=== PATIENT | male | born 1930 | race Caucasian/White ===

== ENCOUNTER 2017-05-25 07:40 | Inpatient (IN) ==
[~2017-05-25 07:40] MED LIST: ACETAMINOPHEN 500 MG TABLET PO ONE; CEFAZOLIN 1 G INJECTION IVP ONE; EPINEPHrine PF 0.25 MG, BUPIVACAINE 0.25% PF 30 ML, MORPHINE SULFATE 15 MG, KETOROLAC I... OPSITE ONE; FAMOTIDINE PB 20 MG/50 ML BAG IV ONE; LIDOCAINE 1% (10mg/ml) 10mL MDV SQ ONE; MELOXICAM 15 MG TABLET PO ONE; METOCLOPRAMIDE 10mg/2ml INJECTION IVP ONE; NOZIN NASAL SWAB NAS ONE; ONDANSETRON 4 MG/2 ML INJECTION IVP ONE; SALINE FLUSH 10ml SYRINGE IVF PRN; TRANEXAMIC ACID 1,000 MG in NS 100 ML IV ONE
[2017-05-25 08:10] VITALS: BMI 25.1
[2017-05-25] MEDS: LR 1,000 ML IV SCH ×2 (08:45→11:32)
--- NOTE | 2017-05-25 09:23 | Anesthesia Preoperative Report ---
Anesthesia Preoperative Record - Date and Time Date: 05/25/17 Preoperative Diagnosis: arthritis left knee Proposed Procedure: left total knee arthroplasty NPO Since Date: 05/25/17 NPO Since Time: 23:00 Allergies/Adverse Reactions: Allergies Allergy/AdvReac Type Severity Reaction Status Date / Time No Known Allergies Allergy Unknown Verified 05/25/17 08:24 - Vital Signs Vital Signs: Temperature 97.9 F 05/25/17 08:09 Pulse Rate 72 05/25/17 08:29 Respiratory Rate 14 05/25/17 08:09 Blood Pressure 141/81 H 05/25/17 08:09 Pulse Oximetry 95 05/25/17 08:09 Oxygen Delivery Method Room Air Height and Weight: Height 1.68 m Weight 70.6 kg Body Mass Index 25.1 - Medications Inpatient Medications: Current Medications Lactated Ringer's (Lactated Ringers) 1,000 mls @ 50 mls/hr IV .Q20H JOAQUINA Last Admin: 05/25/17 08:45 Dose: 50 mls/hr Sodium Chloride (Iv Flush) 10 - 80 ml IVF PRN PRN PRN Reason: [place] Home Medications: Home Medications Medication Instructions Recorded Confirmed Type Glucosa Tabares 2Kcl/Chondroitin Tabares 1 cap PO BID #0 10/06/11 05/24/17 History [Glucosamine & Chondroitin Cap] Omeprazole Magnesium [Prilosec Otc] 20 mg PO DAILY #0 10/07/11 05/25/17 History Fish Oil/Dha/Epa [Fish Oil 1,200 1 each PO AM AND NOON #0 08/19/13 05/24/17 History mg Fish Oil] Calcium 600 + D [Caltrate + D] 1 tab PO BID 05/01/17 05/24/17 History Glimepiride [Amaryl] 1 mg PO BID 05/01/17 05/25/17 History Melatonin/Pyridoxine [Melatonin 3 1 each PO HS 05/01/17 05/24/17 History mg Tablet] aspirin 81 mg tablet,delayed 81 mg PO DAILY tab 05/10/17 05/24/17 History release Citalopram [Celexa] 1 tab PO DAILY 05/18/17 05/25/17 History Cyanocobalamin (Vitamin B-12) 500 mcg SL DAILY 05/25/17 05/25/17 History [B-12] Multivitamin [One Daily 1 each PO DAILY 05/25/17 05/25/17 History Multivitamin] - Medical History Respiratory: Reports: Sleep Apnea (uses cpap ) Cardiovascular: Reports: Other (sees cardilogist once a year ) Renal/Endocrine: Reports: Diabetes Mellitus Type 2 (avg bs at home 130 ) - Surgical History Neurological Surgeries: Reports: Other (Lumbar fusion w/ metal stabilization) HEENT Surgeries: Reports: Eye Surgery (CATARACT X2) Respiratory Surgery/Treatments: Reports: CPAP Use GI Surgery/Treatments: Reports: Hernia Repair (LT ING), Colonoscopy, EGD ( gastric polyps) Surgery/Treatment: REPORT: Prostatectomy (ROBOT ASSISTED) Musculoskeletal Surgery/Tx: Reports: Total Knee Replacement (RIGHT 2013) Anesthesia Reactions: None Hx Family Anesthesia Reaction: No - Social History Smoking Status: Never smoker - Pertinent Findings Laboratory: CBC and BMP 05/25/17 08:18 BMP 05/25/17 08:18 Sodium 140 Potassium 4.3 Chloride 102 Carbon Dioxide 29 BUN 24.0 H Creatinine 1.0 Glucose 74 L Calcium 9.7 EKG Rhythm: Normal Sinus Rhythm, Bundle Branch Block - Physical Exam Respiratory Exam: Present: lungs clear, bilateral breath sounds equal Cardiovascular Exam: Present: regular rate and rhythm, no murmur - Airway Assessment Mallampati Score: III TMD: 3 Fingerbreadths Neck Extension: fair Teeth: patial upper dentures Overall Assessment: may be difficult intubation - ASA ASA Score: 2 - Plan Anesthesia: General Inhalation Gases Regional/Trunk Block: Spinal Peripheral Nerve Block: Saphenous-Left - Discussion Discussion: Discussed risks/options/alternatives of anesthesia and questions answered. Patient consents. Nursing pain assessment noted. Attestation Statement: Prior to the delivery of any anesthetic medication, I examined the patient, developed the plan, obtained the patient's consent and discussed the risk and benefits of the procedure with the patient/guardian.
[2017-05-25] MEDS ORDERED: D5-1/2NS 1,000 ML IV SCH (09:38)
[2017-05-25] MEDS ORDERED: MIDAZOLAM 2mg/2ml INJECTION IM PRN (09:44)
[2017-05-25] MEDS ORDERED: ROPIVACAINE 0.5% (5mg/ml) 30ml INJ ONE (09:45)
[2017-05-25] MEDS ORDERED: VANCOMYCIN 1,000 MG INJECTION ONE ×2 (09:51→10:01)
--- NOTE | 2017-05-25 10:16 | Anesthesia Procedure Note ---
Peripheral Nerve Blockade - Procedure Physician: Ankush Gomes MD Date: 05/25/17 Surgical Procedure: left knee arthroplasty Discussion: Discussed risks/options/alternatives of anesthesia and questions answered. Patient consents. Nursing pain assessment noted. Block Start: 09:45 Block Stop: 09:52 Blocked Employed: Adductor Canal Indication: Post-Operative Pain Approach: Left Side Confirmed Position: Supine Patient: Consent, Risks/Benefits Discussed, Informed, Post Block Act. Discussed IV Sedation: Yes Midazolam (mg): 2 Initial Vital Signs: Temperature 97.9 F 05/25/17 08:09 Temperature Source Oral 05/25/17 08:09 Pulse Rate 77 05/25/17 08:09 Respiratory Rate 14 05/25/17 08:09 Blood Pressure 141/81 H 05/25/17 08:09 Blood Pressure Mean 101 05/25/17 08:09 Blood Pressure Position Sitting 05/25/17 08:09 Pulse Oximetry 95 05/25/17 08:09 Oxygen Delivery Method 05/25/17 08:09 Post Vital Signs: Temperature 97.9 F 05/25/17 08:09 Pulse Rate 75 05/25/17 10:10 Respiratory Rate 15 05/25/17 10:10 Blood Pressure 115/68 05/25/17 10:10 Pulse Oximetry 93 05/25/17 10:10 Oxygen Delivery Method Room Air Post Block Pain Score: 0 Prep: Chlorhexadine/ETOH - Injectate Injection: Injection made incrementally with constant monitoring and aspiration every ml
[2017-05-25] MEDS ORDERED: MIDAZOLAM 2mg/2ml INJECTION ONE (10:21)
[2017-05-25] MEDS ORDERED: FentaNYL 100 MCG/2 ML INJECTION ONE (10:21)
[2017-05-25] MEDS ORDERED: KETAMINE 500 MG/10 ML INJECTION ONE (10:21)
[2017-05-25] MEDS: CEFAZOLIN 1 G INJECTION IVP ONE ×2 (10:40→15:40)
[2017-05-25] MEDS: TRANEXAMIC ACID 1,000 MG in NS 100 ML IV ONE ×3 (10:58→15:40)
--- NOTE | 2017-05-25 11:38 | History & Physical Update ---
- History and Physical Update Date: 05/25/17 Update: I evaluated this patient and found no changes in the history and clinical exam findings. The treatment plan and recommendations are also unchanged from the previous documentation.
[2017-05-25] MEDS: EPINEPHrine PF 0.25 MG, BUPIVACAINE 0.25% PF 30 ML, MORPHINE SULFATE 15 MG, KETOROLAC I... OPSITE ONE ×2 (12:15→15:40)
[2017-05-25] MEDS ORDERED: VANCOMYCIN 1,000 MG INJECTION IAR ONE (12:25)
--- NOTE | 2017-05-25 12:32 | Operative Note ---
- Procedure Date of Admission: 05/25/17 Side: left Preoperative Diagnosis: knee primary DJD Postoperative Diagnosis: Same as preoperative diagnosis. Operation: Procedures Total knee replacement (12/11/12) Operation: total knee arthroplasty Surgeon: Jannette Gomes MD Licensed Veterinary Technician: NAVEEN Baum Complications: None. Regional/Trunk Block: Spinal Estimated Blood Loss: See Anesthesia Record. Fluids: Please see Anesthesia Record. Description of Procedure: Mr. Iglesias and the left knee were identified and marked in the preoperative holding area. He was brought back to the operating suite and placed supine on the operating table. Spinal anesthetic was administered. The operative lower extremity was prepped and draped in a sterile fashion. Timeout was performed. He had a fixed varus deformity with a 5 degree flexion contracture. An anterior midline incision followed by medial parapatellar arthrotomy was performed. The tourniquet was not used until cementing. Hemostasis was obtained with electrocautery. The patella was resurfaced to a size 32. A distal femoral osteotomy was then performed in 5 of valgus using intramedullary guide. The femur was sized at a 4 and rotation set using the epicondylar axis. Distal femoral cuts were performed with a 4-in-1 cutting block. A proximal tibial cut was then made perpendicular to its long axis using an extramedullary guide. A large medial release was performed. At this point remaining meniscus and osteophytes were removed and joint cocktail was injected throughout soft tissue. Trial components were placed with a 9 mm spacer. This allowed for full extension and flexion and the patella tracked well. The leg was then exsanguinated and the tourniquet inflated to 250 mmHg. The tibia was then stamped at a size 4 at the proper rotation. The bone was then prepared for cementing and [employer] Tri[employer] components were cemented into place and allowed to cure in extension. The tourniquet was then let down and hemostasis obtained with electrocautery. Betadine solution was used during the curing period for 3 minutes. 1 g of vancomycin powder was placed into the joint before the capsulotomy was repaired with #1 Vicryl. I then left my printing assistant close the subcutaneous tissue and skin with 2-0 Vicryl and Monocryl. Dermabond was used on the skin. The drapes were then removed and he was taken to recovery room under the care of anesthesia.
--- NOTE | 2017-05-25 12:47 | Anesthesia Postoperative Note ---
- Date and Time Date: 05/25/17 Time: 13:00 - Status Patient Participated in Evaluation: Patient Participated in Person Vital Signs: Temperature 97.9 F 05/25/17 08:09 Pulse Rate 74 05/25/17 10:15 Respiratory Rate 14 05/25/17 10:15 Blood Pressure 114/67 05/25/17 10:15 Pulse Oximetry 92 05/25/17 10:15 Oxygen Delivery Method Room Air Respiratory Function: Airway Patent Cardiovascular Function: Regular Pulse EKG Rhythm: Normal Sinus Rhythm Mental Status: Alert and Oriented Pain Intensity: 0 Hydration: IV Infusing Complications During Recover: None Apparent - Follow-Up Instructions Instructions: Per Surgeon
[2017-05-25] MEDS ORDERED: ENOXAPARIN 40 MG/0.4 ML INJECTION SQ SCH (14:07)
[2017-05-25] MEDS ORDERED: DiphenhydrAMINE 50 MG/ML INJECTION IVP PRN (14:07)
[2017-05-25] MEDS ORDERED: ONDANSETRON 4 MG/2 ML INJECTION IVP PRN (14:07)
[2017-05-25] MEDS ORDERED: NOZIN NASAL SWAB NAS ONE (14:07)
[2017-05-25] MEDS ORDERED: DiphenhydrAMINE 25 MG CAPSULE PO PRN (14:07)
[2017-05-25] MEDS ORDERED: INSULIN ASPART 100unit/ml INJECTION SQ PRN (14:07)
[2017-05-25] MEDS ORDERED: LORazepam 1 MG TABLET PO PRN (14:07)
[2017-05-25] MEDS: ACETAMINOPHEN 325 MG TABLET PO SCH ×3 (14:45→21:08)
[2017-05-25] MEDS: NOZIN NASAL SWAB NAS SCH ×2 (15:09→21:09)
[2017-05-25] MEDS: NS 1,000 ML IV SCH (15:10)
--- NOTE | 2017-05-25 15:11 | XRay Report ---
Indication: postoperative image left knee replacement PROCEDURE: XR knee LT 2V: Encounter: Initial Comparison: May 01, 2017 Findings: Postoperative changes of left total knee replacement are seen. There is expected postoperative subcutaneous gas. No evidence of hardware failure or acute fracture. No retained radiopaque surgical instruments or sponges. Overlying material causing artifact. Impression: New left total knee prosthesis without evidence of immediate complication. .
[2017-05-25] MEDS ORDERED: WARFARIN 4 MG TABLET PO ONE ×2 (15:21→15:30)
--- NOTE | 2017-05-25 15:26 | Pharmacy Consult ---
Pharmacy Consult-Warfarin - Consult Information COUMADIN CONSULT (Initial): Dx: Post Joint. Baseline INR = Ordered for 05/26/17 Will give Warfarin 4mg today. Will continue to monitor and make adjustments accordingly. Thank you.
[2017-05-25] MEDS: CEFAZOLIN 2 G in NS 100 ML IV SCH (18:17)
[2017-05-25] MEDS: GlipiZIDE 5 MG TABLET PO SCH ×2 (18:47→18:49)
[2017-05-25] MEDS: GLIMEPIRIDE 1 MG TABLET PO SCH (18:56)
[2017-05-25] MEDS: ENOXAPARIN 40 MG/0.4 ML INJECTION SQ SCH (21:08)
[2017-05-25] MEDS: CALCIUM 600 + VIT D 400 TABLET PO SCH (21:09)
[2017-05-25] MEDS: DOCUSATE SODIUM 100 MG CAPSULE PO SCH (21:09)
[2017-05-25] MEDS: TRAMADOL 50 MG TABLET PO PRN (21:09)
[2017-05-25] MEDS ORDERED: SENNOSIDES 8.6 MG TABLET PO SCH (22:00)
[2017-05-26] MEDS: CEFAZOLIN 2 G in NS 100 ML IV SCH (02:11)
[2017-05-26] MEDS: NS 1,000 ML IV SCH (04:09)
[2017-05-26] MEDS ORDERED: OMEPRAZOLE 20 MG CAPSULE PO SCH (06:30)
--- NOTE | 2017-05-26 07:28 | Pharmacy Consult ---
Pharmacy Consult-Warfarin - Laboratory Information 05/26/17 04:27 INR 1.44 H - Consult Information Will give warfarin 4mg po today. Goal INR is 1.5-2.5. Once in range will stop the enoxaparin. Thank you.
--- NOTE | 2017-05-26 07:30 | Orthopedic Progress Note ---
Date: Subjective/Severity of Illness: Dennys is doing great. Pain is minimal. No CP, cough or SOA. He uses a CPAP at night. He was up with good tolerance. No concerns at this time. Orthopedic Objective PO Vital signs: Temperature 96.8 F 05/26/17 04:00 Pulse Rate 68 05/26/17 04:00 Respiratory Rate 8 L 05/26/17 04:00 Blood Pressure 120/68 05/26/17 04:00 Pulse Oximetry 98 05/26/17 04:00 Oxygen Delivery Method CPAP Oxygen Flow Rate 2 Height and Weight: Height 5 ft 6 in Weight 155 lb 10.342 oz Body Mass Index 25.1 - Constitutional General Appearance: Present: alert, no acute distress - Respiratory Exam Present: non-labored - Extremities Exam Extremities: Present: pulses intact. Absent: calf tenderness - Surgical Site Incision: Mepilex dressing intact, no drainage - Neurological Exam Present: no deficits - Psychiatric Exam Present: alert, normal affect - Labs Result Diagrams: 05/26/17 04:27 05/26/17 04:27 Abnormal lab results 05/25/17 05/26/17 05/26/17 Range/Units 08:18 04:27 04:27 RBC 3.86 L (4.50-5.90) M/MM3 Hgb 12.3 L (13.5-17.5) GM/DL Hct 38.8 L (41-53) % MCV 100.5 H (80-100) UM3 RDW Std Deviation 52.5 H (36.9-50.2) FL Plt Count 126 L (130-400) T/MM3 INR 1.44 H (0.99-1.21) BUN 24.0 H (9-20) MG/DL Glucose 74 L (75-110) MG/DL 05/26/17 Range/Units 04:27 RBC (4.50-5.90) M/MM3 Hgb (13.5-17.5) GM/DL Hct (41-53) % MCV (80-100) UM3 RDW Std Deviation (36.9-50.2) FL Plt Count (130-400) T/MM3 INR (0.99-1.21) BUN 28.0 H (9-20) MG/DL Glucose 71 L (75-110) MG/DL H & H 05/26/17 Range/Units 04:27 Hgb 12.3 L (13.5-17.5) GM/DL Hct 38.8 L (41-53) % Coagulation 05/26/17 Range/Units 04:27 INR 1.44 H (0.99-1.21) Orthopedic Assessment and Plan (1) Arthritis of left knee Status: Acute Assessment and Plan: L TKA 05/24/17 Mobilize with PT / OT. Lovenox / Coumadin protocol for DVT coverage. SCDs in use. CM for discharge planning. (2) Diabetes Status: Chronic Assessment and Plan: Resumed oral diabetic agent. Monitor BGMs 1800 devang diet. (3) Prostate CA Status: Chronic Assessment and Plan: Due to this hx we will place him on Lovenox / Coumadin protocol for 30 days after surgery. Hospital Course Summary Disclaimer: The visit summary below is not to be considered part of the above Progress Note.
[2017-05-26] MEDS: NOZIN NASAL SWAB NAS SCH ×2 (07:50→14:06)
[2017-05-26] MEDS: GLIMEPIRIDE 1 MG TABLET PO SCH (07:50)
[2017-05-26] MEDS: CALCIUM 600 + VIT D 400 TABLET PO SCH (08:40)
[2017-05-26] MEDS: ACETAMINOPHEN 325 MG TABLET PO SCH ×2 (08:40→14:04)
[2017-05-26] MEDS: DOCUSATE SODIUM 100 MG CAPSULE PO SCH (08:40)
[2017-05-26] MEDS ORDERED: CITALOPRAM 20 MG TABLET PO SCH (09:00)
[2017-05-26] MEDS ORDERED: POLYETHYL GLYCOL 3350 17gm PACKET PO SCH (09:00)
[2017-05-26] MEDS: TRAMADOL 50 MG TABLET PO PRN (10:25)
[2017-05-26 11:45] VITALS: BP 116/67; PULSE 66; RESP 16; TEMP 96.6; O2SAT 95
[2017-05-26] MEDS ORDERED: WARFARIN 4 MG TABLET PO SCH (12:00)
[2017-05-26] MEDS ORDERED: SENNOSIDES 8.6 MG TABLET PO PRN (12:34)
--- NOTE | 2017-05-26 14:15 | Discharge Summary ---
Orthopedic Discharge Info Date of admission: 05/25/17 07:49 Anticipated date of discharge: 05/26/17 Primary care physician: Yeison Ash MD Attending Physician: Ankush Gomes MD Consults: 05/25/17 07:54 Consult to Anesthesiology [CONS] Routine Consulting Provider: NAVEEN Pastor Reason For Exam: Preoperative Assessment 05/25/17 14:07 Case Management Consult [CONS] Routine Reason For Exam: Discharge Planning DME-Walker [CONS] Routine Height: 5 ft 6 in Weight: 155 lb 10.342 oz Comment: change dressing in 2 weeks Pharmacy Consult [CONS] Routine Pharmacy Consult: Coumadin/Warfarin Total Joint Outpatient Therapy [CONS] Routine Comment: change dressing in 2 weeks 05/26/17 IRU Screening [Inpatient Rehab Screening] [CONS] Routine - Discharge Diagnosis (1) Arthritis of left knee Status: Acute (2) Diabetes Status: Chronic (3) Prostate CA Status: Chronic - Procedures Procedures: Procedures Total knee replacement (12/11/12) Lt TKA 05/25/17. - Laboratory Result Diagrams: 05/26/17 04:27 05/26/17 04:27 Laboratory: Abnormal lab results 05/26/17 05/26/17 05/26/17 Range/Units 04:27 04:27 04:27 RBC 3.86 L (4.50-5.90) M/MM3 Hgb 12.3 L (13.5-17.5) GM/DL Hct 38.8 L (41-53) % MCV 100.5 H (80-100) UM3 RDW Std Deviation 52.5 H (36.9-50.2) FL Plt Count 126 L (130-400) T/MM3 INR 1.44 H (0.99-1.21) BUN 28.0 H (9-20) MG/DL Glucose 71 L (75-110) MG/DL H & H 05/26/17 Range/Units 04:27 Hgb 12.3 L (13.5-17.5) GM/DL Hct 38.8 L (41-53) % Coagulation 05/26/17 Range/Units 04:27 INR 1.44 H (0.99-1.21) Orthopedic Discharge HPI - HPI Comments This patient was admitted for elective surgical tx of end stage degenerative joint disease that failed to respond to conservative treatment. Further details of this is found in the admission H&P. Orthopedic Hospital Course Hospital course: 05/26/17 14:08 After appropriate preoperative clearance and signing of operative consent, the patient was given IV antibiotics, according to orthopedic protocol. The patient was taken to the operating room and underwent elective total knee arthroplasty. Following surgery, antibiotics were discontinued less than 24 hours according to joint protocol. Lovenox and Coumadin were initiated and SCDs added for DVT prevention. The dressing was clean, dry, and intact. Pain control was obtained via multimodal approach. Bowel motivation addressed with scheduled and PRN medications. Early mobilization was initiated through PT services. Discharge arrangements made by a collaborative effort between the patient and Case Management. Follow-up is scheduled in 2-3 weeks. Discharge instructions given by orthopedic providers and nursing staff at discharge. Discharge condition was good. Ongoing care required?: No Discharge Plan - Med Rec/Dispo Referrals/Follow Up: Ankush Gomes MD [Physician] - 06/19/17 1:00 pm [facility] Instructions: [facility] General Instructions, [facility] Postop Instructions Additional Instructions: [facility] ON 05/29/2017 AT 11:30AM FOR PHYSICAL THERAPY EVAL WITH L[facility]. PHONE [phone] [facility] TWICE A WEEK (MONDAYS AND THURSDAYS) FOR INR LAB DRAW FOR FOUR WEEKS. PHONE [phone] Prescriptions: New Acetaminophen [Tylenol] 650 mg PO QID tablet Enoxaparin Sodium [Lovenox] 40 mg SQ 2100 #5 syringe PEG 3350 17gm PACKET [Miralax] 17 gm PO DAILY packet Warfarin [Coumadin] 2 tab PO 1700 #60 tab Docusate Sodium [Colace] 100 mg PO BID capsule Tramadol [Ultram] 50 - 100 mg PO Q6H PRN #60 tablet PRN Reason: Pain Continue Glucosa Tabares 2Kcl/Chondroitin Tabares [Glucosamine & Chondroitin Cap] 1 cap PO BID # 0 Omeprazole Magnesium [Prilosec Otc] 20 mg PO DAILY #0 Fish Oil/Dha/Epa [Fish Oil 1,200 mg Fish Oil] 1 each PO AM AND NOON #0 Glimepiride [Amaryl] 1 mg PO BID Calcium 600 + D [Caltrate + D] 1 tab PO BID Cyanocobalamin (Vitamin B-12) [B-12] 500 mcg SL DAILY Melatonin/Pyridoxine [Melatonin 3 mg Tablet] 1 each PO HS Citalopram [Celexa] 1 tab PO DAILY Multivitamin [One Daily Multivitamin] 1 each PO DAILY Discontinued aspirin 81 mg tablet,delayed release 81 mg PO DAILY tab - Disposition 01 Discharged Home, Self-Care
[2017-05-26] MEDS: ENOXAPARIN 40 MG/0.4 ML INJECTION SQ SCH (15:07)
[2017-05-27] MEDS ORDERED: BISACODYL 10 MG SUPPOSITORY RECTALLY SCH (20:00)
== END 2017-05-26 15:40 | disposition home or self-care (01) | DRG 470 ==
LOC: SRG 07:49
PROVIDERS: ADMIT Orthopaedic Surgery; ATTEND Orthopaedic Surgery

== ENCOUNTER 2017-05-29 15:13 | Inpatient (IN) ==
[2017-05-29 16:58] VITALS: BMI 27.3
--- NOTE | 2017-05-29 18:13 | Pharmacy Consult ---
Pharmacy Consult-Warfarin - Laboratory Information 05/29/17 17:37 INR 4.89 H* - Consult Information Consult noted for a warfarin protocol on Mr Orourke. His INR came back at 4.89. We will give no warfarin today and we discontinued the enoxaparin. Thank you.
[2017-05-29] MEDS: ACETAMINOPHEN 325 MG TABLET PO SCH ×2 (18:14→20:58)
[2017-05-29] MEDS: GLIMEPIRIDE 1 MG TABLET PO SCH (18:14)
[2017-05-29] MEDS ORDERED: ENOXAPARIN 40 MG/0.4 ML INJECTION SQ SCH (21:00)
[2017-05-29] MEDS: CALCIUM 600 + VIT D 400 TABLET PO SCH (21:00)
[2017-05-29] MEDS: DOCUSATE SODIUM 100 MG CAPSULE PO SCH (21:00)
[2017-05-29] MEDS: GLUCOSAMINE/CHONDROITIN 500 MG/400 MG CAPSULE PO SCH (21:02)
[2017-05-29] MEDS: TRAMADOL 50 MG TABLET PO PRN (21:03)
[2017-05-29] MEDS: MELATONIN 1 MG TABLET PO SCH (21:03)
[2017-05-30] MEDS: TRAMADOL 50 MG TABLET PO PRN ×3 (06:12→21:53)
[2017-05-30] MEDS: OMEPRAZOLE 20 MG CAPSULE PO SCH (06:13)
--- NOTE | 2017-05-30 08:24 | Pharmacy Consult ---
Pharmacy Consult-Warfarin - Laboratory Information 05/29/17 05/30/17 17:37 04:42 INR 4.89 H* 4.20 H - Consult Information 87 y.o. Male post-op total knee replacement day 5. Patient started on Warfarin post-op for DVT prophylaxis. goal INR range= 1.5-2.0. Patient post-op dose= Warfarin 4 mg po daily today's INR= 4.2 and is supra-therapeutic. Potential drug-drug interactions exist between Warfarin and Citalopram and Warfarin and Cephalexin both medications may increase INR and risk of bleeding. No Warfarin dose ordered today. Pharmacy will continue to monitor and dose Warfarin. Thank you for the protocol, Lyn Leon RPh
--- NOTE | 2017-05-30 09:09 | Consult Note ---
<Orquidea Arellano V - Last Filed: 05/30/17 09:15> Consult Information - Data of Consult Patient: new to practice Consult date: 05/30/17 Requesting Physician: Jameel Stanton MD Primary Care Provider: Yeison Ash MD Family Provider: Yeison Ash MD - Consult Narrative Reason for consult: S/P left knee History of present illness: Mr Orourke is a pleasant 87-year-old gentleman who underwent a scheduled left knee replacement on 05/25/17 under the care of Dr. Gomes. He tolerated this procedure well and was discharged home on 05/26/17. Unfortunately, in the several days following this he developed weakness to the bilateral lower extremities, accompanied with increased swelling and pain of the left lower extremity. He was unable to care for himself at home. He followed up in the clinic yesterday for postop follow-up. Given this decline and continuing debility. He was screened and able to be accepted to the inpatient rehabilitation unit for ongoing postoperative strengthening and improve function. He is seen this morning for initial medical consultation. He is alert, oriented and pleasant. He does note having continued swelling and erythema to the left lower extremity with erythema around the incision. He reports that he is concerned that he is unable to ambulate with a walker due to his general weakness and debility. He is thankful for the opportunity to rehabilitation at [facility]. Morning laboratory studies are reviewed. WBC count was found to be 11.4, hemoglobin 11.1, hematocrit 34.2, platelet count slightly low at 107. Sodium is slightly low 132, potassium 4.6, BUN 25, creatinine 1.0, calculated osmolality 258. Fasting glucose this morning was 86. He was found to be hyper-anticoagulated with an initial INR last evening of 4.89, followed by recheck INR this morning of 4.20. 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 Sleep Apnea Yes: USES C-PAP Diabetes Mellitus Type 2 Yes Gastroesophageal Reflux Yes Disease Hx Incontinence Yes Osteoarthritis Yes Clinic Medical History (Last Reviewed 05/29/17 @ 10:36 by MIKE Arnett ) Arthritis (Chronic Medical) GERD (gastroesophageal reflux disease) (Chronic Medical) Cataract (Chronic Medical) Diabetes (Chronic Medical) Prostate CA (Chronic Medical) Balance disorder (Chronic Medical) Obstructive sleep apnea (Chronic Medical) Anxiety Surgical History: Rt TKA-2013; Radical Robotic Prostatectomy; Fx L4 - stabilization L3-5 Family History: Family History Father No problems noted. 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 Dr. Yeison Ash Embroidery Finisher Dr. Orellana Paving Machine Operator Dr. Vega Spine surgeon, Dr. Murrell Review of Systems All systems: reviewed and no additional remarkable complaints except as stated - Constitutional Constitutional: Present: fatigue, weakness (generalized) - Musculoskeletal Musculoskeletal: Present: as per HPI, joint swelling (left knee) - Integumentary/Breasts Integumentary: Present: as per HPI Integumentary Comments: Erythema around his left knee incision Medications Home Medications Medication Instructions Recorded Confirmed Type Glucosa Tabares 2Kcl/Chondroitin Tabares 1,500 mg PO BID #0 10/06/11 05/29/17 History [Glucosamine & Chondroitin Cap] Omeprazole Magnesium [Prilosec Otc] 20 mg PO DAILY #0 10/07/11 05/29/17 History Fish Oil/Dha/Epa [Fish Oil 1,200 1 each PO AM AND NOON #0 08/19/13 05/29/17 History mg Fish Oil] Calcium 600 + D [Caltrate + D] 1 tab PO BID 05/01/17 05/29/17 History Glimepiride [Amaryl] 1 mg PO BID 05/01/17 05/29/17 History Melatonin/Pyridoxine [Melatonin 3 1 each PO HS 05/01/17 05/29/17 History mg Tablet] Citalopram [Celexa] 1 tab PO DAILY 05/18/17 05/29/17 History Cyanocobalamin (Vitamin B-12) 500 mcg SL DAILY 05/25/17 05/29/17 History [B-12] Multivitamin [One Daily 1 each PO DAILY 05/25/17 05/29/17 History Multivitamin] Aspirin Chewable [ASA] 1 tab PO DAILY 05/29/17 05/29/17 History cephALEXin [Keflex] 500 mg PO QID 05/29/17 05/29/17 History Allergies Allergy/AdvReac Type Severity Reaction Status Date / Time No Known Allergies Allergy Unknown Verified 05/29/17 18:16 Exam Vital Signs: Temperature 98.0 F 05/30/17 07:56 Pulse Rate 96 05/30/17 07:56 Respiratory Rate 16 05/30/17 07:56 Blood Pressure 127/72 05/30/17 07:56 Pulse Oximetry 96 05/29/17 21:29 Oxygen Delivery Method Room Air Height: 1.68 m Weight: 76.7 kg Body Mass Index: 27.3 - Constitutional Present: no acute distress - Routine HEENT Exam Head: Present: normocephalic, atraumatic Eye: Present: EOMI, PERRL ENT: Present: mucous membranes moist - Routine Neck Exam Present: supple, full ROM - Routine Respiratory Exam Present: CTA bilaterally - Routine Cardiovascular Exam Present: RRR, S1, S2, no murmur - Routine Abdominal Exam Present: soft, normoactive bowel sounds, non distended, non tender - Routine Extremities Exam Present: edema (LLE), tenderness (Left knee) - Routine Back/Spine/Pelvis Exam Back/Spine: Present: full ROM - Routine Skin Exam Present: intact, dry, warm - Routine Neurological Exam Present: alert, oriented X3, CN II-XII intact Results - Labs CBC & Chem 7: 05/30/17 04:42 05/30/17 04:42 Assessment and Plan (1) Hyponatremia Current visit: Yes Status: Acute (2) S/P knee replacement Current visit: Yes Status: Acute (3) Elevated INR Current visit: Yes Status: Acute (4) Debility Current visit: Yes Status: Acute (5) Arthritis Current visit: No Status: Chronic (6) GERD (gastroesophageal reflux disease) Current visit: No Status: Chronic (7) Cataract Current visit: No Status: Chronic (8) Diabetes Current visit: No Status: Chronic (9) Prostate CA Current visit: No Status: Chronic (10) Leukocytosis Current visit: Yes Status: Acute DVT Prophylaxis: Coumadin Resuscitation Status: Full Code Assessment and Plan: Agree with admission to the inpatient rehabilitation unit under the care of Dr. Stanton for further postoperative strengthening and improve function. In light of left lower extremity swelling. Will obtain a venous Doppler to rule out DVT. Fortunately, patient is already anticoagulated on Coumadin therapy and is therapeutic, INR today is 4.2. Agree with continuing Keflex for antimicrobial coverage. Will ask nursing staff to place CHRISTINA hose to lower extremity to help mobilize edema. Monitor Accu-Cheks and continue current regimen of Amaryl twice a day He may utilize tramadol as needed for pain control Recommend continuing with scheduled Colace and MiraLAX for ongoing postoperative bowel motivation. Need to monitor laboratory studies as he has mild leukocytosis and hyponatremia Appreciate medical consultation. The hospitalist services will continue to follow patient and medical [place] his existing comorbidities. At time of discharge his medical care will return to his primary care provider. Dr. Ash Hospital Course Summary Disclaimer: The visit summary below is not to be considered part of the above Progress Note. 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 Brother Diabetes Exam Vital Signs: Temperature 98.0 F 05/30/17 07:56 Pulse Rate 96 05/30/17 07:56 Respiratory Rate 16 05/30/17 07:56 Blood Pressure 127/72 05/30/17 07:56 Pulse Oximetry 96 05/29/17 21:29 Oxygen Delivery Method Room Air Height: 1.68 m Weight: 76.7 kg Results - Labs CBC & Chem 7: 05/30/17 04:42 05/30/17 04:42 Assessment and Plan (1) Prostate CA Current visit: No Status: Chronic (2) Diabetes Current visit: No Status: Chronic (3) Cataract Current visit: No Status: Chronic (4) GERD (gastroesophageal reflux disease) Current visit: No Status: Chronic (5) Arthritis Current visit: No Status: Chronic (6) S/P knee replacement Current visit: Yes Status: Acute (7) Elevated INR Current visit: Yes Status: Acute (8) Debility Current visit: Yes Status: Acute (9) Hyponatremia Current visit: Yes Status: Acute (10) Leukocytosis Current visit: Yes Status: Acute Assessment and Plan: Have independently interviewed and examined pt. Chart reviewed. Case discussed with my SENIOR COMPLIANCE OFFICER. Above care plan developed with my supervision; agree with above. Rough recover from knee Sx. Did well in the 2 days he was hospitalized, but had significant weakness to his legs making ambulation extremely difficult. Despite outpatient efforts for therapy and care on the Mon and Monday post sx ( discharged on Monday) he could not get around. Noted f/c. Breathing stable-not with increased cough/congestion. Stools slow post op. Also, notes problems with right hearing aide-dose worry there is wax accumulation in ear. Lungs: clear CV: regular AB: soft nt/nd +BS MSE: awake alert appropriate HEENT: cerumen present in right ear-some able to be removed with direct visualization but not all. Plan: Agree with admission to IRU to maximize functional status. Hold Coumadin as INR elevated-monitor INR. Sono neg for DVT. Work on bowel motivation. Continue pain control. Remove ear wax. Medically stable for IRU floor activity. Hospital Course Summary Disclaimer: The visit summary below is not to be considered part of the above Progress Note.
[2017-05-30] MEDS: ASPIRIN 81 MG CHEWABLE TABLET PO SCH (09:19)
[2017-05-30] MEDS: ACETAMINOPHEN 325 MG TABLET PO SCH ×4 (09:19→22:01)
[2017-05-30] MEDS: GLUCOSAMINE/CHONDROITIN 500 MG/400 MG CAPSULE PO SCH ×2 (09:19→21:57)
[2017-05-30] MEDS: GLIMEPIRIDE 1 MG TABLET PO SCH ×2 (09:20→18:12)
[2017-05-30] MEDS: CALCIUM 600 + VIT D 400 TABLET PO SCH ×2 (09:20→21:54)
[2017-05-30] MEDS: CITALOPRAM 20 MG TABLET PO SCH (09:20)
[2017-05-30] MEDS: MULTI-VITAMIN PLAIN TABLET PO SCH (09:20)
[2017-05-30] MEDS: DOCUSATE SODIUM 100 MG CAPSULE PO SCH ×2 (09:20→21:58)
[2017-05-30] MEDS: CYANOCOBALAMIN (B-12) 500mcg TABLET PO SCH (09:20)
[2017-05-30] MEDS: OMEGA-3 ACID ESTERS 1 GM CAPSULE PO SCH ×2 (09:20→14:08)
[2017-05-30] MEDS: POLYETHYL GLYCOL 3350 17gm PACKET PO SCH (09:21)
--- NOTE | 2017-05-30 12:07 | Ultrasound Report ---
Indication: LLE swelling and erythema, recent knee replacement PROCEDURE: US venous doppler LE LT: Encounter: Initial Comparison: None Technique: Color Doppler duplex and grayscale sonographic imaging of the left lower extremity was performed. Findings: There is no evidence for acute deep venous thrombosis in the left thigh. Specifically, serial graded compression was performed from the inguinal ligament to the popliteal bifurcation, on the left thigh, demonstrating appropriate compressibility of the deep venous system. In addition, color and pulsed Doppler demonstrate appropriate spontaneous flow, variation with respiration, and augmentation with calf compression. At the ankle, normal flow is identified in the posterior tibial veins; these vessels are also normal in caliber. Impression: No evidence of acute DVT in the left lower limb. .
[2017-05-30] MEDS ORDERED: WARFARIN 2 MG TABLET PO SCH (17:00)
[2017-05-30] MEDS: MELATONIN 1 MG TABLET PO SCH (21:59)
[2017-05-30] MEDS: CARBAMIDE PEROXIDE 6.5% EAR DROPS 15ml RIGHT EAR SCH (22:04)
[2017-05-31] MEDS: OMEPRAZOLE 20 MG CAPSULE PO SCH (05:45)
--- NOTE | 2017-05-31 07:08 | IRU History & Physical Report ---
HPI IRU Date: Chief complaint: Left lower leg pain/ weakness. HPI: 87 yo gentleman s/p Left TKA. Pt was d/c shortly after procedure and went home , where he lives by himself. He was inpain and became increasingly weak, unable to manage ADL's. Left leg became increasingly swollen. IRU was contacted by Orthopedic Surgeon after pt went in for post op clinic yesterday. He would like to become strong enough to return home and is willing to work 3+ hours daily with PT and OT. 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 Sleep Apnea Yes: USES C-PAP Diabetes Mellitus Type 2 Yes Gastroesophageal Reflux Yes Disease Hx Incontinence Yes Osteoarthritis Yes Clinic Medical History (Last Updated 05/30/17 @ 09:15 by Orquidea Arellano APRN) Arthritis (Chronic Medical) GERD (gastroesophageal reflux disease) (Chronic Medical) Cataract (Chronic Medical) Diabetes (Chronic Medical) Prostate CA (Chronic Medical) Balance disorder (Chronic Medical) Obstructive sleep apnea (Chronic Medical) Surgical History: Rt TKA-2012; Radical Robotic Prostatectomy; Fx L4 - stabilization L3-5 Family History: Family History (Last Reviewed 05/29/17 @ 10:36 by MIKE Arnett) Father No problems noted. Brother Diabetes - Social History Smoking status: Never smoker Substance use type: does not use Alcohol intake frequency: does not drink Current residence: Independent Living Medications Home Medications Medication Instructions Recorded Confirmed Type Glucosa Tabares 2Kcl/Chondroitin Tabares 1,500 mg PO BID #0 10/06/11 05/29/17 History [Glucosamine & Chondroitin Cap] Omeprazole Magnesium [Prilosec Otc] 20 mg PO DAILY #0 10/07/11 05/29/17 History Fish Oil/Dha/Epa [Fish Oil 1,200 1 each PO AM AND NOON #0 08/19/13 05/29/17 History mg Fish Oil] Calcium 600 + D [Caltrate + D] 1 tab PO BID 06/12/17 07/10/17 History Glimepiride [Amaryl] 1 mg PO BID 05/01/17 05/29/17 History Melatonin/Pyridoxine [Melatonin 3 1 each PO HS 05/01/17 05/29/17 History mg Tablet] Citalopram [Celexa] 1 tab PO DAILY 05/18/17 05/29/17 History Cyanocobalamin (Vitamin B-12) 500 mcg SL DAILY 05/25/17 05/29/17 History [B-12] Multivitamin [One Daily 1 each PO DAILY 05/25/17 05/29/17 History Multivitamin] Aspirin Chewable [ASA] 1 tab PO DAILY 05/29/17 05/29/17 History cephALEXin [Keflex] 500 mg PO QID 05/29/17 05/29/17 History Allergies Allergy/AdvReac Type Severity Reaction Status Date / Time No Known Allergies Allergy Unknown Verified 05/29/17 18:16 Exam Vital Signs: Temperature 98.7 F 05/31/17 00:00 Pulse Rate 99 05/31/17 00:00 Respiratory Rate 15 05/31/17 00:00 Blood Pressure 122/66 05/31/17 00:00 Pulse Oximetry 97 05/31/17 00:00 Oxygen Delivery Method Room Air Telemetry Rhythm: Sinus Rhythm Height: 1.68 m Weight: 76.7 kg Body Mass Index: 27.3 - Constitutional Present: mild distress, cooperative - Routine HEENT Exam Head: Present: normocephalic - Routine Neck Exam Present: supple - Routine Respiratory Exam Present: CTA bilaterally. Absent: wheezes - Routine Cardiovascular Exam Present: RRR, no murmur - Routine Extremities Exam Present: edema. Absent: clubbing Sepsis Assessment - Evaluation Sepsis screening result: No Definite Risk IRU A/P (1) S/P knee replacement Current visit: Yes Status: Acute PT and OT will work with pt to increase strength and mobility post op. (2) Debility Current visit: Yes Status: Acute Pt will require PT and OT and case management to facilitate recovery and appropriate placement back at home. PT and OT developing plan of care. (3) Hyponatremia Current visit: Yes Status: Acute medical to follow. DVT Prophylaxis: Coumadin Resuscitation Status: Full Code - Course Hospital Course: Jameel E Romy, MD: - Interventions to Obtain Goals PT Treatment Plan: Balance/Proprioception, Functional Activities, Gait Training , Patient/Family Education, Therapeutic Exercise OT Treatment Plan: ADL (Basic Care), Balance Training, IADL, Pt./Family Education, Ther. Exercise for ADL
--- NOTE | 2017-05-31 07:15 | IRU 24Hr Post Admit Eval ---
24 Hr Post Admission Physical - Relevant Changes Relevant Changes: No Reviewed: I have reviewed the patient's information and concur with the finding and results of the pre-admission screen. Certification: I certify the patient for rehabilitation. - Patient Condition (1) S/P knee replacement Status: Acute Code(s): Z96.659 - Presence of unspecified artificial knee joint (2) Debility Status: Acute Code(s): R53.81 - Other malaise (3) Hyponatremia Status: Acute Code(s): E87.1 - Hypo-osmolality and hyponatremia - Prior Functional Status Lives With: Alone Residence Type: Apartment/Private Home Assitive Devices: None Prior Functional Status: Indep. at home or school - Current Functional Status Failed Alternative Therapy: Yes Patient Requirements: The patient requires oversight by rehabilitation physician to manage their rehabilitation treatment plan and multidisciplinary approach to care that can only be provided in an IRF and requires a multidisciplinary approach to care, provided by professional PTs, OTs, STs, dieticians, RTs, rehabilitation nurses and is not available in lesser levels of care. Limitiations Req: Mobility Impairment, ADL Impairment Physical Therapy Minutes: 90 Occupational Therapy Minutes: 90 Therapy: The patient is to receive therapy at least 5 days a week. - Complications/Comorbidities Impact on Functional Outcomes: With PT and OT, pt should be able to return to preop level of activity and independence. Barriers to Discharge: Weakness, Balance, Endurance, Pain Control - Plan to Avoid Complications Plan to Avoid Complications: The patient cannot receive this care in a lesser intensive setting such as [facility] or Outpatient Therapy due to the patient requiring intensive PT and OT to rebuild strength and increase balance and control to the point that he can return to independent living. .
--- NOTE | 2017-05-31 07:40 | Pharmacy Consult ---
Pharmacy Consult-Warfarin - Laboratory Information 05/29/17 05/30/17 05/31/17 17:37 04:42 04:38 INR 4.89 H* 4.20 H 2.75 H - Consult Information Goal INR is 1.5-2.5, will not give any warfarin today. Thank you.
[2017-05-31] MEDS: OMEGA-3 ACID ESTERS 1 GM CAPSULE PO SCH ×2 (08:51→13:04)
[2017-05-31] MEDS: CITALOPRAM 20 MG TABLET PO SCH (08:52)
[2017-05-31] MEDS: ASPIRIN 81 MG CHEWABLE TABLET PO SCH (08:52)
[2017-05-31] MEDS: CALCIUM 600 + VIT D 400 TABLET PO SCH ×2 (08:52→20:31)
[2017-05-31] MEDS: GLIMEPIRIDE 1 MG TABLET PO SCH ×2 (08:52→18:00)
[2017-05-31] MEDS: ACETAMINOPHEN 325 MG TABLET PO SCH ×4 (08:53→20:31)
[2017-05-31] MEDS: CYANOCOBALAMIN (B-12) 500mcg TABLET PO SCH (08:53)
[2017-05-31] MEDS: MULTI-VITAMIN PLAIN TABLET PO SCH (08:53)
[2017-05-31] MEDS: DOCUSATE SODIUM 100 MG CAPSULE PO SCH ×2 (08:54→20:30)
[2017-05-31] MEDS: POLYETHYL GLYCOL 3350 17gm PACKET PO SCH (09:05)
[2017-05-31] MEDS: GLUCOSAMINE/CHONDROITIN 500 MG/400 MG CAPSULE PO SCH ×2 (09:08→20:32)
[2017-05-31] MEDS: CARBAMIDE PEROXIDE 6.5% EAR DROPS 15ml RIGHT EAR SCH ×2 (09:27→20:32)
[2017-05-31] MEDS ORDERED: PNEUMOCOCCAL 13 VACCINE 0.5ml INJECTION IM ONE (14:07)
[2017-05-31] MEDS: MELATONIN 1 MG TABLET PO SCH (20:30)
[2017-05-31] MEDS: TRAMADOL 50 MG TABLET PO PRN (20:35)
[2017-06-01] MEDS: MELATONIN 1 MG TABLET PO SCH ×2 (01:01→21:08)
[2017-06-01] MEDS: TRAMADOL 50 MG TABLET PO PRN ×3 (02:07→23:29)
[2017-06-01] MEDS: OMEPRAZOLE 20 MG CAPSULE PO SCH ×2 (05:24→15:12)
--- NOTE | 2017-06-01 07:50 | Pharmacy Consult ---
Pharmacy Consult-Warfarin - Laboratory Information 05/29/17 05/30/17 05/31/17 17:37 04:42 04:38 INR 4.89 H* 4.20 H 2.75 H 06/01/17 05:10 INR 2.13 H - Consult Information INR RANGE IS 1.5-2.5. Will give warfarin 2mg po today. Thank you.
[2017-06-01] MEDS: POLYETHYL GLYCOL 3350 17gm PACKET PO SCH (08:26)
[2017-06-01] MEDS: CALCIUM 600 + VIT D 400 TABLET PO SCH ×2 (08:27→21:09)
[2017-06-01] MEDS: DOCUSATE SODIUM 100 MG CAPSULE PO SCH ×2 (08:27→21:10)
[2017-06-01] MEDS: CITALOPRAM 20 MG TABLET PO SCH (08:28)
[2017-06-01] MEDS: GLIMEPIRIDE 1 MG TABLET PO SCH ×2 (08:28→17:51)
[2017-06-01] MEDS: OMEGA-3 ACID ESTERS 1 GM CAPSULE PO SCH ×2 (08:28→12:29)
[2017-06-01] MEDS: ACETAMINOPHEN 325 MG TABLET PO SCH ×4 (08:28→21:10)
[2017-06-01] MEDS: CYANOCOBALAMIN (B-12) 500mcg TABLET PO SCH (08:28)
[2017-06-01] MEDS: MULTI-VITAMIN PLAIN TABLET PO SCH (08:28)
[2017-06-01] MEDS: ASPIRIN 81 MG CHEWABLE TABLET PO SCH (08:28)
[2017-06-01] MEDS: GLUCOSAMINE/CHONDROITIN 500 MG/400 MG CAPSULE PO SCH ×2 (08:31→21:09)
--- NOTE | 2017-06-01 11:49 | Progress Note ---
<Erin Fowler - Last Filed: 06/01/17 11:43> Subjective: Dennys was resting in bed, CPM on left knee. He has noticed improvement, but yesterday/last night. His pain was out of control. He noticed that his blood pressure shot up at that time, but states that usually his blood pressure is under very good control and he does not take any antihypertensives. Today, his pain is better, currently rates it as 6/10. He notes ongoing purple discoloration of the left lower extremity and mild tenderness. Ultrasound was negative for DVT. We reviewed his labs, including therapeutic INR, normal renal function, and slightly low hemoglobin. 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 He did ask to have INR drawn by fingersticks, rather than venous draws because of his tendency to bruise easily. He states that he did have some problems with constipation, but this has resolved. He is worried about paying trend.ly home. He is not there, and I called the housing case manager to visit with him about these concerns. Objective Vital signs: Temperature 98.7 F 06/01/17 00:00 Pulse Rate 91 06/01/17 00:00 Respiratory Rate 18 06/01/17 00:00 Blood Pressure 150/81 H 06/01/17 00:00 Pulse Oximetry 98 06/01/17 00:00 Oxygen Delivery Method Room Air Body Mass Index: 27.3 - Constitutional Present: no acute distress, well nourished, well developed - Routine HEENT Exam ENT: Present: mucous membranes moist, oropharynx clear - Routine Respiratory Exam Present: CTA bilaterally - Routine Cardiovascular Exam Present: RRR, S1, S2, murmur (2/6 systolic) - Routine Abdominal Exam Present: soft, normoactive bowel sounds, non distended, non tender - Routine Extremities Exam Present: calf tenderness (left) - Routine Musculoskeletal Exam Musculoskeletal: Present: limited range of motion. Absent: no joint swelling ( knee left) - Routine Skin Exam Present: intact, dry, warm, ecchymosis (left leg) - Routine Neurological Exam Present: alert, oriented X3 - Routine Psychiatric Exam Present: normal affect, normal thought process Results - Labs CBC & Chem 7: 05/31/17 04:38 05/31/17 04:38 Assessment and Plan (1) Thrombocytopenia Current visit: Yes Status: Acute (2) Hyponatremia Current visit: Yes Status: Acute (3) S/P knee replacement Current visit: Yes Status: Acute (4) Debility Current visit: Yes Status: Acute (5) Normocytic anemia Current visit: Yes Status: Acute Resuscitation Status: Full Code Assessment and Plan: Continue therapy and pain control per attending. INR therapeutic and venous Doppler was negative for DVT. Continue Coumadin per pharmacy protocol. May start obtaining INR via fingerstick. 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 Discussed with housing case manager, she will come and visit with Dennys about his concerns. Constipation has improved. Mild hyponatremia, thrombocytopenia, and mild normocytic anemia: Repeat labs ( CBC, BMP) on June 05. Sepsis Assessment - Evaluation Sepsis screening result: No Definite Risk Hospital Course Summary Disclaimer: The visit summary below is not to be considered part of the above Progress Note. Hospital Course: 06/01/17 12:13 Continue therapy and pain control per attending. INR therapeutic and venous Doppler was negative for DVT. Continue Coumadin per pharmacy protocol. May start obtaining INR via fingerstick. 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 Discussed with housing case manager, she will come and visit with Dennys about his concerns. Constipation has improved. Mild hyponatremia, thrombocytopenia, and mild normocytic anemia: Repeat labs ( CBC, BMP) on June 05. <Tom Ray D - Last Filed: 06/01/17 15:25> Objective Vital signs: Temperature 98.7 F 06/01/17 00:00 Pulse Rate 91 06/01/17 00:00 Respiratory Rate 18 06/01/17 00:00 Blood Pressure 150/81 H 06/01/17 00:00 Pulse Oximetry 98 06/01/17 00:00 Oxygen Delivery Method Room Air Results - Labs CBC & Chem 7: 05/31/17 04:38 05/31/17 04:38 Assessment and Plan (1) S/P knee replacement Current visit: Yes Status: Acute (2) Debility Current visit: Yes Status: Acute (3) Hyponatremia Current visit: Yes Status: Acute (4) Thrombocytopenia Current visit: Yes Status: Acute (5) Normocytic anemia Current visit: Yes Status: Acute Assessment and Plan: Have independently interviewed and examined pt. Chart reviewed. Case discussed with my MOLD INSERT CHANGER. Above care plan developed with my supervision; agree with above. Doing better today. Tolerating therapy-hard work. Pain responding well to medications. Bowels moving. Appetite with slight decrease, but no nausea. Breathing well. Lungs: clear CV: regular AB: soft nt/nd +BS MSE: awake alert appropriate Plan: Continue with PT/OT to maximize functional status. Continue with current medication. Monitor bowel function secondary to narcotic medications. Doing well medically and progressing with therapy. Medically stable for IRU floor activities. Hospital Course Summary Disclaimer: The visit summary below is not to be considered part of the above Progress Note.
[2017-06-01] MEDS ORDERED: WARFARIN 2 MG TABLET PO SCH (12:00)
[2017-06-01] MEDS: CARBAMIDE PEROXIDE 6.5% EAR DROPS 15ml RIGHT EAR SCH ×2 (13:27→21:08)
--- NOTE | 2017-06-01 15:20 | IRU Plan of Care ---
IRU Overall Plan of Care - Date Date: 06/01/17 - Patient Impairments (1) Thrombocytopenia Code(s): D69.6 - Thrombocytopenia, unspecified Status: Acute Classification: Present on IRF Admission, Diagnosis Requiring Medical Follow Up (2) Hyponatremia Code(s): E87.1 - Hypo-osmolality and hyponatremia Status: Acute Classification: Present on IRF Admission, Diagnosis Requiring Medical Follow Up (3) Normocytic anemia Code(s): D64.9 - Anemia, unspecified Status: Acute Classification: Present on IRF Admission, Diagnosis Requiring Medical Follow Up (4) S/P knee replacement Code(s): Z96.659 - Presence of unspecified artificial knee joint Status: Acute Classification: Present on IRF Admission, IRF Tx That Should Address Diagnosis (5) Debility Code(s): R53.81 - Other malaise Status: Acute Classification: Present on IRF Admission, IRF Tx That Should Address Diagnosis - Relevant Changes Relevant Changes: No Reviewed: I have reviewed the patient's information and concur with the finding and results of the pre-admission screen. Certification: I certify the patient for rehabilitation. - Medical Prognosis Medical Prognosis: Fair Vital Signs: Last Vital Signs Temp 98.7 F 06/01/17 00:00 Pulse 91 06/01/17 00:00 Resp 18 06/01/17 00:00 BP 150/81 H 06/01/17 00:00 Pulse Ox 98 06/01/17 00:00 - Anticipated Interventions Anticipated Interventions: The patient requires inpatient IRF care for PT, OT, and/or ST for residuals remaining from [] resulting in muscular weakness and strength deficits. ROM Deficit: Left Lower Extremity Strength Deficits: Left Lower Extremity - FIM Ambulation Distance: 72 Wheelchair Propulsion Distance: 83 Toileting Adaptive Equipment: Grab Bars Number of Continent Voids: 1 Number of Incontinent Voids: 1 - Current Functional Status Failed Alternative Therapy: Yes Patient Requires: The patient requires oversight by rehabilitation physician to manage their rehabilitation treatment plan and multidisciplinary approach to care that can only be provided in an IRF and requires a multidisciplinary approach to care, provided by professional PTs, OTs, STs, dieticians, RTs, rehabilitation nurses and is not available in lesser levels of care. Physical Therapy Minutes: 90 Occupational Therapy Minutes: 90 Therapy: The patient is to receive therapy at least 5 days a week. - Anticipated LOS/Outcomes Anticipated Functional Outcome: Expect improvement to presurgical status with PT and OT support. Anticipated DC Destination: Home Health Service Home Safety Plan: The patient will be provided with the development of a Home Safety Plan for return to a home or home-like environment and and to ensure safety post discharge. - Plan to Avoid Complications Barriers to Attaining Goals: Weakness, Balance, Endurance, Pain Control Plan to Avoid Complications: The patient cannot receive this care in a lesser intensive setting such as Senior Living or Outpatient Therapy due to the patient requiring medical supervision due to cellulitis.
[2017-06-01] MEDS ORDERED: PNEUMOCOCCAL VAC ADMIN CHARGE INJ ONE (21:30)
[2017-06-02] MEDS: OMEPRAZOLE 20 MG CAPSULE PO SCH (06:30)
--- NOTE | 2017-06-02 08:05 | Pharmacy Consult ---
Pharmacy Consult-Warfarin - Laboratory Information 05/29/17 05/30/17 05/31/17 17:37 04:42 04:38 INR 4.89 H* 4.20 H 2.75 H 06/01/17 06/02/17 05:10 06:29 INR 2.13 H 1.70 H COUMADIN CONSULT (Recurring): Today's INR = 1.70. Patient's INR is subtherapeutic today, so I will order Warfarin 3 mg today. The Pharmacy will continue to monitor & make adjustments accordingly. Thank you for the Warfarin Dosing Protocol, Geovanni Osborne, Pharmacist.
[2017-06-02] MEDS: CARBAMIDE PEROXIDE 6.5% EAR DROPS 15ml RIGHT EAR SCH ×2 (08:38→21:06)
[2017-06-02] MEDS: CYANOCOBALAMIN (B-12) 500mcg TABLET PO SCH (08:39)
[2017-06-02] MEDS: ASPIRIN 81 MG CHEWABLE TABLET PO SCH (08:39)
[2017-06-02] MEDS: ACETAMINOPHEN 325 MG TABLET PO SCH ×4 (08:39→21:06)
[2017-06-02] MEDS: CITALOPRAM 20 MG TABLET PO SCH (08:40)
[2017-06-02] MEDS: CALCIUM 600 + VIT D 400 TABLET PO SCH ×2 (08:40→21:06)
[2017-06-02] MEDS: GLIMEPIRIDE 1 MG TABLET PO SCH ×2 (08:40→17:36)
[2017-06-02] MEDS: MULTI-VITAMIN PLAIN TABLET PO SCH (08:40)
[2017-06-02] MEDS: DOCUSATE SODIUM 100 MG CAPSULE PO SCH ×2 (08:40→21:06)
[2017-06-02] MEDS: OMEGA-3 ACID ESTERS 1 GM CAPSULE PO SCH ×2 (08:40→12:26)
[2017-06-02] MEDS: POLYETHYL GLYCOL 3350 17gm PACKET PO SCH (08:41)
[2017-06-02] MEDS: GLUCOSAMINE/CHONDROITIN 500 MG/400 MG CAPSULE PO SCH ×2 (08:42→21:06)
[2017-06-02] MEDS: TRAMADOL 50 MG TABLET PO PRN ×4 (08:53→21:05)
[2017-06-02] MEDS ORDERED: WARFARIN 3 MG TABLET PO SCH (12:00)
--- NOTE | 2017-06-02 14:32 | IRU Progress Note ---
- Subjective/Serverity of Illness Continued pain and left knee. Patient is working with physical therapy and extending walks, showing improvement stamina. Exam Vital Signs: Oxygen Delivery Method Room Air Telemetry Rhythm: Sinus Rhythm Height: 1.68 m Weight: 74.8 kg Body Mass Index: 27.3 - Constitutional Present: no acute distress - Routine Respiratory Exam Present: CTA bilaterally. Absent: wheezes, crackles - Routine Cardiovascular Exam Present: RRR, no murmur - Routine Abdominal Exam Present: soft, normoactive bowel sounds, non distended. Absent: tenderness - Detailed Lower Extremity Exam Knee: Left swelling, Left tenderness, Left wound, Left decreased ROM Lower leg: Left swelling (1+ edema) Sepsis Assessment - Evaluation Sepsis screening result: No Definite Risk IRU A/P (1) Thrombocytopenia Current visit: Yes Status: Acute Managed by Medical (2) Hyponatremia Current visit: Yes Status: Acute Managed by Medical (3) Normocytic anemia Current visit: Yes Status: Acute (4) S/P knee replacement Current visit: Yes Status: Acute Stable and doing well. Cooperative with PT and OT program. Pain still a moderate issue. Consider changing meds, bu he would like to try one or two more days first. (5) Debility Current visit: Yes Status: Acute See FIM scores. He is improving dramatically. DVT Prophylaxis: Coumadin Resuscitation Status: Full Code - Course Hospital Course: Jameel Stanton MD: - Interventions to Obtain Goals PT Treatment Plan: Balance/Proprioception, Functional Activities, Gait Training , Patient/Family Education, Therapeutic Exercise OT Treatment Plan: ADL (Basic Care), Balance Training, IADL, Pt./Family Education, Ther. Exercise for ADL
[2017-06-02] MEDS: MELATONIN 1 MG TABLET PO SCH (21:04)
[2017-06-03] MEDS: TRAMADOL 50 MG TABLET PO PRN ×5 (04:57→21:45)
[2017-06-03] MEDS: OMEPRAZOLE 20 MG CAPSULE PO SCH (06:43)
--- NOTE | 2017-06-03 08:06 | Pharmacy Consult ---
Pharmacy Consult-Warfarin - Laboratory Information 05/29/17 05/30/17 05/31/17 17:37 04:42 04:38 INR 4.89 H* 4.20 H 2.75 H 06/01/17 06/02/17 06/03/17 05:10 06:29 06:31 INR 2.13 H 1.70 H 1.80 H - Consult Information 87 y.o. Male post-op day 9 total knee replacement. Warfarin per pharmacy protocol ordered for DVT prophylaxis. Goal INR range= 1.5 to 2.0. Today's INR is therapeutic at 1.8. Will give Warfarin 2 mg po today. Pharmacy will monitor and adjust as needed. Thank you, Lyn Leon [facility]
[2017-06-03] MEDS: CALCIUM 600 + VIT D 400 TABLET PO SCH (08:35)
[2017-06-03] MEDS: CYANOCOBALAMIN (B-12) 500mcg TABLET PO SCH (08:35)
[2017-06-03] MEDS: DOCUSATE SODIUM 100 MG CAPSULE PO SCH ×2 (08:36→21:46)
[2017-06-03] MEDS: GLIMEPIRIDE 1 MG TABLET PO SCH ×2 (08:36→17:49)
[2017-06-03] MEDS: OMEGA-3 ACID ESTERS 1 GM CAPSULE PO SCH (08:36)
[2017-06-03] MEDS: CITALOPRAM 20 MG TABLET PO SCH (08:36)
[2017-06-03] MEDS: MULTI-VITAMIN PLAIN TABLET PO SCH (08:37)
[2017-06-03] MEDS: POLYETHYL GLYCOL 3350 17gm PACKET PO SCH (08:37)
[2017-06-03] MEDS: ACETAMINOPHEN 325 MG TABLET PO SCH ×4 (08:38→23:15)
[2017-06-03] MEDS: ASPIRIN 81 MG CHEWABLE TABLET PO SCH (08:38)
[2017-06-03] MEDS: GLUCOSAMINE/CHONDROITIN 500 MG/400 MG CAPSULE PO SCH (08:39)
--- NOTE | 2017-06-03 11:45 | Progress Note ---
Subjective: Dennys is seen today in follow up for his recent knee replacement. He is seen immediately upon his return from breakfast and is noted to be ambulating well with assistance. He denies any complaints or concerns including no chest pain, shortness of breath, abdominal pain, nausea, vomiting or dysuria. He does admit to some knee pain that is worse with movement and therapy but is relieved with his pain medication. He comments on wishing that he could start his day with his pain medication prior to his therapy so he is not playing catch up with the pain. Vital signs are stable. Bowels are moving and appetite is good. Exam reveals 2-3+ pitting edema to left lower leg and knee with erythema noted to lateral and posterior aspects of his knee. Bandage in place, clean, dry and intact with no discharge. Cardiac exam reveals regular rate and rhythm and lungs sounds are clear and diminished bilaterally. Objective Vital signs: Temperature 98.6 F 06/02/17 20:03 Pulse Rate 91 06/02/17 20:03 Respiratory Rate 16 06/02/17 20:03 Blood Pressure 116/69 06/02/17 20:03 Pulse Oximetry 96 06/02/17 20:03 Oxygen Delivery Method Room Air Body Mass Index: 27.3 - Constitutional Present: no acute distress, well nourished, well developed, cooperative - Routine HEENT Exam Head: Present: normocephalic, atraumatic Eye: Present: EOMI. Absent: conjunctival icterus, scleral injection ENT: Present: mucous membranes moist, oropharynx clear - Routine Respiratory Exam Present: decreased breath sounds, CTA bilaterally. Absent: rhonchi, stridor, wheezes - Routine Cardiovascular Exam Present: RRR, S1, S2 - Routine Abdominal Exam Present: soft, normoactive bowel sounds, non distended, non tender - Routine Extremities Exam Present: edema (left > right; limited ROM of left knee secondary to pain), pulses intact, tenderness (left knee), joint swelling (left knee) - Routine Back/Spine/Pelvis Exam Back/Spine: Absent: vertebral tenderness, erythema, warmth - Routine Musculoskeletal Exam Musculoskeletal: Present: moving extremities well, joint erythera, joint swelling, limited range of motion (left knee) - Routine Skin Exam Present: intact, erythema (left knee), dry. Absent: jaundice - Routine Neurological Exam Present: alert, oriented X3, moving all extremities, normal speech. Absent: motor deficit, facial asymmetry - Routine Psychiatric Exam Present: normal affect, cooperative Results - Labs CBC & Chem 7: 05/31/17 04:38 05/31/17 04:38 Assessment and Plan (1) S/P knee replacement Current visit: Yes Status: Acute (2) Debility Current visit: Yes Status: Acute (3) Hyponatremia Current visit: Yes Status: Acute (4) Thrombocytopenia Current visit: Yes Status: Acute (5) Normocytic anemia Current visit: Yes Status: Acute Assessment and Plan: Overall, Dennys is doing well. Continue to encourage therapy and pain control per Dr. Marcum. INR 1.80 today with pharmacy to manage. Continue Coumadin per pharmacy protocol. May start obtaining INR via fingerstick as patient. Constipation has improved. Continue with bowel motivation. Blood sugars well controlled. Labs results pending. Patient requests holding his over the counter medications (fish oil, calcium and glucosamine) for the remainder of his admission as he feels like they are contributing to his having episodes of nausea. - Time spent with patient 25 - 35 minutes Sepsis Assessment - Evaluation Sepsis screening result: No Definite Risk Hospital Course Summary Disclaimer: The visit summary below is not to be considered part of the above Progress Note. Hospital Course: 06/01/17 12:13 Continue therapy and pain control per attending. INR therapeutic and venous Doppler was negative for DVT. Continue Coumadin per pharmacy protocol. May start obtaining INR via fingerstick. 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 Discussed with case therapist, she will come and visit with Dennys about his concerns. Constipation has improved. Mild hyponatremia, thrombocytopenia, and mild normocytic anemia: Repeat labs ( CBC, BMP) on June 05. 06/03/17 11:55 Overall, Dennys is doing well. Continue to encourage therapy and pain control per Dr. Marcum. INR 1.80 today with pharmacy to manage. Continue Coumadin per pharmacy protocol. May start obtaining INR via fingerstick as patient. Constipation has improved. Continue with bowel motivation. Blood sugars well controlled. Labs results pending. Patient requests holding his over the counter medications (fish oil, calcium and glucosamine) for the remainder of his admission as he feels like they are contributing to his having episodes of nausea.
[2017-06-03] MEDS ORDERED: WARFARIN 2 MG TABLET PO SCH (12:00)
[2017-06-03] MEDS: CARBAMIDE PEROXIDE 6.5% EAR DROPS 15ml RIGHT EAR SCH ×2 (15:05→21:45)
[2017-06-03] MEDS: MELATONIN 1 MG TABLET PO SCH (21:46)
[2017-06-04] MEDS: OMEPRAZOLE 20 MG CAPSULE PO SCH (06:29)
[2017-06-04] MEDS: TRAMADOL 50 MG TABLET PO PRN ×3 (09:16→20:46)
[2017-06-04] MEDS: CITALOPRAM 20 MG TABLET PO SCH (09:17)
[2017-06-04] MEDS: GLIMEPIRIDE 1 MG TABLET PO SCH ×2 (09:17→17:35)
[2017-06-04] MEDS: POLYETHYL GLYCOL 3350 17gm PACKET PO SCH (09:17)
[2017-06-04] MEDS: MULTI-VITAMIN PLAIN TABLET PO SCH (09:17)
[2017-06-04] MEDS: ACETAMINOPHEN 325 MG TABLET PO SCH ×4 (09:17→20:46)
[2017-06-04] MEDS: CYANOCOBALAMIN (B-12) 500mcg TABLET PO SCH (09:17)
[2017-06-04] MEDS: ASPIRIN 81 MG CHEWABLE TABLET PO SCH (09:17)
[2017-06-04] MEDS: DOCUSATE SODIUM 100 MG CAPSULE PO SCH ×2 (09:17→20:45)
[2017-06-04] MEDS: CARBAMIDE PEROXIDE 6.5% EAR DROPS 15ml RIGHT EAR SCH ×2 (10:27→20:45)
[2017-06-04] MEDS ORDERED: WARFARIN 2.5 MG TABLET PO SCH (12:00)
--- NOTE | 2017-06-04 13:29 | Progress Note ---
Subjective: Mr Orourke is seen today while resting in bed. He reports that earlier today he felt weak and briefly lightheaded. During this episode nursing staff reported his heart rate was 90-103 . A EKG was obtained showing NSR. He went back to his room and has been resting. He states all symptoms have resolved. Denies chest pain, shortness of breath, dizziness or GI complaints. Noted blood pressure was slightly lower than it has been at 106/67. Objective Vital signs: Temperature 98.0 F 06/04/17 08:00 Pulse Rate 103 H 06/04/17 08:00 Respiratory Rate 16 06/03/17 22:18 Blood Pressure 106/67 06/04/17 08:00 Pulse Oximetry 96 06/04/17 08:00 Oxygen Delivery Method Room Air Rhythm: Normal Sinus Rhythm Body Mass Index: 27.3 - Constitutional Present: no acute distress, well nourished, well developed - Routine HEENT Exam Head: Present: normocephalic, atraumatic Eye: Present: EOMI, PERRL ENT: Present: mucous membranes moist, dentition normal - Routine Respiratory Exam Present: CTA bilaterally. Absent: wheezes - Routine Cardiovascular Exam Present: RRR, S1, S2. Absent: murmur - Routine Abdominal Exam Present: soft, normoactive bowel sounds, non distended. Absent: tenderness - Routine Extremities Exam Present: edema (trace-1+ bilaterally), normal capillary refill - Routine Back/Spine/Pelvis Exam Back/Spine: Present: full ROM - Routine Skin Exam Present: intact, dry, warm - Routine Neurological Exam Present: alert, oriented X3, CN II-XII intact - Routine Lymphatic Exam Lymphatic: Absent: adenopathy - Routine Psychiatric Exam Present: normal affect Results - Labs CBC & Chem 7: 06/03/17 11:23 06/03/17 11:23 Assessment and Plan (1) S/P knee replacement Current visit: Yes Status: Acute (2) Debility Current visit: Yes Status: Acute (3) Hyponatremia Current visit: Yes Status: Acute (4) Thrombocytopenia Current visit: Yes Status: Acute (5) Normocytic anemia Current visit: Yes Status: Acute Assessment and Plan: 06/04 Brief episode this morning in which he felt weak with mild lightheadedness that only lasted several minutes and then resolved. Possible hypotensive. Will have staff obtain Orthostatic vital signs. Monitor fluid status. Twelve-lead EKG revealed sinus rhythm without any significant ST changes. INR 1.70 today with pharmacy to manage. Continue Coumadin per pharmacy protocol. Constipation has improved. Continue with bowel motivation. Blood sugars well controlled. Reviewed morning labs, hemoglobin is stable at 11.2. Sepsis Assessment - Evaluation Sepsis screening result: No Definite Risk Hospital Course Summary Disclaimer: The visit summary below is not to be considered part of the above Progress Note. Hospital Course: 06/01/17 12:13 Continue therapy and pain control per attending. INR therapeutic and venous Doppler was negative for DVT. Continue Coumadin per pharmacy protocol. May start obtaining INR via fingerstick. 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 Discussed with counter caser, she will come and visit with Dennys about his concerns. Constipation has improved. Mild hyponatremia, thrombocytopenia, and mild normocytic anemia: Repeat labs ( CBC, BMP) on June 05. 06/03/17 11:55 Overall, Dennys is doing well. Continue to encourage therapy and pain control per Dr. Marcum. INR 1.80 today with pharmacy to manage. Continue Coumadin per pharmacy protocol. May start obtaining INR via fingerstick as patient. Constipation has improved. Continue with bowel motivation. Blood sugars well controlled. Labs results pending. Patient requests holding his over the counter medications (fish oil, calcium and glucosamine) for the remainder of his admission as he feels like they are contributing to his having episodes of nausea.
[2017-06-04] MEDS: MELATONIN 1 MG TABLET PO SCH ×2 (20:45→23:07)
[2017-06-05] MEDS: OMEPRAZOLE 20 MG CAPSULE PO SCH (06:11)
--- NOTE | 2017-06-05 07:47 | Pharmacy Consult ---
Pharmacy Consult-Warfarin - Laboratory Information 05/29/17 05/30/17 05/31/17 17:37 04:42 04:38 INR 4.89 H* 4.20 H 2.75 H 06/01/17 06/02/17 06/03/17 05:10 06:29 06:31 INR 2.13 H 1.70 H 1.80 H 06/04/17 06/05/17 06:57 06:33 INR 1.70 H 2.10 H COUMADIN CONSULT (Recurring): Today's INR = 2.10. The patient's INR was a bit high for the orthopaedic post surgery level, so I will drop the dose to 2 mg today and the pharmacy will check tomorrow the INR and order a dose. Thanks for the Warfarin dosing protocol, Geovanni Osborne, Pharmacist.
[2017-06-05] MEDS: POLYETHYL GLYCOL 3350 17gm PACKET PO SCH (08:44)
--- NOTE | 2017-06-05 08:44 | IRU Progress Note ---
- Subjective/Serverity of Illness Working well with staff. Completing PT and OT. Feels heis improving. Exam Vital Signs: Oxygen Delivery Method Room Air Telemetry Rhythm: Sinus Rhythm Height: 1.68 m Weight: 74.8 kg Body Mass Index: 27.3 - Constitutional Present: no acute distress - Routine Chest/Breast/Axilla Exam Chest wall: Absent: tenderness - Routine Respiratory Exam Present: CTA bilaterally - Routine Cardiovascular Exam Present: RRR, no murmur - Detailed Lower Extremity Exam Knee: Left swelling, Left tenderness, Left full ROM Ankle: Left swelling (1+ edema) Sepsis Assessment - Evaluation Sepsis screening result: No Definite Risk IRU A/P (1) Thrombocytopenia Current visit: Yes Status: Acute Managed by Medical (2) Hyponatremia Current visit: Yes Status: Acute Managed by Medical (3) Normocytic anemia Current visit: Yes Status: Acute (4) S/P knee replacement Current visit: Yes Status: Acute Stable, Ortho to follow as needed. (5) Debility Current visit: Yes Status: Acute Pain is limiting factor. He is doing well with pain meds and has decreased overall postop dose slightly DVT Prophylaxis: Coumadin Resuscitation Status: Full Code - Course Hospital Course: Jameel Stanton MD: - Interventions to Obtain Goals PT Treatment Plan: Balance/Proprioception, Functional Activities, Gait Training , Patient/Family Education, Therapeutic Exercise OT Treatment Plan: ADL (Basic Care), Balance Training, IADL, Pt./Family Education, Ther. Exercise for ADL
[2017-06-05] MEDS: TRAMADOL 50 MG TABLET PO PRN ×2 (08:47→19:37)
[2017-06-05] MEDS: GLIMEPIRIDE 1 MG TABLET PO SCH ×2 (08:47→17:48)
[2017-06-05] MEDS: DOCUSATE SODIUM 100 MG CAPSULE PO SCH ×2 (08:48→21:23)
[2017-06-05] MEDS: CYANOCOBALAMIN (B-12) 500mcg TABLET PO SCH (08:48)
[2017-06-05] MEDS: ASPIRIN 81 MG CHEWABLE TABLET PO SCH (08:48)
[2017-06-05] MEDS: ACETAMINOPHEN 325 MG TABLET PO SCH ×4 (08:48→21:28)
[2017-06-05] MEDS: MULTI-VITAMIN PLAIN TABLET PO SCH (08:48)
[2017-06-05] MEDS: CITALOPRAM 20 MG TABLET PO SCH (08:48)
--- NOTE | 2017-06-05 08:52 | IRU Progress Note ---
- Subjective/Serverity of Illness Tolerating antibiotics. Up and Abulating with assist. Working with PT and OT. Exam Vital Signs: Oxygen Delivery Method Room Air Telemetry Rhythm: Sinus Rhythm Height: 1.68 m Weight: 74.8 kg Body Mass Index: 27.3 - Constitutional Present: mild distress - Routine Respiratory Exam Present: CTA bilaterally - Routine Cardiovascular Exam Present: RRR, murmur - Routine Abdominal Exam Present: normoactive bowel sounds, non distended. Absent: tenderness - Detailed Lower Extremity Exam Knee: Left swelling (with receding redness around wound.) Sepsis Assessment - Evaluation Sepsis screening result: No Definite Risk IRU A/P (1) Thrombocytopenia Current visit: Yes Status: Acute Managed by Medical (2) Hyponatremia Current visit: Yes Status: Acute Managed by Medical (3) Normocytic anemia Current visit: Yes Status: Acute (4) S/P knee replacement Current visit: Yes Status: Acute Ortho to visit for quick post op check. (5) Debility Current visit: Yes Status: Acute Will require inttensive PT and OT to improve strength,but he is willing and committed. Follow PT adn OT plan of care. DVT Prophylaxis: Coumadin Resuscitation Status: Full Code - Course Hospital Course: Jameel Stanton MD: - Interventions to Obtain Goals PT Treatment Plan: Balance/Proprioception, Functional Activities, Gait Training , Patient/Family Education, Therapeutic Exercise OT Treatment Plan: ADL (Basic Care), Balance Training, IADL, Pt./Family Education, Ther. Exercise for ADL
[2017-06-05] MEDS: CARBAMIDE PEROXIDE 6.5% EAR DROPS 15ml RIGHT EAR SCH ×2 (11:35→21:33)
[2017-06-05] MEDS: MAGIC MOUTHWASH 5ml PO PRN ×2 (11:37→18:16)
--- NOTE | 2017-06-05 11:37 | IRU Progress Note ---
- Subjective/Serverity of Illness Mr. Orourke reports that he had quite a bit of pain in the left knee over the weekend. He is status post left total knee replacement. Last night was bad in terms of having pain even while in bed. There is some redness noted on the medial aspect of the left knee. He states this has been there since the surgery. I am not certain if it is worse or better. He does complain of debility. Also complains of constipation and some loss of appetite. Discussed the redness with hospitalist team ([facility]) and she recommended consulting Dr. Gomes which will be accomplished. Had an episode of lightheadedness and weakness. Electrocardiogram was done demonstrating normal sinus rhythm. He does have history of atrial fibrillation and is on Coumadin. Exam Vital Signs: Temperature 98.1 F 06/05/17 00:00 Pulse Rate 86 06/05/17 00:00 Respiratory Rate 16 06/05/17 00:00 Blood Pressure 137/72 06/05/17 00:00 Pulse Oximetry 98 06/05/17 00:00 Oxygen Delivery Method Room Air Height: 1.68 m Weight: 74.8 kg Body Mass Index: 27.3 - Constitutional Present: moderate distress Comments: Due to pain in the left knee. The knee is a bit red and warm on the medial aspect. Will consult Dr. Gomes per rec of [facility]. - Routine HEENT Exam Head: Present: normocephalic Eye: Present: EOMI ENT: Present: mucous membranes moist - Routine Neck Exam Present: full ROM - Routine Respiratory Exam Present: CTA bilaterally - Routine Cardiovascular Exam Present: RRR, no murmur - Routine Abdominal Exam Present: soft, normoactive bowel sounds, non tender - Routine Extremities Exam Present: no edema - Detailed Lower Extremity Exam Comments: As above, redness and warmth noted over medial aspect of left knee. - Routine Neurological Exam Present: alert, oriented X3 - Routine Psychiatric Exam Present: normal affect, normal thought process Sepsis Assessment - Evaluation Sepsis screening result: No Definite Risk IRU A/P (1) Debility Current visit: Yes Status: Acute Patient is cooperative and improving with therapy. However pain is a barrier to his progress. (2) Hyponatremia Current visit: Yes Status: Acute Per medical team. (3) Redness of joint Current visit: Yes Status: Acute There is redness and warmth noted of the left medial knee. Patient states he has had this since the surgery. I do not have a way to stewarding supervisor whether it is better or worse. I discussed with the hospitalist team and we will ask Dr. Gomes to re-evaluate. DVT Prophylaxis: Coumadin Resuscitation Status: Full Code - Course Hospital Course: Jameel Stanton MD: 06/05/17 11:40 -improving with therapy - significant pain in the left knee noted, even at night - some redness and warmth in the medial left knee noted, will consult Dr. Gomes -weakness episode: resolved, normal ECG - Interventions to Obtain Goals PT Treatment Plan: Balance/Proprioception, Functional Activities, Gait Training , Patient/Family Education, Therapeutic Exercise OT Treatment Plan: ADL (Basic Care), Balance Training, IADL, Pt./Family Education, Ther. Exercise for ADL
[2017-06-05] MEDS ORDERED: WARFARIN 2 MG TABLET PO SCH (12:00)
[2017-06-05] MEDS ORDERED: WARFARIN 2.5 MG TABLET PO SCH (12:00)
--- NOTE | 2017-06-05 12:30 | IRU Team Meeting ---
IRU Team Meeting - Nursing Vital Signs: Vital Signs - 24 hr 06/04/17 16:00 06/05/17 00:00 Temperature 97.8 F 98.1 F Pulse Rate 89 86 Respiratory Rate 18 16 Blood Pressure 118/71 137/72 Pulse Oximetry 94 98 Current Medications: Acetaminophen (Tylenol) 650 mg PO QID [facility] Last Admin: 06/05/17 11:59 Dose: 650 mg Aspirin (Asa) 81 mg PO DAILY [facility] Last Admin: 06/05/17 08:48 Dose: 81 mg Carbamide Peroxide (Debrox) 5 drops RIGHT EAR BID [facility] Last Admin: 06/05/17 11:35 Dose: 5 drops Cephalexin HCl (Keflex) 500 mg PO QID [facility] Last Admin: 06/05/17 11:59 Dose: 500 mg Citalopram Hydrobromide (Celexa) 20 mg PO DAILY [facility] Last Admin: 06/05/17 08:48 Dose: 20 mg Cyanocobalamin (Vit. B-12) 500 mcg PO DAILY [facility] Last Admin: 06/05/17 08:48 Dose: 500 mcg Docusate Sodium (Colace) 100 mg PO BID [facility] Last Admin: 06/05/17 08:48 Dose: 100 mg Glimepiride (Amaryl) 1 mg PO BIDBS [facility] Last Admin: 06/05/17 08:47 Dose: 1 mg Lidocaine HCl (Magic Mouthwash (Lido/Maalox/Carafate)) 5 ml PO Q4H PRN Last Admin: 06/05/17 11:37 Dose: 5 ml Melatonin (Melatonin) 3 mg PO HS [facility] Last Admin: 06/04/17 23:07 Dose: Not Given Multivitamins (Theragran) 1 tab PO DAILY [facility] Last Admin: 06/05/17 08:48 Dose: 1 tab Omeprazole (Prilosec) 20 mg PO ACB [facility] Last Admin: 06/05/17 06:11 Dose: 20 mg Polyethylene Glycol (Miralax) 17 gm PO DAILY [facility] Last Admin: 06/05/17 08:44 Dose: 17 gm Tramadol HCl (Ultram) 50 - 100 mg PO Q6H PRN PRN Reason: Pain Last Admin: 06/05/17 08:47 Dose: 100 mg Warfarin Sodium (Coumadin Protocol) 0 [facility] NOTE JOAQUINA Warfarin Sodium (Coumadin) 2 mg PO NOON [facility] Stop: 06/05/17 12:30 Last Admin: 06/05/17 11:58 Dose: 2 mg Comments: He has developed a cold sore. He is on Tramadol, tylenol. Pain is 7-9 most of the time. He does have incont at night, but OK during the daytime. INR monitored and on warfarin per pharmacy protocol. Consulting Dr. Gomes for some redness in the left knee. - Physical Therapy Supine to Sit Bed Mobility Ability: Contact Guard Assistance Sit to Supine Bed Mobility Ability: Contact Guard Assistance Comments: Ambulating 91 feet. He had refused stairs but has none at home. Mod assist for car transfer. Will need a front wheeled walker for the weekend. He is cooperative and improving. - Occupational Therapy Bathing Type: Tub Bathing Ability: Stand By Assist/Supervision Upper Body Dressing Comment: He is improving. - Care Plan Anticipated Length of Stay: 7 Anticipated DC Destination: Home Health Service Interventions/Goals: Anticipate another week and re-eval.
--- NOTE | 2017-06-05 13:45 | Progress Note ---
<Orquidea Arellano V - Last Filed: 06/05/17 13:39> Subjective: Mr Sauceda is seen this morning while working with therapy. He noted that the medial aspect of his left knee(post-op knee) which appears to be more red today. Swelling to LLE continued to be unchanged 2+. Denies increased pain to knee. Denies shortness of breath, chest pain or GI complaints. Blood sugars have been well controlled. Vitals normal and he is afebrile. Objective Vital signs: Temperature 98.1 F 06/05/17 00:00 Pulse Rate 86 06/05/17 00:00 Respiratory Rate 16 06/05/17 00:00 Blood Pressure 137/72 06/05/17 00:00 Pulse Oximetry 98 06/05/17 00:00 Oxygen Delivery Method Room Air Body Mass Index: 27.3 - Constitutional Present: no acute distress, well nourished, well developed - Routine HEENT Exam Head: Present: normocephalic, atraumatic Eye: Present: EOMI, PERRL ENT: Present: mucous membranes moist, dentition normal - Routine Respiratory Exam Present: CTA bilaterally. Absent: wheezes - Routine Cardiovascular Exam Present: RRR, S1, S2. Absent: murmur - Routine Abdominal Exam Present: soft, normoactive bowel sounds, non distended. Absent: tenderness - Routine Extremities Exam Present: edema (2+), normal capillary refill, tenderness (Left knee), joint swelling (Left knee) Comments: Erythema to medial left knee - Routine Skin Exam Present: dry, warm - Routine Neurological Exam Present: alert, oriented X3, CN II-XII intact - Routine Lymphatic Exam Lymphatic: Absent: adenopathy - Routine Psychiatric Exam Present: normal affect Results - Labs CBC & Chem 7: 06/03/17 11:23 06/03/17 11:23 Assessment and Plan (1) S/P knee replacement Current visit: Yes Status: Acute (2) Debility Current visit: Yes Status: Acute (3) Hyponatremia Current visit: Yes Status: Acute (4) Thrombocytopenia Current visit: Yes Status: Acute (5) Normocytic anemia Current visit: Yes Status: Acute DVT Prophylaxis: CHRISTINA Hose, Coumadin Assessment and Plan: 06/05 Increased erythema to left medial knee. Case discussed with Dr Marcum. Agree with consultation to Dr Gomes for orthopedic evaluation. He has been on Keflex since 05/29/17. This could possibly be discontinued ?? Blood sugars have been well controlled. INR 2.10 - Continue Coumadin per pharmacy protocol. Given increased and erythema. Will obtain laboratory studies now CBC, BMP. Continue to encourage work with PT/OT for ongoing strengthening Sepsis Assessment - Evaluation Sepsis screening result: No Definite Risk Hospital Course Summary Disclaimer: The visit summary below is not to be considered part of the above Progress Note. Hospital Course: 06/01/17 Continue therapy and pain control per attending. INR therapeutic and venous Doppler was negative for DVT. Continue Coumadin per pharmacy protocol. May start obtaining INR via fingerstick. 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 Discussed with caser, she will come and visit with Dennys about his concerns. Constipation has improved. Mild hyponatremia, thrombocytopenia, and mild normocytic anemia: Repeat labs ( CBC, BMP) on June 05. 06/03/17 Overall, Dennys is doing well. Continue to encourage therapy and pain control per Dr. Marcum. INR 1.80 today with pharmacy to manage. Continue Coumadin per pharmacy protocol. May start obtaining INR via fingerstick as patient. Constipation has improved. Continue with bowel motivation. Blood sugars well controlled. Labs results pending. Patient requests holding his over the counter medications (fish oil, calcium and glucosamine) for the remainder of his admission as he feels like they are contributing to his having episodes of nausea. 06/05 Increased erythema to left medial knee. Case discussed with Dr Marcum. Agree with consultation to Dr Gomes for orthopedic evaluation. He has been on Keflex since 05/29/17. This could possibly be discontinued ?? Blood sugars have been well controlled. INR 2.10 - Continue Coumadin per pharmacy protocol. Given increased and erythema. Will obtain laboratory studies now CBC, BMP. Continue to encourage work with PT/OT for ongoing strengthening <Kathia Cope - Last Filed: 06/05/17 17:25> Objective Vital signs: Temperature 96.3 F L 06/05/17 16:00 Pulse Rate 95 06/05/17 16:00 Respiratory Rate 16 06/05/17 16:00 Blood Pressure 117/67 06/05/17 16:00 Pulse Oximetry 91 06/05/17 16:00 Oxygen Delivery Method Room Air Results - Labs CBC & Chem 7: 06/05/17 13:57 06/05/17 13:57 Assessment and Plan (1) S/P knee replacement Current visit: Yes Status: Acute (2) Debility Current visit: Yes Status: Acute (3) Hyponatremia Current visit: Yes Status: Acute (4) Thrombocytopenia Current visit: Yes Status: Acute (5) Normocytic anemia Current visit: Yes Status: Acute Assessment and Plan: 06/05/2017-I reviewed this chart, the patient history, and the FRAME RUNNER's/PA's documented findings as above. We discussed and formulated the assessment and plan as above with the additions below. I've seen and examined the patient myself. Patient states that he had a bad night last night because of pain that was uncontrolled with tramadol. He is on the maximum dose of tramadol. He states his pain is better today. He was able to work well with therapy today. He denies any chest pain or shortness of breath. He states he's eating and drinking well. He states his bowels are moving well with MiraLAX, Colace and prune juice. On exam he is alert and oriented and in no acute distress. Chest is clear to auscultation. Cardiovascular reveals a regular rate and rhythm. Abdomen is soft and nontender. Extremities are free of edema. Lab shows mildly elevated potassium of 5.2 with BUN 32 and creatinine 1.1. He is not on any medications which would make the potassium elevated. I did encourage increased fluid intake and have him stop prune juice for now and see if potassium normalizes. Recheck potassium tomorrow. I did order [place] as needed for breakthrough pain is uncontrolled with tramadol. Blood sugars are currently well controlled and will continue with current management. Continue pharmacy consult for Coumadin management. INR is therapeutic. Appreciate ortho consult. Hospital Course Summary Disclaimer: The visit summary below is not to be considered part of the above Progress Note.
--- NOTE | 2017-06-05 15:50 | Orthopedic Consult Note ---
Orthopedic Consultation HPI - Consultation Info Consult Date: 06/05/17 Attending Physician: Katherine Gomes MD Consult Reason: other (s/p left TKA ) - History of Present Illness This is an 87 year old male who underwent left TKA by Dr. Gomes on 05/25/17. He was discharged to home post op day one. There he developed increasing pain and redness around his incision. He was seen on 05/29/[address] Gomes. He was started on Keflex 500mg PO QID on 05/29/17. Dennys is unsure who started this medication. He noted he had a fever of up to 100 F at home in addition to redness around the incision which did improve once Kelfex was started. Due to his general debility, Dr. Gomes was able to get him admitted to IRU for further rehabilitation. In general, he has been feeling better. He has ambulated with help of PT and has not had leukocytosis or fever documented since IRU admission. He is anti coagulated with Coumadin secondary to history of DVT and previous prostate cancer. Review of Systems - Constitutional Constitutional: Present: fatigue. Absent: anorexia, chills - EENT Ears, nose, mouth, throat: Absent: headaches, lightheadedness - Cardiovascular Cardiovascular: Absent: chest pain Vascular: Present: unilateral swelling (typical post op) - Respiratory Respiratory: Absent: cough, chest congestion - Gastrointestinal Gastrointestinal: Absent: abdominal pain - Genitourinary Genitourinary General: Present: fever(s) (by history only of 100 at home). 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 Sleep Apnea Yes: USES C-PAP Diabetes Mellitus Type 2 Yes Gastroesophageal Reflux Yes Disease Hx Incontinence Yes Osteoarthritis Yes Clinic Medical History (Last Updated 06/05/17 @ 11:41 by Marlo Marcum MD) Arthritis (Chronic Medical) Balance disorder (Chronic Medical) Cataract (Chronic Medical) Diabetes (Chronic Medical) GERD (gastroesophageal reflux disease) (Chronic Medical) Obstructive sleep apnea (Chronic Medical) Prostate CA (Chronic Medical) Surgical History: Rt TKA-2013; Radical Robotic Prostatectomy; Fx L4 - stabilization L3-5 Family History: Family History (Last Reviewed 05/29/17 @ 10:36 by MIKE Arnett) Father No problems noted. Brother Diabetes - Social History Smoking status: Never smoker Current residence: [facility] Medications Home Medications Medication Instructions Recorded Confirmed Type Glucosa Tabares 2Kcl/Chondroitin Tabares 1,500 mg PO BID #0 10/06/11 05/29/17 History [Glucosamine & Chondroitin Cap] Omeprazole Magnesium [Prilosec Otc] 20 mg PO DAILY #0 10/07/11 05/29/17 History Fish Oil/Dha/Epa [Fish Oil 1,200 1 each PO AM AND NOON #0 08/19/13 05/29/17 History mg Fish Oil] Calcium 600 + D [Caltrate + D] 1 tab PO BID 05/01/17 05/29/17 History Glimepiride [Amaryl] 1 mg PO BID 05/01/17 05/29/17 History Melatonin/Pyridoxine [Melatonin 3 1 each PO HS 05/01/17 05/29/17 History mg Tablet] Citalopram [Celexa] 1 tab PO DAILY 05/18/17 05/29/17 History Cyanocobalamin (Vitamin B-12) 500 mcg SL DAILY 05/25/17 05/29/17 History [B-12] Multivitamin [One Daily 1 each PO DAILY 05/25/17 05/29/17 History Multivitamin] Aspirin Chewable [ASA] 1 tab PO DAILY 05/29/17 05/29/17 History cephALEXin [Keflex] 500 mg PO QID 05/29/17 05/29/17 History Allergies Allergy/AdvReac Type Severity Reaction Status Date / Time No Known Allergies Allergy Unknown Verified 05/29/17 18:16 Orthopedic Exam Vital signs: Temperature 98.1 F 06/05/17 00:00 Pulse Rate 86 06/05/17 00:00 Respiratory Rate 16 06/05/17 00:00 Blood Pressure 137/72 06/05/17 00:00 Pulse Oximetry 98 06/05/17 00:00 Oxygen Delivery Method Room Air - Constitutional General Appearance: Present: alert, orientated x3, no acute distress - Respiratory Exam Present: non-labored - Cardiovascular Exam Present: pedal pulses intact Capillary Refill: < 2-3 Seconds - Abdominal Exam Present: soft - Extremities Exam Present: edema (2+), normal capillary refill, tenderness (Left knee), joint swelling (Left knee typical post op) - Detailed Lower Extremity Exam Knee: Left swelling (with receding redness around wound. Appears typical post op ), Left full ROM (nonpainful active and passive) - Integumentary Exam Present: bruising, erythema (typical medially post op) - Lymphatic Lymphatic: Absent: adenopathy - Neurological Exam Present: intact to light touch, no deficits - Labs Result Diagrams: 06/05/17 13:57 06/05/17 13:57 Abnormal lab results 06/05/17 06/05/17 06/05/17 Range/Units 06:33 13:57 13:57 RBC 3.71 L (4.50-5.90) M/MM3 Hgb 12.0 L (13.5-17.5) GM/DL Hct 36.5 L (41-53) % RDW Std Deviation 51.3 H (36.9-50.2) FL Reactive Lymphs % 2.0 H (0-0) % Monocytes % (Manual) 10.0 H (0-9.0) % Metamyelocytes % 4.0 H (0-0) % Myelocytes % 5.0 H (0-0) % Abs React Lymphs (Man) 0.2 H (0-0) T/MM3 Monocytes # (Manual) 1.0 H (0-0.8) T/MM3 INR 2.10 H (0.90-1.23) Potassium 5.2 H (3.6-5) MEQ/L Chloride 96 L (98-107) MEQ/L BUN 32.0 H (9-20) MG/DL BUN/Creatinine Ratio 29 H (6-26) RATIO H & H 05/30/17 05/31/17 06/03/17 Range/Units 04:42 04:38 11:23 Hgb 11.1 L 9.9 L 11.2 L (13.5-17.5) GM/DL Hct 34.2 L 31.0 L 34.6 L (41-53) % 06/05/17 Range/Units 13:57 Hgb 12.0 L (13.5-17.5) GM/DL Hct 36.5 L (41-53) % Coagulation 05/29/17 05/30/17 05/31/17 Range/Units 17:37 04:42 04:38 INR 4.89 H* 4.20 H 2.75 H (0.99-1.21) 06/01/17 06/02/17 06/03/17 Range/Units 05:10 06:29 06:31 INR 2.13 H 1.70 H 1.80 H (0.99-1.21) 06/04/17 06/05/17 Range/Units 06:57 06:33 INR 1.70 H 2.10 H (0.99-1.21) Impression and Recommendation (1) Debility Current visit: Yes Status: Acute (2) Redness of joint Current visit: Yes Status: Acute (3) S/P knee replacement Current visit: Yes Status: Acute Appears typical post op erthyema and swelling. I did remove his dressing and replaced it using sterile technique. His wound was pristine. Recommendation is to continue Keflex and monitor him. If symptoms change we will re evaluate. Hospital Course Summary Disclaimer: The visit summary below is not to be considered part of the above Progress Note. Hospital Course: 06/01/17 Continue therapy and pain control per attending. INR therapeutic and venous Doppler was negative for DVT. Continue Coumadin per pharmacy protocol. May start obtaining INR via fingerstick. 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 Discussed with caseworker protective services, she will come and visit with Dennys about his concerns. Constipation has improved. Mild hyponatremia, thrombocytopenia, and mild normocytic anemia: Repeat labs ( CBC, BMP) on Monday, June 05. 06/03/17 Overall, Dennys is doing well. Continue to encourage therapy and pain control per Dr. Marcum. INR 1.80 today with pharmacy to manage. Continue Coumadin per pharmacy protocol. May start obtaining INR via fingerstick as patient. Constipation has improved. Continue with bowel motivation. Blood sugars well controlled. Labs results pending. Patient requests holding his over the counter medications (fish oil, calcium and glucosamine) for the remainder of his admission as he feels like they are contributing to his having episodes of nausea. 06/05 Increased erythema to left medial knee. Case discussed with Dr Marcum. Agree with consultation to Dr Gomes for orthopedic evaluation. He has been on Keflex since 05/29/17. This could possibly be discontinued ?? Blood sugars have been well controlled. INR 2.10 - Continue Coumadin per pharmacy protocol. Given increased and erythema. Will obtain laboratory studies now CBC, BMP. Continue to encourage work with PT/OT for ongoing strengthening
[2017-06-05] MEDS: MELATONIN 1 MG TABLET PO SCH (21:27)
[2017-06-06] MEDS: OMEPRAZOLE 20 MG CAPSULE PO SCH (06:02)
[2017-06-06] MEDS: TRAMADOL 50 MG TABLET PO PRN ×3 (06:02→21:26)
[2017-06-06] MEDS: MAGIC MOUTHWASH 5ml PO PRN (06:03)
--- NOTE | 2017-06-06 07:49 | Orthopedic Progress Note ---
Date: Subjective/Severity of Illness: Dennys is feeling good today. No complaints. Antibiotics discussed with Dr. Gomes and will be discontinued. He has completed a 7 day course. Orthopedic Objective PO Vital signs: Temperature 98.4 F 06/05/17 20:15 Pulse Rate 97 06/06/17 04:42 Respiratory Rate 18 06/05/17 20:15 Blood Pressure 136/72 06/06/17 04:42 Pulse Oximetry 97 06/05/17 20:15 Oxygen Delivery Method Room Air Height and Weight: Height 5 ft 6 in Weight 164 lb 14.492 oz Body Mass Index 27.3 - Constitutional General Appearance: Present: alert, orientated x3, no acute distress - Respiratory Exam Present: non-labored - Cardiovascular Exam Present: pedal pulses intact - Abdominal Exam Present: soft - Knee Exam Knee Exam: Absent: effusion, painful ROM - Integumentary Exam Present: bruising. Absent: erythema (typical medially post op) - Lymphatic Lymphatic: Absent: adenopathy - Neurological Exam Present: intact to light touch, no deficits - Labs Result Diagrams: 06/05/17 13:57 06/06/17 04:12 Abnormal lab results 06/05/17 06/05/17 06/06/17 Range/Units 13:57 13:57 04:12 RBC 3.71 L (4.50-5.90) M/MM3 Hgb 12.0 L (13.5-17.5) GM/DL Hct 36.5 L (41-53) % RDW Std Deviation 51.3 H (36.9-50.2) FL Reactive Lymphs % 2.0 H (0-0) % Monocytes % (Manual) 10.0 H (0-9.0) % Metamyelocytes % 4.0 H (0-0) % Myelocytes % 5.0 H (0-0) % Abs React Lymphs (Man) 0.2 H (0-0) T/MM3 Monocytes # (Manual) 1.0 H (0-0.8) T/MM3 INR 2.50 H (0.99-1.21) Sodium (134-144) MEQ/L Potassium 5.2 H (3.6-5) MEQ/L Chloride 96 L (98-107) MEQ/L BUN 32.0 H (9-20) MG/DL BUN/Creatinine Ratio 29 H (6-26) RATIO Calculated Osmolality (261-280) MOSM/KG 06/06/17 Range/Units 04:12 RBC (4.50-5.90) M/MM3 Hgb (13.5-17.5) GM/DL Hct (41-53) % RDW Std Deviation (36.9-50.2) FL Reactive Lymphs % (0-0) % Monocytes % (Manual) (0-9.0) % Metamyelocytes % (0-0) % Myelocytes % (0-0) % Abs React Lymphs (Man) (0-0) T/MM3 Monocytes # (Manual) (0-0.8) T/MM3 INR (0.99-1.21) Sodium 132 L (134-144) MEQ/L Potassium (3.6-5) MEQ/L Chloride (98-107) MEQ/L BUN 29.0 H (9-20) MG/DL BUN/Creatinine Ratio 32 H (6-26) RATIO Calculated Osmolality 260 L (261-280) MOSM/KG H & H 05/30/17 05/31/17 06/03/17 Range/Units 04:42 04:38 11:23 Hgb 11.1 L 9.9 L 11.2 L (13.5-17.5) GM/DL Hct 34.2 L 31.0 L 34.6 L (41-53) % 06/05/17 Range/Units 13:57 Hgb 12.0 L (13.5-17.5) GM/DL Hct 36.5 L (41-53) % Coagulation 05/29/17 05/30/17 05/31/17 Range/Units 17:37 04:42 04:38 INR 4.89 H* 4.20 H 2.75 H (0.99-1.21) 06/01/17 06/02/17 06/03/17 Range/Units 05:10 06:29 06:31 INR 2.13 H 1.70 H 1.80 H (0.99-1.21) 06/04/17 06/05/17 06/06/17 Range/Units 06:57 06:33 04:12 INR 1.70 H 2.10 H 2.50 H (0.99-1.21) Orthopedic Assessment and Plan (1) Debility Status: Acute (2) Redness of joint Status: Acute (3) S/P knee replacement Status: Acute Assessment and Plan: Kelfex to be discontinued. Continue rehab and monitor knee. Hospital Course Summary Disclaimer: The visit summary below is not to be considered part of the above Progress Note. Hospital Course: 06/01/17 Continue therapy and pain control per attending. INR therapeutic and venous Doppler was negative for DVT. Continue Coumadin per pharmacy protocol. May start obtaining INR via fingerstick. 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 Discussed with case management manager, she will come and visit with Dennys about his concerns. Constipation has improved. Mild hyponatremia, thrombocytopenia, and mild normocytic anemia: Repeat labs ( CBC, BMP) on Monday, June 05. 06/03/17 Overall, Dennys is doing well. Continue to encourage therapy and pain control per Dr. Marcum. INR 1.80 today with pharmacy to manage. Continue Coumadin per pharmacy protocol. May start obtaining INR via fingerstick as patient. Constipation has improved. Continue with bowel motivation. Blood sugars well controlled. Labs results pending. Patient requests holding his over the counter medications (fish oil, calcium and glucosamine) for the remainder of his admission as he feels like they are contributing to his having episodes of nausea. 06/05 Increased erythema to left medial knee. Case discussed with Dr Marcum. Agree with consultation to Dr Gomes for orthopedic evaluation. He has been on Keflex since 05/29/17. This could possibly be discontinued ?? Blood sugars have been well controlled. INR 2.10 - Continue Coumadin per pharmacy protocol. Given increased and erythema. Will obtain laboratory studies now CBC, BMP. Continue to encourage work with PT/OT for ongoing strengthening
--- NOTE | 2017-06-06 07:50 | Pharmacy Consult ---
Pharmacy Consult-Warfarin - Laboratory Information 05/29/17 05/30/17 05/31/17 17:37 04:42 04:38 INR 4.89 H* 4.20 H 2.75 H 06/01/17 06/02/17 06/03/17 05:10 06:29 06:31 INR 2.13 H 1.70 H 1.80 H 06/04/17 06/05/17 06/06/17 06:57 06:33 04:12 INR 1.70 H 2.10 H 2.50 H COUMADIN CONSULT (Recurring): Today's INR = 2.50. 87 y.o. Male post-op total knee replacement with INR range of 1.5-2.0. I ordered Warfarin 1.5 mg today. The Pharmacy will continue to monitor the INR and make adjustments accordingly. Thank you for the Orthopaedic Warfarin Dosing Protocol, Geovanni Osborne RPh.
[2017-06-06] MEDS: GLIMEPIRIDE 1 MG TABLET PO SCH ×2 (08:31→17:17)
[2017-06-06] MEDS: CYANOCOBALAMIN (B-12) 500mcg TABLET PO SCH (08:31)
[2017-06-06] MEDS: HYDROCODONE/APAP 5mg/325mg TABLET PO PRN ×2 (08:31→15:03)
[2017-06-06] MEDS: CITALOPRAM 20 MG TABLET PO SCH (08:31)
[2017-06-06] MEDS: ASPIRIN 81 MG CHEWABLE TABLET PO SCH (08:32)
[2017-06-06] MEDS: MULTI-VITAMIN PLAIN TABLET PO SCH (08:32)
[2017-06-06] MEDS: POLYETHYL GLYCOL 3350 17gm PACKET PO SCH (08:32)
[2017-06-06] MEDS: DOCUSATE SODIUM 100 MG CAPSULE PO SCH ×2 (08:32→21:23)
[2017-06-06] MEDS: ACETAMINOPHEN 325 MG TABLET PO SCH ×4 (08:33→21:27)
[2017-06-06] MEDS: CARBAMIDE PEROXIDE 6.5% EAR DROPS 15ml RIGHT EAR SCH ×2 (11:13→21:28)
--- NOTE | 2017-06-06 11:16 | Progress Note ---
<Colette Mckee - Last Filed: 06/06/17 11:10> Subjective: Dennys is seen today in follow up for his left knee replacement. He is seen in his room, working with therapy and reports that he is doing well. His only complaint is occasional popping sensation in his left ear which he believes is due to wax build up. He denies any pain or change in hearing, though he is noted to have hearing aids. He also denies any fevers, chills, cough, congestion, chest pain, shortness of breath, abdominal pain, nausea, vomiting or dysuria. His appetite has been good and his bowels are moving. He reports that his left knee appears less red today but he continues to have pain, especially with movement. Review of nursing notes reveals orthostatic hypotension with blood pressure at 136/72 lying, 120/65 sitting and 113/67 standing. He currently denies any dizziness, lightheadness or syncope. BMP today reveals hyponatremia with sodium at 132 and otherwise unremarkable. INR is therapeutic at 2.50 with pharmacy managing. He has been seen and evaluated by ortho without additional recommendations. On exam, he is seen in his room, working with therapy. He is alert and orientated x 3 and in good spirits. Cardiac exam reveals regular rate and rhythm and lungs are clear on auscultation. Abdomen is soft, nontender with active bowel sounds. Lower extremities reveal edema, left > right, which has been consistent. Improving erythema noted to left medial knee without warmth. Objective Vital signs: Temperature 98.6 F 06/06/17 08:00 Pulse Rate 116 H 06/06/17 08:00 Respiratory Rate 18 06/06/17 08:00 Blood Pressure 115/69 06/06/17 08:00 Pulse Oximetry 96 06/06/17 08:00 Oxygen Delivery Method Room Air Body Mass Index: 27.3 - Constitutional Present: no acute distress, well nourished, well developed, cooperative - Routine HEENT Exam Head: Present: normocephalic, atraumatic Eye: Present: PERRL. Absent: scleral injection ENT: Present: mucous membranes moist Comments: small amount of wax noted to left ear without impaction. No erythema, bulging or signs of infection. - Routine Respiratory Exam Present: CTA bilaterally. Absent: rhonchi, stridor, wheezes - Routine Cardiovascular Exam Present: RRR, S1, S2 - Routine Abdominal Exam Present: soft, normoactive bowel sounds, non distended, non tender - Routine Extremities Exam Present: edema (L>R), pulses intact Comments: bandage clean, dry and intact to anterior knee. - Routine Back/Spine/Pelvis Exam Back/Spine: Present: full ROM. Absent: vertebral tenderness - Routine Musculoskeletal Exam Musculoskeletal: Present: moving extremities well, joint swelling (left knee) - Routine Skin Exam Present: intact, dry, warm - Routine Neurological Exam Present: alert, oriented X3, moving all extremities, normal speech - Routine Psychiatric Exam Present: normal affect, cooperative Results - Labs CBC & Chem 7: 06/05/17 13:57 06/06/17 04:12 Assessment and Plan (1) S/P knee replacement Current visit: Yes Status: Acute (2) Debility Current visit: Yes Status: Acute (3) Hyponatremia Current visit: Yes Status: Acute (4) Thrombocytopenia Current visit: Yes Status: Acute (5) Normocytic anemia Current visit: Yes Status: Acute Assessment and Plan: Overall, Dennys appears to be doing well. He continues to have pain control issues but states it is improved today. He complains of popping sensation to his left ear which revealed wax. Will initiate debrox to left ear as he currently uses it for his right ear. No infection noted. Denies any other complaints and is eating and drinking well. Bowel moving well. He states his bowels are moving well with MiraLAX and Colace. On exam he is alert and oriented and in no acute distress. Chest is clear to auscultation. Cardiovascular reveals a regular rate and rhythm. Abdomen is soft and nontender. Labs on 06/06 showed mildly elevated potassium at 5.2 with BUN 32 and creatinine 1.1. Labs improved today with potassium at 4.7 after increased fluid intake and discontinuation of prune juice for his constipation. Will continue to monitor electrolytes. Hyponatremia noted on labs with sodium at 132. In light of hyponatremia and orthostatic hypotension, will give NS 250cc/hr x 1 L. Continue [place] as needed for breakthrough pain as pain has been uncontrolled with tramadol. Blood sugars are currently well controlled and will continue with current management. Continue pharmacy consult for Coumadin management. INR is therapeutic at 2.50. Appreciate ortho consult. Keflex discontinued. Continue to monitor closely for signs of infection. - Time spent with patient 25 - 35 minutes Coordination of Care: >50% of visit spent providing counseling/coordination of care Sepsis Assessment - Evaluation Sepsis screening result: No Definite Risk Hospital Course Summary Disclaimer: The visit summary below is not to be considered part of the above Progress Note. Hospital Course: 06/01/17 Continue therapy and pain control per attending. INR therapeutic and venous Doppler was negative for DVT. Continue Coumadin per pharmacy protocol. May start obtaining INR via fingerstick. 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 Discussed with caser, she will come and visit with Dennys about his concerns. Constipation has improved. Mild hyponatremia, thrombocytopenia, and mild normocytic anemia: Repeat labs ( CBC, BMP) on June 05. 06/03/17 Overall, Dennys is doing well. Continue to encourage therapy and pain control per Dr. Marcum. INR 1.80 today with pharmacy to manage. Continue Coumadin per pharmacy protocol. May start obtaining INR via fingerstick as patient. Constipation has improved. Continue with bowel motivation. Blood sugars well controlled. Labs results pending. Patient requests holding his over the counter medications (fish oil, calcium and glucosamine) for the remainder of his admission as he feels like they are contributing to his having episodes of nausea. 06/05 Increased erythema to left medial knee. Case discussed with Dr Marcum. Agree with consultation to Dr Gomes for orthopedic evaluation. He has been on Keflex since 05/29/17. This could possibly be discontinued ?? Blood sugars have been well controlled. INR 2.10 - Continue Coumadin per pharmacy protocol. Given increased and erythema. Will obtain laboratory studies now CBC, BMP. Continue to encourage work with PT/OT for ongoing strengthening 06/06/17 11:26 Overall, Dennys appears to be doing well. He continues to have pain control issues but states it is improved today. He complains of popping sensation to his left ear which revealed small amount of wax without impaction. Will initiate debrox to left ear as he currently uses it for his right ear. No erythema, bulging or signs of infection noted. Denies any other complaints and is eating and drinking well. Bowel moving well. He states his bowels are moving well with MiraLAX and Colace. On exam he is alert and oriented and in no acute distress. Chest is clear to auscultation. Cardiovascular reveals a regular rate and rhythm. Abdomen is soft and nontender. Labs on 06/06 showed mildly elevated potassium at 5.2 with BUN 32 and creatinine 1.1. Labs improved today with potassium at 4.7 after increased fluid intake and discontinuation of prune juice for his constipation. Will continue to monitor electrolytes. Hyponatremia noted on labs with sodium at 132. In light of hyponatremia and orthostatic hypotension, will give NS 250cc/hr x 1 L. Continue [place] as needed for breakthrough pain as pain has been uncontrolled with tramadol. Blood sugars are currently well controlled and will continue with current management. Continue pharmacy consult for Coumadin management. INR is therapeutic at 2.50. Appreciate ortho consult. Keflex discontinued. Continue to monitor closely for signs of infection. 06/06/17 11:34 <Kathia Cope - Last Filed: 06/06/17 19:59> Objective Vital signs: Temperature 97.6 F 06/06/17 16:53 Pulse Rate 86 06/06/17 16:53 Respiratory Rate 18 06/06/17 16:53 Blood Pressure 132/71 06/06/17 16:53 Pulse Oximetry 99 06/06/17 16:53 Oxygen Delivery Method Room Air Results - Labs CBC & Chem 7: 06/05/17 13:57 06/06/17 04:12 Assessment and Plan (1) S/P knee replacement Current visit: Yes Status: Acute (2) Debility Current visit: Yes Status: Acute (3) Hyponatremia Current visit: Yes Status: Acute (4) Thrombocytopenia Current visit: Yes Status: Acute (5) Normocytic anemia Current visit: Yes Status: Acute Hospital Course Summary Disclaimer: The visit summary below is not to be considered part of the above Progress Note.
[2017-06-06] MEDS ORDERED: CARBAMIDE PEROXIDE 6.5% EAR DROPS 15ml EACH EAR SCH (11:32)
--- NOTE | 2017-06-06 11:47 | IRU Progress Note ---
- Subjective/Serverity of Illness Mr. Orourke was evaluated when he was in his room. is in the room as well. He reports he continues to have quite a bit of discomfort in the left knee. His redness around the knee has substantially improved. I appreciate the assistance of orthopedics in this regard. As noted by the hospitalist, he does comment of some popping in the left ear. I did inspect the left ear and there is minimal wax present. He denies any chest pain or shortness of breath. His main issue is that of pain in the left knee. In addition, we do note some orthostatic hypotension as well as hyponatremia. Exam Vital Signs: Temperature 98.6 F 06/06/17 08:00 Pulse Rate 105 H 06/06/17 11:27 Respiratory Rate 18 06/06/17 08:00 Blood Pressure 115/69 06/06/17 08:00 Pulse Oximetry 96 06/06/17 08:00 Oxygen Delivery Method Room Air Height: 1.68 m Weight: 74.8 kg Body Mass Index: 27.3 - Constitutional Present: no acute distress - Routine HEENT Exam Head: Present: normocephalic Eye: Present: EOMI ENT: Present: mucous membranes moist Comments: Inspected left ear. Hearing aid was removed. Minimal amount of wax around the outside. - Routine Neck Exam Present: supple - Routine Respiratory Exam Present: CTA bilaterally - Routine Cardiovascular Exam Present: RRR, S1, S2, no murmur - Routine Abdominal Exam Present: soft, normoactive bowel sounds, non distended, non tender - Routine Extremities Exam Comments: Dressing not removed. However the area of redness on the medial aspect of the left knee is now resolved. - Routine Skin Exam Absent: erythema - Routine Neurological Exam Present: alert, oriented X3 - Routine Psychiatric Exam Present: normal affect Sepsis Assessment - Evaluation Sepsis screening result: No Definite Risk IRU A/P (1) Debility Current visit: Yes Status: Acute Patient continues to have significant debility from his recent knee surgery. He is improving and cooperating with therapies. (2) Hyponatremia Current visit: Yes Status: Acute Hyponatremia noted. Followed by hospitalists. Asymptomatic. Does not appear to be excessive water drinker. (3) Redness of joint Current visit: Yes Status: Resolved Redness of the medial aspect the left knee appears to have resolved. No evidence of active infection. Appreciate orthopedics input. Wound was inspected yesterday by orthopedics and felt to be unremarkable. Dressing was changed under sterile technique at that time. DVT Prophylaxis: CHRISTINA Sanderson, Coumadin Resuscitation Status: Full Code - Course Hospital Course: Jameel Stanton MD: 06/05/17 11:40 -improving with therapy - significant pain in the left knee noted, even at night - some redness and warmth in the medial left knee noted, will consult Dr. Gomes -weakness episode: resolved, normal ECG - Interventions to Obtain Goals PT Treatment Plan: Balance/Proprioception, Functional Activities, Gait Training , Patient/Family Education, Therapeutic Exercise OT Treatment Plan: ADL (Basic Care), Balance Training, IADL, Pt./Family Education, Ther. Exercise for ADL
[2017-06-06] MEDS ORDERED: WARFARIN 3 MG TABLET PO SCH (12:00)
[2017-06-06] MEDS: SALINE FLUSH 10ml SYRINGE IVF PRN ×2 (12:00→15:01)
[2017-06-06] MEDS ORDERED: NS 1,000 ML IV SCH (12:15)
[2017-06-06] MEDS: MELATONIN 1 MG TABLET PO SCH (21:23)
[2017-06-07] MEDS: OMEPRAZOLE 20 MG CAPSULE PO SCH (06:28)
[2017-06-07] MEDS: HYDROCODONE/APAP 5mg/325mg TABLET PO PRN ×2 (06:28→12:27)
--- NOTE | 2017-06-07 08:14 | Pharmacy Consult ---
Pharmacy Consult-Warfarin - Laboratory Information 05/29/17 05/30/17 05/31/17 17:37 04:42 04:38 INR 4.89 H* 4.20 H 2.75 H 06/01/17 06/02/17 06/03/17 05:10 06:29 06:31 INR 2.13 H 1.70 H 1.80 H 06/04/17 06/05/17 06/06/17 06:57 06:33 04:12 INR 1.70 H 2.10 H 2.50 H 06/07/17 06:35 INR 2.10 H - Consult Information Will give warfarin 2mg po today. Will continue to monitor. Thank you.
[2017-06-07] MEDS: CYANOCOBALAMIN (B-12) 500mcg TABLET PO SCH (09:04)
[2017-06-07] MEDS: ASPIRIN 81 MG CHEWABLE TABLET PO SCH (09:04)
[2017-06-07] MEDS: ACETAMINOPHEN 325 MG TABLET PO SCH ×4 (09:04→21:42)
[2017-06-07] MEDS: GLIMEPIRIDE 1 MG TABLET PO SCH ×2 (09:04→17:51)
[2017-06-07] MEDS: CITALOPRAM 20 MG TABLET PO SCH (09:04)
[2017-06-07] MEDS: MULTI-VITAMIN PLAIN TABLET PO SCH (09:04)
[2017-06-07] MEDS: POLYETHYL GLYCOL 3350 17gm PACKET PO SCH (09:05)
[2017-06-07] MEDS: DOCUSATE SODIUM 100 MG CAPSULE PO SCH ×2 (09:05→21:35)
[2017-06-07] MEDS: TRAMADOL 50 MG TABLET PO PRN ×2 (09:07→21:34)
--- NOTE | 2017-06-07 09:19 | IRU Progress Note ---
- Subjective/Serverity of Illness Mr. Sauceda was evaluated in his room. He is able to bend his left knee 90 and perhaps just a bit more. The redness continues to be substantially improved in the medial aspect of the left knee. Previously orthopedics did evaluate the wound and it looked good. He states that he slept much better last night with improved pain control using the [place]. Denies any bowel problems at present. He is on Coumadin. Pharmacy is adjusting dose. INR is therapeutic. Exam Vital Signs: Temperature 97.9 F 06/06/17 21:58 Pulse Rate 107 H 06/07/17 02:45 Respiratory Rate 18 06/06/17 21:58 Blood Pressure 145/80 H 06/07/17 02:45 Pulse Oximetry 97 06/06/17 21:58 Oxygen Delivery Method Room Air Height: 1.68 m Weight: 74.8 kg Body Mass Index: 27.3 - Constitutional Present: no acute distress - Routine HEENT Exam ENT: Present: mucous membranes moist - Routine Neck Exam Present: supple - Routine Respiratory Exam Present: CTA bilaterally - Routine Cardiovascular Exam Present: RRR, no murmur Comments: Uncertain if he is actually in atrial fibrillation at present. However he sounds regular at the present time. - Routine Extremities Exam Present: no edema Comments: Left knee remains puffy as anticipated after surgery. There is minimal warmth medially. Range of motion is looking good. No edema downstream. - Routine Neurological Exam Present: alert, oriented X3 Results IRU - Labs Labs: INR reviewed and is therapeutic. Hyponatremia 132 again identified. Sepsis Assessment - Evaluation Sepsis screening result: No Definite Risk IRU A/P (1) Debility Current visit: Yes Status: Acute He is improving with therapy. He still requires assistance with transfers from sitting to standing. He is walking with a walker with contact-guard assist or standby assist of one. Seems to be improving significantly with therapies. He is cooperative. (2) Hyponatremia Current visit: Yes Status: Acute Sodium be monitored. It does not appear to be excessive water drinker. (3) Redness of joint Current visit: Yes Status: Resolved DVT Prophylaxis: CHRISTINA Sanderson, Coumadin Resuscitation Status: Full Code - Course Hospital Course: Jameel Stanton MD: 06/05/17 11:40 -improving with therapy - significant pain in the left knee noted, even at night - some redness and warmth in the medial left knee noted, will consult Dr. Gomes -weakness episode: resolved, normal ECG 06/07/17 09:19 -requires assistance for sit to stand -improving with walking with walker -redness remains minimal to non-existent -INR monitored and is therapeutic -sodium remains a bit down at 132 - Interventions to Obtain Goals PT Treatment Plan: Balance/Proprioception, Functional Activities, Gait Training , Patient/Family Education, Therapeutic Exercise OT Treatment Plan: ADL (Basic Care), Balance Training, IADL, Pt./Family Education, Ther. Exercise for ADL
[2017-06-07] MEDS ORDERED: WARFARIN 2 MG TABLET PO SCH (12:00)
--- NOTE | 2017-06-07 12:46 | IRU Progress Note ---
- Subjective/Serverity of Illness Please see progress note from earlier today. In reviewing the patient's chart further, it is noted that he was on cephalexin 500 mg 4 times daily from May 29 through June 05. Apparently this was started by his orthopedist For some redness in the medial left knee. The wound itself is looking fine and did look fine apparently. Redness has resolved. The orthopedic PA did discontinue the cephalexin on June 06 (last dose June 05). The patient did have evidence of cellulitis in the medial left knee which has resolved. Exam Vital Signs: Temperature 97.9 F 06/06/17 21:58 Pulse Rate 107 H 06/07/17 02:45 Respiratory Rate 18 06/06/17 21:58 Blood Pressure 145/80 H 06/07/17 02:45 Pulse Oximetry 97 06/06/17 21:58 Oxygen Delivery Method Room Air Height: 1.68 m Weight: 74.8 kg Body Mass Index: 27.3 Sepsis Assessment - Evaluation Sepsis screening result: No Definite Risk IRU A/P (1) Debility Current visit: Yes Status: Acute (2) Hyponatremia Current visit: Yes Status: Acute (3) Redness of joint Current visit: Yes Status: Resolved (4) Cellulitis of left lower leg Current visit: Yes Status: Resolved Patient received cephalexin from May 29 through June 05. His leg was monitored carefully. There was some redness noted medially but that has resolved. The wound itself was not involved. DVT Prophylaxis: CHRISTINA Sanderson, Coumadin Resuscitation Status: Full Code - Course Hospital Course: Jameel Stanton MD: 06/05/17 11:40 -improving with therapy - significant pain in the left knee noted, even at night - some redness and warmth in the medial left knee noted, will consult Dr. Gomes -weakness episode: resolved, normal ECG 06/07/17 09:19 -requires assistance for sit to stand -improving with walking with walker -redness remains minimal to non-existent -INR monitored and is therapeutic -sodium remains a bit down at 132 - Interventions to Obtain Goals PT Treatment Plan: Balance/Proprioception, Functional Activities, Gait Training , Patient/Family Education, Therapeutic Exercise OT Treatment Plan: ADL (Basic Care), Balance Training, IADL, Pt./Family Education, Ther. Exercise for ADL
--- NOTE | 2017-06-07 13:44 | IRU Team Meeting ---
IRU Team Meeting - Nursing Vital Signs: Vital Signs - 24 hr 06/06/17 16:53 06/06/17 21:58 06/07/17 02:45 Temperature 97.6 F 97.9 F Pulse Rate 86 89 Pulse Rate [Orthostatic Lying] 107 H Pulse Rate [Orthostatic Sitting] 91 Pulse Rate [Orthostatic Standing] 96 Respiratory Rate 18 18 Blood Pressure 132/71 143/80 H Blood Pressure [Orthostatic Lying] 145/80 H Blood Pressure [Orthostatic Sitting] 139/70 Blood Pressure [Orthostatic Standing] 137/74 Pulse Oximetry 99 97 Current Medications: Acetaminophen (Tylenol) 650 mg PO QID [facility] Last Admin: 06/07/17 09:04 Dose: 650 mg Acetaminophen/Hydrocodone Bitart ([place] 5/325) 1 tab PO Q6H PRN PRN Reason: Pain Last Admin: 06/07/17 12:27 Dose: 1 tab Aspirin (Asa) 81 mg PO DAILY [facility] Last Admin: 06/07/17 09:04 Dose: 81 mg Carbamide Peroxide (Debrox) 5 drops RIGHT EAR BID [facility] Last Admin: 06/06/17 21:28 Dose: 5 drops Citalopram Hydrobromide (Celexa) 20 mg PO DAILY [facility] Last Admin: 06/07/17 09:04 Dose: 20 mg Cyanocobalamin (Vit. B-12) 500 mcg PO DAILY [facility] Last Admin: 06/07/17 09:04 Dose: 500 mcg Docusate Sodium (Colace) 100 mg PO BID [facility] Last Admin: 06/07/17 09:05 Dose: 100 mg Glimepiride (Amaryl) 1 mg PO BIDBS [facility] Last Admin: 06/07/17 09:04 Dose: 1 mg Lidocaine HCl (Magic Mouthwash (Lido/Maalox/Carafate)) 5 ml PO Q4H PRN Last Admin: 06/06/17 06:03 Dose: 5 ml Melatonin (Melatonin) 3 mg PO HS [facility] Last Admin: 06/06/17 21:23 Dose: 3 mg Multivitamins (Theragran) 1 tab PO DAILY [facility] Last Admin: 06/07/17 09:04 Dose: 1 tab Omeprazole (Prilosec) 20 mg PO ACB [facility] Last Admin: 06/07/17 06:28 Dose: 20 mg Polyethylene Glycol (Miralax) 17 gm PO DAILY [facility] Last Admin: 06/07/17 09:05 Dose: 17 gm Sodium Chloride (Iv Flush) 10 - 80 ml IVF PRN PRN PRN Reason: Flushing Last Admin: 06/06/17 15:01 Dose: 10 ml Tramadol HCl (Ultram) 50 - 100 mg PO Q6H PRN PRN Reason: Pain Last Admin: 06/07/17 09:07 Dose: 100 mg Warfarin Sodium (Coumadin Protocol) 0 [facility] NOTE JOAQUINA Comments: Pain control much better with [place] last night. He is alternating ultram and [place]. His redness/cellulitis is resolved and he is now off cephalexin. Using CPM. - Physical Therapy Supine to Sit Bed Mobility Ability: Contact Guard Assistance Sit to Supine Bed Mobility Ability: Stand By Assist/Supervision Sit to Stand Chair Transfer Ability: Stand By Assist/Supervision Stand to Sit Chair Transfer Ability: Stand By Assist/Supervision - Occupational Therapy Bathing Ability: Minimal Assistance Lower Body Dressing Ability: Modified Independent Lower Body Dressing Comment: He does have a fear of falling. He is making good progress. - Care Plan Anticipated Length of Stay: 5 Anticipated DC Destination: Home, Self Care (Possibly with outpt PT)
[2017-06-07] MEDS: CARBAMIDE PEROXIDE 6.5% EAR DROPS 15ml RIGHT EAR SCH ×2 (14:26→21:37)
[2017-06-07] MEDS: MELATONIN 1 MG TABLET PO SCH (21:34)
[2017-06-07] MEDS: MAGIC MOUTHWASH 5ml PO PRN (21:45)
[2017-06-08] MEDS: HYDROCODONE/APAP 5mg/325mg TABLET PO PRN ×2 (04:45→10:54)
[2017-06-08] MEDS: OMEPRAZOLE 20 MG CAPSULE PO SCH ×2 (05:00→10:51)
--- NOTE | 2017-06-08 07:21 | Pharmacy Consult ---
Pharmacy Consult-Warfarin - Laboratory Information 05/29/17 05/30/17 05/31/17 17:37 04:42 04:38 INR 4.89 H* 4.20 H 2.75 H 06/01/17 06/02/17 06/03/17 05:10 06:29 06:31 INR 2.13 H 1.70 H 1.80 H 06/04/17 06/05/17 06/06/17 06:57 06:33 04:12 INR 1.70 H 2.10 H 2.50 H 06/07/17 06/08/17 06:35 04:53 INR 2.10 H 2.61 H - Consult Information COUMADIN CONSULT (Recurring): Today's INR = 2.61 Will give Warfarin 1mg today. Will continue to monitor & make adjustments accordingly. Thank you.
[2017-06-08] MEDS: ACETAMINOPHEN 325 MG TABLET PO SCH ×4 (08:13→21:52)
[2017-06-08] MEDS: POLYETHYL GLYCOL 3350 17gm PACKET PO SCH (08:13)
[2017-06-08] MEDS: MULTI-VITAMIN PLAIN TABLET PO SCH (08:13)
[2017-06-08] MEDS: CITALOPRAM 20 MG TABLET PO SCH (08:13)
[2017-06-08] MEDS: GLIMEPIRIDE 1 MG TABLET PO SCH ×2 (08:13→17:36)
[2017-06-08] MEDS: CYANOCOBALAMIN (B-12) 500mcg TABLET PO SCH (08:13)
[2017-06-08] MEDS: DOCUSATE SODIUM 100 MG CAPSULE PO SCH ×2 (08:13→21:54)
[2017-06-08] MEDS: ASPIRIN 81 MG CHEWABLE TABLET PO SCH (08:14)
[2017-06-08] MEDS: TRAMADOL 50 MG TABLET PO PRN ×4 (08:19→22:02)
[2017-06-08] MEDS: CARBAMIDE PEROXIDE 6.5% EAR DROPS 15ml RIGHT EAR SCH ×2 (10:50→21:51)
--- NOTE | 2017-06-08 11:06 | IRU Progress Note ---
- Subjective/Serverity of Illness Mr. Orourke complains of pain in his left knee. He is able to bend at at least 90 of not more however. No evidence of active infection. Today he reports difficulty swallowing. He feels as though the inside of his right cheek has been inflamed with some sores. In addition there is what appears to be a fever blister on the right lower lip. He reports that the right cheek feels puffy and swollen. Has difficulty swallowing particularly pills. States that he tends to choke on pills. He reports onset of this gradually over the past 45 days. Exam of the inside of the mouth is benign. However does have what appears to be a fever blister right lower lip. Careful neurologic exam fails to reveal any evidence of neurologic problems. Has good sensation on both cheeks externally. No facial droop. No swelling identified. Strength is good and cranial nerves II through XII appear to be intact bilaterally. Exam Vital Signs: Temperature 98.2 F 06/08/17 08:00 Pulse Rate 88 06/08/17 10:48 Respiratory Rate 18 06/08/17 08:00 Blood Pressure 124/69 06/08/17 08:00 Pulse Oximetry 97 06/08/17 10:48 Oxygen Delivery Method Room Air Height: 1.68 m Weight: 74.8 kg Body Mass Index: 27.3 - Constitutional Present: mild distress - Routine HEENT Exam Head: Present: normocephalic Eye: Present: EOMI. Absent: periorbital swelling, periorbital tenderness ENT: Present: mucous membranes moist - Routine Neck Exam Present: supple, full ROM - Routine Respiratory Exam Present: CTA bilaterally - Routine Cardiovascular Exam Present: S1, S2, irregular rhythm - Routine Abdominal Exam Present: soft, normoactive bowel sounds, non distended, non tender - Routine Extremities Exam Present: no edema - Routine Back/Spine/Pelvis Exam Comments: Exam of left knee shows good range of motion. There is no evidence of redness nor warmth nor any significant worsening. It is puffy as would be anticipated after surgery. - Routine Skin Exam Present: intact, dry. Absent: erythema Comments: Right lower lip shows what appears to be a fever blister. - Routine Neurological Exam Present: alert, oriented X3, CN II-XII intact. Absent: sensory deficit, motor deficit No facial droop is noted. I do not sense any degree of swelling. Cranial nerves 2 through 12 appear to be intact bilaterally. Sensation is normal bilaterally on the face. - Routine Psychiatric Exam Present: normal affect, normal thought process Results IRU - Labs Labs: INR 2.61 reviewed. Sepsis Assessment - Evaluation Sepsis screening result: No Definite Risk IRU A/P (1) Debility Current visit: Yes Status: Acute Left knee is improving. No redness no warmth. Working on range of motion. (2) Hyponatremia Current visit: Yes Status: Acute (3) Redness of joint Current visit: Yes Status: Resolved (4) Cellulitis of left lower leg Current visit: Yes Status: Resolved Cellulitis has resolved and has not recurred. (5) HSV (herpes simplex virus) infection Current visit: Yes Status: Acute Patient reports new onset of lesion in right lower lip along with sensation of burning on the inside of the right cheek. Intraoral exam fails to reveal any evidence of lesions. 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 We will start acyclovir. (6) Dysphagia, oropharyngeal phase Current visit: Yes Status: Acute Patient reports difficulty swallowing. In particular has difficulty swallowing pills. This is a fairly new onset over the last several days. I will ask speech therapy to evaluate. I do not see any other evidence of neurologic change clinically. DVT Prophylaxis: CHRISTINA Sanderson, Coumadin Resuscitation Status: Full Code - Course Hospital Course: Jameel Stanton MD: 06/05/17 11:40 -improving with therapy - significant pain in the left knee noted, even at night - some redness and warmth in the medial left knee noted, will consult Dr. Gomes -weakness episode: resolved, normal ECG 06/07/17 09:19 -requires assistance for sit to stand -improving with walking with walker -redness remains minimal to non-existent -INR monitored and is therapeutic -sodium remains a bit down at 132 - Interventions to Obtain Goals PT Treatment Plan: Balance/Proprioception, Functional Activities, Gait Training , Patient/Family Education, Therapeutic Exercise OT Treatment Plan: ADL (Basic Care), Balance Training, IADL, Pt./Family Education, Ther. Exercise for ADL
[2017-06-08] MEDS ORDERED: WARFARIN 1 MG TABLET PO SCH (12:00)
[2017-06-08] MEDS: ACYCLOVIR 200 MG CAPSULE PO SCH ×2 (14:50→21:52)
[2017-06-08] MEDS: MELATONIN 1 MG TABLET PO SCH (21:52)
[2017-06-09] MEDS: HYDROCODONE/APAP 5mg/325mg TABLET PO PRN ×2 (01:09→12:29)
[2017-06-09] MEDS: OMEPRAZOLE 20 MG CAPSULE PO SCH (06:23)
--- NOTE | 2017-06-09 08:49 | Pharmacy Consult ---
Pharmacy Consult-Warfarin - Laboratory Information 05/29/17 05/30/17 05/31/17 17:37 04:42 04:38 INR 4.89 H* 4.20 H 2.75 H 06/01/17 06/02/17 06/03/17 05:10 06:29 06:31 INR 2.13 H 1.70 H 1.80 H 06/04/17 06/05/17 06/06/17 06:57 06:33 04:12 INR 1.70 H 2.10 H 2.50 H 06/07/17 06/08/17 06/09/17 06:35 04:53 05:16 INR 2.10 H 2.61 H 2.46 H - Consult Information COUMADIN CONSULT (Recurring): Today's INR = 2.46. Will give Warfarin 1mg today. Will continue to monitor & make adjustments accordingly. Thank you.
[2017-06-09] MEDS: CYANOCOBALAMIN (B-12) 500mcg TABLET PO SCH (09:01)
[2017-06-09] MEDS: GLIMEPIRIDE 1 MG TABLET PO SCH ×2 (09:01→17:26)
[2017-06-09] MEDS: ACETAMINOPHEN 325 MG TABLET PO SCH ×4 (09:01→21:29)
[2017-06-09] MEDS: ACYCLOVIR 200 MG CAPSULE PO SCH ×3 (09:01→21:29)
[2017-06-09] MEDS: CITALOPRAM 20 MG TABLET PO SCH (09:01)
[2017-06-09] MEDS: MULTI-VITAMIN PLAIN TABLET PO SCH (09:01)
[2017-06-09] MEDS: ASPIRIN 81 MG CHEWABLE TABLET PO SCH (09:01)
[2017-06-09] MEDS: DOCUSATE SODIUM 100 MG CAPSULE PO SCH ×2 (09:02→21:30)
[2017-06-09] MEDS: TRAMADOL 50 MG TABLET PO PRN ×3 (09:02→21:30)
[2017-06-09] MEDS: POLYETHYL GLYCOL 3350 17gm PACKET PO SCH (09:02)
--- NOTE | 2017-06-09 11:21 | IRU Progress Note ---
- Subjective/Serverity of Illness Dennys continues to report difficulty swallowing pills at night. He feels though the right cheek is swollen compared to the left side. We continue to check him for neurologic changes and find none. Does not have any facial droop. No speech difficulty. No sensation difference on either side. Was evaluated by speech therapy yesterday. He was felt to be safe and it was recommended that he swallow pills when he is fully upright and using water. Declines taking them with putting etc. Still has a sore on the right lower lip which I think is likely a fever blister/ HSV-1 infection. We did start acyclovir yesterday. Continues to have discomfort in the left knee but is improving. Does not have stairs at home. Exam Vital Signs: Temperature 96.7 F L 06/09/17 08:00 Pulse Rate 112 H 06/09/17 08:00 Respiratory Rate 18 06/09/17 08:00 Blood Pressure 121/69 06/09/17 08:00 Pulse Oximetry 100 06/09/17 08:00 Oxygen Delivery Method Room Air Height: 1.68 m Weight: 74.8 kg Body Mass Index: 27.3 - Constitutional Present: moderate distress (Knee pain with movement) - Routine HEENT Exam Head: Present: normocephalic Eye: Present: EOMI ENT: Present: mucous membranes moist (small sore right lower lip consistent with fever blister. No swelling of mucous membranes that I can see.), oropharynx clear - Routine Neck Exam Present: supple, full ROM - Routine Respiratory Exam Present: CTA bilaterally - Routine Cardiovascular Exam Present: irregularly irregular - Routine Abdominal Exam Present: normoactive bowel sounds, non distended, non tender - Routine Extremities Exam Present: no edema (left knee continues did not demonstrate any evidence of redness or warmth.) Sepsis Assessment - Evaluation Sepsis screening result: No Definite Risk IRU A/P (1) Debility Current visit: Yes Status: Acute Patient is improving regarding his debilitation. Continues to improve on therapies. (2) Hyponatremia Current visit: Yes Status: Acute (3) Redness of joint Current visit: Yes Status: Resolved (4) Cellulitis of left lower leg Current visit: Yes Status: Resolved (5) HSV (herpes simplex virus) infection Current visit: Yes Status: Acute Remains on treatment for acute HSV-1 infection by clinical diagnosis. (6) Dysphagia, oropharyngeal phase Current visit: Yes Status: Acute Speech therapy evaluated. Did not find a skilled need. They did make recommendations. Etiology of his dysphagia remains obscure. DVT Prophylaxis: CHRISTINA Sanderson, Coumadin Resuscitation Status: Full Code - Course Hospital Course: Jameel Stanton MD: 06/05/17 11:40 -improving with therapy - significant pain in the left knee noted, even at night - some redness and warmth in the medial left knee noted, will consult Dr. Gomes -weakness episode: resolved, normal ECG 06/07/17 09:19 -requires assistance for sit to stand -improving with walking with walker -redness remains minimal to non-existent -INR monitored and is therapeutic -sodium remains a bit down at 132 - Interventions to Obtain Goals PT Treatment Plan: Balance/Proprioception, Functional Activities, Gait Training , Patient/Family Education, Therapeutic Exercise OT Treatment Plan: ADL (Basic Care), Balance Training, IADL, Pt./Family Education, Ther. Exercise for ADL
[2017-06-09] MEDS ORDERED: WARFARIN 1 MG TABLET PO SCH (12:00)
[2017-06-09] MEDS: CARBAMIDE PEROXIDE 6.5% EAR DROPS 15ml RIGHT EAR SCH (13:18)
--- NOTE | 2017-06-09 16:27 | Progress Note ---
Subjective: Mr Orourke was seen this morning during breakfast. He states that overall he feels that he is doing well other than the anticipated post operative pain is currently a 5 out of 10, however his pain medication is due. Otherwise, he feels like he is making good gains and getting stronger. Denies shortness of breath, chest pain or other concerns. Appetite is good, bowels are moving regularly Objective Vital signs: Temperature 96.7 F L 06/09/17 08:00 Pulse Rate 112 H 06/09/17 08:00 Respiratory Rate 18 06/09/17 08:00 Blood Pressure 121/69 06/09/17 08:00 Pulse Oximetry 100 06/09/17 08:00 Oxygen Delivery Method Room Air Body Mass Index: 27.3 - Constitutional Present: well nourished, well developed - Routine HEENT Exam Eye: Present: EOMI ENT: Present: mucous membranes moist, dentition normal - Routine Respiratory Exam Present: CTA bilaterally. Absent: wheezes - Routine Cardiovascular Exam Present: RRR. Absent: murmur - Routine Abdominal Exam Present: soft, normoactive bowel sounds, non distended. Absent: tenderness - Routine Extremities Exam Present: normal capillary refill - Routine Skin Exam Present: dry, warm - Routine Neurological Exam Present: alert, oriented X3, CN II-XII intact - Routine Lymphatic Exam Lymphatic: Absent: adenopathy - Routine Psychiatric Exam Present: normal affect Results - Labs CBC & Chem 7: 06/05/17 13:57 06/08/17 04:53 Assessment and Plan (1) S/P knee replacement Current visit: Yes Status: Acute (2) Debility Current visit: Yes Status: Acute (3) Hyponatremia Current visit: Yes Status: Acute (4) Thrombocytopenia Current visit: Yes Status: Acute (5) Normocytic anemia Current visit: Yes Status: Acute Assessment and Plan: 06/09/17 Overall Mr Orourke is making good gains. He does continue to use [place] and acetaminophen for pain control. Blood sugars have been well controlled. Fasting sugar this morning was 74, No episodes of hypoglycemia. Continue on Amaryl Continue pharmacy consult for Coumadin management. INR is therapeutic at 2.50. Colace and MiraLAX daily for ongoing postoperative bowel motivation Laboratory studies reviewed Continue to work with PT and OT for ongoing strengthening. We have dilatation orders as per Dr. Marcum Sepsis Assessment - Evaluation Sepsis screening result: No Definite Risk Hospital Course Summary Disclaimer: The visit summary below is not to be considered part of the above Progress Note. Hospital Course: 06/01/17 Continue therapy and pain control per attending. INR therapeutic and venous Doppler was negative for DVT. Continue Coumadin per pharmacy protocol. May start obtaining INR via fingerstick. 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 Discussed with watch caser, she will come and visit with Dennys about his concerns. Constipation has improved. Mild hyponatremia, thrombocytopenia, and mild normocytic anemia: Repeat labs ( CBC, BMP) on June 05. 06/03/17 Overall, Dennys is doing well. Continue to encourage therapy and pain control per Dr. Marcum. INR 1.80 today with pharmacy to manage. Continue Coumadin per pharmacy protocol. May start obtaining INR via fingerstick as patient. Constipation has improved. Continue with bowel motivation. Blood sugars well controlled. Labs results pending. Patient requests holding his over the counter medications (fish oil, calcium and glucosamine) for the remainder of his admission as he feels like they are contributing to his having episodes of nausea. 06/05 Increased erythema to left medial knee. Case discussed with Dr Marcum. Agree with consultation to Dr Gomes for orthopedic evaluation. He has been on Keflex since 05/29/17. This could possibly be discontinued ?? Blood sugars have been well controlled. INR 2.10 - Continue Coumadin per pharmacy protocol. Given increased and erythema. Will obtain laboratory studies now CBC, BMP. Continue to encourage work with PT/OT for ongoing strengthening 06/06/17 11:26 Overall, Dennys appears to be doing well. He continues to have pain control issues but states it is improved today. He complains of popping sensation to his left ear which revealed small amount of wax without impaction. Will initiate debrox to left ear as he currently uses it for his right ear. No erythema, bulging or signs of infection noted. Denies any other complaints and is eating and drinking well. Bowel moving well. He states his bowels are moving well with MiraLAX and Colace. On exam he is alert and oriented and in no acute distress. Chest is clear to auscultation. Cardiovascular reveals a regular rate and rhythm. Abdomen is soft and nontender. Labs on 06/06 showed mildly elevated potassium at 5.2 with BUN 32 and creatinine 1.1. Labs improved today with potassium at 4.7 after increased fluid intake and discontinuation of prune juice for his constipation. Will continue to monitor electrolytes. Hyponatremia noted on labs with sodium at 132. In light of hyponatremia and orthostatic hypotension, will give NS 250cc/hr x 1 L. Continue [place] as needed for breakthrough pain as pain has been uncontrolled with tramadol. Blood sugars are currently well controlled and will continue with current management. Continue pharmacy consult for Coumadin management. INR is therapeutic at 2.50. Appreciate ortho consult. Keflex discontinued. Continue to monitor closely for signs of infection. 06/06/17 11:34
[2017-06-09] MEDS: MAGIC MOUTHWASH 5ml PO PRN (21:29)
[2017-06-09] MEDS: MELATONIN 1 MG TABLET PO SCH (21:29)
[2017-06-10] MEDS: HYDROCODONE/APAP 5mg/325mg TABLET PO PRN (02:54)
[2017-06-10] MEDS: OMEPRAZOLE 20 MG CAPSULE PO SCH ×2 (05:13→08:30)
[2017-06-10] MEDS: ACETAMINOPHEN 325 MG TABLET PO SCH ×4 (08:30→23:16)
[2017-06-10] MEDS: TRAMADOL 50 MG TABLET PO PRN ×3 (08:30→21:17)
--- NOTE | 2017-06-10 08:30 | Pharmacy Consult ---
Pharmacy Consult-Warfarin - Laboratory Information 05/29/17 05/30/17 05/31/17 17:37 04:42 04:38 INR 4.89 H* 4.20 H 2.75 H 06/01/17 06/02/17 06/03/17 05:10 06:29 06:31 INR 2.13 H 1.70 H 1.80 H 06/04/17 06/05/17 06/06/17 06:57 06:33 04:12 INR 1.70 H 2.10 H 2.50 H 06/07/17 06/08/17 06/09/17 06:35 04:53 05:16 INR 2.10 H 2.61 H 2.46 H 06/10/17 04:50 INR 2.20 H - Consult Information Will give warfarin 1.5mg po today. Thank you.
[2017-06-10] MEDS: CITALOPRAM 20 MG TABLET PO SCH (08:31)
[2017-06-10] MEDS: CYANOCOBALAMIN (B-12) 500mcg TABLET PO SCH (08:31)
[2017-06-10] MEDS: ACYCLOVIR 200 MG CAPSULE PO SCH ×3 (08:31→21:17)
[2017-06-10] MEDS: MULTI-VITAMIN PLAIN TABLET PO SCH (08:31)
[2017-06-10] MEDS: GLIMEPIRIDE 1 MG TABLET PO SCH ×2 (08:31→18:54)
[2017-06-10] MEDS: DOCUSATE SODIUM 100 MG CAPSULE PO SCH ×2 (08:32→21:17)
[2017-06-10] MEDS: POLYETHYL GLYCOL 3350 17gm PACKET PO SCH (08:32)
[2017-06-10] MEDS: ASPIRIN 81 MG CHEWABLE TABLET PO SCH (08:32)
[2017-06-10] MEDS ORDERED: WARFARIN 1 MG TABLET PO SCH (12:00)
[2017-06-10] MEDS: MELATONIN 1 MG TABLET PO SCH (21:17)
[2017-06-10] MEDS: MAGIC MOUTHWASH 5ml PO PRN (21:20)
[2017-06-11] MEDS: HYDROCODONE/APAP 5mg/325mg TABLET PO PRN (03:03)
[2017-06-11] MEDS: OMEPRAZOLE 20 MG CAPSULE PO SCH (05:54)
[2017-06-11 08:27] VITALS: RESP 16
--- NOTE | 2017-06-11 08:41 | Pharmacy Consult ---
Pharmacy Consult-Warfarin - Laboratory Information 05/29/17 05/30/17 05/31/17 17:37 04:42 04:38 INR 4.89 H* 4.20 H 2.75 H 06/01/17 06/02/17 06/03/17 05:10 06:29 06:31 INR 2.13 H 1.70 H 1.80 H 06/04/17 06/05/17 06/06/17 06:57 06:33 04:12 INR 1.70 H 2.10 H 2.50 H 06/07/17 06/08/17 06/09/17 06:35 04:53 05:16 INR 2.10 H 2.61 H 2.46 H 06/10/17 06/11/17 04:50 06:43 INR 2.20 H 1.60 H - Consult Information Will give warfarin 2mg po today. Goal INR is 1.5-2.5. Thank you.
[2017-06-11] MEDS: TRAMADOL 50 MG TABLET PO PRN ×2 (09:08→21:09)
[2017-06-11] MEDS: ACETAMINOPHEN 325 MG TABLET PO SCH ×4 (09:08→21:08)
[2017-06-11] MEDS: CITALOPRAM 20 MG TABLET PO SCH (09:09)
[2017-06-11] MEDS: GLIMEPIRIDE 1 MG TABLET PO SCH ×2 (09:09→17:25)
[2017-06-11] MEDS: CYANOCOBALAMIN (B-12) 500mcg TABLET PO SCH (09:09)
[2017-06-11] MEDS: ASPIRIN 81 MG CHEWABLE TABLET PO SCH (09:09)
[2017-06-11] MEDS: ACYCLOVIR 200 MG CAPSULE PO SCH ×3 (09:09→21:08)
[2017-06-11] MEDS: MULTI-VITAMIN PLAIN TABLET PO SCH (09:09)
[2017-06-11] MEDS: DOCUSATE SODIUM 100 MG CAPSULE PO SCH ×2 (09:09→21:10)
[2017-06-11] MEDS: POLYETHYL GLYCOL 3350 17gm PACKET PO SCH (09:10)
[2017-06-11] MEDS ORDERED: WARFARIN 2 MG TABLET PO SCH (12:00)
--- NOTE | 2017-06-11 16:40 | Progress Note ---
<Iqra Morales - Last Filed: 06/11/17 16:36> Subjective: Dennys is seen today in follow up. He reports doing fairly well. States that he is unable to sit up in the chair over 30 minutes due to past hx of lumbar spinal surgery. He reports that he is frustrated that he is encouraged to sit up for an hour at a time. He is otherwise motivated to work hard with therapy; reports that ROM is improving with CPM machine. Chart is reviewed. He was recently started on Acyclovir due to oral herpes virus. He does not report any acute oral sx today. Objective Vital signs: Temperature 96.6 F L 06/11/17 08:00 Pulse Rate 95 06/11/17 08:00 Respiratory Rate 16 06/11/17 08:00 Blood Pressure 143/82 H 06/11/17 08:00 Pulse Oximetry 92 06/11/17 08:00 Oxygen Delivery Method Room Air Body Mass Index: 27.3 - Constitutional Present: no acute distress, average body habitus, cooperative - Routine HEENT Exam Head: Present: normocephalic, atraumatic Eye: Present: EOMI, PERRL ENT: Present: mucous membranes moist - Routine Respiratory Exam Present: CTA bilaterally. Absent: rhonchi, stridor, wheezes, crackles - Routine Cardiovascular Exam Present: RRR, S1, S2, no murmur - Routine Abdominal Exam Present: soft, normoactive bowel sounds, non distended, non tender - Routine Extremities Exam Present: no edema - Routine Musculoskeletal Exam Musculoskeletal: Present: joint erythera, joint swelling (Mild joint redness, edema at left knee. Not overtly warm. Dressing is in place. ), limited range of motion - Routine Skin Exam Present: intact, dry, warm - Routine Neurological Exam Present: alert, oriented X3, moving all extremities - Routine Psychiatric Exam Present: normal affect, normal thought process, cooperative, good insight, good judgment Results - Labs CBC & Chem 7: 06/05/17 13:57 06/08/17 04:53 Assessment and Plan (1) S/P knee replacement Current visit: Yes Status: Acute (2) Debility Current visit: Yes Status: Acute (3) Hyponatremia Current visit: Yes Status: Resolved (4) Thrombocytopenia Current visit: Yes Status: Resolved (5) Normocytic anemia Current visit: Yes Status: Acute (6) Diabetes Current visit: No Status: Chronic (7) GERD (gastroesophageal reflux disease) Current visit: No Status: Chronic (8) HSV (herpes simplex virus) infection Current visit: Yes Status: Acute DVT Prophylaxis: Coumadin GI Prophylaxis: other (PPI) Resuscitation Status: Full Code Assessment and Plan: 06/11/17- Patient continues to improve. He is does reports left sciatic pain with prolonged sitting. Is otherwise motivated to improve. Will recheck labs tomorrow AM for stability. Recently started on Acyclovir for cold sores with dysphagia. No further reports of pain. BP remains elevated- will start low dose metoprolol. BG is fairly stable. Continue Amaryl. Chart is reviewed for collateral information. Sepsis Assessment - Evaluation Sepsis screening result: No Definite Risk Hospital Course Summary Disclaimer: The visit summary below is not to be considered part of the above Progress Note. Hospital Course: 06/01/17 Continue therapy and pain control per attending. INR therapeutic and venous Doppler was negative for DVT. Continue Coumadin per pharmacy protocol. May start obtaining INR via fingerstick. 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 Discussed with housing case manager, she will come and visit with Dennys about his concerns. Constipation has improved. Mild hyponatremia, thrombocytopenia, and mild normocytic anemia: Repeat labs ( CBC, BMP) on June 05. 06/03/17 Overall, Dennys is doing well. Continue to encourage therapy and pain control per Dr. Marcum. INR 1.80 today with pharmacy to manage. Continue Coumadin per pharmacy protocol. May start obtaining INR via fingerstick as patient. Constipation has improved. Continue with bowel motivation. Blood sugars well controlled. Labs results pending. Patient requests holding his over the counter medications (fish oil, calcium and glucosamine) for the remainder of his admission as he feels like they are contributing to his having episodes of nausea. 06/05 Increased erythema to left medial knee. Case discussed with Dr Marcum. Agree with consultation to Dr Gomes for orthopedic evaluation. He has been on Keflex since 05/29/17. This could possibly be discontinued ?? Blood sugars have been well controlled. INR 2.10 - Continue Coumadin per pharmacy protocol. Given increased and erythema. Will obtain laboratory studies now CBC, BMP. Continue to encourage work with PT/OT for ongoing strengthening 06/06/17 11:26 Overall, Dennys appears to be doing well. He continues to have pain control issues but states it is improved today. He complains of popping sensation to his left ear which revealed small amount of wax without impaction. Will initiate debrox to left ear as he currently uses it for his right ear. No erythema, bulging or signs of infection noted. Denies any other complaints and is eating and drinking well. Bowel moving well. He states his bowels are moving well with MiraLAX and Colace. On exam he is alert and oriented and in no acute distress. Chest is clear to auscultation. Cardiovascular reveals a regular rate and rhythm. Abdomen is soft and nontender. Labs on 06/06 showed mildly elevated potassium at 5.2 with BUN 32 and creatinine 1.1. Labs improved today with potassium at 4.7 after increased fluid intake and discontinuation of prune juice for his constipation. Will continue to monitor electrolytes. Hyponatremia noted on labs with sodium at 132. In light of hyponatremia and orthostatic hypotension, will give NS 250cc/hr x 1 L. Continue [place] as needed for breakthrough pain as pain has been uncontrolled with tramadol. Blood sugars are currently well controlled and will continue with current management. Continue pharmacy consult for Coumadin management. INR is therapeutic at 2.50. Appreciate ortho consult. Keflex discontinued. Continue to monitor closely for signs of infection. 06/06/17 11:34 06/11/17 16:45 Patient continues to improve. He is does reports left sciatic pain with prolonged sitting. Is otherwise motivated to improve. Will recheck labs tomorrow AM for stability. Recently started on Acyclovir for cold sores with dysphagia. No further reports of pain. BP remains elevated- will start low dose metoprolol. BG is fairly stable. Continue Amaryl. Chart is reviewed for collateral information. <Tom Ray - Last Filed: 06/11/17 19:00> Objective Vital signs: Temperature 96.6 F L 06/11/17 08:00 Pulse Rate 91 06/11/17 16:00 Respiratory Rate 16 06/11/17 16:00 Blood Pressure 128/80 06/11/17 16:00 Pulse Oximetry 100 06/11/17 16:00 Oxygen Delivery Method Room Air Results - Labs CBC & Chem 7: 06/05/17 13:57 06/08/17 04:53 Assessment and Plan (1) Diabetes Current visit: No Status: Chronic (2) GERD (gastroesophageal reflux disease) Current visit: No Status: Chronic (3) S/P knee replacement Current visit: Yes Status: Acute (4) Debility Current visit: Yes Status: Acute (5) Hyponatremia Current visit: Yes Status: Resolved (6) Thrombocytopenia Current visit: Yes Status: Resolved (7) Normocytic anemia Current visit: Yes Status: Acute (8) HSV (herpes simplex virus) infection Current visit: Yes Status: Acute Assessment and Plan: Have independently interviewed and examined pt. Chart reviewed. Case discussed with my TUBE HANDLER. Above care plan developed with my supervision; agree with above. Left leg hurts from nerve irritation due to sitting up in the chair too long. Has had significant problems with this leg in the past. Otherwise, feels he is doing well. Breathing well. No chest pain. Eating well. Ears feeling better post debrox. Lungs: clear CV: regular AB: soft nt/nd +BS MSE: awake alert appropriate Plan: Discussed with nursing about trying to find a more comfortable chair- apparently this the 3rd one they are on today. Encourage pt to 'figit' more to keep pressure off his nerve. Try to limit sitting for about 30 minutes - needs to stand for a bit to help relief pressure. Medically doing well. Will continue current medications. Encourage therapy and activities. Medically stable for IRU floor activities. Hospital Course Summary Disclaimer: The visit summary below is not to be considered part of the above Progress Note.
[2017-06-11 19:44] VITALS: TEMP 98.2
[2017-06-11] MEDS: MELATONIN 1 MG TABLET PO SCH (21:09)
[2017-06-12] MEDS: OMEPRAZOLE 20 MG CAPSULE PO SCH ×2 (05:03→06:57)
[2017-06-12] MEDS: HYDROCODONE/APAP 5mg/325mg TABLET PO PRN ×2 (05:03→12:25)
[2017-06-12 08:41] VITALS: BP 115/73; PULSE 100; O2SAT 94
[2017-06-12] MEDS: DOCUSATE SODIUM 100 MG CAPSULE PO SCH (08:58)
[2017-06-12] MEDS: GLIMEPIRIDE 1 MG TABLET PO SCH (08:58)
[2017-06-12] MEDS: TRAMADOL 50 MG TABLET PO PRN ×2 (08:58→15:37)
[2017-06-12] MEDS: CITALOPRAM 20 MG TABLET PO SCH (08:58)
[2017-06-12] MEDS: ACETAMINOPHEN 325 MG TABLET PO SCH ×2 (08:58→12:21)
[2017-06-12] MEDS: CYANOCOBALAMIN (B-12) 500mcg TABLET PO SCH (08:58)
[2017-06-12] MEDS: ACYCLOVIR 200 MG CAPSULE PO SCH ×2 (08:58→15:38)
[2017-06-12] MEDS: ASPIRIN 81 MG CHEWABLE TABLET PO SCH (08:59)
[2017-06-12] MEDS: POLYETHYL GLYCOL 3350 17gm PACKET PO SCH (08:59)
[2017-06-12] MEDS: MULTI-VITAMIN PLAIN TABLET PO SCH (08:59)
--- NOTE | 2017-06-12 11:23 | IRU Progress Note ---
- Subjective/Serverity of Illness Mr. Orourke is anxious to go home and states that he feels confident. He does live on one level and there are no steps. Pain is fairly well-controlled. He feels steady on his feet. Have reviewed therapy notes and he appears to be stable for dismissal. Medically he is stable as well. Diabetes is controlled. INR is therapeutic. Exam Vital Signs: Temperature 98.2 F 06/12/17 08:00 Pulse Rate 100 06/12/17 08:00 Respiratory Rate 16 06/12/17 08:00 Blood Pressure 115/73 06/12/17 08:00 Pulse Oximetry 94 06/12/17 08:00 Oxygen Delivery Method Room Air Height: 1.68 m Weight: 74.8 kg Body Mass Index: 27.3 - Constitutional Present: no acute distress - Routine HEENT Exam Head: Present: normocephalic Eye: Present: EOMI ENT: Present: mucous membranes moist, oropharynx clear (previous a noted fever blister right lower lip appears to be resolving nicely.) - Routine Neck Exam Present: supple, full ROM - Routine Respiratory Exam Present: CTA bilaterally - Routine Cardiovascular Exam Present: RRR (he sounds as though he is in a regular rhythm at present.), S1, S2 - Routine Abdominal Exam Present: soft, normoactive bowel sounds, non distended, non tender - Routine Extremities Exam Present: no edema - Routine Skin Exam Present: intact. Absent: erythema - Routine Neurological Exam Present: alert, oriented X3 - Routine Psychiatric Exam Present: normal affect, normal thought process, good insight, good judgment ( had multiple questions regarding his labs I reviewed these all with him.) Results IRU - Labs Labs: Reviewed all labs personally and with the patient. Sepsis Assessment - Evaluation Sepsis screening result: No Definite Risk IRU A/P (1) Debility Current visit: Yes Status: Acute His debilitation has significantly improved. He is strong and stable for dismissal. (2) Hyponatremia Current visit: Yes Status: Resolved (3) Redness of joint Current visit: Yes Status: Resolved (4) Cellulitis of left lower leg Current visit: Yes Status: Resolved No further evidence of redness. (5) HSV (herpes simplex virus) infection Current visit: Yes Status: Acute HSV infection right lower lip resolving nicely. (6) Dysphagia, oropharyngeal phase Current visit: Yes Status: Acute (7) Diabetes Qualifiers: Diabetes mellitus type: type 2 Diabetes mellitus complication status: without complication Diabetes mellitus supervisor intermediates insulin use: without jail use Qualified Code(s): E11.9 - Type 2 diabetes mellitus without complications Current visit: No Status: Chronic He is on oral agents only as well as dietary management. His sugars have been stable. DVT Prophylaxis: Coumadin Resuscitation Status: Full Code - Course Hospital Course: Jameel Stanton MD: 06/05/17 11:40 -improving with therapy - significant pain in the left knee noted, even at night - some redness and warmth in the medial left knee noted, will consult Dr. Gomes -weakness episode: resolved, normal ECG 06/07/17 09:19 -requires assistance for sit to stand -improving with walking with walker -redness remains minimal to non-existent -INR monitored and is therapeutic -sodium remains a bit down at 132 06/12/17 11:23 Patient is stable for dismissal Redness is resolved Right lower lip HSV lesion resolving nicely - Interventions to Obtain Goals PT Treatment Plan: Balance/Proprioception, Functional Activities, Gait Training , Patient/Family Education, Therapeutic Exercise OT Treatment Plan: ADL (Basic Care), Balance Training, IADL, Pt./Family Education, Ther. Exercise for ADL
--- NOTE | 2017-06-12 11:28 | Discharge Instructions ---
Discharge Plan - Med Rec/Dispo Referrals/Follow Up: Ankush Gomes MD [Physician] - (Dr. Luis Gomes on 06/19/17 at 1:00 pm for Post-Op follow-up. [phone]. [address] [place] [address]) Yeison Ash MD [Family Provider] - (Dr. Clarissa Ash on 06/26/17 at 4:30 pm for Hosp. follow-up. [address] [place] [address] ) Prescriptions: No Action Glucosa Tabares 2Kcl/Chondroitin Tabares [Glucosamine & Chondroitin Cap] 1,500 mg PO BID #0 Omeprazole Magnesium [Prilosec Otc] 20 mg PO DAILY #0 Fish Oil/Dha/Epa [Fish Oil 1,200 mg Fish Oil] 1 each PO AM AND NOON #0 Glimepiride [Amaryl] 1 mg PO BID Calcium 600 + D [Caltrate + D] 1 tab PO BID Cyanocobalamin (Vitamin B-12) [B-12] 500 mcg SL DAILY Acetaminophen [Tylenol] 650 mg PO QID tablet Enoxaparin Sodium [Lovenox] 40 mg SQ 2100 #5 syringe PEG 3350 17gm PACKET [Miralax] 17 gm PO DAILY packet Warfarin [Coumadin] 2 tab PO 1700 #60 tab cephALEXin [Keflex] 500 mg PO QID Melatonin/Pyridoxine [Melatonin 3 mg Tablet] 1 each PO HS Citalopram [Celexa] 1 tab PO DAILY Multivitamin [One Daily Multivitamin] 1 each PO DAILY Docusate Sodium [Colace] 100 mg PO BID capsule Tramadol [Ultram] 50 - 100 mg PO Q6H PRN #60 tablet PRN Reason: Pain Aspirin Chewable [ASA] 1 tab PO DAILY Discharge Instructions/Outpatient Orders: Final Provider Discharge Instructions Location: Determined By Patient - Disposition 01 Discharged Home, Self-Care
--- NOTE | 2017-06-12 11:32 | Discharge Summary ---
Discharge Information Date of admission: 05/29/17 15:13 Anticipated date of discharge: 06/12/17 Attending Physician: Jameel Stanton MD Primary care physician: Yeison Ash MD Consults: 05/29/17 Pharmacy Consult [CONS] Routine Pharmacy Consult: Coumadin/Warfarin 05/29/17 17:03 Physician Consult [CONS] Routine Consulting Provider: Tom Ray Reason For Exam: medical management Ordering Provider has Notified Sleep Lab Technologist: Yes 06/05/17 11:07 Physician Consult [CONS] Routine Consulting Provider: Ankush Gomes Reason For Exam: Continued redness left knee Ordering Provider has Notified Sleep Lab Technologist: No - Discharge Diagnosis (1) Debility Status: Acute (2) Hyponatremia Status: Resolved (3) Redness of joint Status: Resolved (4) Cellulitis of left lower leg Status: Resolved (5) HSV (herpes simplex virus) infection Status: Acute (6) Dysphagia, oropharyngeal phase Status: Acute (7) Diabetes Qualifiers: Diabetes mellitus type: type 2 Diabetes mellitus complication status: without complication Diabetes mellitus plate straightener insulin use: without plate straightener use Qualified Code(s): E11.9 - Type 2 diabetes mellitus without complications Status: Chronic - Laboratory Labs: 06/12/17 04:39 06/12/17 04:39 History of Present Illness HPI: 06/12/17 11:28 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 He was admitted to the IRU. Patient has history of multiple medical problems including prostate cancer, chronic anticoagulant use, and diabetes mellitus type 2. He was felt to be a good candidate for a multidisciplinary approach. In addition the patient had been seen prior to admission to IRU and was noted to have some redness of the left medial knee. He had been placed on cephalexin in this regard. Hospital Course This is a general summary of the patient's hospital course. For more details refer to the complete medical record. Patient was admitted to the IRU after having undergone left total knee replacement. Had been seen previously by his orthopedist and noted to have some redness in the left medial knee. He was placed on cephalexin orally beginning May 29. This was continued through June 05 oversight was discontinued with resolution of the redness/cellulitis. He had some degree of pain issues during hospitalization. He was also noted to have hyponatremia and for this reason received intravenous normal saline. His INR was managed by pharmacy. At the time of dismissal his INR is 2.06. 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 He was treated with oral acyclovir and this did improve. He was treated with an individualized intensive program of physical therapy, occupational therapy, nursing management and medical supervision of his medical problems. He did have diabetes mellitus which was monitored. He improved on this regimen. His previously noted cellulitis resolved during this hospitalization and the cephalexin was discontinued. As attending dismissal he is felt to be safe to return to his home. He has no stairs at home. He states that he feels confident and does not suffer from any imbalance. He will continue outpatient physical therapy however. Hospital course: 06/01/17 Continue therapy and pain control per attending. INR therapeutic and venous Doppler was negative for DVT. Continue Coumadin per pharmacy protocol. May start obtaining INR via fingerstick. 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 Discussed with correctional casework specialist, she will come and visit with Dennys about his concerns. Constipation has improved. Mild hyponatremia, thrombocytopenia, and mild normocytic anemia: Repeat labs ( CBC, BMP) on June 05. 06/03/17 Overall, Dennys is doing well. Continue to encourage therapy and pain control per Dr. Marcum. INR 1.80 today with pharmacy to manage. Continue Coumadin per pharmacy protocol. May start obtaining INR via fingerstick as patient. Constipation has improved. Continue with bowel motivation. Blood sugars well controlled. Labs results pending. Patient requests holding his over the counter medications (fish oil, calcium and glucosamine) for the remainder of his admission as he feels like they are contributing to his having episodes of nausea. 06/05 Increased erythema to left medial knee. Case discussed with Dr Marcum. Agree with consultation to Dr Gomes for orthopedic evaluation. He has been on Keflex since 05/29/17. This could possibly be discontinued ?? Blood sugars have been well controlled. INR 2.10 - Continue Coumadin per pharmacy protocol. Given increased and erythema. Will obtain laboratory studies now CBC, BMP. Continue to encourage work with PT/OT for ongoing strengthening 06/06/17 11:26 Overall, Dennys appears to be doing well. He continues to have pain control issues but states it is improved today. He complains of popping sensation to his left ear which revealed small amount of wax without impaction. Will initiate debrox to left ear as he currently uses it for his right ear. No erythema, bulging or signs of infection noted. Denies any other complaints and is eating and drinking well. Bowel moving well. He states his bowels are moving well with MiraLAX and Colace. On exam he is alert and oriented and in no acute distress. Chest is clear to auscultation. Cardiovascular reveals a regular rate and rhythm. Abdomen is soft and nontender. Labs on 06/06 showed mildly elevated potassium at 5.2 with BUN 32 and creatinine 1.1. Labs improved today with potassium at 4.7 after increased fluid intake and discontinuation of prune juice for his constipation. Will continue to monitor electrolytes. Hyponatremia noted on labs with sodium at 132. In light of hyponatremia and orthostatic hypotension, will give NS 250cc/hr x [address] [place] as needed for breakthrough pain as pain has been uncontrolled with tramadol. Blood sugars are currently well controlled and will continue with current management. Continue pharmacy consult for Coumadin management. INR is therapeutic at 2.50. Appreciate ortho consult. Keflex discontinued. Continue to monitor closely for signs of infection. 06/06/17 11:34 06/11/17 16:45 Patient continues to improve. He is does reports left sciatic pain with prolonged sitting. Is otherwise motivated to improve. Will recheck labs tomorrow AM for stability. Recently started on Acyclovir for cold sores with dysphagia. No further reports of pain. BP remains elevated- will start low dose metoprolol. BG is fairly stable. Continue Amaryl. Chart is reviewed for collateral information. Time spent with patient: 25 - 35 minutes (Discussed labs with patient and questions were addressed) Discharge Plan - Med Rec/Dispo Referrals/Follow Up: Ankush Gomes MD [Physician] - (Dr. Luis Gomes on 06/19/17 at 1:00 pm for Post-Op follow-up. [phone]. [address] [place] [address]) Yeison Ash MD [Family Provider] - (Dr. Clarissa Ash on 06/26/17 at 4:30 pm for Hosp. follow-up. [address] [place] [address] ) Prescriptions: No Action Glucosa Tabares 2Kcl/Chondroitin Tabares [Glucosamine & Chondroitin Cap] 1,500 mg PO BID #0 Omeprazole Magnesium [Prilosec Otc] 20 mg PO DAILY #0 Fish Oil/Dha/Epa [Fish Oil 1,200 mg Fish Oil] 1 each PO AM AND NOON #0 Glimepiride [Amaryl] 1 mg PO BID Calcium 600 + D [Caltrate + D] 1 tab PO BID Cyanocobalamin (Vitamin B-12) [B-12] 500 mcg SL DAILY Acetaminophen [Tylenol] 650 mg PO QID tablet Enoxaparin Sodium [Lovenox] 40 mg SQ 2100 #5 syringe PEG 3350 17gm PACKET [Miralax] 17 gm PO DAILY packet Warfarin [Coumadin] 2 tab PO 1700 #60 tab cephALEXin [Keflex] 500 mg PO QID Melatonin/Pyridoxine [Melatonin 3 mg Tablet] 1 each PO HS Citalopram [Celexa] 1 tab PO DAILY Multivitamin [One Daily Multivitamin] 1 each PO DAILY Docusate Sodium [Colace] 100 mg PO BID capsule Tramadol [Ultram] 50 - 100 mg PO Q6H PRN #60 tablet PRN Reason: Pain Aspirin Chewable [ASA] 1 tab PO DAILY Discharge Instructions/Outpatient Orders: Final Provider Discharge Instructions Location: Determined By Patient - Disposition 01 Discharged Home, Self-Care
[2017-06-12] MEDS ORDERED: WARFARIN 3 MG TABLET PO SCH (12:00)
--- NOTE | 2017-06-12 12:24 | Discharge Instructions ---
Discharge Plan - Med Rec/Dispo Referrals/Follow Up: Ankush Gomes MD [Physician] - (Dr. Luis Gomes on 06/19/17 at 1:00 pm for Post-Op follow-up. [phone]. [address] [place] [address]) Yeison Ash MD [Family Provider] - (Dr. Clarissa Ash on 06/26/17 at 4:30 pm for Hosp. follow-up. [address] [place] [address] ) Prescriptions: No Action Glucosa Tabares 2Kcl/Chondroitin Tabares [Glucosamine & Chondroitin Cap] 1,500 mg PO BID #0 Omeprazole Magnesium [Prilosec Otc] 20 mg PO DAILY #0 Fish Oil/Dha/Epa [Fish Oil 1,200 mg Fish Oil] 1 each PO AM AND NOON #0 Glimepiride [Amaryl] 1 mg PO BID Calcium 600 + D [Caltrate + D] 1 tab PO BID Cyanocobalamin (Vitamin B-12) [B-12] 500 mcg SL DAILY Acetaminophen [Tylenol] 650 mg PO QID tablet Enoxaparin Sodium [Lovenox] 40 mg SQ 2100 #5 syringe PEG 3350 17gm PACKET [Miralax] 17 gm PO DAILY packet Warfarin [Coumadin] 2 tab PO 1700 #60 tab cephALEXin [Keflex] 500 mg PO QID Melatonin/Pyridoxine [Melatonin 3 mg Tablet] 1 each PO HS Citalopram [Celexa] 1 tab PO DAILY Multivitamin [One Daily Multivitamin] 1 each PO DAILY Docusate Sodium [Colace] 100 mg PO BID capsule Tramadol [Ultram] 50 - 100 mg PO Q6H PRN #60 tablet PRN Reason: Pain Aspirin Chewable [ASA] 1 tab PO DAILY Discharge Instructions/Outpatient Orders: Final Provider Discharge Instructions Location: Determined By Patient - Disposition 01 Discharged Home, Self-Care
--- NOTE | 2017-06-12 13:42 | Discharge Instructions ---
Discharge Plan - Med Rec/Dispo Referrals/Follow Up: Ankush Gomes MD [Physician] - (Dr. Luis Gomes on 06/19/17 at 1:00 pm for Post-Op follow-up. [phone]. [address] [place] [address]) Yeison Ash MD [Family Provider] - (Dr. Clarissa Ash on 06/26/17 at 4:30 pm for Hosp. follow-up. [address] [place] [address] ) Prescriptions: New Hydrocodone/APAP 5/325 [[place] 5/325] 1 tab PO Q6H PRN #20 tablet PRN Reason: Pain Warfarin [Coumadin] 1.5 mg PO NOON #50 tablet Tramadol [Ultram] 50 mg PO Q6H PRN #45 tablet PRN Reason: Pain Continue Glucosa Tabares 2Kcl/Chondroitin Tabares [Glucosamine & Chondroitin Cap] 1,500 mg PO BID #0 Omeprazole Magnesium [Prilosec Otc] 20 mg PO DAILY #0 Fish Oil/Dha/Epa [Fish Oil 1,200 mg Fish Oil] 1 each PO AM AND NOON #0 Glimepiride [Amaryl] 1 mg PO BID Calcium 600 + D [Caltrate + D] 1 tab PO BID Cyanocobalamin (Vitamin B-12) [B-12] 500 mcg SL DAILY Acetaminophen [Tylenol] 650 mg PO QID tablet PEG 3350 17gm PACKET [Miralax] 17 gm PO DAILY packet Warfarin [Coumadin] 2 tab PO 1700 #60 tab Docusate Sodium [Colace] 100 mg PO DAILY #0 capsule Melatonin/Pyridoxine [Melatonin 3 mg Tablet] 1 each PO HS Citalopram [Celexa] 1 tab PO DAILY Multivitamin [One Daily Multivitamin] 1 each PO DAILY Discontinued Enoxaparin Sodium [Lovenox] 40 mg SQ 2100 #5 syringe cephALEXin [Keflex] 500 mg PO QID Tramadol [Ultram] 50 - 100 mg PO Q6H PRN #60 tablet PRN Reason: Pain Aspirin Chewable [ASA] 1 tab PO DAILY Discharge Instructions/Outpatient Orders: Final Provider Discharge Instructions Location: Determined By Patient - Disposition 01 Discharged Home, Self-Care
--- NOTE | 2017-06-12 13:51 | Pharmacy Consult ---
Pharmacy Consult-Warfarin - Laboratory Information 05/29/17 05/30/17 05/31/17 17:37 04:42 04:38 INR 4.89 H* 4.20 H 2.75 H 06/01/17 06/02/17 06/03/17 05:10 06:29 06:31 INR 2.13 H 1.70 H 1.80 H 06/04/17 06/05/17 06/06/17 06:57 06:33 04:12 INR 1.70 H 2.10 H 2.50 H 06/07/17 06/08/17 06/09/17 06:35 04:53 05:16 INR 2.10 H 2.61 H 2.46 H 06/10/17 06/11/17 06/12/17 04:50 06:43 04:39 INR 2.20 H 1.60 H 2.05 H - Consult Information 87 y.o. Male anti-coagulated with Warfarin post op orthopedic procedure for DVT prophylaxsis. goal INR= 1.5 to 2.5 Ordered Warfarin 1.5 mg po daily with INR on Monday and . Pharmacy will monitor and adjust. Thank you for the protocol, Lyn Leon RPh
--- NOTE | 2017-06-12 14:08 | IRU Plan of Care ---
IRU Overall Plan of Care - Patient Impairments (1) Debility Code(s): R53.81 - Other malaise Status: Acute Classification: Present on IRF Admission, IRF Tx That Should Address Diagnosis (2) Hyponatremia Code(s): E87.1 - Hypo-osmolality and hyponatremia Status: Resolved Classification: Present on IRF Admission, Diagnosis Requiring Medical Follow Up (3) Redness of joint Code(s): M25.9 - Joint disorder, unspecified Status: Resolved (4) Cellulitis of left lower leg Code(s): L03.116 - Cellulitis of left lower limb Status: Resolved (5) HSV (herpes simplex virus) infection Code(s): B00.9 - Herpesviral infection, unspecified Status: Acute (6) Dysphagia, oropharyngeal phase Code(s): R13.12 - Dysphagia, oropharyngeal phase Status: Acute (7) Diabetes Qualifiers: Diabetes mellitus type: type 2 Diabetes mellitus complication status: without complication Diabetes mellitus intermediate insulin use: without intermediate use Qualified Code(s): E11.9 - Type 2 diabetes mellitus without complications Code(s): E11.9 - Type 2 diabetes mellitus without complications Status: Chronic - Relevant Changes Reviewed: I have reviewed the patient's information and concur with the finding and results of the pre-admission screen. Certification: I certify the patient for rehabilitation. - Medical Prognosis Vital Signs: Last Vital Signs Temp 98.2 F 06/12/17 08:00 Pulse 100 06/12/17 08:00 Resp 16 06/12/17 08:00 BP 115/73 06/12/17 08:00 Pulse Ox 94 06/12/17 08:00 - Anticipated Interventions Anticipated Interventions: The patient requires inpatient IRF care for PT, OT, and/or ST for residuals remaining from [] resulting in muscular weakness and strength deficits. - FIM Ambulation Distance: 233 Wheelchair Propulsion Distance: 83 Toileting Adaptive Equipment: Grab Bars Number of Continent Voids: 1 Number of Incontinent Voids: 1 - Current Functional Status Patient Requires: The patient requires oversight by rehabilitation physician to manage their rehabilitation treatment plan and multidisciplinary approach to care that can only be provided in an IRF and requires a multidisciplinary approach to care, provided by professional PTs, OTs, STs, dieticians, RTs, rehabilitation nurses and is not available in lesser levels of care. Physical Therapy Minutes: 90 Occupational Therapy Minutes: 90 Therapy: The patient is to receive therapy at least 5 days a week. - Anticipated LOS/Outcomes Anticipated Length of Stay: 5 Anticipated DC Destination: Home, Self Care (Possibly with outpt PT) Home Safety Plan: The patient will be provided with the development of a Home Safety Plan for return to a home or home-like environment and and to ensure safety post discharge. - Plan to Avoid Complications Plan to Avoid Complications: The patient cannot receive this care in a lesser intensive setting such as Snf or Outpatient Therapy due to the patient requiring the following .
== END 2017-06-12 15:52 | disposition home or self-care (01) | DRG 945 ==
PROVIDERS: ADMIT Family Medicine; ATTEND Family Medicine

== ENCOUNTER 2018-01-16 07:30 | Inpatient (IN) ==
[2018-02-20] MEDS ORDERED: ONDANSETRON 4 MG/2 ML INJECTION IVP ONE (06:00)
[2018-02-20] MEDS ORDERED: MELOXICAM 15 MG TABLET PO ONE (06:00)
[2018-02-20] MEDS ORDERED: LIDOCAINE 1% (10mg/ml) 2mL INJ PF SDV ID ONE (06:00)
[2018-02-20] MEDS ORDERED: METOCLOPRAMIDE 10mg/2ml INJECTION IVP ONE (06:00)
[2018-02-20] MEDS ORDERED: FAMOTIDINE PB 20 MG/50 ML BAG IV ONE (06:00)
[2018-02-20] MEDS ORDERED: ACETAMINOPHEN 500 MG TABLET PO ONE (06:00)
[2018-02-20] MEDS ORDERED: EPINEPHrine PF 0.25 MG, BUPIVACAINE 0.25% PF 30 ML, KETOROLAC INJ 60 MG in NS 30 ML OPSITE ONE (08:00)
--- OUTSIDE RECORDS SUMMARY | 2018-02-20 09:25 | External Medical Summary | Continuity of Care Document ---
:1930 Author Organization [facility] Allergies Active Description Code Type Severity Reaction Onset Reported/ Identified Relationship Clinical to Patient Status Yes NKDA N/A N/A Yes No Known NKMA N/A N/A 09/23/2014 Allergies Yes No Known No Aller Unknown N/A 01/22/2018 Allergies Known gy Aller gies Medications Medication Packaging Start Date Stop Date Route Dosage Sig 10/07/2011 PO 20 mg Prilosec Otc DAILY 08/31/2012 MAGNESIUM Take one tablet by mouth daily Fish 08/19/2013 PO 1 each Oil 1,200 mg Fish AM AND NOON Oil ORAL 11/18/2013 ORAL 30 GLIMEPIRIDE 6 AM, 1MG PM 2 tabs 09/23/2014 Oral 1,500 mg glucosamine(glucos 2 tabs, amine 750 mg oral Oral, BID, tablet) 180 tabs 1 tabs 09/23/2014 Oral 20 mg citalopram(CeleXA 1 tabs, 20 mg oral tablet) Oral, Daily, 30 tabs 09/23/2014 Oral 20 mg omeprazole(PriLOSE 20 mg, Oral, C) Daily 1 tabs 09/23/2014 Oral 2 mg glimepiride(glimep 2 mg=1 tabs, iride 2 mg oral Oral, Daily, tablet) Pt is taking 1 in the morning and 1 in the evening., 30 tabs, 0 Refill(s) 1 tabs 06/17/2015 Oral 250 mg ciprofloxacin(cipr 5 250 mg=1 ofloxacin 250 mg tabs, Oral, oral tablet) q12hr, for 7 days, 0 Refill(s) N/A 12/07/2015 N/A 100 LANCETS 6 three times each day Oral 12/07/2015 Oral 180 GLIMEPIRIDE twice each day COLACE ORAL 12/07/2015 ORAL every other day N/A 12/08/2015 N/A 100 LANCETS three times each day 02/02/2016 Oral docusate(Colace) Oral, BID, 0 Refill(s) 05/01/2017 PO 1 tab Caltrate + D BID Amaryl 05/01/2017 PO 1 mg BID Celexa 05/18/2017 PO 20 mg DAILY B-12 05/25/2017 SL 500 mcg DAILY One 05/25/2017 PO 1 each Daily Multivitamin DAILY 05/26/2017 PO 325 mg Tylenol QID Ultram 06/12/2017 PO 50 mg Q6H Margie 06/12/2017 PO 1 tab 5/325 Q6H 06/19/2017 PO 1 each Glucosamine & BID Chondroitin Cap Low 07/11/2017 PO 81 mg Dose Aspirin EC DAILY 01/01/2018 PO 1 each Glucosamine BID Chondroitin Caplet 01/01/2018 PO 50,000 unit Vitamin D2 DAILY 01/01/2018 .ROUTE 1 each Lancets Thin .MEDSUPPLY 01/01/2018 PO 200 mg Ibuprofen BID Margie 01/21/2018 PO 1 tab 5/325 Q6HPRN 01/21/2018 PO 81 mg Aspirin EC DAILY 01/21/2018 .ROUTE 1 each Lancets Thin .MEDSUPPLY 01/21/2018 PO 10 mg Prednisone DAILY 01/22/2018 PO 50,000 unit Vitamin D2 DAILY Amaryl 01/23/2018 PO 1 mg BID Problems Date Dx Attending Type Code Diagnosis Diagnosed By Coded 03/23/2013 Nyasia ROMANO, F 285.1 AC POSTHEMORRHAG Marlon W ANEMIA 03/23/2013 Nyasia ROMANO, F 311 DEPRESSIVE DISORDER Marlon W NEC 03/23/2013 Nyasia ROMANO, F 327.23 OBSTRUCTIVE SLEEP Marlon W APNEA (ADULT) (PEDIATRIC) 03/23/2013 Nyasia ROMANO, F 401.9 HYPERTENSION NOS Marlon W 03/23/2013 Nyasia ROMANO, F 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 03/23/2013 Nyasia ROMANO, F 530.81 ESOPHAGEAL REFLUX Marlon W 03/23/2013 Nyasia ROMANO, F 584.9 ACUTE RENAL FAILURE, Marlon W UNSPECIFIED 03/23/2013 Nyasia ROMANO, F 724.02 SPINAL STENOSIS, Marlon W LUMBAR REG, W/OUT NEUROGENIC MAHESH 03/23/2013 Nyasia ROMANO, A 729.5 PAIN IN LIMB Marlon W 03/23/2013 Nyasia ROMANO, F 788.20 RETENTION OF URINE Marlon W NOS 03/23/2013 Nyasia ROMANO, F 790.29 OTHER ABNORMAL Marlon San GLUCOSE 03/23/2013 Nyasia ROMANO, F 805.4 FX LUMBAR Marlon San VERTEBRA-CLOSE 03/23/2013 Nyasia ROMANO, F E881.0 FALL FROM LADDER Marlon W 03/23/2013 Nyasia ROMANO, F V10.46 HX-PROSTATIC Marlon W MALIGNANCY 03/23/2013 Nyasia ROMANO, F 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 03/23/2013 Nyasia ROMANO, F V58.61 ANTICOAGULANTS,LT,CUR Marlon San RENT USE 05/03/2016 Final G47.33 Obstructive sleep apnea (adult) (pediatric) 06/27/2016 Lorri, Final Z85.46 Personal history of [place] Elle malignant neoplasm of prostate 01/13/2017 W E11.9 Type 2 diabetes mellitus without complications 01/13/2017 W H52.4 Presbyopia 01/17/2017 W E11.9 Type 2 diabetes mellitus without complications 01/17/2017 W H52.4 Presbyopia 05/05/2017 Gurinder Ruiz, Final G47.33 Obstructive sleep Che[place] A apnea (adult) (pediatric) 05/05/2017 Gurinder Ruiz, Final 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 05/05/2017 Gurinder Ruiz, Final Z78.9 Other specified Chepe A health status 05/25/2017 KAYLEE ROMANO, WANG Castaneda E11.9 Type 2 diabetes KAYLEE ROMANO, WANG mellitus without S complications 05/25/2017 KAYLEE ROMANO, WANG Castaneda F41.9 Anxiety disorder, KAYLEE ROMANO, WANG unspecified S 05/25/2017 KAYLEE ROMANO, WANG Castaneda G47.30 Sleep apnea, KAYLEE ROMANO, WANG unspecified S 05/25/2017 KAYLEE ROMANO, WANG Castaneda K21.9 Gastro-esophageal WANG PAGE MD reflux disease S without esophagitis 05/25/2017 KAYLEE ROMANO, WANG Castaneda M17.12 Unilateral primary WANG PAGE MD osteoarthritis, left S knee 05/25/2017 KAYLEE ROMANO, WANG Castaneda M21.162 Varus deformity, not KAYLEE ROMANOWANG elsewhere classified, S left knee 05/25/2017 WANG PAGE MD Z85.46 Personal history of WANG PAGE MD malignant neoplasm of S prostate 05/25/2017 WANG PAGE MD Z90.79 Acquired absence of WANG PAGE MD other genital S organ(s) 05/25/2017 WANG PAGE MD 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 05/25/2017 WANG PAGE MD Z99.89 Dependence on other WANG PAGE MD enabling machines and S devices 07/07/2017 Jason Fabian Final G47.33 Obstructive sleep apnea (adult) (pediatric) 07/11/2017 MARGE ROMANO, JOSE 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, 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 07/11/2017 MARGE ROMANO, JSOE E11.9 Type 2 diabetes MARGE ROMANO, JOSE [place] mellitus without M complications 07/25/2017 ROXANNE ROMANO, N30.00 Acute cystitis ROXANNE ROMANO, VASHTI Blackmon without hematuria VASHTI A 09/19/2017 Final G47.33 Obstructive sleep apnea (adult) (pediatric) 01/21/2018 CHEN ROSS MD S39.012A Strain of muscle, E fascia and tendon of lower back, initial encounter 01/21/2018 CHEN ROSS MD X58.XXXA Exposure to other E specified factors, initial encounter 01/21/2018 CHEN ROSS MD Y92.[address] or E not applicable 01/21/2018 CHEN ROSS MD Y93.9 Activity, unspecified E 01/21/2018 CHEN ROSS MD Y99.8 Other external cause E status 01/22/2018 ALAN JOHNSTON M54.9 Dorsalgia, ALAN JOHNSTON L unspecified L Procedures Code Description Performed By Performed On 03.53 VERTEBRAL FX 03/23/2013 REPAIR 77.79 EXCISE BONE 03/23/2013 FOR GFT NEC 81.08 LUMBAR Marlon Murrell MD 03/23/2013 LUMBOSACRAL FUSION OF W ANTERIOR COL/TECHNI 81.62 FUSION/REFUS 03/23/2013 OF 2-3 VERTEBRAE 15002 Office or 05/03/2016 other outpatient visit for the evaluation and management of an established patient, which requires at least 2 of these 3 boyd components: An expanded problem focused history; An expanded prob 92283 Office or 06/27/2016 other outpatient visit for the evaluation and management of an established patient, which requires at least 2 of these 3 boyd components: An expanded problem focused history; An expanded prob 43532 EYE EXAM T 01/13/2017 TREATMENT 85865 REFRACTION 01/13/2017 V2020 Vision svcs 01/13/2017 frames purchases V2303 Lens sphcy 01/13/2017 trifocal 4.0/.12- V2715 Prism 01/13/2017 lens/es V2750 01/13/2017 Anti-reflective coating V2755 UV lens/es 01/13/2017 V2784 Lens 01/13/2017 polycarb or equal 93879 Office or 05/03/2017 other outpatient visit for the evaluation and management of an established patient, which requires at least 2 of these 3 boyd components: A detailed history; A detailed examination; Medical d 82688 Office or 07/07/2017 other outpatient visit for the evaluation and management of an established patient, which requires at least 2 of these 3 boyd components: An expanded problem focused history; An expanded prob 31334 Office or 09/19/2017 other outpatient visit for the evaluation and management of an established patient, which requires at least 2 of these 3 boyd components: An expanded problem focused history; An expanded prob <section xmlns="urn:hl7-org:v3" xmlns:xsi="http://www.w3.org/ 2001/XMLSchema-instance"> <templateId root=" [id number]" /> <templateId root=" [id number]" /> <code codeSystemName=" LOINC" codeSystem="[id number]" code="72444-9&quot ; displayName="Results" /> <title>Results</title> &lt ;text> <table> <thead> <tr> <th& gt;Test</th> <th>Result</th> <th>Range </th> </tr> </thead> <tbody> &lt ;tr> <th colspan="10">CBC - 05 05:48</th&gt ; </tr> <tr> <td>MEAN CELL HGB</td> <td>28.1 pg</td> <td>27.0-33.0</td> </tr> <tr> <td>MEAN CELL HGB CONCENTRATION</td> <td>31.5 g/dL</td> <td >32.0-37.0</td> </tr> <tr> <td&gt ;MEAN CELL VOLUME</td> <td>89.1 fl</td> < td>80.0-100.0</td> </tr> <tr> <td >RED BLOOD CELL</td> <td>4.49 m/cumm</td> <td>4.00-6.00</td> </tr> <tr> & lt;td>RED CELL DISTRIBUTION WIDTH</td> <td>14.7 &#37 ;</td> <td>11.0-15.6</td></tr> <tr&gt ; <td>WHITE BLOOD CELL</td> <td>7.2 k/cumm& lt;/td> <td>5.0-10.0</td> </tr> < tr> <td>HEMOGLOBIN</td> <td>12.6 gm/dL</td> <td>14.0-18.0</td> </tr> <tr> <td>HEMATOCRIT</td> <td>40.0 %</td > <td>40.0-54.0</td> </tr><tr> <td>PLATELET COUNT</td> <td>157 k/cumm</td&gt ; <td>150-400</td> </tr> <tr> <th colspan="10">PROTHROMBIN TIME WITH INR - 03/24/13 05:48&lt ;/th> </tr> <tr> <td>INTERNATIONAL NORMAL RATIO</td> <td>3.2 </td> <td>0.9-1.1&lt ;/td> </tr> <tr> <td>PROTHROMBIN TIME</td> <td>33.8 sec</td> <td>9.3- 12.2</td> </tr> <tr> <th colspan=& quot;10">METABOLIC PANEL, [facility] - 03/24/13 05:48</th> & lt;/tr> <tr> <td>POTASSIUM</td> < td>4.9 mmol/L</td> <td>3.5-5.3</td> </tr > <tr> <td>EST GFR (MDRD)</td> <td& gt;> 60 mL/min</td> <td>> 59</td> </tr> <tr> <td>ANION GAP</td> <td>8 mmol/L</td> <td>5-15</td> </tr& gt; <tr> <td>EST CrCl (CG)</td> < td>42mL/min</td> <td>> 59</td> </ tr> <tr> <td>GLUCOSE</td> <td> 109 mg/dL</td> <td>70-99</td> </tr> <tr> <td>CALCIUM</td> <td>8.9 mg/ dL</td> <td>8.5-10.1</td> </tr> & lt;tr> <td>BLOOD UREA NITROGEN</td> <td>19 mg/dL</td> <td>7-20</td> </tr> & lt;tr> <td>CREATININE</td> <td>1.1 mg/dL< /td> <td>0.8-1.3</td> </tr> <tr> <td>SODIUM</td> <td>141 mmol/L</td> <td>135-148</td> </tr> <tr> <td>CHLORIDE</td> <td>104 mmol/L</td> <td>98-110</td> </tr> <tr> <td&gt ;AST/SGOT</td> <td>46 Units/L</td> <td>10-37 </td> </tr> <tr> <td>ALT/SGPT< /td> <td>52 Units/L</td> <td>< 66& lt;/td> </tr> <tr> <td>CARBON DIOXIDE</td> <td>29 mmol/L</td> <td>21 -32</td> </tr> <tr> <td>TOTAL PROTEIN</td> <td>6.3 gm/dL</td> <td> 6.4-8.2</td> </tr> <tr> <td> ALBUMIN</td> <td>3.1 gm/dL</td> <td> 3.4-5.0</td> </tr> <tr> <td>BILI TOTAL</td> <td>0.4 mg/dL</td> <td>0.0- 1.0</td> </tr> <tr> <td>ALKALINE PHOSPHATASE TOTAL</td> <td>86 Units/L</td> & lt;td>50-136</td> </tr> <tr> <th colspan="10">MAGNESIUM - 03/24/13 05:48</th> </tr> <tr> <td>MAGNESIUM</td> <td>2.2 mg /dL</td> <td>1.8-2.4</td> </tr> & lt;tr> <thcolspan="10">CBC - 05/04/01 05:48</th& gt; </tr> <tr> <td>MEAN CELL HGB</td> <td>28.1 pg</td> <td>27.0-33.0</td> </tr> <tr> <td>MEAN CELL HGB CONCENTRATION</td> <td>31.5 g/dL</td> <td >32.0-37.0</td> </tr> <tr> <td&gt ;MEAN CELL VOLUME</td> <td>89.1 fl</td> < td>80.0-100.0</td> </tr> <tr> <td >RED BLOOD CELL</td> <td>4.49 m/cumm</td> <td>4.00-6.00</td> </tr> <tr> & lt;td>RED CELL DISTRIBUTION WIDTH</td> <td>14.7 &#37 ;</td> <td>11.0-15.6</td> </tr> & lt;tr> <td>WHITE BLOOD CELL</td> <td>7.2 k/cumm</td> <td>5.0-10.0</td> </tr> <tr> <td>HEMOGLOBIN</td> <td>12.6 gm/dL</td> <td>14.0-18.0</td> </tr> <tr> <td>HEMATOCRIT</td> <td>40.0 %</td> <td>40.0-54.0</td> </tr> <tr> <td>PLATELET COUNT</td> <td& gt;157 k/cumm</td> <td>150-400</td> </tr> <tr> <th colspan="10">PROTHROMBIN TIME WITH INR - 03/24/13 05:48</th> </tr> <tr> < td>INTERNATIONAL NORMAL RATIO</td> <td>3.2 </td> <td>0.9-1.1</td> </tr> <tr> <td>PROTHROMBIN TIME</td> <td>33.8 sec</td&gt ; <td>9.3-12.2</td> </tr> <tr> <th colspan="10">METABOLIC PANEL, COMPREHN - 03/24/13 05 :48</th> </tr> <tr> <td>POTASSIUM </td> <td>4.9 mmol/L</td> <td>3.5-5.3</ td> </tr><tr> <td>EST GFR (MDRD)</td&gt ; <td>> 60 mL/min</td> <td>> 59</td> </tr> <tr> <td>ANION GAP& lt;/td> <td>8 mmol/L</td> <td>5-15</td > </tr> <tr> <td>EST CrCl (CG)</td> <td>42 mL/min</td> <td>> 59</td& gt; </tr> <tr> <td>GLUCOSE</td> <td>109 mg/dL</td> <td>70-99</td> </ tr> <tr> <td>CALCIUM</td> <td& gt;8.9 mg/dL</td> <td>8.5-10.1</td> </tr&gt ; <tr> <td>BLOOD UREA NITROGEN</td> <td& gt;19 mg/dL</td> <td>7-20</td> </tr> <tr> <td>CREATININE</td> <td>1.1 mg/dL& lt;/td> <td>0.8-1.3</td> </tr> < tr> <td>SODIUM</td> <td>141 mmol/L</td > <td>135-148</td> </tr> <tr> <td>CHLORIDE</td> <td>104 mmol/L</td> <td>98-110</td> </tr> <tr> &lt ;td>AST/SGOT</td> <td>46 Units/L</td> <td>10 -37</td> </tr> <tr> <td>ALT/SGPT& lt;/td> <td>52 Units/L</td> <td>< 66</td> </tr> <tr> <td>CARBON DIOXIDE</td> <td>29 mmol/L</td> <td>21 -32</td> </tr> <tr> <td>TOTAL PROTEIN</td> <td>6.3 gm/dL</td> <td> 6.4-8.2</td> </tr> <tr> <td>ALBUMIN </td> <td>3.1 gm/dL</td> <td>3.4-5.0& lt;/td> </tr> <tr> <td>BILI TOTAL&lt ;/td> <td>0.4 mg/dL</td> <td>0.0-1.0</ td> </tr> <tr> <td>ALKALINE PHOSPHATASE TOTAL</td> <td>86 Units/L</td> < td>50-136</td> </tr> <tr> <th colspan=& quot;10">MAGNESIUM - 03/24/13 05:48</th> </tr> <tr> <td>MAGNESIUM</td> <td>2.2 mg/ dL</td> <td>1.8-2.4</td> </tr> & lt;tr> <th colspan="10">MRSA SURVEILLANCE SCREEN - 03/24/13 22:30</th> </tr> <tr> <td> Uncategorized</td> <td> </td> <td /> </tr> <tr> <th colspan="10"> MRSA SURVEILLANCE SCREEN - 03/24/13 22:30</th> </tr> & lt;tr> <td>Uncategorized</td> <td> </ td> <td /> </tr> <tr> < th colspan="10">PROTHROMBIN TIME WITH INR - 03/25/13 10:05</th& gt; </tr> <tr> <td>INTERNATIONAL NORMAL RATIO</td> <td>2.4 </td> <td>0.9- 1.1</td> </tr> <tr> <td> PROTHROMBIN TIME</td> <td>25.6 sec</td> <td>9.3 -12.2</td> </tr> <tr> <th colspan=& quot;10">PROTHROMBIN TIME WITH INR - 03/25/13 10:05</th> & lt;/tr> <tr> <td>INTERNATIONAL NORMAL RATIO</td& gt; <td>2.4 </td> <td>0.9-1.1</td> </tr> <tr> <td>PROTHROMBIN TIME</td&gt ; <td>25.6 sec</td> <td>9.3-12.2</td> </tr> <tr> <th colspan="10"> PROTHROMBIN TIME WITH INR - 03/26/13 09:53</th> </tr> <tr> <td>INTERNATIONAL NORMAL RATIO</td> &lt ;td>1.5 </td> <td>0.9-1.1</td> </tr> <tr> <td>PROTHROMBIN TIME</td> < td>16.1 sec</td> <td>9.3-12.2</td> </tr& gt; <tr> <th colspan="10">PROTHROMBIN TIME WITH INR - 03/26/13 09:53</th> </tr> <tr> <td>INTERNATIONAL NORMAL RATIO</td> <td>1.5 </ td> <td>0.9-1.1</td> </tr> <tr&gt ; <td>PROTHROMBIN TIME</td> <td>16.1 sec< /td> <td>9.3-12.2</td> </tr> <tr& gt; <th colspan="10">PROTHROMBIN TIME WITH INR - 04:53</th> </tr> <tr> <td> INTERNATIONAL NORMAL RATIO</td> <td>1.3 </td> <td>0.9-1.1</td> </tr> <tr> &lt ;td>PROTHROMBIN TIME</td> <td>14.8 sec</td> <td>9.3-12.2</td> </tr> <tr> < th colspan="10">PROTHROMBIN TIME WITH INR - 03/27/13 04:53</th& gt; </tr> <tr> <td>INTERNATIONAL NORMAL RATIO</td> <td>1.3 </td> <td> 0.9-1.1</td> </tr> <tr> <td>PROTHROMBIN TIME</td> <td>14.8 sec</td> <td>9.3- 12.2</td> </tr> <tr> <th colspan=& quot;10">URINALYSIS, ROUTINE - 03/27/13 13:35</th> </tr& gt; <tr> <td>UA LEUKOCYTE ESTERASE DIPSTICK</td& gt; <td>NEGATIVE </td> <td>NEGATIVE</td& gt; </tr> <tr> <td>UA NITRITE DIPSTICK& lt;/td> <td>NEGATIVE </td> <td>NEGATIVE& lt;/td> </tr> <tr> <td>UA PROTEIN DIPSTICK</td> <td>NEGATIVE </td> <td> NEGATIVE</td> </tr> <tr> <td>UA GLUCOSE DIPSTICK</td> <td>NEGATIVE </td> &lt ;td>NEGATIVE</td> </tr> <tr> <td& gt;UA KETONE DIPSTICK</td> <td>TRACE </td> < td>NEGATIVE</td> </tr> <tr> <td& gt;UA UROBILINOGEN DIPSTICK</td> <td>NORMAL </td> <td>NORMAL</td> </tr> <tr> <td>UA BILIRUBIN DIPSTICK</td> <td>NEGATIVE </td > <td>NEGATIVE</td> </tr> <tr&gt ; <td>UA BLOOD DIPSTICK</td> <td>NEGATIVE & lt;/td> <td>NEGATIVE</td> </tr> < tr> <td>UA EPITHELIAL CELLS</td> <td>1+ epi/hpf</td> <td>0 - 1+</td> </tr> <tr > <td>UA RBC</td> <td>0-3 rbc/hpf</td& gt; <td>0 - 3</td> </tr> <tr> <td>UA VOLUME FOR EXAM</td> <td>12.0 mL</td& gt; <td>(12mL STD)</td> </tr> <tr&gt ; <td>UA WBC</td> <td>0-1 wbc/hpf</td&gt ; <td>0 - 5</td> </tr> <tr> &lt ;td>UA SPECIFIC GRAVITY</td> <td>1.009 </td> <td>1.015-1.025</td> </tr> <tr> & lt;td>UR PH</td> <td>7.0 </td> <td> 5.0-7.0</td> </tr> <tr> <th colspan= "10">URINE CULTURE - 03/27/13 13:35</th> </tr> <tr> <td>Uncategorized</td> <td&gt ; </td> <td /> </tr> <tr> < th colspan="10">URINALYSIS, ROUTINE - 03/27/13 13:35</th> </tr> <tr> <td>UA LEUKOCYTE ESTERASE DIPSTICK</td> <td>NEGATIVE </td> <td> NEGATIVE</td> </tr> <tr> <td>UA NITRITE DIPSTICK</td> <td>NEGATIVE </td> <td> NEGATIVE</td> </tr> <tr> <td>UA PROTEIN DIPSTICK</td> <td>NEGATIVE </td> &lt ;td>NEGATIVE</td> </tr> <tr> <td& gt;UA GLUCOSE DIPSTICK</td> <td>NEGATIVE</td> <td>NEGATIVE</td> </tr> <tr> & lt;td>UA KETONE DIPSTICK</td> <td>TRACE </td> <td>NEGATIVE</td> </tr> <tr> <td>UA UROBILINOGEN DIPSTICK</td> <td>NORMAL </ td> <td>NORMAL</td> </tr> <tr> <td>UA BILIRUBIN DIPSTICK</td> <td>NEGATIVE < /td> <td>NEGATIVE</td> </tr> <tr& gt; <td>UA BLOOD DIPSTICK</td> <td>NEGATIVE </td> <td>NEGATIVE</td> </tr> &lt ;tr> <td>UA EPITHELIAL CELLS</td><td>1+ epi/hpf&lt ;/td> <td>0 - 1+</td> </tr> <tr& gt; <td>UA RBC</td> <td>0-3 rbc/hpf</td& gt; <td>0 - 3</td> </tr> <tr> <td>UA VOLUME FOR EXAM</td> <td>12.0 mL</td > <td>(12mL STD)</td> </tr> <tr& gt; <td>UA WBC</td> <td>0-1 wbc/hpf</td& gt; <td>0 - 5</td> </tr> <tr> <td>UA SPECIFICGRAVITY</td> <td>1.009 </td> <td>1.015-1.025</td> </tr> <tr> <td>UR PH</td> <td>7.0 </td> &lt ;td>5.0-7.0</td> </tr> <tr> <th colspan="10">URINE CULTURE - 03/27/13 13:35</th> </ tr> <tr> <td>Uncategorized</td> < td> </td> <td /> </tr> <tr> <th colspan="10">CBC - 03/28/13 11:16</th> </ tr> <tr> <td>MEAN CELL HGB</td> & lt;td>28.7 pg</td> <td>27.0-33.0</td> </ tr> <tr> <td>MEAN CELL HGB CONCENTRATION</td&gt ; <td>32.6 g/dL</td> <td>32.0-37.0</td> </tr> <tr> <td>MEAN CELL VOLUME</td&gt ; <td>88.1 fl</td> <td>80.0-100.0</td&gt ; </tr> <tr> <td>RED BLOOD CELL</td> <td>3.94 m/cumm</td> <td>4.00-6.00</td& gt; </tr> <tr> <td>RED CELL DISTRIBUTION WIDTH</td> <td>14.4 %</td> <td> 11.0-15.6</td> </tr> <tr> <td> WHITE BLOOD CELL</td> <td>13.2 k/cumm</td> & lt;td>5.0-10.0</td> </tr> <tr> < td>HEMOGLOBIN</td> <td>11.3 gm/dL</td> & lt;td>14.0-18.0</td> </tr> <tr> <td> HEMATOCRIT</td> <td>34.7 %</td> < td>40.0-54.0</td> </tr> <tr> <td& gt;PLATELET COUNT</td> <td>186 k/cumm</td> & lt;td>150-400</td> </tr> <tr> <th colspan="10">METABOLIC PANEL, BASIC - 03/28/13 11:16</th> </tr> <tr> <td>POTASSIUM</td> <td>4.4 mmol/L</td> <td>3.5-5.3</td> </tr> <tr> <td>EST GFR (MDRD)</td> <td>51 mL/min</td> <td>> 59</td> </tr> <tr> <td>ANION GAP</td> <td>9 mmol/L</td> <td>5-15</td> & lt;/tr><tr> <td>EST CrCl (CG)</td> <td >33 mL/min</td> <td>> 59</td> </tr> <tr> <td>GLUCOSE</td> <td>216 mg/dL</td> <td>70-99</td> </tr> & lt;tr> <td>CALCIUM</td> <td>8.4 mg/dL< /td> <td>8.5-10.1</td> </tr> <tr&gt ; <td>BLOOD UREA NITROGEN</td> <td>22 mg/dL& lt;/td> <td>7-20</td> </tr> <tr> <td>CREATININE</td> <td>1.4 mg/dL</td&gt ; <td>0.8-1.3</td> </tr> <tr> <td>SODIUM</td> <td>136 mmol/L</td> <td>135-148</td> </tr> <tr> <td>CHLORIDE</td> <td>102 mmol/L</td> <td>98-110</td> </tr> <tr> <td> CARBON DIOXIDE</td> <td>25 mmol/L</td> < td>21-32</td> </tr> <tr> <th colspan="10">CBC - 03/28/13 11:16</th> </tr> <tr> <td>MEAN CELL HGB</td> <td> 28.7 pg</td> <td>27.0-33.0</td> </tr> <tr> <td>MEAN CELL HGB CONCENTRATION</td> <td>32.6 g/dL</td> <td>32.0-37.0</td> </tr> <tr> <td>MEAN CELL VOLUME</td> <td>88.1 fl</td> <td>80.0-100.0</td> </tr> <tr> <td>RED BLOOD CELL</td> <td>3.94 m/cumm</td> <td>4.00-6.00</td> </tr> <tr> <td>RED CELL DISTRIBUTION WIDTH</ td> <td>14.4 %</td> <td>11.0-15.6 </td> </tr> <tr><td>WHITE BLOOD CELL</ td> <td>13.2 k/cumm</td> <td>5.0-10.0< /td> </tr> <tr> <td>HEMOGLOBIN</ td> <td>11.3 gm/dL</td> <td>14.0-18.0</td&gt ; </tr> <tr> <td>HEMATOCRIT</td> <td>34.7 %</td> <td>40.0-54.0</td> </tr> <tr> <td>PLATELET COUNT</td> <td>186 k/cumm</td> <td>150-400</td> </tr> <tr> <th colspan="10"> METABOLIC PANEL, BASIC - 03/28/13 11:16</th> </tr> &lt ;tr> <td>POTASSIUM</td> <td>4.4 mmol/L&lt ;/td> <td>3.5-5.3</td> </tr> <tr&gt ; <td>EST GFR (MDRD)</td> <td>51 mL/min</ td> <td>> 59</td> </tr> <tr > <td>ANION GAP</td> <td>9 mmol/L</td& gt; <td>5-15</td> </tr> <tr> <td>EST CrCl (CG)</td> <td>33 mL/min</td&gt ; <td>> 59</td> </tr> <tr&gt ; <td>GLUCOSE</td> <td>216 mg/dL</td> <td>70-99</td> </tr> <tr> <td>CALCIUM</td> <td>8.4 mg/dL</td> <td>8.5-10.1</td> </tr> <tr><td> BLOOD UREA NITROGEN</td> <td>22 mg/dL</td> & lt;td>7-20</td> </tr> <tr> <td&gt ;CREATININE</td><td>1.4 mg/dL</td> <td>0.8-1.3& lt;/td> </tr> <tr> <td>SODIUM</td > <td>136 mmol/L</td> <td>135-148</td& gt; </tr> <tr> <td>CHLORIDE</td> <td>102 mmol/L</td> <td>98-110</td> </tr> <tr> <td>CARBON DIOXIDE</td> <td>25 mmol/L</td> <td>21-32</td> </tr& gt; <tr> <th colspan="10">GLUCOSE (POC) - 03/28/13 15:27</th> </tr> <tr> <td& gt;GLUCOSE (POC)</td> <td>271 mg/dL</td> &lt ;td>70-99</td> </tr> <tr> <th colspan="10">GLUCOSE (POC) - 03/28/13 15:27</th> </ tr> <tr> <td>GLUCOSE (POC)</td> & lt;td>271 mg/dL</td> <td>70-99</td> </tr > <tr> <th colspan="10">GLUCOSE (POC) - 20:04</th> </tr> <tr> <td> GLUCOSE (POC)</td> <td>241 mg/dL</td> <td >70-99</td> </tr> <tr><th colspan="10 ">GLUCOSE (POC) - 03/28/13 20:04</th> </tr><tr&gt ; <td>GLUCOSE (POC)</td> <td>241 mg/dL</ td> <td>70-99</td> </tr> <tr> <th colspan="10">GLUCOSE (POC) - 03/29/13 01:57</th> </tr> <tr> <td>GLUCOSE (POC)</td> <td>146 mg/dL</td> <td>70-99</td> </tr> <tr> <th colspan="10"> GLUCOSE (POC) - 03/29/13 01:57</th> </tr> <tr> <td>GLUCOSE (POC)</td> <td>146 mg/dL</td& gt; <td>70-99</td> </tr> <tr> <th colspan="10">METABOLIC PANEL, BASIC - 03/29/13 05:26&lt ;/th> </tr> <tr> <td>POTASSIUM</ td> <td>4.3 mmol/L</td> <td>3.5-5.3</ td> </tr> <tr> <td>EST GFR (MDRD)< /td> <td>> 60 mL/min</td> <td>> 59& lt;/td> </tr> <tr> <td>ANION GAP< /td> <td>9 mmol/L</td> <td>5-15</td&gt ; </tr> <tr> <td>EST CrCl (CG)</td& gt; <td>46 mL/min</td> <td>> 59</ td> </tr> <tr> <td>GLUCOSE</td&gt ; <td>113 mg/dL</td> <td>70-99</td> & lt;/tr> <tr> <td>CALCIUM</td> < td>8.3 mg/dL</td> <td>8.5-10.1</td> </tr > <tr> <td>BLOOD UREA NITROGEN</td> <td>19 mg/dL</td> <td>7-20</td> </ tr> <tr> <td>CREATININE</td> < td>1.0 mg/dL</td> <td>0.8-1.3</td> </tr& gt; <tr> <td>SODIUM</td> <td>136 mmol/L</td> <td>135-148</td> </tr> <tr> <td>CHLORIDE</td> <td>103 mmol /L</td> <td>98-110</td> </tr> &lt ;tr> <td>CARBON DIOXIDE</td> <td>24 mmol/ L</td> <td>21-32</td> </tr> < tr> <th colspan="10">METABOLIC PANEL, BASIC - 05:26</th> </tr> <tr> <td> POTASSIUM</td> <td>4.3 mmol/L</td> <td&gt ;3.5-5.3</td> </tr> <tr> <td>EST GFR (MDRD)</td> <td>> 60 mL/min</td> <td>> 59</td> </tr> <tr> <td& gt;ANION GAP</td> <td>9 mmol/L</td><td>5-15< /td> </tr> <tr> <td>EST CrCl (CG)&lt ;/td> <td>46 mL/min</td> <td>> 59& lt;/td> </tr> <tr> <td>GLUCOSE</ td> <td>113 mg/dL</td> <td>70-99</td& gt; </tr> <tr> <td>CALCIUM</td> <td>8.3 mg/dL</td> <td>8.5-10.1</td> </tr> <tr> <td>BLOOD UREA NITROGEN</ td> <td>19 mg/dL</td> <td>7-20</td&gt ; </tr> <tr> <td>CREATININE</td> <td>1.0 mg/dL</td> <td>0.8-1.3</td> </tr> <tr> <td>SODIUM</td> <td>136 mmol/L</td> <td>135-148</td> </tr> <tr><td>CHLORIDE</td> <td> 103 mmol/L</td> <td>98-110</td> </tr> <tr> <td>CARBON DIOXIDE</td> <td&gt ;24 mmol/L</td> <td>21-32</td> </tr> <tr> <th colspan="10">GLUCOSE (POC) - 06:47</th> </tr> <tr> <td> GLUCOSE (POC)</td> <td>121 mg/dL</td> <td >70-99</td> </tr> <tr> <th colspan="10">GLUCOSE (POC) - 03/29/13 06:47</th> </ tr> <tr> <td>GLUCOSE (POC)</td> <td& gt;121 mg/dL</td> <td>70-99</td> </tr> <tr> <th colspan="10">GLUCOSE(POC) - 03/30 05:26</th> </tr> <tr> <td> GLUCOSE (POC)</td> <td>127 mg/dL</td> <td >70-99</td> </tr> <tr> <th colspan="10">GLUCOSE (POC) - 03/30/13 05:26</th> </ tr> <tr> <td>GLUCOSE (POC)</td> & lt;td>127 mg/dL</td> <td>70-99</td> </tr > <tr> <th colspan="10">GLUCOSE (POC) - 03/30/13 10:18</th> </tr> <tr> <td >GLUCOSE (POC)</td> <td>198 mg/dL</td> & lt;td>70-99</td> </tr> <tr> <th colspan="10">GLUCOSE (POC) - 03/30/13 10:18</th> </ tr> <tr> <td>GLUCOSE (POC)</td> <td& gt;198 mg/dL</td> <td>70-99</td> </tr> <tr> <th colspan="10">GLUCOSE (POC) - 10/02 13:57</th> </tr> <tr> <td> GLUCOSE (POC)</td> <td>222 mg/dL</td> <td >70-99</td> </tr> <tr> <th colspan="10">GLUCOSE (POC) - 03/30/13 13:57</th> </ tr> <tr> <td>GLUCOSE (POC)</td> & lt;td>222 mg/dL</td> <td>70-99</td> </tr > <tr> <th colspan="10">GLUCOSE (POC) - 03/30/13 15:45</th> </tr> <tr> <td >GLUCOSE (POC)</td> <td>184 mg/dL</td> & lt;td>70-99</td> </tr> <tr> <th colspan="10">GLUCOSE (POC) - 03/30/13 15:45</th> </ tr> <tr> <td>GLUCOSE (POC)</td> <td >184 mg/dL</td> <td>70-99</td> </tr> <tr> <th colspan="10">GLUCOSE (POC) - 10/02 22:49</th> </tr> <tr> <td> GLUCOSE (POC)</td> <td>173 mg/dL</td> <td >70-99</td> </tr> <tr> <th colspan="10">GLUCOSE (POC) - 03/30/13 22:49</th> </ tr> <tr> <td>GLUCOSE (POC)</td><td> 173 mg/dL</td> <td>70-99</td> </tr> <tr> <th colspan="10">GLUCOSE (POC) - 06:13</th> </tr> <tr> <td> GLUCOSE (POC)</td> <td>95 mg/dL</td> <td& gt;70-99</td> </tr> <tr> <th colspan ="10">GLUCOSE (POC) - 03/31/13 06:13</th> </tr> <tr> <td>GLUCOSE (POC)</td> <td> 95 mg/dL</td> <td>70-99</td> </tr> <tr> <th colspan="10">GLUCOSE (POC) - 10:27</th> </tr> <tr> <td> GLUCOSE (POC)</td> <td>252 mg/dL</td> <td >70-99</td> </tr> <tr> <th colspan="10">GLUCOSE (POC) - 03/31/13 10:27</th> </ tr> <tr> <td>GLUCOSE (POC)</td> & lt;td>252 mg/dL</td> <td>70-99</td> </tr > <tr> <th colspan="10">GLUCOSE (POC) - 03/31/13 14:44</th> </tr> <tr> <td >GLUCOSE (POC)</td> <td>204 mg/dL</td> & lt;td>70-99</td> </tr> <tr> <th colspan="10">GLUCOSE (POC) - 03/31/13 14:44</th> </ tr> <tr> <td>GLUCOSE (POC)</td> <td >204 mg/dL</td> <td>70-99</td> </tr> <tr> <th colspan="10">HEMOGLOBIN A1C - 16:02</th> </tr> <tr> <td> HEMOGLOBIN A1C</td> <td>6.3 %</td> & lt;td>< 5.7</td> </tr> <tr> & lt;th colspan="10">HEMOGLOBIN A1C - 03/31/13 16:02</th> </tr> <tr> <td>HEMOGLOBIN A1C</td> <td>6.3 %</td> <td>< 5.7</ td> </tr> <tr> <th colspan="10& quot;>GLUCOSE (POC) - 03/31/13 21:40</th> </tr> &lt ;tr> <td>GLUCOSE (POC)</td> <td>185 mg/dL</td& gt; <td>70-99</td> </tr> <tr> <th colspan="10">GLUCOSE (POC) - 03/31/13 21:40</th&gt ; </tr> <tr> <td>GLUCOSE (POC)</td& gt; <td>185 mg/dL</td> <td>70-99</td> </tr> <tr> <th colspan="10"> URINALYSIS, ROUTINE - 04/01/13 02:00</th> </tr> <tr > <td>UA LEUKOCYTE ESTERASE DIPSTICK</td> < td>NEGATIVE </td> <td>NEGATIVE</td> </tr > <tr> <td>UA NITRITE DIPSTICK</td> <td>NEGATIVE </td> <td>NEGATIVE</td> </tr> <tr> <td>UA PROTEIN DIPSTICK</td> <td>TRACE </td> <td>NEGATIVE</td> &lt ;/tr> <tr> <td>UA GLUCOSE DIPSTICK</td> <td>NEGATIVE </td> <td>NEGATIVE</td> & lt;/tr> <tr> <td>UA KETONE DIPSTICK</td> <td>NEGATIVE </td> <td>NEGATIVE</td> </tr> <tr> <td>UA UROBILINOGEN DIPSTICK</ td> <td>NORMAL </td> <td>NORMAL</td&gt ; </tr> <tr> <td>UA BILIRUBIN DIPSTICK&lt ;/td> <td>NEGATIVE </td> <td>NEGATIVE< /td> </tr> <tr> <td>UA BLOOD DIPSTICK</td> <td>NEGATIVE </td> <td> NEGATIVE</td> </tr> <tr> <td>UA BACTERIA</td> <td>1+ </td> <td> NEGATIVE</td> </tr> <tr> <td> UAEPITHELIAL CELLS</td> <td>1+ epi/hpf</td> <td>0 - 1+</td> </tr> <tr> <td >UA RBC</td> <td>0 rbc/hpf</td> <td&gt ;0 - 3</td> </tr> <tr> <td>UA VOLUME FOR EXAM</td> <td>12.0 mL</td> <td >(12mL STD)</td> </tr> <tr> <td& gt;UA WBC</td> <td>0-1 wbc/hpf</td> <td& gt;0 - 5</td> </tr> <tr> <td>UA SPECIFIC GRAVITY</td> <td>1.014 </td> <td >1.015-1.025</td> </tr> <tr> <td& gt;UR PH</td> <td>7.0 </td> <td>5.0- 7.0</td> </tr> <tr> <th colspan="10& quot;>URINALYSIS, ROUTINE - 04/01/13 02:00</th> </tr> <tr> <td>UA LEUKOCYTE ESTERASE DIPSTICK</td> <td>NEGATIVE </td> <td>NEGATIVE</td> </tr> <tr> <td>UA NITRITE DIPSTICK</td> <td>NEGATIVE </td> <td>NEGATIVE</td> </tr> <tr> <td>UAPROTEIN DIPSTICK</td& gt; <td>TRACE </td> <td>NEGATIVE</td> </tr> <tr> <td>UA GLUCOSE DIPSTICK< /td> <td>NEGATIVE </td> <td>NEGATIVE</ td> </tr> <tr> <td>UA KETONE DIPSTICK</td> <td>NEGATIVE </td> <td>NEGATIVE& lt;/td> </tr> <tr> <td>UA UROBILINOGEN DIPSTICK</td> <td>NORMAL </td> <td>NORMAL</td> </tr> <tr> <td> UA BILIRUBIN DIPSTICK</td> <td>NEGATIVE </td> <td>NEGATIVE</td> </tr> <tr> &lt ;td>UA BLOOD DIPSTICK</td> <td>NEGATIVE </td> <td>NEGATIVE</td> </tr> <tr> <td>UA BACTERIA</td> <td>1+ </td> & lt;td>NEGATIVE</td> </tr> <tr> <td> UA EPITHELIAL CELLS</td> <td>1+ epi/hpf</td> <td>0 - 1+</td> </tr> <tr> < td>UA RBC</td> <td>0 rbc/hpf</td> <td& gt;0 - 3</td> </tr> <tr> <td>UA VOLUME FOR EXAM</td> <td>12.0 mL</td> <td >(12mL STD)</td> </tr> <tr> <td& gt;UA WBC</td> <td>0-1 wbc/hpf</td> <td& gt;0 - 5</td> </tr> <tr> <td>UA SPECIFIC GRAVITY</td> <td>1.014 </td> <td >1.015-1.025</td> </tr> <tr> <td& gt;UR PH</td> <td>7.0 </td> <td>5.0- 7.0</td> </tr> <tr> <th colspan=& quot;10">CBC - 04/01/13 05:23</th> </tr> < tr> <td>MEAN CELL HGB</td> <td>28.4 pg< /td> <td>27.0-33.0</td> </tr> <tr> <td>MEAN CELL HGB CONCENTRATION</td> <td> 32.2 g/dL</td> <td>32.0-37.0</td> </tr> <tr> <td>MEAN CELL VOLUME</td> < td>88.1 fl</td> <td>80.0-100.0</td> </tr > <tr> <td>RED BLOOD CELL</td> <td> 3.77 m/cumm</td> <td>4.00-6.00</td> </tr&gt ;<tr> <td>RED CELL DISTRIBUTION WIDTH</td> & lt;td>14.5 %</td> <td>11.0-15.6</td> </tr> <tr> <td>WHITE BLOOD CELL</td> <td>10.7 k/cumm</td> <td>5.0-10.0</td&gt ; </tr> <tr> <td>HEMOGLOBIN</td> <td>10.7 gm/dL</td> <td>14.0-18.0</td> </tr> <tr> <td>HEMATOCRIT</td> <td>33.2 %</td> <td>40.0-54.0</td> </tr> <tr> <td>PLATELET COUNT</td> <td>241 k/cumm</td> <td>150-400</td> </ tr> <tr> <th colspan="10">METABOLIC PANEL, BASIC - 04/01/13 05:23</th> </tr> <tr> <td>POTASSIUM</td> <td>5.0 mmol/L</td> <td>3.5-5.3</td> </tr> <tr> & lt;td>EST GFR (MDRD)</td> <td>> 60 mL/min</td& gt; <td>> 59</td> </tr> <tr& gt; <td>ANION GAP</td> <td>7 mmol/L</td& gt; <td>5-15</td> </tr> <tr> <td>EST CrCl (CG)</td> <td>46mL/min</td> <td>> 59</td> </tr> <tr> <td>GLUCOSE</td> <td>118 mg/dL</td> <td>70-99</td> </tr> <tr> <td& gt;CALCIUM</td> <td>8.9 mg/dL</td> <td&gt ;8.5-10.1</td> </tr> <tr> <td>BLOOD UREA NITROGEN</td> <td>16 mg/dL</td> <td& gt;7-20</td> </tr> <tr> <td> CREATININE</td> <td>1.0 mg/dL</td> <td> 0.8-1.3</td> </tr> <tr> <td>SODIUM</ td> <td>136 mmol/L</td> <td>135-148</ td> </tr> <tr> <td>CHLORIDE</td& gt; <td>100 mmol/L</td> <td>98-110</td&gt ; </tr> <tr> <td>CARBON DIOXIDE</td&gt ; <td>29 mmol/L</td> <td>21-32</td> </tr> <tr> <th colspan="10"> CBC - 04/01/13 05:23</th> </tr> <tr> & lt;td>MEAN CELL HGB</td> <td>28.4 pg</td> <td>27.0-33.0</td> </tr> <tr> & lt;td>MEAN CELL HGB CONCENTRATION</td> <td>32.2 g/dL</td& gt; <td>32.0-37.0</td> </tr> <tr> <td>MEAN CELL VOLUME</td> <td>88.1 fl</td&gt ; <td>80.0-100.0</td> </tr> <tr> <td>RED BLOOD CELL</td> <td>3.77 m/cumm</td& gt; <td>4.00-6.00</td> </tr> <tr> <td>RED CELL DISTRIBUTION WIDTH</td> <td>14.5 &amp ;#37;</td> <td>11.0-15.6</td> </tr> & lt;tr> <td>WHITE BLOOD CELL</td> <td> 10.7 k/cumm</td> <td>5.0-10.0</td> </tr&gt ; <tr> <td>HEMOGLOBIN</td> <td> 10.7 gm/dL</td> <td>14.0-18.0</td> </tr> <tr> <td>HEMATOCRIT</td> <td> 33.2%</td> <td>40.0-54.0</td> </tr& gt; <tr> <td>PLATELET COUNT</td> <td& gt;241 k/cumm</td> <td>150-400</td> </tr&gt ; <tr> <th colspan="10">METABOLIC PANEL, BASIC - 04/01/13 05:23</th> </tr> <tr> <td>POTASSIUM</td> <td>5.0 mmol/L</td> <td>3.5-5.3</td> </tr> <tr> &lt ;td>EST GFR (MDRD)</td> <td>> 60 mL/min</td&gt ; <td>> 59</td> </tr><tr> <td>ANION GAP</td> <td>7 mmol/L</td> <td>5-15</td> </tr> <tr> < td>EST CrCl (CG)</td> <td>46 mL/min</td> <td>> 59</td> </tr> <tr> & lt;td>GLUCOSE</td> <td>118 mg/dL</td> < td>70-99</td> </tr> <tr> <td> CALCIUM</td> <td>8.9 mg/dL</td> <td> 8.5-10.1</td> </tr> <tr> <td> BLOOD UREA NITROGEN</td> <td>16 mg/dL</td> & lt;td>7-20</td> </tr> <tr> <td&gt ;CREATININE</td> <td>1.0 mg/dL</td> <td& gt;0.8-1.3</td> </tr> <tr> <td> SODIUM</td> <td>136 mmol/L</td> <td> 135-148</td> </tr> <tr> <td> CHLORIDE</td> <td>100 mmol/L</td> <td> 98-110</td> </tr> <tr> <td> CARBON DIOXIDE</td> <td>29 mmol/L</td> < td>21-32</td> </tr> <tr> <th colspan ="10">GLUCOSE (POC) - 04/01/13 05:41</th> </tr> <tr> <td>GLUCOSE (POC)</td> <td&gt ;111 mg/dL</td> <td>70-99</td> </tr> <tr> <th colspan="10">GLUCOSE (POC) - 05:41</th> </tr> <tr> <td>GLUCOSE (POC )</td> <td>111 mg/dL</td> <td>70-99&lt ;/td> </tr> <tr> <th colspan="10& quot;>GLUCOSE (POC) - 04/01/13 10:14</th> </tr> &lt ;tr> <td>GLUCOSE (POC)</td> <td>202 mg/dL </td> <td>70-99</td> </tr> <tr > <th colspan="10">GLUCOSE (POC) - 04/01/13 10:14&lt ;/th> </tr> <tr> <td>GLUCOSE (POC)& lt;/td> <td>202 mg/dL</td> <td>70-99</ td> </tr> <tr> <th colspan="10" >GLUCOSE (POC) - 04/01/13 15:13</th> </tr> <tr& gt; <td>GLUCOSE (POC)</td> <td>267 mg/dL< /td> <td>70-99</td> </tr> <tr&gt ; <th colspan="10">GLUCOSE (POC) - 04/01/13 15:13</ th> </tr> <tr> <td>GLUCOSE (POC)</td&gt ; <td>267 mg/dL</td> <td>70-99</td> </tr> <tr> <th colspan="10"> GLUCOSE (POC) - 04/01/13 20:20</th> </tr> <tr> <td>GLUCOSE (POC)</td> <td>164 mg/dL</td& gt; <td>70-99</td> </tr> <tr> <th colspan="10">GLUCOSE (POC) - 04/01/13 20:20</th&gt ; </tr> <tr> <td>GLUCOSE (POC)</td& gt; <td>164 mg/dL</td> <td>70-99</td> </tr> <tr> <th colspan="10"> GLUCOSE (POC) - 04/02/13 01:17</th> </tr> <tr> <td>GLUCOSE (POC)</td> <td>139 mg/dL</td& gt; <td>70-99</td> </tr> <tr> <th colspan="10">GLUCOSE (POC) - 04/02/13 01:17</th&gt ; </tr> <tr> <td>GLUCOSE (POC)</td> <td>139 mg/dL</td> <td>70-99</td> </tr> <tr> <th colspan="10"> GLUCOSE(POC) - 04/02/13 06:02</th> </tr> <tr> <td>GLUCOSE (POC)</td> <td>133 mg/dL</td& gt; <td>70-99</td> </tr> <tr> <th colspan="10">GLUCOSE (POC) - 04/02/13 06:02</th&gt ; </tr> <tr> <td>GLUCOSE (POC)</td& gt; <td>133 mg/dL</td> <td>70-99</td> </tr> <tr> <th colspan="10"> GLUCOSE (POC) - 04/02/13 09:54</th> </tr> <tr> <td>GLUCOSE (POC)</td> <td>173 mg/dL</td& gt; <td>70-99</td> </tr> <tr> <th colspan="10">GLUCOSE (POC) - 04/02/13 09:54</th&gt ; </tr> <tr> <td>GLUCOSE (POC)</td> <td>173 mg/dL</td> <td>70-99</td> </tr> <tr> <th colspan="10"> L200.0050 - 05/25/17 08:18</th> </tr> <tr> <td>FUNGAL CULTURE.</td> <td>1.0 MG/DL</td&gt ; <td>0.8-1.5</td> </tr> <tr> <td>FUNGAL CULTURE, BLOOD.</td> <td>24 RATIO& lt;/td> <td>6-26</td> </tr> <tr& gt; <td>NA - Sodium</td> <td>140 MEQ/L</ td> <td>134-144</td> </tr> <tr&gt ; <td>Potassium</td> <td>4.3 MEQ/L</td&gt ; <td>3.6-5</td> </tr> <tr> & lt;td>Chloride</td> <td>102 MEQ/L</td> & lt;td>98-107</td> </tr> <tr> <td& gt;CO2 - Carbon Dioxide</td> <td>29 MEQ/L</td> <td>22-30</td> </tr> <tr> <td& gt;Anion Gap</td> <td>9 MEQ/L</td> <td&gt ;5-15</td> </tr> <tr> <td>BUN - Blood Urea Nitrogen</td> <td>24.0 MG/DL</td> <td>9-20</td> </tr> <tr> <td >Glomerular Filtration Rate</td> <td>71 </td> <td>NRG</td> </tr> <tr> &lt ;td>Glucose</td> <td>74 MG/DL</td> <td >75-110</td> </tr> <tr> <td> Osmolality,Calculated</td> <td>272 MOSM/KG</td> <td>261-280</td> </tr> <tr> <td>Calcium</td> <td>9.7 MG/DL</td> & lt;td>8.4-10.2</td> </tr> <tr> < td>LICTERUS</td> <td>< 2 </td> <td>0 -7</td> </tr> <tr> <td>LHEMOLYSIS </td> <td>< 15 </td> <td>0-25& lt;/td> </tr> <tr> <td>LTURBIDITY&lt ;/td> <td>< 20 </td> <td>0-20</ td> </tr> <tr> <th colspan="10"&gt ;L900.0530 - 05/25/17 12:50</th></tr> <tr> &lt ;td>Glucometer</td> <td>88 mg/dL</td> &lt ;td>65-110</td> </tr> <tr> <th colspan="10">L900.0530 - 05/25/17 14:03</th> </tr& gt; <tr> <td>Glucometer</td> <td> 98 mg/dL</td> <td>65-110</td> </tr> <tr> <th colspan="10">L900.0530 05/25/17 19 :53</th> </tr> <tr> <td> Glucometer</td> <td>119 mg/dL</td> <td&gt ;65-110</td> </tr> <tr> <th colspan= "10">L100.0025 - 05/26/17 04:27</th> </tr> <tr> <td>WBC - WHITE BLOOD COUNT</td> <td >8.7 T/MM3</td> <td>4.5-11.0</td> </tr& gt; <tr> <td>RED BLOOD COUNT</td> &lt ;td>3.86 M/MM3</td> <td>4.50-5.90</td> < /tr> <tr> <td>HGB - HEMOGLOBIN</td> <td>12.3 GM/DL</td> <td>13.5-17.5</td></ tr> <tr> <td>HCT - HEMATOCRIT</td> <td>38.8%</td> <td>41-53</td> </tr> <tr> <td>MEAN CORPUSCULAR VOLUME</td> <td>100.5 UM3</td> <td>80-100</td> </tr> <tr> <td>MEAN CORPUSCULAR HGB</td& gt; <td>31.9 UUG</td> <td>26-34</td> </tr> <tr> <td>MEAN CORPUSCULAR HGB CONC(MCHC</td> <td>31.7 GM/DL</td> <td&gt ;31-37</td> </tr> <tr> <td>RDW STANDARD DEVIATION</td> <td>52.5 FL</td> <td> 36.9-50.2</td> </tr> <tr> <td> PLT - PLATELET COUNT</td> <td>126 T/MM3</td> <td>130-400</td> </tr> <tr> &lt ;td>MEAN PLATELET VOLUME</td> <td>10.8 UM3</td> <td>9.4-12.4</td> </tr> <tr> <th colspan="10">L160.0105 - 05/26/17 04:27</th> </tr> <tr> <td>INR.</td> & lt;td>1.44 </td> <td>0.99-1.21</td> </tr > <tr> <th colspan="10">L200.0050 - 06/05 04:27</th> </tr> <tr> <td> FUNGAL CULTURE.</td> <td>1.1 MG/DL</td> < td>0.8-1.5</td> </tr> <tr> <td&gt ;FUNGAL CULTURE, BLOOD.</td> <td>26 RATIO</td> <td>6-26</td> </tr> <tr> < td>NA - Sodium</td> <td>137 MEQ/L</td> & lt;td>134-144</td> </tr> <tr> <td >Potassium</td> <td>4.7 MEQ/L</td> <td >3.6-5</td> </tr> <tr> <td>Chloride </td> <td>104 MEQ/L</td> <td>98-107&lt ;/td> </tr> <tr> <td>CO2 - Carbon Dioxide</td> <td>27 MEQ/L</td> <td>22-30& lt;/td> </tr> <tr> <td>Anion Gap< /td> <td>6 MEQ/L</td> <td>5-15</td&gt ; </tr> <tr> <td>BUN - Blood Urea Nitrogen</td> <td>28.0 MG/DL</td> <td> 9-20</td> </tr> <tr> <td> Glomerular Filtration Rate</td> <td>63 </td> <td>NRG</td> </tr> <tr> <td& gt;Glucose</td> <td>71 MG/DL</td> <td> 75-110</td> </tr> <tr> <td> Osmolality,Calculated</td> <td>268 MOSM/KG</td> <td>261-280</td> </tr> <tr> <td>Calcium</td> <td>8.6 MG/DL</td> & lt;td>8.4-10.2</td> </tr> <tr> < td>LICTERUS</td> <td>< 2 </td> <td>0 -7</td> </tr> <tr> <td>LHEMOLYSIS </td> <td>< 15 </td> <td>0-25& lt;/td> </tr> <tr> <td>LTURBIDITY&lt ;/td> <td>< 20 </td> <td>0-20</ td> </tr> <tr> <th colspan="10"&gt ;L900.52905/26/17 06:02</th></tr> <tr> &lt ;td>Glucometer</td> <td>75 mg/dL</td> &lt ;td>65-110</td> </tr> <tr> <th colspan="10">L900.52905/26/17 10:23</th> </tr& gt; <tr> <td>Glucometer</td> <td> 141 mg/dL</td> <td>65-110</td> </tr> <tr> <th colspan="10">L900.52905/26/17 14:41</th> </tr> <tr> <td> Glucometer</td> <td>106 mg/dL</td> <td&gt ;65-110</td> </tr> <tr> <th colspan= "10">L160.0105 - 05/29/17 17:37</th> </tr> <tr> <td>INR.</td> <td>4.89 </td& gt; <td>0.99-1.21</td> </tr> <tr&gt ; <th colspan="10">L900.0530 - 05/29/17 20:38</th&gt ; </tr> <tr> <td>Glucometer</td> <td>125 mg/dL</td> <td>65-110</td> </tr> <tr> <th colspan="10"> L900.0530 - 05/30/17 04:41</th> </tr> <tr> <td>Glucometer</td> <td>84 mg/dL</td> <td>65-110</td> </tr> <tr> <th colspan="10">L160.0105 - 05/30/17 04:42</th> &lt ;/tr> <tr> <td>INR.</td> <td&gt ;4.20 </td> <td>0.99-1.21</td> </tr> <tr> <th colspan="10">L200.0050 - 05/30/17 04:42</th> </tr> <tr> <td>FUNGAL CULTURE.</td> <td>1.0 MG/DL</td> <td> 0.8-1.5</td> </tr> <tr> <td> FUNGAL CULTURE, BLOOD.</td> <td>25 RATIO</td> <td>6-26</td> </tr> <tr> < td>NA - Sodium</td> <td>132 MEQ/L</td> & lt;td>134-144</td> </tr> <tr> <td >Potassium</td> <td>4.6 MEQ/L</td> <td >3.6-5</td> </tr> <tr> <td> Chloride</td> <td>99 MEQ/L</td> <td>98 -107</td> </tr> <tr> <td>CO2 - Carbon Dioxide</td> <td>26 MEQ/L</td> <td >22-30</td> </tr> <tr> <td> Anion Gap</td> <td>7MEQ/L</td> <td>5- 15</td> </tr> <tr> <td>BUN - Blood Urea Nitrogen</td> <td>25.0 MG/DL</td> <td>9-20</td> </tr> <tr> <td >Glomerular Filtration Rate</td> <td>71 </td> <td>NRG</td> </tr> <tr> <td >Glucose</td> <td>86 MG/DL</td> <td>75-110& lt;/td> </tr> <tr> <td>Osmolality, Calculated</td> <td>258 MOSM/KG</td> <td& gt;261-280</td> </tr> <tr> <td>Calcium </td> <td>9.0 MG/DL</td> <td>8.4-10.2& lt;/td> </tr> <tr> <td>LICTERUS</ td> <td>< 2 </td> <td>0-7</td& gt; </tr> <tr> <td>LHEMOLYSIS</td> <td>< 15 </td> <td>0-25</td> </tr> <tr> <td>LTURBIDITY</td> <td>< 20 </td> <td>0-20</td> </tr> <tr> <th colspan="10"> L100.0050 - 05/30/17 04:42</th> </tr> <tr> <td>WBC - WHITE BLOOD COUNT</td> <td>11.4 T/MM3& lt;/td> <td>4.5-11.0</td></tr> <tr> <td>RED BLOOD COUNT</td> <td>3.46 M/MM3</ td> <td>4.50-5.90</td> </tr> <tr& gt; <td>HGB - HEMOGLOBIN</td> <td>11.1 GM/DL</td& gt; <td>13.5-17.5</td> </tr> <tr&gt ; <td>HCT - HEMATOCRIT</td> <td>34.2 &# 37;</td> <td>41-53</td> </tr> &lt ;tr> <td>MEAN CORPUSCULAR VOLUME</td> <td&gt ;98.8 UM3</td> <td>80-100</td> </tr> <tr> <td>MEAN CORPUSCULAR HGB</td> < td>32.1 UUG</td> <td>26-34</td> </tr&gt ; <tr> <td>MEAN CORPUSCULAR HGB CONC(MCHC</td&gt ; <td>32.5 GM/DL</td> <td>31-37</td> </tr> <tr> <td>RDW STANDARD DEVIATION& lt;/td> <td>52.9 FL</td> <td>36.9-50.2&lt ;/td> </tr> <tr> <td>PLT - PLATELET COUNT</td> <td>107 T/MM3</td> <td>130- 400</td> </tr> <tr> <td>MEAN PLATELET VOLUME</td> <td>11.2 UM3</td> <td >9.4-12.4</td> </tr> <tr> <th colspan= "10">L100.0105 - 05/30/17 04:42</th></tr> <tr > <td>NEUTROPHILS % (MANUAL)</td> < td>70.0 %</td> <td>33-66</td> </ tr> <tr> <td>BAND NEUTROPHILS %</td&gt ; <td>2.0 %</td> <td>0-6</td> </tr> <tr> <td>LYMPHOCYTES % ( MANUAL)</td> <td>14.0 %</td> <td& gt;23-45</td> </tr> <tr> <td> MONOCYTES % (MANUAL)</td> <td>14.0 %</td > <td>0-9.0</td></tr> <tr> & lt;td>PROLYMPHOCYTES %</td> <td>8.0 T/MM3</td > <td>1.8-7.7</td> </tr> <tr> <td>PLASMA CELLS %</td> <td>0.2 T/MM3& lt;/td> <td>NRG</td> </tr> <tr&gt ; <td>NEUTROPHILS # (MANUAL)</td> <td>1.6 T/ MM3</td> <td>0-0.8</td> </tr> &lt ;tr> <td>Lymphocytes # (Manual)</td> <td> 1.6T/MM3</td> <td>1-4.8</td> </tr> <tr> <td>LRBCMOR</td> <td>Normal & lt;/td> <td>NRG</td> </tr> <tr> <th colspan="10">L900.0530 - 05/30/17 11:39</th> </tr> <tr> <td>Glucometer</td>& lt;td>117 mg/dL</td> <td>65-110</td> </ tr> <tr> <th colspan="10">L900.0530 - 05/30/17 15:05</th> </tr> <tr> <td& gt;Glucometer</td> <td>99 mg/dL</td> <td&gt ;65-110</td> </tr> <tr> <th colspan= "10">L900.0530 - 05/30/17 20:34</th> </tr> <tr> <td>Glucometer</td> <td>133 mg /dL</td> <td>65-110</td> </tr> & lt;tr> <th colspan="10">L160.0105 - 05/31/17 04:38& lt;/th> </tr> <tr> <td>INR.</td& gt; <td>2.75 </td> <td>0.99-1.21</td> & lt;/tr> <tr> <th colspan="10"> L200.0050 - 05/31/17 04:38</th> </tr> <tr> <td>FUNGAL CULTURE.</td> <td>0.9 MG/DL</td&gt ; <td>0.8-1.5</td> </tr> <tr> <td>FUNGAL CULTURE, BLOOD.</td> <td>29 RATIO& lt;/td> <td>6-26</td> </tr> <tr& gt; <td>NA - Sodium</td> <td>133 MEQ/L</ td> <td>134-144</td> </tr> <tr&gt ; <td>Potassium</td> <td>4.8 MEQ/L</td> <td>3.6-5</td> </tr> <tr> <td>Chloride</td> <td>103 MEQ/L</td> <td>98-107</td> </tr> <tr> < td>CO2 - Carbon Dioxide</td> <td>27 MEQ/L</td> <td>22-30</td> </tr> <tr> <td>Anion Gap</td> <td>3 MEQ/L</td> & lt;td>5-15</td> </tr> <tr> <td&gt ;BUN - Blood Urea Nitrogen</td> <td>26.0 MG/DL</td> <td>9-20</td> </tr> <tr> <td>Glomerular Filtration Rate</td> <td>80 </td& gt; <td>NRG</td> </tr> <tr> <td>Glucose</td> <td>90 MG/DL</td> <td>75-110</td> </tr> <tr> &lt ;td>Osmolality,Calculated</td> <td>261 MOSM/KG</td&gt ; <td>261-280</td> </tr> <tr> <td>Calcium</td> <td>8.9 MG/DL</td> < td>8.4-10.2</td> </tr> <tr> <td& gt;LICTERUS</td> <td>< 2 </td> <td >0-7</td> </tr> <tr> <td> LHEMOLYSIS</td> <td>< 15 </td> <td&gt ;0-25</td> </tr> <tr> <td>LTURBIDITY< /td> <td>< 20 </td> <td>0-20</td> </tr> <tr> <th colspan="10"> L100.0050 - 05/31/17 04:38</th> </tr> <tr> <td>WBC - WHITE BLOOD COUNT</td> <td>8.6 T/MM3& lt;/td> <td>4.5-11.0</td> </tr> < tr> <td>RED BLOOD COUNT</td> <td>3.13 M/MM3&lt ;/td> <td>4.50-5.90</td> </tr> <tr> <td>HGB - HEMOGLOBIN</td> <td>9.9 GM/DL< /td> <td>13.5-17.5</td> </tr> <tr& gt; <td>HCT -HEMATOCRIT</td> <td>31.0 &# 37;</td> <td>41-53</td> </tr> &lt ;tr> <td>MEAN CORPUSCULAR VOLUME</td> <td>99.0 UM3 </td> <td>80-100</td> </tr> < tr> <td>MEAN CORPUSCULAR HGB</td> <td> 31.6 UUG</td> <td>26-34</td> </tr> <tr > <td>MEAN CORPUSCULAR HGB CONC(MCHC</td> < td>31.9 GM/DL</td> <td>31-37</td> </tr& gt; <tr> <td>RDW STANDARD DEVIATION</td><td >53.3 FL</td> <td>36.9-50.2</td> </tr&gt ; <tr> <td>PLT - PLATELET COUNT</td> <td>101 T/MM3</td> <td>130-400</td> </tr&gt ; <tr> <td>MEAN PLATELET VOLUME</td> <td>10.7 UM3</td> <td>9.4-12.4</td> </tr& gt; <tr> <th colspan="10">L100.0105 - 11/05 04:38</th> </tr> <tr> <td> NEUTROPHILS % (MANUAL)</td> <td>64.0 %</ td> <td>33-66</td> </tr> <tr> <td>BAND NEUTROPHILS %</td> <td> 2.0 %</td> <td>0-6</td> </tr> <tr> <td>LYMPHOCYTES % (MANUAL)</td> <td>21.0 %</td> <td>23-45</td> </tr> <tr> <td>MONOCYTES % (MANUAL )</td> <td>13.0 %</td> <td>0- 9.0</td> </tr> <tr> <td> PROLYMPHOCYTES %</td> <td>5.5 T/MM3</td> <td>1.8-7.7</td> </tr> <tr> <td>PLASMA CELLS %</td> <td>0.2 T/MM3</td& gt; <td>NRG</td> </tr> <tr> <td>NEUTROPHILS # (MANUAL)</td> <td>1.1 T/MM3&lt ;/td> <td>0-0.8</td> </tr> <tr&gt ; <td>Lymphocytes # (Manual)</td> <td>1.8 T/MM3& lt;/td> <td>1-4.8</td> </tr> <tr& gt; <td>LRBCMOR</td> <td>Normal </td> <td>NRG</td> </tr> <tr> <th colspan="10">L900.0530 - 05/31/17 06:17</th> </tr> <tr> <td>Glucometer</td> <td>82 mg/dL</td> <td>65-110</td> </ tr> <tr> <th colspan="10">L900.0505/31/17 10:16</th> </tr> <tr> <td& gt;Glucometer</td> <td>132 mg/dL</td> <td >65-110</td> </tr> <tr> <th colspan=" 10">L900.0505/31/17 16:08</th> </tr> < tr> <td>Glucometer</td> <td>87 mg/dL</ td> <td>65-110</td> </tr> <tr&gt ; <th colspan="10">L900.0505/31/17 20:46</th&gt ; </tr> <tr> <td>Glucometer</td> <td>98 mg/dL</td> <td>65-110</td> </tr> <tr> <th colspan="10"> L900.0506/01/17 02:23</th> </tr> <tr> <td>Glucometer</td> <td>86 mg/dL</td> <td>65-110</td> </tr> <tr> < th colspan="10">L900.05 - 06/01/17 05:09</th> </ tr> <tr> <td>Glucometer</td> <td> 113 mg/dL</td> <td>65-110</td> </tr> < tr> <th colspan="10">L160.0105 - 06/01/17 05:10</ th> </tr> <tr> <td>INR.</td> <td>2.13 </td> <td>0.99-1.21</td> </tr> <tr> <th colspan="10"> L900.529 - 06/01/17 10:16</th> </tr> <tr> <td>Glucometer</td> <td>156 mg/dL</td> <td>65-110</td> </tr> <tr> & lt;th colspan="10">L900.0530 06/01/17 16:25</th> &lt ;/tr> <tr> <td>Glucometer</td> <td& gt;87 mg/dL</td> <td>65-110</td> </tr> & lt;tr> <th colspan="10">L900.0530 - 06/01/17 21:39& lt;/th> </tr> <tr> <td>Glucometer&lt ;/td> <td>109 mg/dL</td> <td>65-110</ td> </tr> <tr> <th colspan="10" >L900.0530 - 06/02/17 06:27</th> </tr> <tr> <td>Glucometer</td> <td>80 mg/dL</td> <td>65-110</td> </tr> <tr> < th colspan="10">L160.0105 - 06/02/17 06:29</th> </ tr> <tr> <td>INR.</td> <td> 1.70 </td> <td>0.90-1.23</td> </tr> <tr> <th colspan="10">L900.0530 - 06/02/17 15 :05</th> </tr> <tr> <td> Glucometer</td> <td>114 mg/dL</td> <td&gt ;65-110</td> </tr> <tr> <th colspan=& quot;10">L900.0530 - 06/02/17 21:22</th> </tr> <tr> <td>Glucometer</td> <td>101 mg/dL</td > <td>65-110</td> </tr> <tr> <th colspan="10">L900.0530 - 06/03/17 05:00</th> </tr> <tr> <td>Glucometer</td> <td>101 mg/dL</td> <td>65-110</td> </tr> <tr> <th colspan="10"> L160.0105 - 06/03/17 06:31</th> </tr> <tr> <td>INR.</td> <td>1.80 </td> < td>0.90-1.23</td> </tr> <tr> <th colspan="10">L900.0530 - 06/03/17 10:39</th> </tr& gt; <tr> <td>Glucometer</td> <td>153 mg /dL</td> <td>65-110</td> </tr> & lt;tr> <th colspan="10">L100.0050 - 06/03/17 11:23& lt;/th> </tr> <tr> <td>WBC - WHITE BLOOD COUNT</td> <td>9.7 T/MM3</td> <td& gt;4.5-11.0</td> </tr> <tr> <td> RED BLOOD COUNT</td> <td>3.51 M/MM3</td> &lt ;td>4.50-5.90</td> </tr> <tr> <td >HGB - HEMOGLOBIN</td> <td>11.2 GM/DL</td> <td>13.5-17.5</td> </tr> <tr> <td >HCT - HEMATOCRIT</td> <td>34.6 %</td> <td>41-53</td> </tr> <tr> <td>MEAN CORPUSCULAR VOLUME</td> <td>98.6 UM3</td& gt; <td>80-100</td> </tr> <tr> <td>MEAN CORPUSCULAR HGB</td> <td>31.9 UUG</td& gt; <td>26-34</td> </tr> <tr> <td>MEAN CORPUSCULAR HGB CONC(MCHC</td> <td> 32.4 GM/DL</td> <td>31-37</td> </tr> <tr> <td>RDW STANDARD DEVIATION</td> & lt;td>51.8 FL</td> <td>36.9-50.2</td> </ tr> <tr> <td>PLT - PLATELET COUNT</td> <td>161 T/MM3</td> <td>130-400</td> < /tr> <tr> <td>MEAN PLATELET VOLUME</td> <td>10.5 UM3</td> <td>9.4-12.4</td> </tr> <tr> <th colspan="10"> L100.0105 - 06/03/17 11:23</th> </tr> <tr> <td>NEUTROPHILS % (MANUAL)</td> <td> 52.0 %</td> <td>33-66</td> </tr> <tr> <td>BAND NEUTROPHILS %</td> <td>9.0 %</td> <td>0-6</td> < /tr> <tr> <td>LYMPHOCYTES % (MANUAL)</ td> <td>13.0 %</td> <td>23-45</td > </tr> <tr> <td>MONOCYTES % ( MANUAL)</td> <td>17.0 %</td> <td& gt;0-9.0</td> </tr> <tr> <td> METAMYELOCYTES %</td> <td>5.0 %</td> <td>0-0</td> </tr> <tr> <td>MYELOCYTES %</td> <td>4.0 %< /td> <td>0-0</td> </tr> <tr> <td>PROLYMPHOCYTES %</td> <td>5.0T/ MM3</td> <td>1.8-7.7</td> </tr> & lt;tr><td>PLASMA CELLS %</td> <td>0.9 T/ MM3</td> <td>NRG</td> </tr> < tr> <td>NEUTROPHILS # (MANUAL)</td> <td> 1.6 T/MM3</td> <td>0-0.8</td> </tr> <tr> <td>METAMYELOCYTES #</td> <td> 0.5 T/MM3</td> <td>NRG</td> </tr> <tr> <td>MYELOCYTES #</td> <td>0.4 T /MM3</td> <td>NRG</td> </tr> < tr> <td>POLYCHROMASIA</td> <td>1+ </td > <td>NRG</td> </tr> <tr> <td>Lymphocytes # (Manual)</td> <td>1.3 T/MM3& lt;/td> <td>1-4.8</td> </tr> <tr& gt; <td>LRBCMOR</td> <td>Abnormal </td&gt ; <td>NRG</td> </tr> <tr> <th colspan="10">L200.0050 - 06/03/17 11:23</th> </tr> <tr> <td>FUNGAL CULTURE.</td> <td>1.0 MG/DL</td> <td>0.8-1.5</td> </tr> <tr> <td>FUNGAL CULTURE, BLOOD.< /td> <td>30 RATIO</td> <td>6-26</td&gt ; </tr> <tr> <td>NA - Sodium</td&gt ; <td>132 MEQ/L</td> <td>134-144</td> </tr> <tr> <td>Potassium</td> <td>4.7 MEQ/L</td> <td>3.6-5</td> </ tr> <tr> <td>Chloride</td> <td& gt;97 MEQ/L</td> <td>98-107</td> </tr> <tr> <td>CO2 - Carbon Dioxide</td> & lt;td>25 MEQ/L</td> <td>22-30</td> </tr& gt; <tr> <td>Anion Gap</td> <td&gt ;10 MEQ/L</td> <td>5-15</td> </tr> <tr> <td>BUN - Blood Urea Nitrogen</td> <td> 30.0 MG/DL</td> <td>9-20</td> </tr> <tr> <td>Glomerular FiltrationRate</td> <td>71 </td> <td>NRG</td> </tr> <tr> <td>Glucose</td> <td>94 MG/ DL</td> <td>75-110</td> </tr> <tr& gt; <td>Osmolality,Calculated</td> <td>261 MOSM/KG</td> <td>261-280</td> </tr> <tr> <td>Calcium</td> <td>9.3 MG/DL </td> <td>8.4-10.2</td> </tr> &lt ;tr> <td>LICTERUS</td> <td>< 2 &lt ;/td> <td>0-7</td> </tr> <tr> <td>LHEMOLYSIS</td> <td>< 15 </td > <td>0-25</td> </tr> <tr> & lt;td>LTURBIDITY</td> <td>< 20 </td> <td>0-20</td> </tr> <tr> < th colspan="10">L900.053006/03/17 14:03</th> </tr > <tr> <td>Glucometer</td> <td& gt;136 mg/dL</td> <td>65-110</td> </tr> <tr> <th colspan="10">L900.05 20:52</th> </tr> <tr> <td> Glucometer</td> <td>122 mg/dL</td> <td&gt ;65-110</td> </tr> <tr> <th colspan= "10">L900.0530 06/04/17 05:49</th> </tr> <tr> <td>Glucometer</td> <td>90 mg/ dL</td> <td>65-110</td> </tr> &lt ;tr> <th colspan="10">L160.0105 - 06/04/17 06:57< /th> </tr> <tr> <td>INR.</td> <td>1.70 </td> <td>0.90-1.23</td> </tr> <tr> <th colspan="10"> L900.0530 - 06/04/17 09:55</th> </tr> <tr> <td>Glucometer</td> <td>195 mg/dL</td> <td>65-110</td> </tr> <tr> < th colspan="10">L900.0530 - 06/04/17 14:09</th> </ tr> <tr> <td>Glucometer</td> < td>125 mg/dL</td> <td>65-110</td> </tr& gt; <tr> <th colspan="10">L900.0530 - 21:21</th> </tr> <tr> <td> Glucometer</td> <td>101 mg/dL</td> <td&gt ;65-110</td> </tr> <tr> <th colspan= "10">L900.0530 - 06/05/17 06:12</th> </tr> <tr> <td>Glucometer</td> <td>74 mg/ dL</td> <td>65-110</td> </tr> &lt ;tr> <th colspan="10">L160.0105 - 06/05/17 06:33</th&gt ; </tr> <tr> <td>INR.</td> <td>2.10 </td> <td>0.90-1.23</td> & lt;/tr> <tr> <th colspan="10"> L900.0530 - 06/05/17 11:43</th> </tr> <tr> <td>Glucometer</td> <td>76 mg/dL</td> <td>65-110</td> </tr> <tr> <th colspan="10">L100.0050 - 06/05/17 13:57</th> & lt;/tr> <tr> <td>WBC - WHITE BLOOD COUNT</td& gt; <td>9.7 T/MM3</td> <td>4.5-11.0</td> </tr> <tr> <td>RED BLOOD COUNT</td> <td>3.71 M/MM3</td> <td>4.50-5.90</td> </tr> <tr> <td>HGB - HEMOGLOBIN</td&gt ; <td>12.0 GM/DL</td> <td>13.5-17.5</td& gt; </tr> <tr> <td>HCT - HEMATOCRIT</td > <td>36.5 %</td> <td>41-53</ td> </tr> <tr> <td>MEAN CORPUSCULAR VOLUME</td> <td>98.4 UM3</td> <td>80- 100</td> </tr> <tr> <td>MEAN CORPUSCULAR HGB</td> <td>32.3 UUG</td> < td>26-34</td> </tr> <tr> <td> MEAN CORPUSCULAR HGB CONC(MCHC</td> <td>32.9 GM/DL</td& gt; <td>31-37</td> </tr> <tr> <td>RDW STANDARD DEVIATION</td> <td>51.3 FL</ td> <td>36.9-50.2</td> </tr> <tr& gt; <td>PLT - PLATELET COUNT</td> <td>212 T/ MM3</td> <td>130-400</td> </tr> & lt;tr> <td>MEAN PLATELET VOLUME</td> <td> 10.2 UM3</td> <td>9.4-12.4</td> </tr> <tr> <th colspan="10">L100.0105 - 06/05/17 13:57&lt ;/th> </tr> <tr> <td>NEUTROPHILS & amp;#37; (MANUAL)</td> <td>53.0 %</td> <td>33-66</td> </tr> <tr> &lt ;td>BAND NEUTROPHILS %</td> <td>2.0 %&lt ;/td> <td>0-6</td> </tr> <tr> <td>LYMPHOCYTES % (MANUAL)</td> <td&gt ;23.0 %</td> <td>23-45</td> </tr> <tr> <td>MONOCYTES % (MANUAL)</td> < td>10.0 %</td> <td>0-9.0</td> </ tr> <tr> <td>EOSINOPHILS % (MANUAL)</ td> <td>1.0 %</td> <td>0-4</td > </tr> <tr> <td>METAMYELOCYTES &amp ;#37;</td> <td>4.0 %</td> <td> 0-0</td> </tr> <tr> <td> MYELOCYTES %</td> <td>5.0 %</td> <td>0-0</td> </tr> <tr> <td >PROLYMPHOCYTES %</td> <td>5.1 T/MM3</td> <td>1.8-7.7</td> </tr> <tr> <td>PLASMA CELLS %</td> <td>0.2 T/MM3& lt;/td> <td>NRG</td> </tr> <tr&gt ; <td>NEUTROPHILS # (MANUAL)</td> <td>1.0 T/ MM3</td> <td>0-0.8</td> </tr><tr> <td>MONOCYTES # (MANUAL)</td> <td>0.1 T/MM3 </td> <td>0-0.5</td> </tr> <tr > <td>METAMYELOCYTES #</td> <td>0.4 T/MM3 </td> <td>NRG</td></tr> <tr> <td>MYELOCYTES #</td> <td>0.5 T/MM3</td> <td>NRG</td> </tr> <tr> <td>POLYCHROMASIA</td> <td>1+ </td> & lt;td>NRG</td></tr> <tr> <td> Reactive Lymphocytes %</td> <td>2.0 %</ td> <td>0-0</td> </tr> <tr> <td>Lymphocytes # (Manual)</td> <td>2.2 T/MM3 </td> <td>1-4.8</td> </tr> <tr> <td>Reactive Lymphocytes #</td> <td>0.2 T/ MM3</td> <td>0-0</td> </tr> <tr> <td>LRBCMOR</td> <td>Abnormal </td> <td>NRG</td> </tr> <tr> & lt;th colspan="10">L200.0050 - 06/05/17 13:57</th> &lt ;/tr> <tr> <td>FUNGAL CULTURE.</td> < td>1.1 MG/DL</td> <td>0.8-1.5</td> </tr& gt; <tr> <td>FUNGAL CULTURE, BLOOD.</td> <td>29 RATIO</td> <td>6-26</td> &lt ;/tr> <tr> <td>NA - Sodium</td> < td>135 MEQ/L</td> <td>134-144</td> </tr> <tr> <td>Potassium</td> <td> 5.2 MEQ/L</td> <td>3.6-5</td> </tr> <tr> <td>Chloride</td> <td>96 MEQ/ L</td> <td>98-107</td> </tr> < tr> <td>CO2 - Carbon Dioxide</td> <td>26 MEQ/L</td> <td>22-30</td> </tr> < tr> <td>Anion Gap</td> <td>13 MEQ/L</ td> <td>5-15</td> </tr> <tr> <td>BUN - Blood Urea Nitrogen</td> <td>32.0 MG/DL</td> <td>9-20</td> </tr> & lt;tr> <td>Glomerular Filtration Rate</td> < td>63 </td> <td>NRG</td> </tr> <tr > <td>Glucose</td> <td>103 MG/DL</td& gt; <td>75-110</td> </tr> <tr> <td>Osmolality,Calculated</td> <td>267 MOSM/ KG</td> <td>261-280</td></tr> <tr&gt ; <td>Calcium</td> <td>9.5 MG/DL</td> <td>8.4-10.2</td> </tr> <tr> <td>LICTERUS</td> <td>< 2 </td> <td>0-7</td> </tr> <tr> < td>LHEMOLYSIS</td> <td>< 15 </td> <td>0-25</td> </tr> <tr> <td& gt;LTURBIDITY</td> <td>< 20 </td> &lt ;td>0-20</td> </tr> <tr> <th colspan="10">L900.0530 - 06/05/17 14:19</th> </tr& gt; <tr> <td>Glucometer</td> <td> 134 mg/dL</td> <td>65-110</td> </tr>< tr> <th colspan="10">L900.0530 - 06/05/17 20:52</ th> </tr> <tr> <td>Glucometer</td > <td>114 mg/dL</td> <td>65-110</td&gt ; </tr> <tr> <th colspan="10"&gt ;L160.0105 - 06/06/17 04:12</th> </tr> <tr> <td>INR.</td> <td>2.50 </td> <td&gt ;0.99-1.21</td> </tr> <tr> <th colspan="10">L200.0050 - 06/06/17 04:12</th> </tr& gt; <tr> <td>FUNGAL CULTURE.</td> &lt ;td>0.9 MG/DL</td> <td>0.8-1.5</td> </tr > <tr> <td>FUNGAL CULTURE, BLOOD.</td> <td>32 RATIO</td> <td>6-26</td> &lt ;/tr> <tr> <td>NA - Sodium</td> & lt;td>132 MEQ/L</td> <td>134-144</td> </tr > <tr> <td>Potassium</td> <td& gt;4.7 MEQ/L</td> <td>3.6-5</td> </tr> <tr> <td>Chloride</td> <td>98 MEQ/L</td> <td>98-107</td> </tr> <tr> <td>CO2 - Carbon Dioxide</td> <td&gt ;26 MEQ/L</td> <td>22-30</td> </tr> <tr> <td>Anion Gap</td> <td>8 MEQ/L& lt;/td> <td>5-15</td> </tr> <tr& gt; <td>BUN - Blood Urea Nitrogen</td> <td> 29.0 MG/DL</td> <td>9-20</td> </tr> & lt;tr> <td>Glomerular Filtration Rate</td> < td>80 </td> <td>NRG</td> </tr> <tr> <td>Glucose</td> <td>81 MG/DL& lt;/td> <td>75-110</td> </tr> <tr > <td>Osmolality,Calculated</td> <td>260 MOSM/KG</td> <td>261-280</td> </tr> <tr> <td>Calcium</td> <td>9.3 MG/DL</td& gt; <td>8.4-10.2</td> </tr> <tr> <td>LICTERUS</td> <td>< 2 </td&gt ; <td>0-7</td> </tr> <tr> < td>LHEMOLYSIS</td> <td>< 15 </td> <td>0-25</td> </tr> <tr> <td& gt;LTURBIDITY</td> <td>< 20 </td> &lt ;td>0-20</td> </tr> <tr> <th colspan="10">L900.0530 - 06/06/17 10:04</th> </tr& gt; <tr> <td>Glucometer</td> <td& gt;172 mg/dL</td> <td>65-110</td> </tr> <tr> <th colspan="10">L900.0530 - 14:43</th> </tr> <tr> <td> Glucometer</td> <td>86 mg/dL</td> <td> 65-110</td> </tr> <tr> <th colspan=& quot;10">L900.0530 - 06/06/17 20:59</th> </tr> <tr> <td>Glucometer</td> <td>144 mg/dL& lt;/td> <td>65-110</td> </tr><tr> <th colspan="10">L900.0530 - 06/07/17 06:21</th> </tr> <tr> <td>Glucometer</td> <td>79 mg/dL</td> <td>65-110</td> </tr> <tr> <th colspan="10"> L160.0105 - 06/07/17 06:35</th> </tr> <tr> & lt;td>INR.</td> <td>2.10 </td> <td> 0.90-1.23</td> </tr> <tr> <th colspan="10">L900.0530 - 06/07/17 10:33</th> </tr& gt; <tr> <td>Glucometer</td> <td> 142 mg/dL</td> <td>65-110</td> </tr>< tr> <th colspan="10">L900.0530 - 06/07/17 14:42</ th> </tr> <tr> <td>Glucometer</td > <td>112 mg/dL</td> <td>65-110</td&gt ; </tr> <tr> <th colspan="10"&gt ;L900.0530 - 06/07/17 20:30</th> </tr> <tr> <td>Glucometer</td> <td>124 mg/dL</td> <td>65-110</td> </tr> <tr> < th colspan="10">L200.0050 - 06/08/17 04:53</th> </ tr> <tr> <td>FUNGAL CULTURE.</td> <td>1.0 MG/DL</td> <td>0.8-1.5</td> < /tr> <tr> <td>FUNGAL CULTURE, BLOOD.</td> <td>25 RATIO</td> <td>6-26</td> </tr> <tr> <td>NA - Sodium</td> <td>134 MEQ/L</td> <td>134-144</td> </tr> <tr> <td>Potassium</td> & lt;td>4.9 MEQ/L</td> <td>3.6-5</td> </tr > <tr> <td>Chloride</td> <td>98 MEQ /L</td> <td>98-107</td> </tr> &lt ;tr> <td>CO2 - Carbon Dioxide</td> <td>28 MEQ/L </td> <td>22-30</td> </tr> <tr > <td>Anion Gap</td> <td>8 MEQ/L</td& gt; <td>5-15</td> </tr> <tr> <td>BUN - Blood Urea Nitrogen</td> <td>25.0 MG/ DL</td> <td>9-20</td> </tr> < tr> <td>Glomerular Filtration Rate</td> <td& gt;71</td> <td>NRG</td> </tr> &lt ;tr> <td>Glucose</td> <td>84 MG/DL</td > <td>75-110</td> </tr> <tr> <td>Osmolality,Calculated</td> <td>261 MOSM/KG< /td> <td>261-280</td> </tr> <tr& gt; <td>Calcium</td> <td>9.5 MG/DL</td> <td>8.4-10.2</td> </tr> <tr> <td>LICTERUS</td> <td>< 2 </td> <td>0-7</td> </tr> <tr> <td>LHEMOLYSIS</td> <td>< 15 </td> <td>0-25</td> </tr> <tr> &lt ;td>LTURBIDITY</td> <td>< 20 </td> &lt ;td>0-20</td> </tr><tr> <th colspan=& quot;10">L160.0105 - 06/08/17 04:53</th> </tr> <tr> <td>INR.</td> <td>2.61 </td& gt; <td>0.99-1.21</td> </tr> <tr> <th colspan="10">L900.52906/08/17 06:13</th> </tr> <tr> <td>Glucometer</td> <td>83 mg/dL</td> <td>65-110</td> </tr> <tr> <th colspan="10"> L900.52906/08/17 10:04</th> </tr> <tr> <td>Glucometer</td> <td>149 mg/dL</td> <td>65-110</td> </tr><tr> <th colspan="10">L900.52906/08/17 14:22</th> </tr& gt; <tr> <td>Glucometer</td> <td& gt;183 mg/dL</td> <td>65-110</td> </tr> <tr> <th colspan="10">L900.529 21:12</th> </tr> <tr> <td> Glucometer</td> <td>133 mg/dL</td> <td&gt ;65-110</td> </tr> <tr> <th colspan= "10">L160.0105 - 06/09/17 05:16</th> </tr> <tr> <td>INR.</td> <td>2.46 </td& gt; <td>0.99-1.21</td> </tr> <tr> <th colspan="10">L900.0530 - 06/09/17 06:23</th> </tr> <tr> <td>Glucometer</td> <td>74 mg/dL</td> <td>65-110</td> & lt;/tr> <tr> <th colspan="10"> L900.0530 - 06/09/17 10:11</th> </tr> <tr> & lt;td>Glucometer</td> <td>156 mg/dL</td> <td>65-110</td> </tr> <tr> < th colspan="10">L900.0530 - 06/09/17 11:02</th> </ tr> <tr> <td>Glucometer</td> < td>152 mg/dL</td> <td>65-110</td> </tr& gt; <tr> <th colspan="10">L900.0530 - 14:36</th> </tr> <tr> <td> Glucometer</td> <td>86 mg/dL</td> <td> 65-110</td> </tr> <tr> <th colspan=& quot;10">L900.0530 - 06/09/17 20:50</th> </tr> <tr> <td>Glucometer</td> <td>182 mg/ dL</td> <td>65-110</td> </tr> &lt ;tr> <th colspan="10">L160.0105 - 06/10/17 04:50< /th> </tr> <tr> <td>INR.</td> <td>2.20 </td> <td>0.99-1.21</td> </tr> <tr> <th colspan="10"> L900.0530 06/10/17 04:56</th> </tr> <tr> <td>Glucometer</td> <td>69 mg/dL</td> <td>65-110</td> </tr> <tr> &lt ;th colspan="10">L900.0506/10/17 05:13</th> </ tr> <tr> <td>Glucometer</td> < td>93 mg/dL</td> <td>65-110</td> </tr&gt ; <tr> <th colspan="10">L900.05 10:18</th> </tr> <tr> <td> Glucometer</td> <td>195 mg/dL</td> <td&gt ;65-110</td> </tr> <tr> <th colspan= "10">L900.0506/10/17 14:09</th> </tr> <tr> <td>Glucometer</td> <td>101 mg /dL</td> <td>65-110</td> </tr> & lt;tr> <th colspan="10">L900.0530 06/10/17 21:48</th& gt; </tr> <tr> <td>Glucometer</td&gt ; <td>141 mg/dL</td> <td>65-110</td> </tr> <tr> <th colspan="10"> L900.52906/11/17 05:05</th> </tr> <tr> <td>Glucometer</td> <td>80 mg/dL</td> <td>65-110</td> </tr> <tr> < th colspan="10">L160.01006/11/17 06:43</th> </ tr> <tr> <td>INR.</td> <td> 1.60 </td> <td>0.90-1.23</td> </tr> <tr> <th colspan="10">L900.52906/11/17 10:03< /th> </tr> <tr> <td>Glucometer</ td> <td>223 mg/dL</td> <td>65-110</td& gt; </tr> <tr> <th colspan="10"& gt;L900.0506/11/17 14:50</th> </tr> <tr> <td>Glucometer</td> <td>108 mg/dL</td> <td>65-110</td> </tr> <tr> & lt;th colspan="10">L900.0530 - 06/11/17 21:04</th> &lt ;/tr> <tr> <td>Glucometer</td> &lt ;td>101 mg/dL</td> <td>65-110</td> </tr& gt; <tr> <th colspan="10">L100.0025 - 04:39</th> </tr> <tr> <td> WBC - WHITE BLOOD COUNT</td> <td>9.6 T/MM3</td> <td>4.5-11.0</td> </tr> <tr> <td>RED BLOOD COUNT</td> <td>3.56 M/MM3</td> <td>4.50-5.90</td> </tr> <tr> <td>HGB - HEMOGLOBIN</td> <td>11.3 GM/DL</td&gt ; <td>13.5-17.5</td> </tr> <tr> <td>HCT - HEMATOCRIT</td> <td>35.4 %</td > <td>41-53</td> </tr> <tr> <td>MEAN CORPUSCULAR VOLUME</td> <td>99.4 UM3 </td> <td>80-100</td> </tr> < tr> <td>MEAN CORPUSCULAR HGB</td><td>31.7 UUG</ td> <td>26-34</td> </tr> <tr> <td>MEAN CORPUSCULAR HGB CONC(MCHC</td> <td&gt ;31.9 GM/DL</td> <td>31-37</td> </tr> <tr> <td>RDW STANDARD DEVIATION</td> & lt;td>51.7 FL</td> <td>36.9-50.2</td> </ tr> <tr> <td>PLT - PLATELET COUNT</td> < td>271 T/MM3</td> <td>130-400</td> </tr& gt; <tr> <td>MEAN PLATELET VOLUME</td> <td>9.9 UM3</td> <td>9.4-12.4</td> </tr& gt; <tr> <th colspan="10">L160.0105 - 04:39</th> </tr> <tr> <td> INR.</td> <td>2.05 </td> <td>0.99-1.21 </td> </tr> <tr> <th colspan="10&quot ;>L200.0050 - 06/12/17 04:39</th> </tr> <tr> <td>FUNGAL CULTURE.</td> <td>1.1 MG/DL</td> <td>0.8-1.5</td> </tr> <tr> <td>FUNGAL CULTURE, BLOOD.</td> <td>24 RATIO< /td> <td>6-26</td> </tr> <tr> <td>NA - Sodium</td> <td>133 MEQ/L</td> <td>134-144</td> </tr> <tr> <td>Potassium</td> <td>4.7 MEQ/L</td> <td>3.6-5</td> </tr> <tr> <td>Chloride</td> <td>97 MEQ/L</td> & lt;td>98-107</td> </tr> <tr> <td& gt;CO2 - Carbon Dioxide</td> <td>27 MEQ/L</td> <td>22-30</td> </tr> <tr> &lt ;td>Anion Gap</td> <td>9 MEQ/L</td> < td>5-15</td> </tr> <tr> <td> BUN - Blood Urea Nitrogen</td> <td>26.0 MG/DL</td> & lt;td>9-20</td> </tr> <tr> <td&gt ;Glomerular Filtration Rate</td> <td>63 </td> < td>NRG</td> </tr> <tr> <td> Glucose</td> <td>78 MG/DL</td> <td>75- 110</td> </tr> <tr> <td>Osmolality, Calculated</td> <td>260 MOSM/KG</td> <td& gt;261-280</td> </tr> <tr> <td> Calcium</td> <td>9.4 MG/DL</td> <td> 8.4-10.2</td> </tr> <tr> <td>LICTERUS </td> <td><2 </td> <td>0-7</ td> </tr> <tr> <td>LHEMOLYSIS</td > <td>< 15 </td> <td>0-25</td& gt; </tr> <tr> <td>LTURBIDITY</td&gt ; <td>< 20 </td> <td>0-20</td> </tr> <tr> <th colspan="10"> L900.0530 - 06/12/17 10:13</th> </tr> <tr> <td>Glucometer</td> <td>211 mg/dL</td> <td>65-110</td> </tr> <tr> <th colspan="10">L900.0530 - 06/12/17 14:05</th> </tr> <tr> <td>Glucometer</td> <td>245 mg/dL</td> <td>65-110</td> </tr&gt ; <tr> <th colspan="10">L750.4775 - 15:00</th> </tr> <tr> <td> Hemoglobin A1C - AMS</td> <td>5.1 %</td> <td>4.1-5.6</td> </tr> <tr> < td>RGMVD8LBE</td> <td>99.7 mg/dL</td> <td& gt;NRG</td> </tr> <tr> <th colspan=& quot;10">L600.0100 - 07/25/17 00:00</th> </tr> <tr> <td>POTASSIUM</td> <td>Not Provided </td> <td>NRG</td> </tr> & lt;tr> <td>CHLORIDE</td> <td>YELLOW</ td> <td>YELLOW</td> </tr> <tr&gt ; <td>ANION GAP</td> <td>CLEAR </td> <td>NRG</td> </tr> <tr> <td >BLOOD UREA NITROGEN</td> <td>7.0 </td> & lt;td>5.0-8.0</td> </tr> <tr> <td >BUN/CREATININE RATIO</td> <td>NEGATIVE </td> <td>NEGATIVE</td> </tr> <tr> <td>GLUCOSE</td> <td>NEGATIVE </td> <td& gt;NEGATIVE</td> </tr> <tr> <td> CALCIUM</td> <td>NEGATIVE </td> <td> NEGATIVE</td> </tr> <tr> <td> BILIRUBIN, CONJUG &amp; UNCONJUG</td> <td>NEGATIVE </td> <td>NEGATIVE</td> </tr> &lt ;tr> <td>Specific Remlap,Urine</td> <td>& amp;lt;=1.005 </td> <td>1.015-1.025</td> </ tr> <tr> <td>Leukocyte Esterase,Urine</td> <td>NEGATIVE </td> <td>NEGATIVE</td> </tr> <tr><td>Nitrate,Urine</td> <td>NEGATIVE </td> <td>NEGATIVE</td> & lt;/tr> <tr> <td>Urobilinogen,Urine</td> <td>0.2 EU/DL</td> <td>NORMAL</td> </tr><tr> <td>Occult Blood,Urine - Dipstick</td&gt ; <td>NEGATIVE </td> <td>NEGATIVE</td&gt ; </tr> <tr> <td>Urine Microscopic (UA) </td> <td>Microscopic Not Ind. </td> <td& gt;NRG</td> </tr> <tr> <th colspan=& quot;10">L750.4775 - 11/10/17 10:57</th> </tr> <tr> <td>Hemoglobin A1C - AMS</td> <td& gt;5.7 %</td> <td>4.1-5.6</td> </tr > <tr> <td>[id number]</td> <td& gt;116.9 mg/dL</td> <td>NRG</td> </tr> <tr> <th colspan="10">L902.4008 - 12/25/17 10:13 </th> </tr><tr> <td>White Blood Count&lt ;/td> <td>3.8 K/uL</td> <td>4.8-10.8</td& gt; </tr> <tr> <td>RBC</td> <td>3.91 10*6/uL</td> <td>4.60-6.20</td> </tr> <tr> <td>Hemoglobin</td> <td>12.5 g/dL</td> <td>14.0-18.0</td> </tr> <tr> <td>Hematocrit</td> <td>40.3 %</td> <td>42.0-52.0</td& gt; </tr> <tr> <td>MCV</td> <td>103.1 fL</td> <td>82.0-99.0</td> </tr> <tr><td>MCH</td> <td> 32.0 pg</td> <td>27.0-32.0</td> </tr> <tr> <td>MCHC</td> <td>31.0 g/dL </td> <td>32.0-36.0</td> </tr> & lt;tr> <td>RDW</td> <td>14.2 %&lt ;/td> <td>11.5-14.5</td> </tr> < tr> <td>MPV</td> <td>11.3 fL</td> <td>8.8-14.8</td> </tr> <tr> <td>Platelet Count</td> <td>124 K/uL</td&gt ; <td>150-400</td> </tr> <tr> <th colspan="10">L750.8263 - 12/25/17 10:13</th> </tr> <tr> <td>ESR - Sedimentation Rate - AMS</td> <td>4 mm/h</td> <td>0-15&lt ;/td> </tr> <tr> <th colspan="10"& gt;L749.2040 - 12/25/17 10:13</th> </tr> <tr> <td>CRP - C-Reactive Protein-AMS</td> <td>& amp;lt; 0.5 mg/dL</td> <td><0.5</td> </tr > <tr> <th colspan="10">L100.0050 - 16:55</th> </tr> <tr> <td> WBC - WHITE BLOOD COUNT</td> <td>3.9 T/MM3</td> <td>4.5-11.0</td> </tr> <tr> & lt;td>RED BLOOD COUNT</td> <td>4.04 M/MM3</td> <td>4.50-5.90</td> </tr> <tr> <td>HGB - HEMOGLOBIN</td> <td>13.1 GM/DL</td& gt; <td>13.5-17.5</td> </tr> <tr&gt ; <td>HCT - HEMATOCRIT</td> <td>40.6 &# 37;</td> <td>41-53</td> </tr> &lt ;tr> <td>MEAN CORPUSCULAR VOLUME</td> <td&gt ;100.5 UM3</td> <td>80-100</td> </tr> <tr> <td>MEAN CORPUSCULAR HGB</td> < td>32.4 UUG</td> <td>26-34</td> </tr> <tr> <td>MEAN CORPUSCULAR HGB CONC(MCHC</td> & lt;td>32.3 GM/DL</td> <td>31-37</td> </ tr> <tr> <td>RDW STANDARD DEVIATION</td> <td>49.5 FL</td> <td>36.9-50.2</td> </tr> <tr> <td>PLT - PLATELET COUNT</td&gt ; <td>127 T/MM3</td> <td>130-400</td> </tr> <tr> <td>MEAN PLATELET VOLUME&lt ;/td> <td>10.6 UM3</td> <td>9.4-12.4</ td> </tr> <tr> <td>NEUTROPHILS & #37; (AUTO)</td> <td>30.5 %</td> &lt ;td>33-66</td> </tr> <tr> <td> LYMPHOCYTES % (AUTO)</td> <td>50.8 %</td > <td>23-45</td> </tr> <tr> <td>MONOCYTES % (AUTO)</td> <td>16.8 %</td> <td>0-9.0</td> </tr> <tr> <td>EOSINOPHILS % (AUTO)</td> <td>0.8 %</td> <td>0-4</td> </tr> <tr> <td>BASOPHILS % (AUTO)</td& gt; <td>0.3 %</td> <td>0-2</td> </tr> <tr> <td>IMMATURE GRANULOCYTE & amp;#37; (AUTO)</td> <td>0.8 %</td> <td>0.0-0.5</td> </tr> <tr> < td>NEUTROPHILS # (AUTO)</td> <td>1.2 T/MM3</td> <td>1.8-7.7</td> </tr> <tr> <td>LYMPHOCYTES # (AUTO)</td> <td>2.0 T/MM3</td > <td>1-4.8</td> </tr> <tr> <td>MONOCYTES # (AUTO)</td> <td>0.7 T/MM3< /td> <td>0-0.8</td> </tr> <tr&gt ; <td>EOSINOPHILS # (AUTO)</td><td>0.0 T/MM3</td& gt; <td>0-0.5</td> </tr> <tr> <td>BASOPHILS # (AUTO)</td> <td>0.0 T/MM3</ td><td>0-0.2</td> </tr> <tr> & lt;td>IMMATURE GRANULOCYTE # (AUTO)</td> <td>0.03 T/MM3& lt;/td> <td>0.00-0.03</td> </tr> &lt ;tr> <th colspan="10">L200.0020 - 01/04/18 16:55< /th> </tr> <tr> <td>FUNGAL CULTURE.& lt;/td> <td>1.1 MG/DL</td> <td>0.8-1.5&lt ;/td> </tr> <tr> <td>FUNGAL CULTURE, BLOOD.</td> <td>26 RATIO</td> <td>6-26 </td> </tr> <tr> <td>NA - Sodium& lt;/td> <td>146 MEQ/L</td> <td>134-144&lt ;/td> </tr> <tr> <td>Potassium</td&gt ; <td>4.5 MEQ/L</td> <td>3.6-5</td> </tr> <tr> <td>Chloride</td> <td>104 MEQ/L</td> <td>98-107</td> & lt;/tr> <tr> <td>CO2 - Carbon Dioxide</td> <td>27 MEQ/L</td> <td>22-30</td> </tr> <tr> <td>Anion Gap</td> & lt;td>15 MEQ/L</td> <td>5-15</td> </tr& gt; <tr> <td>BUN - Blood Urea Nitrogen</td> <td>29.0 MG/DL</td> <td>9-20</td> </tr> <tr> <td>Glomerular Filtration Rate</td > <td>63 </td> <td>NRG</td> </tr> <tr> <td>Glucose</td> &lt ;td>109 MG/DL</td> <td>75-110</td> </tr& gt; <tr> <td>Osmolality,Calculated</td> <td>288 MOSM/KG</td> <td>261-280</td> </tr> <tr> <td>Calcium</td> <td&gt ;10.0 MG/DL</td> <td>8.4-10.2</td> </tr&gt ; <tr> <td>Bilirubin,Total</td><td>0.30 MG/DL</td> <td>0.20-1.30</td> </tr> <tr> <td>Alkaline Phosphatase</td> < td>54 U/L</td> <td>38-126</td> </tr> <tr> <td>AST - Aspartate Amino Transfer</td> <td>31 U/L</td> <td>17-59</td> </ tr> <tr> <td>ALT</td> <td> 29 U/L</td> <td>21-72</td> </tr> <tr> <td>TP - Total Protein</td> <td> 8.0 G/DL</td> <td>6.3-8.2</td> </tr> <tr> <td>Albumin Level</td> <td> 4.8 G/DL</td> <td>3.5-5.0</td> </tr> <tr> <td>Globulin</td> <td>3.2 G/DL& lt;/td> <td>2.4-3.6</td> </tr> < tr> <td>Albumin/Globulin Ratio</td> <td> 1.5 RATIO</td> <td>1.1-2.2</td> </tr> <tr> <td>LICTERUS</td> <td>&lt ; 2 </td> <td>0-7</td> </tr> <tr&gt ; <td>LHEMOLYSIS</td> <td>< 15 </ td> <td>0-25</td> </tr> <tr> <td>LTURBIDITY</td> <td>< 20 </td& gt; <td>0-20</td> </tr> <tr> <th colspan="10">L100.0050 - 01/21/18 13:02</th> </tr> <tr><td>WBC - WHITE BLOOD COUNT</td> <td>9.2 T/MM3</td> <td>4.5-11.0</td> </tr> <tr> <td>RED BLOOD COUNT</td& gt; <td>3.87 M/MM3</td> <td>4.50-5.90</td > </tr> <tr> <td>HGB - HEMOGLOBIN&lt ;/td> <td>12.5 GM/DL</td> <td>13.5-17.5& lt;/td> </tr> <tr> <td>HCT - HEMATOCRIT</td> <td>38.5 %</td> < td>41-53</td> </tr> <tr> <td> MEAN CORPUSCULAR VOLUME</td> <td>99.5 UM3</td> <td>80-100</td> </tr> <tr> <td& gt;MEAN CORPUSCULAR HGB</td> <td>32.3 UUG</td> <td>26-34</td> </tr> <tr> &lt ;td>MEAN CORPUSCULAR HGB CONC(MCHC</td> <td>32.5 GM/DL& lt;/td> <td>31-37</td> </tr> <tr& gt; <td>RDW STANDARD DEVIATION</td> <td> 47.3 FL</td> <td>36.9-50.2</td> </tr> <tr> <td>PLT - PLATELET COUNT</td> <td& gt;114 T/MM3</td> <td>130-400</td> </tr&gt ; <tr> <td>MEAN PLATELET VOLUME</td> <td>11.1 UM3</td> <td>9.4-12.4</td> < /tr> <tr> <th colspan="10">L100.0105 - 01/21/18 13:02</th> </tr> <tr> <td& gt;NEUTROPHILS %(MANUAL)</td> <td>62.0 %&lt ;/td> <td>33-66</td> </tr> <tr&gt ; <td>LYMPHOCYTES % (MANUAL)</td> <td> 9.0 %</td> <td>23-45</td> </tr> <tr> <td>MONOCYTES % (MANUAL)</td> <td>29.0 %</td> <td>0-9.0</td> </tr> <tr> <td>PROLYMPHOCYTES %</ td> <td>5.7 T/MM3</td> <td>1.8-7.7</td > </tr> <tr> <td>NEUTROPHILS # ( MANUAL)</td> <td>2.7 T/MM3</td> <td>0- 0.8</td> </tr> <tr> <td> MACROCYTOSIS</td> <td>1+ </td> <td>NRG< /td> </tr> <tr> <td>POLYCHROMASIA&lt ;/td> <td>1+ </td> <td>NRG</td> </tr> <tr> <td>Lymphocytes # (Manual)</td& gt; <td>0.8 T/MM3</td> <td>1-4.8</td> </tr> <tr> <td>LRBCMOR</td> <td>Abnormal </td> <td>NRG</td> & lt;/tr> </tbody> </table> </text> <entry> <organizer moodCode="EVN" classCode="BATTERY"> <templateId root="[id number]" /> < id nullFlavor="NA" /> <code codeSystem="local" code="CBC" displayName="CBC" /> <statusCode code= "completed" /> <component> <observation moodCode="EVN" classCode="OBS"> <templateId root="[id number]" /> <id nullFlavor=&quot ;NA" /> <code codeSystem="local" code="MCH& quot; displayName="MEAN CELL HGB" /> <statusCode code=& quot;completed" /> <effectiveTime value="[id number]& quot; /> <value unit="pg" xsi:type="PQ" value ="28.1" /> <referenceRange> < observationRange> <text>27.0-33.0</text> </observationRange> </referenceRange> </ observation> </component> <component> < observation moodCode="EVN" classCode="OBS"> < templateId root="[id number]" /> < id nullFlavor="NA" /> <code codeSystem="local&quot ; code="MCHC" displayName="MEAN CELL HGB CONCENTRATION" /&gt ; <statusCode code="completed" /> < effectiveTime value="[id number]" /> <value unit=&quot ;g/dL" xsi:type="PQ" value="31.5" /> < interpretationCode codeSystem="local" code="*" /> <referenceRange> <observationRange> < text>32.0-37.0</text> </observationRange> < /referenceRange> </observation> </component> &lt ;component> <observation moodCode="EVN" classCode=" OBS"> <templateId root="[id number]& quot; /> <id nullFlavor="NA" /> <code codeSystem="local" code="MCV" displayName="MEAN CELL VOLUME" /> <statusCode code="completed" /> <effectiveTime value="[id number]" /> <value unit="fl" xsi:type="PQ" value="89.1" /> <referenceRange> <observationRange> < text>80.0-100.0</text> </observationRange> & lt;/referenceRange> </observation> </component> <component><observation moodCode="EVN" classCode="OBS& quot;> <templateId root="2.16.840.1.429461.10.20.22.4.2&quot ; /> <id nullFlavor="NA" /> <code codeSystem=& quot;local" code="RBC" displayName="RED BLOOD CELL" /& gt; <statusCode code="completed" /> < effectiveTime value="849116418750" /> <value unit=&quot ;m/cumm" xsi:type="PQ" value="4.49" /> < referenceRange> <observationRange> <text>4.00-6.00&lt ;/text> </observationRange> </referenceRange&gt ; </observation> </component> <component> <observation moodCode="EVN" classCode="OBS"> <templateId root="2.16.840.1.388672.10.20.22.4.2" /> <id nullFlavor="NA" /> <codecodeSystem=" local" code="RDW" displayName="RED CELL DISTRIBUTION WIDTH& quot; /> <statusCode code="completed" /> & lt;effectiveTime value="081101615023" /> <value unit=& quot;%" xsi:type="PQ" value="14.7" /> <referenceRange> <observationRange> <text> 11.0-15.6</text> </observationRange> </ referenceRange> </observation> </component> < component> <observation moodCode="EVN" classCode=" OBS"> <templateId root="2.16.840.1.198152.10.20.22.4.2& quot; /> <id nullFlavor="NA" /> <code codeSystem="local" code="WBC" displayName="WHITE BLOOD CELL" /> <statusCode code="completed" /> <effectiveTime value="405588174310" /> <value unit ="k/cumm" xsi:type="PQ" value="7.2" /> <referenceRange> <observationRange> < text>5.0-10.0</text> </observationRange> < /referenceRange> </observation> </component> < component> <observation moodCode="EVN" classCode=" OBS"> <templateId root="2.16.840.1.059689.10.20.22.4.2& quot; /> <id nullFlavor="NA" /> <code codeSystem="local" code="HGBT" displayName="HEMOGLOBIN& quot; /> <statusCode code="completed" /> & lt;effectiveTime value="904868007314" /> <value unit=& quot;gm/dL" xsi:type="PQ" value="12.6" /> < interpretationCode codeSystem="local" code="*" /> <referenceRange> <observationRange> < text>14.0-18.0</text> </observationRange> </ referenceRange> </observation> </component> < component> <observation moodCode="EVN" classCode=" OBS"> <templateId root="2.16.840.1.792115.10.20.22.4.2& quot; /> <id nullFlavor="NA" /> <code codeSystem ="local" code="HCTT" displayName="HEMATOCRIT" /&gt ; <statusCode code="completed"/> < effectiveTime value="447686586208" /> <value unit=&quot ;%" xsi:type="PQ" value="40.0" /> & lt;referenceRange> <observationRange> <text&gt ;40.0-54.0</text> </observationRange> </ referenceRange> </observation> </component> < component> <observation moodCode="EVN" classCode=" OBS"> <templateId root="2.16.840.1.583551.10.20.22.4.2& quot; /> <id nullFlavor="NA" /> <code codeSystem="local" code="PLT" displayName="PLATELET COUNT" /> <statusCode code="completed" /> & lt;effectiveTime value="881315183660" /> <value unit=& quot;k/cumm" xsi:type="PQ" value="157" /> & lt;referenceRange> <observationRange> <text& gt;150-400</text> </observationRange> </ referenceRange> </observation> </component> </ organizer> </entry> <entry> <organizer moodCode="EVN " classCode="BATTERY"> <templateId root=" 2.16.840.1.240470.10.20.22.4.1" /> <idnullFlavor="NA" /> <code codeSystem="local" code="PT" displayName ="PROTHROMBIN TIME WITH INR" /> <statusCode code=" completed" /> <component> <observation moodCode=& quot;EVN" classCode="OBS"> <templateId root=" 2.16.840.1.926631.10.20.22.4.2" /> <id nullFlavor="NA& quot; /> <code codeSystem="local" code="INRX&quot ; displayName="INTERNATIONAL NORMAL RATIO" /> < statusCode code="completed" /> <effectiveTime value=& quot;752413948502" /> <value unit="" xsi:type=& quot;PQ" value="3.2" /> <interpretationCode codeSystem="local" code="*" /> < referenceRange> <observationRange> <text> 0.9-1.1</text> </observationRange> </referenceRange& gt; </observation> </component> <component> <observation moodCode="EVN" classCode="OBS"> <templateId root="2.16.840.1.292317.10.20.22.4.2" /> <id nullFlavor="NA" /> <code codeSystem=&quot ;local" code="PTPAT" displayName="PROTHROMBIN TIME" /& gt; <statusCode code="completed" /> < effectiveTime value="254231830582" /> <value unit=&quot ;sec" xsi:type="PQ" value="33.8" /> < interpretationCode codeSystem="local" code="*" /> <referenceRange> <observationRange> < text>9.3-12.2</text> </observationRange> < /referenceRange> </observation> </component> </ organizer> </entry> <entry> <organizer moodCode="EVN " classCode="BATTERY"> <templateId root=" 2.16.840.1.810653.10.20.22.4.1" /> <id nullFlavor="NA&quot ; /><code codeSystem="local" code="METABC" displayName ="METABOLIC PANEL, COMPREHN" /> <statusCode code=" completed" /> <component> <observation moodCode=& quot;EVN" classCode="OBS"> <templateId root=" 2.16.840.1.334846.10.20.22.4.2" /> <id nullFlavor="NA& quot; /> <code codeSystem="local" code="K" displayName="POTASSIUM" /> <statusCode code=" completed" /> <effectiveTime value="269455225125" /> <value unit="mmol/L" xsi:type="PQ" value=& quot;4.9" /> <referenceRange> < observationRange> <text>3.5-5.3</text> & lt;/observationRange> </referenceRange> </observation> </component> <component> <observation moodCode= "EVN" classCode="OBS"> <templateId root=&quot ;2.16.840.1.862872.10.20.22.4.2" /> <id nullFlavor="NA& quot; /> <code codeSystem="local" code="eGFR&quot ; displayName="EST GFR (MDRD)" /> <statusCode code=& quot;completed" /> <effectiveTime value="518013415645& quot; /> <value unit="mL/min" xsi:type="PQ" value="> 60"/> <referenceRange> & lt;observationRange> <text>> 59</text> </observationRange> </referenceRange> </ observation> </component> <component> < observation moodCode="EVN" classCode="OBS"> < templateId root="2.16.840.1.845826.10.20.22.4.2" /> < id nullFlavor="NA" /> <code codeSystem="local&quot ; code="GAP" displayName="ANION GAP" /> < statusCode code="completed" /> <effectiveTime value=& quot;529253062726" /> <value unit="mmol/L" xsi:type=& quot;PQ" value="8" /> <referenceRange> <observationRange> <text>5-15</text> & lt;/observationRange> </referenceRange> </ observation> </component> <component> < observation moodCode="EVN" classCode="OBS"> < templateId root="2.16.840.1.751071.10.20.22.4.2" /> <id nullFlavor="NA" /> <code codeSystem="local" code="eCrCl" displayName="EST CrCl (CG)" /> < statusCode code="completed" /> <effectiveTime value=& quot;745169508300" /> <value unit="mL/min" xsi: type="PQ" value="42" /> < interpretationCodecodeSystem="local" code="*" /> <referenceRange> <observationRange> < text>> 59</text> </observationRange> & lt;/referenceRange> </observation> </component> <component> <observation moodCode="EVN" classCode=& quot;OBS"><templateId root="2.16.840.1.995541.10.20.22.4.2&quot ; /> <id nullFlavor="NA" /> <code codeSystem="local" code="GLU" displayName="GLUCOSE&quot ; /> <statusCode code="completed" /> < effectiveTime value="558101100198" /> <value unit=&quot ;mg/dL" xsi:type="PQ" value="109" /> < interpretationCode codeSystem="local" code="*" /> <referenceRange> <observationRange> < text>70-99</text> </observationRange> </ referenceRange> </observation> </component> < component> <observation moodCode="EVN" classCode=" OBS"> <templateId root="2.16.840.1.930636.10.20.22.4.2& quot; /> <id nullFlavor="NA" /> <code codeSystem="local" code="CA" displayName="CALCIUM&quot ; /> <statusCode code="completed" /> < effectiveTime value="079662254960" /> <value unit=" mg/dL" xsi:type="PQ" value="8.9" /> < referenceRange> <observationRange> <text> 8.5-10.1</text> </observationRange> </ referenceRange> </observation> </component> < component> <observation moodCode="EVN" classCode=" OBS"> <templateId root="2.16.840.1.286446.10.20.22.4.2& quot; /> <id nullFlavor="NA" /> <code codeSystem="local" code="BUN" displayName="BLOOD UREA NITROGEN" /> <statusCode code="completed" /> <effectiveTime value="068886433237" /> < value unit="mg/dL" xsi:type="PQ" value="19" /> <referenceRange> <observationRange> <text>7-20</text> </observationRange> </ referenceRange> </observation> </component> < component> <observation moodCode="EVN" classCode=" OBS"> <templateId root="2.16.840.1.511841.10..22.4.2& quot; /> <id nullFlavor="NA" /> <code codeSystem="local" code="CREAT" displayName="CREATININE " /> <statusCode code="completed" /> & lt;effectiveTime value="554117245252" /> <value unit=& quot;mg/dL" xsi:type="PQ" value="1.1" /> & lt;referenceRange> <observationRange> <text>0.8-1.3& lt;/text> </observationRange> </referenceRange& gt; </observation> </component> <component> <observation moodCode="EVN" classCode="OBS"> & lt;templateId root="2.16.840.1.878081.10.20.22.4.2" /> &lt ;id nullFlavor="NA" /> <code codeSystem="local& quot; code="NA" displayName="SODIUM" /> < statusCode code="completed" /> <effectiveTime value=& quot;671606299470" /> <value unit="mmol/L" xsi: type="PQ" value="141" /> <referenceRange> <observationRange> <text>135-148</text& gt; </observationRange> </referenceRange> </observation> </component> <component> &lt ;observation moodCode="EVN" classCode="OBS"> &lt ;templateId root="2.16.840.1.942048.10.20.22.4.2" /> < id nullFlavor="NA" /> <code codeSystem="local" code=& quot;CL" displayName="CHLORIDE" /> <statusCode code=& quot;completed" /> <effectiveTime value="639428861839& quot; /> <value unit="mmol/L" xsi:type="PQ" value="104" /> <referenceRange> < observationRange> <text>98-110</text> &lt ;/observationRange> </referenceRange> </observation& gt; </component> <component> <observation moodCode="EVN" classCode="OBS"> <templateId root="2.16.840.1.972818.10.20.22.4.2" /> <id nullFlavor ="NA" /> <code codeSystem="local" code=" AST" displayName="AST/SGOT" /> <statusCode code=& quot;completed" /> <effectiveTime value="179974777262& quot; /> <value unit="Units/L" xsi:type="PQ" value=& quot;46" /> <interpretationCode codeSystem="local&quot ; code="*" /> <referenceRange> < observationRange> <text>10-37</text> < /observationRange> </referenceRange> </observation& gt; </component> <component> <observation moodCode="EVN" classCode="OBS"> <templateId root="2.16.840.1.842401.10.20.22.4.2" /> <id nullFlavor ="NA" /> <code codeSystem="local" code=" ALT" displayName="ALT/SGPT" /> <statusCode code=& quot;completed" /> <effectiveTime value="584592529284" /&gt ; <value unit="Units/L" xsi:type="PQ" value=& quot;52" /> <referenceRange> < observationRange> <text>< 66</text> </observationRange> </referenceRange> </ observation> </component> <component> < observation moodCode="EVN" classCode="OBS"> < templateId root="2.16.840.1.918089.10.20.22.4.2" /> < id nullFlavor="NA" /> <code codeSystem="local&quot ; code="CO2" displayName="CARBON DIOXIDE" /> &lt ;statusCode code="completed" /> <effectiveTime value=& quot;693215359104" /> <value unit="mmol/L" xsi: type="PQ" value="29" /> <referenceRange> <observationRange> <text>21-32</text> </observationRange> </referenceRange> & lt;/observation> </component> <component> < observation moodCode="EVN" classCode="OBS"> < templateId root="2.16.840.1.872117.10.20.22.4.2" /> < id nullFlavor="NA" /> <code codeSystem="local" code=& quot;TP" displayName="TOTAL PROTEIN" /> < statusCode code="completed" /> <effectiveTime value=& quot;" /> <value unit="gm/dL" xsi:type ="PQ" value="6.3" /> <interpretationCode codeSystem="local" code="*" /> < referenceRange> <observationRange> <text> 6.4-8.2</text> </observationRange> </ referenceRange> </observation> </component> < component> <observation moodCode="EVN" classCode=" OBS"> <templateId root="2.16.840.1.832959.10.20.22.4.2& quot; /> <id nullFlavor="NA" /> <code codeSystem="local" code="ALB" displayName="ALBUMIN&quot ; /> <statusCode code="completed" /> < effectiveTime value="490754663452" /> <value unit=&quot ;gm/dL" xsi:type="PQ" value="3.1" /> < interpretationCode codeSystem="local" code="*" /> <referenceRange> <observationRange> <text> 3.4-5.0</text> </observationRange> </ referenceRange> </observation> </component> < component> <observation moodCode="EVN" classCode=" OBS"> <templateId root="2.16.840.1.913082.10.20.22.4.2&quot ; /> <id nullFlavor="NA" /> <code codeSystem="local" code="BILTOT" displayName="BILI TOTAL" /> <statusCode code="completed" /> <effectiveTime value="579057626782" /> <value unit="mg/dL" xsi:type="PQ" value="0.4" /> <referenceRange> <observationRange> &lt ;text>0.0-1.0</text> </observationRange> </ referenceRange> </observation> </component> < component> <observation moodCode="EVN" classCode=" OBS"> <templateId root="2.16.840.1.731370.10..22.4.2& quot; /> <id nullFlavor="NA" /> <code codeSystem="local" code="ALKP" displayName="ALKALINE PHOSPHATASE TOTAL" /> <statusCode code="completed&quot ; /> <effectiveTime value="184087952811" /> <value unit="Units/L" xsi:type="PQ" value="86&quot ; /> <referenceRange> <observationRange> <text>50-136</text> </observationRange> </referenceRange> </observation> </component > </organizer> </entry> <entry> <organizer moodCode="EVN" classCode="BATTERY"> <templateId root="2.16.840.1.174321.10..22.4.1" /> <id nullFlavor=& quot;NA" /> <code codeSystem="local" code="MAG& quot; displayName="MAGNESIUM" /> <statusCode code=" completed" /> <component> <observation moodCode=" EVN" classCode="OBS"> <templateId root=" 2.16.840.1.599485.10..22.4.2" /> <id nullFlavor="NA& quot; /> <code codeSystem="local" code="MAG" displayName="MAGNESIUM"/> <statusCode code=" completed" /> <effectiveTime value="752991303208" /> <value unit="mg/dL" xsi:type="PQ" value=& quot;2.2" /> <referenceRange> < observationRange> <text>1.8-2.4</text> & lt;/observationRange> </referenceRange> </ observation> </component> </organizer> </entry> & lt;entry> <organizer moodCode="EVN" classCode="BATTERY& quot;> <templateIdroot="2.16.840.1.391720.10.20.22.4.1" /& gt; <id nullFlavor="NA" /> <code codeSystem="local " code="CBC" displayName="CBC" /> < statusCode code="completed" /> <component> < observation moodCode="EVN" classCode="OBS"> < templateId root="2.16.840.1.696732.10.20.22.4.2" /> < id nullFlavor="NA" /> <code codeSystem="local&quot ; code="MCH" displayName="MEAN CELL HGB" /> < statusCode code="completed" /> <effectiveTime value=& quot;155467345525" /> <value unit="pg" xsi:type=& quot;PQ" value="28.1" /> <referenceRange> & lt;observationRange> <text>27.0-33.0</text> </observationRange> </referenceRange> </ observation> </component> <component> < observation moodCode="EVN" classCode="OBS"> < templateId root="2.16.840.1.881681.10.20.22.4.2"/> <id nullFlavor="NA" /> <code codeSystem="local" code="MCHC" displayName="MEAN CELL HGB CONCENTRATION" /> <statusCode code="completed" /> < effectiveTime value="201895610548" /> <value unit="g /dL" xsi:type="PQ" value="31.5" /> < interpretationCode codeSystem="local" code="*" /> <referenceRange> <observationRange> < text>32.0-37.0</text> </observationRange> </ referenceRange> </observation> </component> < component> <observation moodCode="EVN" classCode=" OBS"> <templateId root="2.16.840.1.122061.10.20.22.4.2& quot; /> <id nullFlavor="NA" /> <code codeSystem="local" code="MCV" displayName="MEAN CELL VOLUME" /> <statusCode code="completed" /> <effectiveTime value="206901469551" /> <value unit="fl" xsi:type="PQ" value="89.1" /> <referenceRange> <observationRange> <text> 80.0-100.0</text> </observationRange> </ referenceRange> </observation> </component> < component> <observation moodCode="EVN" classCode=" OBS"> <templateId root="2.16.840.1.797989.10.20.22.4.2& quot; /> <id nullFlavor="NA" /> <code codeSystem="local" code="RBC" displayName="RED BLOOD CELL" /> <statusCode code="completed" /> < effectiveTime value="483641777274" /> <value unit=&quot ;m/cumm" xsi:type="PQ" value="4.49" /> < referenceRange> <observationRange> <text> 4.00-6.00</text> </observationRange> </ referenceRange> </observation> </component> < component> <observation moodCode="EVN" classCode=" OBS"> <templateId root="2.16.840.1.676039.10.20.22.4.2& quot; /> <id nullFlavor="NA" /> <code codeSystem="local" code="RDW" displayName="REDCELL DISTRIBUTION WIDTH" /> <statusCode code="completed&quot ; /> <effectiveTime value="306410561733" /> < value unit="%" xsi:type="PQ" value="14.7" /> <referenceRange> <observationRange> <text>11.0-15.6</text> </observationRange> </referenceRange> </observation> </ component> <component> <observation moodCode="EVN& quot; classCode="OBS"> <templateId root=" 2.16.840.1.468860.10.20.22.4.2" /> <id nullFlavor="NA& quot; /> <code codeSystem="local" code="WBC" displayName="WHITE BLOOD CELL" /> <statusCode code=& quot;completed" /> <effectiveTime value="087976140039& quot; /> <value unit="k/cumm" xsi:type="PQ" value="7.2" /> <referenceRange> < observationRange> <text>5.0-10.0</text> & lt;/observationRange> </referenceRange> </observation> </component> <component> <observation moodCode=&quot ;EVN" classCode="OBS"> <templateIdroot=" 2.16.840.1.592908.10.20.22.4.2" /> <id nullFlavor="NA& quot; /> <code codeSystem="local" code="HGBT&quot ; displayName="HEMOGLOBIN" /> <statusCode code=" completed" /> <effectiveTime value="862915080358" /> <value unit="gm/dL" xsi:type="PQ" value=& quot;12.6" /> <interpretationCode codeSystem="local& quot; code="*" /> <referenceRange> < observationRange> <text>14.0-18.0</text> </observationRange> </referenceRange></observation> </component> <component> <observation moodCode=& quot;EVN" classCode="OBS"> <templateId root=" 2.16.840.1.559702.10.20.22.4.2" /> <id nullFlavor="NA& quot; /> <code codeSystem="local" code="HCTT&quot ; displayName="HEMATOCRIT" /> <statusCode code=" completed" /> <effectiveTime value="393561694475" /> <value unit="%" xsi:type="PQ" value=& quot;40.0" /> <referenceRange> <observationRange > <text>40.0-54.0</text> </ observationRange> </referenceRange> </observation&gt ; </component> <component> <observation moodCode ="EVN" classCode="OBS"> <templateId root=& quot;2.16.840.1.627808.10.20.22.4.2" /> <id nullFlavor=&quot ;NA" /> <code codeSystem="local" code="PLT& quot; displayName="PLATELET COUNT" /> <statusCode code= "completed" /> <effectiveTime value="957168761482& quot; /> <value unit="k/cumm" xsi:type="PQ" value="157" /> <referenceRange> < observationRange> <text>150-400</text> </ observationRange> </referenceRange> </observation&gt ; </component> </organizer> </entry> <entry> <organizer moodCode="EVN" classCode="BATTERY"> <templateId root="2.16.840.1.531894.10..22.4.1" /> < id nullFlavor="NA" /> <code codeSystem="local" code="PT" displayName="PROTHROMBIN TIME WITH INR" /> <statusCode code="completed" /> <component> <observation moodCode="EVN" classCode="OBS"> <templateId root="2.16.840.1.217011.10.20.22.4.2" /> & lt;id nullFlavor="NA" /> <code codeSystem="local& quot; code="INRX" displayName="INTERNATIONAL NORMAL RATIO" / > <statusCode code="completed" /> < effectiveTime value="883819704479" /> <value unit=" " xsi:type="PQ" value="3.2" /> < interpretationCode codeSystem="local" code="*" /> <referenceRange> <observationRange> < text>0.9-1.1</text> </observationRange> </ referenceRange> </observation> </component> < component> <observation moodCode="EVN" classCode=" OBS"> <templateId root="2.16.840.1.251431.10.20.22.4.2& quot; /> <idnullFlavor="NA" /> <code codeSystem="local" code="PTPAT" displayName=" PROTHROMBIN TIME" /> <statusCode code="completed" /> <effectiveTime value="497884490200" /> & lt;value unit="sec" xsi:type="PQ" value="33.8" /& gt; <interpretationCode codeSystem="local" code="*& quot; /> <referenceRange> <observationRange> <text>9.3-12.2</text> </observationRange > </referenceRange> </observation> </component& gt; </organizer> </entry> <entry> <organizer moodCode="EVN" classCode="BATTERY"> <templateId root="2.16.840.1.326558.10.20.22.4.1" /> <id nullFlavor=& quot;NA" /> <code codeSystem="local" code="METABC " displayName="METABOLIC PANEL, COMPREHN" /> < statusCode code="completed" /> <component> < observation moodCode="EVN" classCode="OBS"> < templateId root="2.16.840.1.588421.10..22.4.2" /> < id nullFlavor="NA" /> <code codeSystem="local&quot ; code="K" displayName="POTASSIUM" /> < statusCode code="completed" /> <effectiveTime value=& quot;" /> <value unit="mmol/L" xsi: type="PQ" value="4.9" /> <referenceRange> <observationRange> <text>3.5-5.3</text& gt; </observationRange></referenceRange> </ observation> </component> <component> < observation moodCode="EVN" classCode="OBS"> < templateId root="2.16.840.1.002726.10..22.4.2" /> < id nullFlavor="NA" /> <code codeSystem="local&quot ; code="eGFR" displayName="EST GFR (MDRD)" /> & lt;statusCode code="completed" /> <effectiveTime value= "760203205526" /> <value unit="mL/min" xsi: type="PQ" value="> 60" /> < referenceRange> <observationRange> <text> > 59</text> </observationRange> </ referenceRange> </observation> </component> < component> <observation moodCode="EVN" classCode="OBS&quot ;> <templateId root="2.16.840.1.183796.10.20.22.4.2" /& gt; <id nullFlavor="NA" /> <code codeSystem=& quot;local" code="GAP" displayName="ANION GAP" /> <statusCode code="completed" /> < effectiveTime value="327767103122" /> <value unit=&quot ;mmol/L" xsi:type="PQ" value="8" /> < referenceRange> <observationRange> <text> 5-15</text> </observationRange> </ referenceRange> </observation> </component> < component> <observation moodCode="EVN" classCode=" OBS"> <templateId root="2.16.840.1.819666.10.20.22.4.2& quot; /> <id nullFlavor="NA" /> <code codeSystem="local" code="eCrCl" displayName="EST CrCl ( CG)" /> <statusCode code="completed" /> <effectiveTime value="891153958864" /> <value unit="mL/min" xsi:type="PQ" value="42" /> <interpretationCode codeSystem="local" code="*" /> <referenceRange> <observationRange> & lt;text>> 59</text> </observationRange> </referenceRange> </observation> </component> < component> <observation moodCode="EVN" classCode=" OBS"> <templateId root="2.16.840.1.246312.10.20.22.4.2& quot; /> <id nullFlavor="NA" /> <code codeSystem="local" code="GLU" displayName="GLUCOSE&quot ; /> <statusCode code="completed"/> < effectiveTime value="177423581160" /> <value unit=&quot ;mg/dL" xsi:type="PQ" value="109" /> < interpretationCode codeSystem="local" code="*" /> <referenceRange> <observationRange> < text>70-99</text> </observationRange> </ referenceRange> </observation> </component> < component> <observation moodCode="EVN" classCode=" OBS"> <templateId root="2.16.840.1.156336.10.20.22.4.2& quot; /> <id nullFlavor="NA" /> <code codeSystem="local" code="CA" displayName="CALCIUM&quot ; /> <statusCode code="completed" /> < effectiveTime value="706606572878" /> <value unit=&quot ;mg/dL" xsi:type="PQ" value="8.9" /> < referenceRange> <observationRange> <text>8.5-10.1</ text> </observationRange> </referenceRange> </observation> </component> <component> <observation moodCode="EVN" classCode="OBS"> <templateId root="2.16.840.1.243415.10.20.22.4.2" /> <id nullFlavor="NA" /> <code codeSystem=" local" code="BUN" displayName="BLOOD UREA NITROGEN" /& gt; <statusCode code="completed" /> < effectiveTime value="386248795866" /> <value unit=&quot ;mg/dL" xsi:type="PQ" value="19" /> < referenceRange> <observationRange> <text> 7-20</text> </observationRange> </ referenceRange> </observation> </component> < component> <observation moodCode="EVN" classCode=" OBS"> <templateId root="2.16.840.1.331349.10.20.22.4.2& quot; /> <id nullFlavor="NA" /> <code codeSystem="local" code="CREAT" displayName="CREATININE " /> <statusCode code="completed" /> & lt;effectiveTime value="223760772089" /> <value unit="mg/ dL" xsi:type="PQ" value="1.1" /> < referenceRange> <observationRange> <text> 0.8-1.3</text> </observationRange> </ referenceRange> </observation> </component> < component> <observation moodCode="EVN" classCode=" OBS"> <templateId root="2.16.840.1.422782.10.20.22.4.2& quot; /> <id nullFlavor="NA" /> <code codeSystem="local" code="NA" displayName="SODIUM" /> <statusCode code="completed" /> < effectiveTime value="[id number]" /> <value unit=&quot ;mmol/L" xsi:type="PQ" value="141" /> < referenceRange> <observationRange> <text>135-148 </text> </observationRange> </referenceRange& gt; </observation> </component> <component> <observation moodCode="EVN" classCode="OBS"> &lt ;templateId root="[id number]" /> < id nullFlavor="NA" /> <code codeSystem="local&quot ; code="CL" displayName="CHLORIDE" /> < statusCode code="completed" /> <effectiveTime value=& quot;[id number]" /> <value unit="mmol/L" xsi: type="PQ" value="104" /> <referenceRange> <observationRange> <text>98-110</text&gt ; </observationRange> </referenceRange> & lt;/observation> </component> <component> < observation moodCode="EVN" classCode="OBS"> < templateId root="2.16.840.1.468207.10.20.22.4.2" /> < id nullFlavor="NA" /> <code codeSystem="local" code="AST" displayName="AST/SGOT" /> < statusCode code="completed" /> <effectiveTime value=& quot;770421778234" /> <value unit="Units/L" xsi: type="PQ" value="46" /> <interpretationCode codeSystem="local" code="*" /> < referenceRange> <observationRange> <text> 10-37</text> </observationRange> </ referenceRange> </observation> </component> < component> <observation moodCode="EVN" classCode=" OBS"> <templateId root="2.16.840.1.836101.10..22.4.2& quot; /> <id nullFlavor="NA" /> <code codeSystem="local" code="ALT" displayName="ALT/SGPT& quot; /> <statusCode code="completed" /> & lt;effectiveTime value="997972013297" /> <value unit=& quot;Units/L" xsi:type="PQ" value="52" /> & lt;referenceRange> <observationRange> <text& gt;< 66</text> </observationRange> </ referenceRange> </observation> </component> < component> <observation moodCode="EVN" classCode=" OBS"> <templateId root="2.16.840.1.851869.10.20.22.4.2& quot; /> <id nullFlavor="NA" /> <code codeSystem ="local" code="CO2" displayName="CARBON DIOXIDE" / > <statusCode code="completed" /> < effectiveTime value="537681551904" /> <value unit=&quot ;mmol/L" xsi:type="PQ" value="29" /> < referenceRange> <observationRange> <text>21- 32</text> </observationRange> </ referenceRange> </observation> </component> < component> <observation moodCode="EVN" classCode=" OBS"> <templateId root="2.16.840.1.129364.10.20.22.4.2&quot ; /> <id nullFlavor="NA" /> <code codeSystem="local" code="TP" displayName="TOTAL PROTEIN " /> <statusCode code="completed" /> & lt;effectiveTime value="280354564494" /> <value unit=& quot;gm/dL" xsi:type="PQ" value="6.3" /> & lt;interpretationCode codeSystem="local" code="*" /> <referenceRange> <observationRange> < text>6.4-8.2</text> </observationRange> </ referenceRange> </observation> </component> < component> <observation moodCode="EVN" classCode=" OBS"> <templateId root="2.16.840.1.094688.10.20.22.4.2& quot; /> <id nullFlavor="NA" /> <code codeSystem="local" code="ALB" displayName="ALBUMIN&quot ; /> <statusCode code="completed" /> < effectiveTime value="540328354686" /> <value unit=&quot ;gm/dL" xsi:type="PQ" value="3.1"/> < interpretationCode codeSystem="local" code="*" />< referenceRange> <observationRange> <text> 3.4-5.0</text> </observationRange> </ referenceRange> </observation> </component> < component> <observation moodCode="EVN" classCode=" OBS"> <templateId root="2.16.840.1.039753.10.20.22.4.2& quot; /> <id nullFlavor="NA" /> <code codeSystem="local" code="BILTOT" displayName="BILI TOTAL" /> <statusCode code="completed" /> <effectiveTime value="476282464267" /> <value unit="mg/dL" xsi:type="PQ" value="0.4" /> <referenceRange> <observationRange> &lt ;text>0.0-1.0</text> </observationRange> < /referenceRange> </observation> </component> &lt ;component> <observation moodCode="EVN" classCode=" OBS"> <templateId root="2.16.840.1.301374.10.20.22.4.2& quot; /> <idnullFlavor="NA" /> <code codeSystem="local" code="ALKP"displayName="ALKALINE PHOSPHATASE TOTAL" /> <statusCode code="completed&quot ; /> <effectiveTime value="327510201374" /> <value unit="Units/L" xsi:type="PQ" value="86&quot ; /> <referenceRange> <observationRange> <text>50-136</text> </observationRange> </referenceRange> </observation> </component > </organizer> </entry> <entry> <organizer moodCode="EVN" classCode="BATTERY"> <templateId root="2.16.840.1.556337.10.20.22.4.1" /> <id nullFlavor=& quot;NA" /> <code codeSystem="local" code="MAG& quot; displayName="MAGNESIUM" /> <statusCode code=" completed" /> <component> <observation moodCode=& quot;EVN" classCode="OBS"> <templateId root=" 2.16.840.1.412438.10.20.22.4.2" /> <id nullFlavor="NA& quot; /> <code codeSystem="local" code="MAG" displayName="MAGNESIUM" /> <statusCode code=" completed" /><effectiveTime value="227819317481" /> <value unit="mg/dL" xsi:type="PQ" value="2.2& quot; /> <referenceRange> <observationRange> <text>1.8-2.4</text> </observationRange& gt; </referenceRange> </observation> </component > </organizer> </entry> <entry> <organizer moodCode="EVN" classCode="BATTERY"> <templateId root="2.16.840.1.682413.10.20.22.4.1" /> <id nullFlavor=& quot;NA" /> <code codeSystem="local" code="MRSAS& quot; displayName="MRSA SURVEILLANCE SCREEN" /> < statusCode code="completed" /> <component> < observation moodCode="EVN" classCode="OBS"> < templateId root="2.16.840.1.247677.10.20.22.4.2" /> < id nullFlavor="NA" /> <code codeSystem="local&quot ; code="UNC" displayName="Uncategorized" /> < statusCode code="completed" /> <effectiveTime value=& quot;952252455256" /> <value xsi:type="ST" value=& quot;<pre><b>MRSA SURVEILLANCE SCREEN</b> See BelowMRSA SURVEILLANCE SCREEN(F) Sujata Date/Time: 03/24/2013 22:30 Aquilino Date/Time: 03/26/2013 07:20SOURCE: ANTERIOR NARESSPEC DESC: N[facility]ETH[facility]ILLIN [facility] [id number] [place] [facility] [address]</pre>" /> <referenceRange&gt ; <observationRange> <text /> </ observationRange> </referenceRange> </observation> & lt;/component> </organizer></entry> <entry> < organizer moodCode="EVN" classCode="BATTERY"> < templateId root="2.16.840.1.397573.10.20.22.4.1" /> <id nullFlavor="NA" /> <code codeSystem="local" code= "MRSAS" displayName="MRSA SURVEILLANCE SCREEN" /> & lt;statusCode code="completed" /> <component> &lt ;observation moodCode="EVN" classCode="OBS"> < templateId root="2.16.840.1.790345.10.20.22.4.2" /> < id nullFlavor="NA" /> <code codeSystem="local&quot ; code="UNC" displayName="Uncategorized" /> < statusCode code="completed" /> <effectiveTime value=& quot;531808204502" /> <value xsi:type="ST" value=& quot;<pre><b>MRSA SURVEILLANCE SCREEN</b> See BelowMRSA SURVEILLANCE SCREEN(F) Sujata Date/Time: 03/24/2013 22:30 Aquilino Date/Time: 03/26/2013 07:20SOURCE: ANTERIOR NARESSPEC DESC: NNO METHICILLIN [facility] [phone] [place] [address]</pre>" /> <referenceRange& gt;<observationRange> <text /> </ observationRange> </referenceRange> </observation&gt ; </component> </organizer> </entry> <entry> <organizer moodCode="EVN" classCode="BATTERY"> <templateId root="2.16.840.1.012108.10.20.22.4.1" /> < id nullFlavor="NA" /> <code codeSystem="local" code="PT" displayName="PROTHROMBIN TIME WITH INR" /> <statusCode code="completed" /> <component> <observation moodCode="EVN" classCode="OBS"> <templateId root="2.16.840.1.489303.10.20.22.4.2" /> & lt;id nullFlavor="NA" /> <code codeSystem="local& quot; code="INRX" displayName="INTERNATIONAL NORMAL RATIO" / > <statusCode code="completed" /> < effectiveTime value="306749542490" /> <value unit=&quot ;" xsi:type="PQ" value="2.4" /> < interpretationCode codeSystem="local" code="*" /> <referenceRange> <observationRange> <text >0.9-1.1</text> </observationRange> </ referenceRange> </observation> </component> < component> <observation moodCode="EVN" classCode=" OBS"> <templateId root="2.16.840.1.792687.10.20.22.4.2& quot; /> <id nullFlavor="NA" /> <code codeSystem="local" code="PTPAT" displayName=" PROTHROMBIN TIME" /> <statusCode code="completed" /> <effectiveTime value="199901662724" /> & lt;value unit="sec" xsi:type="PQ" value="25.6" /& gt; <interpretationCode codeSystem="local" code="*& quot; /> <referenceRange> <observationRange> <text>9.3-12.2</text> </observationRange > </referenceRange> </observation> </ component> </organizer> </entry> <entry> < organizer moodCode="EVN" classCode="BATTERY"> < templateId root="2.16.840.1.524707.10.20.22.4.1" /> <id nullFlavor="NA" /> <code codeSystem="local" code= "PT" displayName="PROTHROMBIN TIME WITH INR" /> < statusCode code="completed" /> <component> < observation moodCode="EVN" classCode="OBS"> < templateId root="2.16.840.1.636522.10.20.22.4.2" /> < id nullFlavor="NA" /> <code codeSystem="local&quot ; code="INRX" displayName="INTERNATIONAL NORMAL RATIO" /&gt ; <statusCode code="completed" /> < effectiveTime value="644794778660" /> <value unit=&quot ;" xsi:type="PQ" value="2.4" /> < interpretationCode codeSystem="local" code="*" /> < referenceRange> <observationRange> <text> 0.9-1.1</text> </observationRange> </ referenceRange> </observation> </component> < component> <observation moodCode="EVN" classCode=" OBS"> <templateId root="2.16.840.1.051239.10.20.22.4.2& quot; /> <id nullFlavor="NA" /> <code codeSystem="local" code="PTPAT" displayName=" PROTHROMBIN TIME" /> <statusCode code="completed" /> <effectiveTime value="918616026369" /> & lt;value unit="sec" xsi:type="PQ" value="25.6" /& gt; <interpretationCode codeSystem="local" code="*& quot; /> <referenceRange> <observationRange> <text>9.3-12.2</text> </observationRange&gt ; </referenceRange> </observation> </ component> </organizer> </entry> <entry> < organizer moodCode="EVN" classCode="BATTERY"> < templateId root="2.16.840.1.555678.10.20.22.4.1" /> <id nullFlavor="NA" /> <code codeSystem="local" code= "PT" displayName="PROTHROMBIN TIME WITH INR" /> < statusCode code="completed" /> <component> < observation moodCode="EVN" classCode="OBS"> < templateId root="2.16.840.1.956868.10.20.22.4.2" /> <id nullFlavor="NA" /> <code codeSystem="local" code="INRX" displayName="INTERNATIONAL NORMAL RATIO" /> <statusCode code="completed" /> < effectiveTime value="543308565304" /> <value unit=&quot ;" xsi:type="PQ" value="1.5" /> < interpretationCode codeSystem="local" code="*" /> <referenceRange><observationRange> <text>0.9- 1.1</text> </observationRange> </ referenceRange> </observation> </component> < component> <observation moodCode="EVN" classCode=" OBS"><templateId root="2.16.840.1.713489.10.20.22.4.2" /&gt ; <id nullFlavor="NA" /> <code codeSystem=& quot;local" code="PTPAT" displayName="PROTHROMBIN TIME&quot ; /> <statusCode code="completed" /> < effectiveTime value="000767150986" /> <value unit=&quot ;sec" xsi:type="PQ" value="16.1" /> < interpretationCode codeSystem="local" code="*" /> <referenceRange> <observationRange> <text& gt;9.3-12.2</text> </observationRange> </ referenceRange> </observation> </component> </ organizer> </entry> <entry> <organizer moodCode="EVN " classCode="BATTERY"> <templateId root=" 2.16.840.1.915278.10.20.22.4.1" /> <id nullFlavor="NA&quot ; /> <code codeSystem="local" code="PT" displayName="PROTHROMBINTIME WITH INR" /> <statusCode code= "completed" /> <component> <observation moodCode="EVN" classCode="OBS"> <templateId root="2.16.840.1.795335.10.20.22.4.2" /> <id nullFlavor ="NA" /> <code codeSystem="local" code=" INRX" displayName="INTERNATIONAL NORMAL RATIO" /> &lt ;statusCode code="completed" /> <effectiveTime value=& quot;582837418042" /> <value unit="" xsi:type=& quot;PQ" value="1.5" /> <interpretationCode codeSystem="local" code="*" /> < referenceRange> <observationRange> <text>0.9-1.1</ text> </observationRange> </referenceRange> </observation> </component> <component> <observationmoodCode="EVN" classCode="OBS"> <templateId root="2.16.840.1.684814.10.20.22.4.2" /> <id nullFlavor="NA" /> <code codeSystem=" local" code="PTPAT" displayName="PROTHROMBIN TIME" /&gt ; <statusCode code="completed" /> <effectiveTime value="454716707845" /> <value unit="sec" xsi :type="PQ" value="16.1" /> < interpretationCode codeSystem="local" code="*" /> < referenceRange> <observationRange> <text> 9.3-12.2</text> </observationRange> </ referenceRange> </observation> </component> </ organizer> </entry> <entry> <organizer moodCode="EVN " classCode="BATTERY"> <templateId root=" 2.16.840.1.992515.10.20.22.4.1" /> <id nullFlavor="NA&quot ; /> <code codeSystem="local" code="PT" displayName="PROTHROMBIN TIME WITH INR" /> <statusCode code ="completed" /> <component> <observation moodCode="EVN" classCode="OBS"> <templateId root="2.16.840.1.622534.10.20.22.4.2" /> <id nullFlavor ="NA" /> <code codeSystem="local" code=" INRX" displayName="INTERNATIONAL NORMAL RATIO" />< statusCode code="completed" /> <effectiveTime value=& quot;078237404738" /> <value unit="" xsi:type=& quot;PQ" value="1.3" /> <interpretationCode codeSystem="local" code="*" /> < referenceRange> <observationRange> <text> 0.9-1.1</text> </observationRange> </ referenceRange> </observation> </component> < component> <observation moodCode="EVN" classCode=" OBS"> <templateId root="2.16.840.1.488213.10.20.22.4.2& quot; /> <id nullFlavor="NA" /> <code codeSystem="local" code="PTPAT" displayName=" PROTHROMBIN TIME" /> <statusCode code="completed" /> <effectiveTime value="948094780792" /> & lt;value unit="sec" xsi:type="PQ" value="14.8" /& gt; <interpretationCode codeSystem="local" code="*& quot; /> <referenceRange> <observationRange> <text>9.3-12.2</text> </observationRange > </referenceRange> </observation> </ component> </organizer> </entry> <entry> < organizer moodCode="EVN" classCode="BATTERY"> < templateId root="2.16.840.1.441323.10.20.22.4.1" /> <id nullFlavor="NA" /> <code codeSystem="local" code= "PT" displayName="PROTHROMBIN TIME WITH INR" /> < statusCode code="completed" /> <component> < observation moodCode="EVN" classCode="OBS"> < templateId root="2.16.840.1.095231.10.20.22.4.2" /> < id nullFlavor="NA" /> <code codeSystem="local&quot ; code="INRX" displayName="INTERNATIONAL NORMAL RATIO" /&gt ; <statusCode code="completed" /> < effectiveTime value="479795245854" /> <value unit=&quot ;" xsi:type="PQ" value="1.3" /> < interpretationCode codeSystem="local" code="*" /> <referenceRange> <observationRange> < text>0.9-1.1</text> </observationRange> </ referenceRange> </observation> </component> < component> <observation moodCode="EVN" classCode=" OBS"> <templateId root="2.16.840.1.452361.10.20.22.4.2& quot; /> <id nullFlavor="NA"/> <code codeSystem="local" code="PTPAT" displayName=" PROTHROMBIN TIME" /> <statusCode code="completed" /> <effectiveTime value="873757339440" /> & lt;value unit="sec" xsi:type="PQ" value="14.8" /& gt; <interpretationCode codeSystem="local" code="*& quot; /> <referenceRange> <observationRange> <text>9.3-12.2</text> </observationRange > </referenceRange> </observation> </ component> </organizer> </entry> <entry> < organizer moodCode="EVN" classCode="BATTERY"> < templateId root="2.16.840.1.009243.10.20.22.4.1" /> <id nullFlavor="NA" /> <code codeSystem="local" code=& quot;UA" displayName="URINALYSIS, ROUTINE" /> < statusCode code="completed" /> <component> < observation moodCode="EVN" classCode="OBS"> < templateId root="2.16.840.1.250393.10.20.22.4.2" /> < id nullFlavor="NA" /> <code codeSystem="local&quot ; code="LEUESU" displayName="UA LEUKOCYTE ESTERASE DIPSTICK&quot ; /> <statusCode code="completed" /> < effectiveTime value="399683068235" /> <value unit=&quot ;" xsi:type="PQ" value="NEGATIVE" /> < referenceRange> <observationRange> <text> NEGATIVE</text> </observationRange> </ referenceRange> </observation> </component> < component> <observation moodCode="EVN" classCode=" OBS"> <templateId root="2.16.840.1.754006....4.2& quot; /> <id nullFlavor="NA" /> <code codeSystem="local" code="NITRIU" displayName="UA NITRITE DIPSTICK" /> <statusCode code="completed" /> <effectiveTime value="735502541854" /> & lt;value unit="" xsi:type="PQ" value="NEGATIVE" /& gt; <referenceRange> <observationRange> < text>NEGATIVE</text> </observationRange> < /referenceRange> </observation> </component> &lt ;component> <observation moodCode="EVN" classCode=" OBS"> <templateId root="2.16.840.1.692255...22.4.2& quot; /> <id nullFlavor="NA" /> < codecodeSystem="local" code="PROTEIU" displayName="UA PROTEIN DIPSTICK" /> <statusCode code="completed" /> <effectiveTime value="777266545178" /> & lt;value unit="" xsi:type="PQ" value="NEGATIVE" /& gt; <referenceRange> <observationRange> <text>NEGATIVE</text> </observationRange> </referenceRange> </observation> </component&gt ; <component> <observation moodCode="EVN" classCode="OBS"> <templateId root=" 2.16.840.1.293041.10.20.22.4.2" /> <id nullFlavor="NA& quot; /> <code codeSystem="local" code="DGLUU&quot ; displayName="UA GLUCOSE DIPSTICK" /> <statusCode code=" completed" /> <effectiveTime value="367743038338" /> <value unit="" xsi:type="PQ" value=" NEGATIVE" /> <referenceRange> < observationRange> <text>NEGATIVE</text> & lt;/observationRange> </referenceRange> </ observation> </component> <component> < observation moodCode="EVN" classCode="OBS"> < templateId root="2.16.840.1.119506.10.20.22.4.2" /> < id nullFlavor="NA" /> <code codeSystem="local&quot ; code="KETONU" displayName="UA KETONE DIPSTICK" /> <statusCode code="completed" /> <effectiveTime value="973541268477" /> <value unit="" xsi: type="PQ" value="TRACE" /> <interpretationCode codeSystem="local" code="*" /> < referenceRange> <observationRange> <text> NEGATIVE</text> </observationRange> </referenceRange > </observation> </component> <component> <observation moodCode="EVN" classCode="OBS"> <templateId root="2.16.840.1.634239.10.20.22.4.2" /> & lt;id nullFlavor="NA" /> <code codeSystem="local& quot; code="UROBILU" displayName="UA UROBILINOGEN DIPSTICK" /> <statusCode code="completed" /> < effectiveTime value="331077509216" /> <value unit=&quot ;" xsi:type="PQ" value="NORMAL" /> < referenceRange> <observationRange> <text> NORMAL</text> </observationRange> </ referenceRange> </observation> </component> < component> <observation moodCode="EVN" classCode=" OBS"> <templateId root="2.16.840.1.430326.10.20.22.4.2& quot; /> <id nullFlavor="NA" /> <code codeSystem="local" code="BILU" displayName="UA BILIRUBIN DIPSTICK" /> <statusCode code="completed&quot ; /> <effectiveTime value="184098898077" /> <value unit="" xsi:type="PQ" value="NEGATIVE&quot ; /> <referenceRange> <observationRange> <text>NEGATIVE</text> </observationRange> </referenceRange> </observation> </component& gt; <component> <observation moodCode="EVN" classCode="OBS"> <templateId root=" 2.16.840.1.153092.10.20.22.4.2" /> <id nullFlavor="NA& quot; /> <code codeSystem="local" code="BLAIR" displayName="UA BLOOD DIPSTICK" /> <statusCode code=& quot;completed" /> <effectiveTime value="492709101074&quot ; /> <value unit="" xsi:type="PQ" value=&quot ;NEGATIVE" /> <referenceRange> < observationRange> <text>NEGATIVE</text> & lt;/observationRange> </referenceRange> </ observation> </component> <component> < observation moodCode="EVN" classCode="OBS"> < templateId root="2.16.840.1.970220.10.20.22.4.2" /> < id nullFlavor="NA" /> <code codeSystem="local&quot ; code="EPIU" displayName="UA EPITHELIAL CELLS" /> <statusCode code="completed" /> <effectiveTime value="575075953580" /> <value unit="epi/hpf&quot ; xsi:type="PQ" value="1+" /> <referenceRange > <observationRange> <text>0 - 1+</ text> </observationRange> </referenceRange> & lt;/observation> </component> <component> < observation moodCode="EVN" classCode="OBS"> < templateId root="2.16.840.1.830446.10.20.22.4.2" /> < id nullFlavor="NA" /> <code codeSystem="local&quot ; code="RBCU" displayName="UA RBC" /> < statusCode code="completed" /> <effectiveTime value=& quot;588406743297" /> <value unit="rbc/hpf" xsi: type="PQ" value="0-3" /> <referenceRange> <observationRange> <text>0 - 3</text> </observationRange> </referenceRange> </ observation> </component> <component> < observation moodCode="EVN" classCode="OBS"> < templateId root="2.16.840.1.288941.10.20.22.4.2" /> < id nullFlavor="NA" /> <code codeSystem="local&quot ; code="UAVOL" displayName="UA VOLUME FOR EXAM" /> & lt;statusCode code="completed" /> <effectiveTime value= "175643401820" /> <value unit="mL" xsi:type=& quot;PQ" value="12.0" /> <referenceRange> <observationRange> <text>(12mL STD)</text&gt ; </observationRange> </referenceRange> & lt;/observation> </component> <component> < observation moodCode="EVN" classCode="OBS"> < templateId root="2.16.840.1.774195.10.20.22.4.2" /> < id nullFlavor="NA" /> <code codeSystem="local&quot ; code="WBCU" displayName="UA WBC" /> < statusCode code="completed" /> <effectiveTime value=& quot;366369269048" /> <value unit="wbc/hpf" xsi:type=&quot ;PQ" value="0-1" /> <referenceRange> <observationRange> <text>0 - 5</text> </observationRange> </referenceRange> </ observation> </component> <component> < observation moodCode="EVN" classCode="OBS"> < templateId root="2.16.840.1.016099.10.20.22.4.2" /> <id nullFlavor="NA" /> <code codeSystem="local" code="SPGRU" displayName="UA SPECIFIC GRAVITY" /> <statusCode code="completed" /> <effectiveTime value="943290713198" /> <value unit="" xsi: type="PQ" value="1.009" /> < interpretationCode codeSystem="local" code="*" /> <referenceRange> <observationRange> <text> 1.015-1.025</text> </observationRange> </ referenceRange> </observation> </component> < component> <observation moodCode="EVN" classCode=" OBS"> <templateId root="2.16.840.1.240424.10.20.22.4.2&quot ; /> <id nullFlavor="NA" /> <code codeSystem="local" code="EVERETTE" displayName="UR PH" /> <statusCode code="completed" /> < effectiveTime value="752967676996" /> <value unit=&quot ;" xsi:type="PQ" value="7.0" /> < referenceRange> <observationRange> <text> 5.0-7.0</text> </observationRange> </ referenceRange> </observation> </component> </ organizer> </entry> <entry> <organizer moodCode="EVN " classCode="BATTERY"> <templateId root=" 2.16.840.1.589860.10.20.22.4.1" /> <id nullFlavor="NA&quot ; /> <code codeSystem="local" code="UC" displayName="URINE CULTURE" /> <statusCode code=" completed" /> <component> <observation moodCode=& quot;EVN" classCode="OBS"> <templateId root=" 2.16.840.1.697319.10.20.22.4.2" /> <id nullFlavor="NA& quot; /> <code codeSystem="local" code="UNC" displayName="Uncategorized" /> <statusCode code=" completed" /> <effectiveTime value="603049825300" /> <value xsi:type="ST" value="<pre><b&gt ;URINE CULTURE</b> See BelowHold order until specimen collected? NURINE CULTURE(F) Sujata Date/Time: 03/27/2013 13:35 Aquilino Date/Time: 03/29/2013 11:58SOURCE: URINESPEC DESC: [id number] [phone] [place] [address]</pre>" /> <referenceRange&gt ; <observationRange> <text /> &lt ;/observationRange> </referenceRange> </observation& gt; </component> </organizer> </entry> <entry&gt ; <organizer moodCode="EVN" classCode="BATTERY"> <templateId root="2.16.840.1.309176.10.20.22.4.1" /> & lt;id nullFlavor="NA" /> <code codeSystem="local" code ="UA" displayName="URINALYSIS, ROUTINE" /> < statusCode code="completed" /> <component> < observation moodCode="EVN" classCode="OBS"> < templateId root="2.16.840.1.851035.10.20.22.4.2" /> < id nullFlavor="NA" /> <code codeSystem="local&quot ; code="LEUESU" displayName="UA LEUKOCYTE ESTERASE DIPSTICK&quot ; /> <statusCode code="completed" /> < effectiveTime value="158237610369" /> <value unit=&quot ;" xsi:type="PQ" value="NEGATIVE" /> < referenceRange> <observationRange> <text> NEGATIVE</text> </observationRange> </ referenceRange> </observation> </component> < component> <observation moodCode="EVN" classCode=" OBS"> <templateId root="2.16.840.1.184069.10.20.22.4.2& quot; /> <id nullFlavor="NA" /> <code codeSystem="local" code="NITRIU" displayName="UA NITRITE DIPSTICK" /> <statusCode code="completed" /> <effectiveTime value="394094802774" /> & lt;value unit="" xsi:type="PQ" value="NEGATIVE" /& gt; <referenceRange> <observationRange> <text >NEGATIVE</text> </observationRange> </ referenceRange> </observation> </component> < component> <observation moodCode="EVN" classCode=" OBS"> <templateId root="2.16.840.1.876288.10.20.22.4.2& quot; /> <id nullFlavor="NA" /> <code codeSystem="local" code="PROTEIU" displayName="UA PROTEIN DIPSTICK" /> <statusCode code="completed" /> <effectiveTime value="[id number]" /> & lt;value unit="" xsi:type="PQ" value="NEGATIVE" /& gt; <referenceRange> <observationRange> <text>NEGATIVE</text> </observationRange> </referenceRange> </observation> </component> <component> <observation moodCode="EVN" classCode ="OBS"> <templateId root=" [id number]" /> <id nullFlavor="NA& quot; /> <code codeSystem="local" code="DGLUU&quot ; displayName="UA GLUCOSE DIPSTICK" /> <statusCode code=" completed" /> <effectiveTime value="631389860711" /> <value unit="" xsi:type="PQ" value=" NEGATIVE" /> <referenceRange> < observationRange> <text>NEGATIVE</text> & lt;/observationRange> </referenceRange> </ observation> </component> <component> < observation moodCode="EVN" classCode="OBS"> < templateId root="2.16.840.1.045365.10.20.22.4.2" /> < id nullFlavor="NA" /> <code codeSystem="local&quot ; code="KETONU" displayName="UA KETONE DIPSTICK" /> <statusCode code="completed" /> <effectiveTime value="105727469064" /> <value unit="" xsi: type="PQ" value="TRACE" /> <interpretationCode codeSystem="local" code="*" /> < referenceRange> <observationRange> <text> NEGATIVE</text> </observationRange> </referenceRange& gt; </observation> </component> <component> <observation moodCode="EVN" classCode="OBS"> <templateId root="2.16.840.1.266312.10..22.4.2" /> <id nullFlavor="NA" /> <code codeSystem=&quot ;local" code="UROBILU" displayName="UA UROBILINOGEN DIPSTICK " /> <statusCode code="completed" /> & lt;effectiveTime value="117484608617" /> <value unit=& quot;" xsi:type="PQ" value="NORMAL" /> < referenceRange> <observationRange> <text> NORMAL</text> </observationRange> </ referenceRange> </observation> </component> < component> <observation moodCode="EVN" classCode=" OBS"> <templateId root="2.16.840.1.354648.10..22.4.2& quot; /> <idnullFlavor="NA" /> <code codeSystem="local" code="BILU"displayName="UA BILIRUBIN DIPSTICK" /> <statusCode code="completed&quot ; /> <effectiveTime value="316374735861" /> <value unit="" xsi:type="PQ" value="NEGATIVE&quot ; /> <referenceRange> <observationRange> <text>NEGATIVE</text> </observationRange> </referenceRange> </observation> </component&gt ; <component> <observation moodCode="EVN" classCode ="OBS"> <templateId root=" 2.16.840.1.669351.10.20.22.4.2" /> <id nullFlavor="NA& quot; /> <code codeSystem="local" code="BLAIR" displayName="UA BLOOD DIPSTICK" /> <statusCode code=& quot;completed" /> <effectiveTime value="146307414187" / > <value unit="" xsi:type="PQ" value=" NEGATIVE" /> <referenceRange> < observationRange> <text>NEGATIVE</text> & lt;/observationRange> </referenceRange> </ observation> </component> <component> < observation moodCode="EVN" classCode="OBS"> < templateId root="2.16.840.1.503436..20.22.4.2" /> < id nullFlavor="NA" /> <code codeSystem="local&quot ; code="EPIU" displayName="UAEPITHELIAL CELLS" /> <statusCode code="completed" /> <effectiveTime value="208512587852" /> <value unit="epi/hpf&quot ; xsi:type="PQ" value="1+" /> <referenceRange > <observationRange> <text>0 - 1+</ text> </observationRange></referenceRange> < /observation> </component> <component> < observation moodCode="EVN" classCode="OBS"> < templateId root="2.16.840.1.685022.10.20.22.4.2" /> < id nullFlavor="NA" /> <code codeSystem="local&quot ; code="RBCU" displayName="UA RBC" /> < statusCode code="completed" /> <effectiveTime value=& quot;857062195209" /> <value unit="rbc/hpf" xsi: type="PQ" value="0-3" /> <referenceRange> <observationRange><text>0 - 3</text> & lt;/observationRange> </referenceRange> </observation > </component> <component> <observation moodCode="EVN" classCode="OBS"> <templateId root="2.16.840.1.142540.10..22.4.2" /> <id nullFlavor ="NA" /> <code codeSystem="local" code=" UAVOL" displayName="UA VOLUME FOR EXAM" /> <statusCode code="completed" /> <effectiveTime value=" 336314870429" /> <value unit="mL" xsi:type=" PQ" value="12.0" /> <referenceRange> <observationRange> <text>(12mL STD)</text> </observationRange> </referenceRange> </ observation> </component> <component> < observation moodCode="EVN" classCode="OBS"> < templateId root="2.16.840.1.398275.10..22.4.2" /> < id nullFlavor="NA" /> <code codeSystem="local&quot ; code="WBCU" displayName="UA WBC" /> < statusCode code="completed" /> <effectiveTime value=& quot;763337394767" /><value unit="wbc/hpf" xsi:type=" PQ" value="0-1" /> <referenceRange> <observationRange> <text>0 - 5</text> < /observationRange> </referenceRange> </observation& gt; </component> <component> <observation moodCode="EVN" classCode="OBS"> <templateId root="2.16.840.1.517557.10.20.22.4.2" /> <id nullFlavor=&quot ;NA" /> <code codeSystem="local" code="SPGRU& quot; displayName="UA SPECIFIC GRAVITY" /> <statusCode code="completed" /> <effectiveTime value=" 929561959500" /> <valueunit="" xsi:type="PQ& quot; value="1.009" /> <interpretationCode codeSystem=& quot;local" code="*" /> <referenceRange> <observationRange> <text>1.015-1.025</text&gt ; </observationRange> </referenceRange> & lt;/observation> </component> <component> < observation moodCode="EVN" classCode="OBS"> < templateId root="2.16.840.1.200195.10..22.4.2" /> < id nullFlavor="NA" /> <code codeSystem="local&quot ; code="EVERETTE" displayName="UR PH" /> < statusCode code="completed" /> <effectiveTime value=& quot;370288263382" /> <value unit="" xsi:type=& quot;PQ" value="7.0" /> <referenceRange> <observationRange> <text>5.0-7.0</text> </observationRange> </referenceRange> </ observation> </component> </organizer> </entry> & lt;entry> <organizer moodCode="EVN" classCode="BATTERY& quot;> <templateId root="2.16.840.1.272866.10.20.22.4.1" /& gt; <id nullFlavor="NA" /> <code codeSystem=" local" code="UC" displayName="URINE CULTURE" /> <statusCode code="completed" /> <component> <observation moodCode="EVN" classCode="OBS"> <templateId root="2.16.840.1.450246.10.20.22.4.2" /> & lt;id nullFlavor="NA" /><code codeSystem="local" code= "UNC" displayName="Uncategorized" /> < statusCode code="completed" /> <effectiveTime value=& quot;339765919601" /> <value xsi:type="ST" value=& quot;<pre><b>URINE CULTURE</b> See BelowHold order until specimen collected? NURINE CULTURE(F) Sujata Date/Time: 03/27/2013 13:35 Aquilino Date/Time: 03/29/2013 11:58SOURCE: URINESPEC DESC: [id number] [facility] [id number] [place] [address]</pre>" /> < referenceRange> <observationRange> <text /& gt; </observationRange> </referenceRange> & lt;/observation> </component> </organizer> </entry&gt ; <entry> <organizer moodCode="EVN" classCode=" BATTERY"> <templateId root="2.16.840.1.428688.10.20.22.4.1& quot; /> <id nullFlavor="NA" /> <code codeSystem ="local" code="CBC" displayName="CBC" /> & lt;statusCode code="completed" /> <component> &lt ;observation moodCode="EVN" classCode="OBS"> &lt ;templateId root="2.16.840.1.710228.10.20.22.4.2" /> < id nullFlavor="NA" /> <code codeSystem="local&quot ; code="MCH" displayName="MEAN CELL HGB" /> < statusCode code="completed" /> <effectiveTime value=& quot;663782666131" /> <value unit="pg" xsi:type=& quot;PQ" value="28.7" /> <referenceRange> <observationRange> <text>27.0-33.0</text> </observationRange> </referenceRange> & lt;/observation> </component> <component> < observation moodCode="EVN" classCode="OBS"> < templateId root="2.16.840.1.004957.10.20.22.4.2" /> < id nullFlavor="NA" /> <code codeSystem="local&quot ; code="MCHC" displayName="MEAN CELL HGB CONCENTRATION" /&gt ; <statusCodecode="completed" /> < effectiveTime value="636067660188" /> <value unit="g/dL " xsi:type="PQ" value="32.6" /> < referenceRange> <observationRange> <text> 32.0-37.0</text> </observationRange> </ referenceRange> </observation> </component> < component> <observation moodCode="EVN" classCode=" OBS"> <templateId root="2.16.840.1.983185.10.20.22.4.2& quot; /> <id nullFlavor="NA" /> <code codeSystem="local" code="MCV" displayName="MEAN CELL VOLUME" /> <statusCode code="completed" /> <effectiveTime value="614164471546" /> <value unit="fl" xsi:type="PQ" value="88.1" /> <referenceRange> <observationRange> < text>80.0-100.0</text> </observationRange> </ referenceRange> </observation> </component> < component> <observation moodCode="EVN" classCode=" OBS"> <templateId root="2.16.840.1.403037.10.20.22.4.2& quot; /> <id nullFlavor="NA" /> <code codeSystem="local" code="RBC" displayName="RED BLOOD CELL" /> <statusCode code="completed" /> <effectiveTime value="784498874007" /> <value unit="m/cumm" xsi:type="PQ" value="3.94" /> <interpretationCode codeSystem="local" code="*" /& gt; <referenceRange> <observationRange> <text>4.00-6.00</text> </observationRange> </referenceRange> </observation> </component&gt ; <component> <observation moodCode="EVN" classCode="OBS"> <templateId root=" 2.16.840.1.751133.10.20.22.4.2" /> <id nullFlavor="NA& quot; /> <code codeSystem="local" code="RDW" displayName="RED CELL DISTRIBUTION WIDTH" /> < statusCode code="completed" /> <effectiveTime value=& quot;431533675008" /> <value unit="%" xsi: type="PQ" value="14.4" /> <referenceRange&gt ; <observationRange> <text>11.0-15.6</ text> </observationRange> </referenceRange> </observation> </component> <component> <observation moodCode="EVN" classCode="OBS"> <templateId root="2.16.840.1.446474.10.20.22.4.2" /> <id nullFlavor="NA" /> <code codeSystem=" local" code="WBC" displayName="WHITE BLOOD CELL" /> <statusCode code="completed" /> < effectiveTime value="847141379612" /> <value unit=&quot ;k/cumm" xsi:type="PQ" value="13.2" /> < interpretationCode codeSystem="local"code="*" /> <referenceRange> <observationRange> <text>5.0 -10.0</text> </observationRange> </ referenceRange> </observation> </component> < component> <observation moodCode="EVN" classCode=" OBS"> <templateId root="2.16.840.1.308404.10.20.22.4.2& quot; /> <id nullFlavor="NA" /> <code codeSystem="local" code="HGBT" displayName="HEMOGLOBIN& quot; /> <statusCode code="completed" /> < effectiveTime value="512879169802" /> <value unit=&quot ;gm/dL" xsi:type="PQ" value="11.3" /> < interpretationCode codeSystem="local" code="*" /> < referenceRange> <observationRange> <text> 14.0-18.0</text> </observationRange> </ referenceRange> </observation> </component> < component> <observation moodCode="EVN" classCode=" OBS"> <templateId root="2.16.840.1.832128.10.20.22.4.2& quot; /> <id nullFlavor="NA" /> <code codeSystem="local" code="HCTT" displayName="HEMATOCRIT& quot; /> <statusCode code="completed" /> & lt;effectiveTime value="237222505314" /> <valueunit=& quot;%" xsi:type="PQ" value="34.7" /> <interpretationCode codeSystem="local" code="*" /&gt ; <referenceRange> <observationRange> & lt;text>40.0-54.0</text> </observationRange> </referenceRange> </observation> </component> <component> <observation moodCode="EVN" classCode=& quot;OBS"> <templateId root=" 2.16.840.1.395829.10.20.22.4.2" /> <id nullFlavor="NA& quot; /> <code codeSystem="local" code="PLT" displayName="PLATELET COUNT" /> <statusCode code=" completed" /> <effectiveTime value="712758692721" /> <value unit="k/cumm" xsi:type="PQ" value=" 186" /> <referenceRange> <observationRange& gt; <text>150-400</text> </ observationRange> </referenceRange> </observation&gt ; </component> </organizer> </entry> <entry> <organizer moodCode="EVN" classCode="BATTERY"> <templateId root="2.16.840.1.771116.10.20.22.4.1" /> < id nullFlavor="NA" /> <code codeSystem="local" code="METAB" displayName="METABOLIC PANEL, BASIC" /> <statusCode code="completed" /> <component> & lt;observation moodCode="EVN" classCode="OBS"> &lt ;templateId root="2.16.840.1.010919.10.20.22.4.2" /> < id nullFlavor="NA" /> <code codeSystem="local&quot ; code="K" displayName="POTASSIUM" /> < statusCode code="completed" /> <effectiveTime value=& quot;691272407958" /> <value unit="mmol/L" xsi: type="PQ" value="4.4" /> <referenceRange> <observationRange> <text>3.5-5.3</text& gt; </observationRange> </referenceRange> </ observation> </component> <component> < observation moodCode="EVN" classCode="OBS"> < templateIdroot="2.16.840.1.515497.10.20.22.4.2" /> <id nullFlavor="NA" /> <code codeSystem="local" code="eGFR" displayName="EST GFR (MDRD)" /> < statusCode code="completed" /> <effectiveTime value=& quot;340656815085" /> <value unit="mL/min" xsi: type="PQ"value="51" /> <interpretationCode codeSystem="local" code="*" /> < referenceRange> <observationRange> <text> > 59</text> </observationRange> </ referenceRange> </observation> </component> < component> <observation moodCode="EVN" classCode=" OBS"> <templateId root="2.16.840.1.240293.10..22.4.2& quot; /> <id nullFlavor="NA" /> <code codeSystem="local" code="GAP" displayName="ANION GAP& quot; /> <statusCode code="completed" /> & lt;effectiveTime value="459067504015" /> <value unit=& quot;mmol/L" xsi:type="PQ" value="9" /> < referenceRange> <observationRange> <text> 5-15</text> </observationRange> </ referenceRange> </observation> </component> < component> <observation moodCode="EVN" classCode=" OBS"> <templateId root="2.16.840.1.334852.10.20.22.4.2& quot; /> <id nullFlavor="NA" /> <code codeSystem="local" code="eCrCl" displayName="EST CrCl ( CG)" /> <statusCode code="completed" /> <effectiveTime value="939024212333" /> <valueunit ="mL/min" xsi:type="PQ" value="33" /> <interpretationCode codeSystem="local" code="*" /> <referenceRange> <observationRange> <text&gt ;> 59</text> </observationRange> </ referenceRange> </observation> </component> < component> <observation moodCode="EVN" classCode=" OBS"> <templateId root="2.16.840.1.607047.10.20.22.4.2&quot ; /> <id nullFlavor="NA" /> <code codeSystem="local" code="GLU" displayName="GLUCOSE&quot ; /> <statusCode code="completed" /> < effectiveTime value="865586458150" /> <value unit=&quot ;mg/dL" xsi:type="PQ" value="216" /> < interpretationCode codeSystem="local"code="*" /> <referenceRange> <observationRange> <text>70- 99</text> </observationRange> </ referenceRange> </observation> </component> < component> <observation moodCode="EVN" classCode=" OBS"> <templateId root="2.16.840.1.037515.10.20.22.4.2& quot; /> <id nullFlavor="NA" /> <code codeSystem="local" code="CA" displayName="CALCIUM&quot ; /> <statusCode code="completed" /> < effectiveTime value="049520021837" /> <value unit=&quot ;mg/dL" xsi:type="PQ" value="8.4" /> < interpretationCode codeSystem="local" code="*" /> <referenceRange> <observationRange> < text>8.5-10.1</text> </observationRange> </ referenceRange> </observation> </component> < component> <observation moodCode="EVN" classCode=" OBS"> <templateId root="2.16.840.1.679115.10.20.22.4.2& quot; /> <id nullFlavor="NA" /> <code codeSystem="local" code="BUN" displayName="BLOOD UREA NITROGEN" /> <statusCode code="completed" /> <effectiveTime value="139698339830" /> < value unit="mg/dL" xsi:type="PQ" value="22" /> <interpretationCode codeSystem="local" code="*&quot ; /> <referenceRange> <observationRange> <text>7-20</text> </observationRange> </referenceRange> </observation> </component& gt; <component> <observation moodCode="EVN" classCode="OBS"> <templateId root=" 2.16.840.1.150501.10.20.22.4.2" /> <id nullFlavor="NA& quot; /> <code codeSystem="local" code="CREAT&quot ; displayName="CREATININE" /> <statusCode code=" completed" /> <effectiveTime value="147389644915" /> <value unit="mg/dL" xsi:type="PQ" value=& quot;1.4" /> <interpretationCode codeSystem="local&quot ; code="*" /> <referenceRange> < observationRange><text>0.8-1.3</text> </ observationRange> </referenceRange> </observation&gt ; </component> <component> <observation moodCode ="EVN" classCode="OBS"> <templateId root=& quot;2.16.840.1.820752.10.20.22.4.2" /> <id nullFlavor=&quot ;NA" /> <code codeSystem="local" code="NA& quot; displayName="SODIUM" /> <statusCode code=" completed" /> <effectiveTime value="628696589050" /> <value unit="mmol/L" xsi:type="PQ" value=& quot;136" /> <referenceRange> <observationRange& gt; <text>135-148</text> </ observationRange> </referenceRange> </observation&gt ; </component> <component> <observation moodCode ="EVN" classCode="OBS"> <templateId root=& quot;2.16.840.1.478039.10.20.22.4.2"/> <id nullFlavor=" NA" /> <code codeSystem="local"code="CL&quot ; displayName="CHLORIDE" /> <statusCode code=" completed" /> <effectiveTime value="030161163165" /> <value unit="mmol/L" xsi:type="PQ" value=& quot;102" /> <referenceRange> < observationRange> <text>98-110</text> &lt ;/observationRange> </referenceRange> </observation& gt; </component> <component> <observation moodCode="EVN" classCode="OBS"> <templateId root="2.16.840.1.907147.10.20.22.4.2" /> <id nullFlavor ="NA" /> <code codeSystem="local" code=" CO2" displayName="CARBON DIOXIDE" /> <statusCode code="completed" /> <effectiveTime value=" 054922154078" /> <value unit="mmol/L" xsi:type=& quot;PQ" value="25" /> <referenceRange> <observationRange> <text>21-32</text> </observationRange> </referenceRange> </ observation> </component> </organizer> </entry> & lt;entry> <organizer moodCode="EVN" classCode="BATTERY& quot;> <templateId root="2.16.840.1.486891.10.20.22.4.1" /& gt; <id nullFlavor="NA" /> <code codeSystem=" local" code="CBC" displayName="CBC" /> < statusCode code="completed" /> <component> < observation moodCode="EVN" classCode="OBS"> < templateId root="2.16.840.1.831405.10.20.22.4.2" /> < id nullFlavor="NA" /> <code codeSystem="local&quot ; code="MCH" displayName="MEAN CELLHGB" /> < statusCode code="completed" /> <effectiveTime value=& quot;804285507134" /> <value unit="pg" xsi:type=& quot;PQ" value="28.7" /> <referenceRange> <observationRange> <text>27.0-33.0</text> </observationRange> </referenceRange> </ observation> </component> <component> < observation moodCode="EVN" classCode="OBS"> < templateId root="2.16.840.1.692548.10.20.22.4.2" /> < id nullFlavor="NA" /> <code codeSystem="local&quot ; code="MCHC" displayName="MEAN CELL HGB CONCENTRATION" /&gt ; <statusCode code="completed" /> < effectiveTime value="950997859244" /> <value unit=&quot ;g/dL" xsi:type="PQ" value="32.6" /> < referenceRange> <observationRange> <text>32.0- 37.0</text> </observationRange> </ referenceRange> </observation> </component> < component> <observation moodCode="EVN" classCode=" OBS"> <templateId root="2.16.840.1.574972.10.20.22.4.2& quot; /> <id nullFlavor="NA" /> <code codeSystem="local" code="MCV" displayName="MEAN CELL VOLUME" /> <statusCode code="completed" /> <effectiveTime value="560444888138" /> <value unit="fl" xsi:type="PQ" value="88.1" /> <referenceRange> <observationRange> < text>80.0-100.0</text> </observationRange> & lt;/referenceRange> </observation> </component> < component> <observation moodCode="EVN" classCode=" OBS"> <templateId root="2.16.840.1.145402.10.20.22.4.2& quot; /> <id nullFlavor="NA" /> <code codeSystem="local" code="RBC" displayName="RED BLOOD CELL" /> <statusCode code="completed" /> <effectiveTime value="857964909515" /> <value unit="m/cumm" xsi:type="PQ" value="3.94" /> <interpretationCode codeSystem="local" code="*" /&gt ; <referenceRange> <observationRange> <text>4.00-6.00</text> </observationRange> </referenceRange> </observation> </component> <component> <observation moodCode="EVN" classCode=& quot;OBS"> <templateId root=" 2.16.840.1.809704.10.20.22.4.2" /> <id nullFlavor="NA&quot ; /> <code codeSystem="local" code="RDW" displayName="RED CELL DISTRIBUTION WIDTH" /> < statusCode code="completed" /> <effectiveTime value=& quot;357597822615" /> <value unit="%" xsi: type="PQ" value="14.4" /> <referenceRange&gt ; <observationRange> <text>11.0-15.6</ text> </observationRange> </referenceRange> </observation> </component> <component> <observation moodCode="EVN" classCode="OBS"> <templateId root="2.16.840.1.715664.10.20.22.4.2" /> &lt ;id nullFlavor="NA" /> <code codeSystem="local& quot; code="WBC" displayName="WHITE BLOOD CELL" /> <statusCode code="completed" /> <effectiveTime value="038866194524" /> <valueunit="k/cumm" xsi:type="PQ" value="13.2" /> < interpretationCode codeSystem="local" code="*" /> <referenceRange> <observationRange> <text> 5.0-10.0</text> </observationRange> </ referenceRange> </observation> </component> < component> <observation moodCode="EVN" classCode=" OBS"> <templateId root="2.16.840.1.640258.10.20.22.4.2&quot ; /> <id nullFlavor="NA" /> <code codeSystem="local" code="HGBT" displayName="HEMOGLOBIN& quot; /> <statusCode code="completed" /> & lt;effectiveTime value="259399897443" /> <value unit=& quot;gm/dL" xsi:type="PQ" value="11.3" /> & lt;interpretationCode codeSystem="local" code="*" /> <referenceRange> <observationRange> < text>14.0-18.0</text> </observationRange> &lt ;/referenceRange> </observation> </component> & lt;component> <observation moodCode="EVN" classCode=&quot ;OBS"> <templateId root="2.16.840.1.363299.10.20.22.4.2 " /> <id nullFlavor="NA" /> <code codeSystem="local" code="HCTT" displayName="HEMATOCRIT& quot; /> <statusCode code="completed" /> < effectiveTime value="260712041655" /> <value unit=&quot ;%" xsi:type="PQ" value="34.7" /> & lt;interpretationCode codeSystem="local" code="*" /> <referenceRange> <observationRange> & lt;text>40.0-54.0</text> </observationRange> </referenceRange> </observation> </component> <component> <observation moodCode="EVN" classCode=& quot;OBS"> <templateId root=" 2.16.840.1.667234.10.20.22.4.2" /> <id nullFlavor="NA& quot; /> <code codeSystem="local" code="PLT" displayName="PLATELET COUNT" /> <statusCode code=" completed" /> <effectiveTime value="014939700249" /> <value unit="k/cumm" xsi:type="PQ" value="186 " /> <referenceRange> <observationRange&gt ; <text>150-400</text> </observationRange& gt; </referenceRange> </observation> </component > </organizer> </entry> <entry> <organizer moodCode="EVN" classCode="BATTERY"> <templateId root="2.16.840.1.225143.10.20.22.4.1" /> <id nullFlavor=& quot;NA" /> <code codeSystem="local" code="METAB& quot; displayName="METABOLIC PANEL, BASIC" /> <statusCode code="completed" /> <component> <observation moodCode="EVN" classCode="OBS"> <templateId root="2.16.840.1.363283.10.20.22.4.2" /> <id nullFlavor ="NA" /> <code codeSystem="local" code=" K" displayName="POTASSIUM" /> <statusCode code=& quot;completed" /> <effectiveTime value="470867803730& quot; /> <value unit="mmol/L" xsi:type="PQ" value="4.4" /> <referenceRange> < observationRange> <text>3.5-5.3</text> </ observationRange> </referenceRange> </observation&gt ; </component> <component> <observation moodCode ="EVN" classCode="OBS"> <templateId root=& quot;2.16.840.1.294164.10.20.22.4.2" /> <id nullFlavor=&quot ;NA" /> <code codeSystem="local" code="eGFR& quot; displayName="EST GFR (MDRD)" /> <statusCode code= "completed" /> <effectiveTime value="064427979594& quot; /> <value unit="mL/min" xsi:type="PQ" value="51" /> <interpretationCode codeSystem=" local" code="*" /> <referenceRange> <observationRange> <text>> 59</text> </observationRange> </referenceRange> </ observation> </component> <component> < observation moodCode="EVN" classCode="OBS"> < templateId root="2.16.840.1.014610.10..22.4.2" /> < id nullFlavor="NA" /> <code codeSystem="local&quot ; code="GAP" displayName="ANION GAP" /> < statusCode code="completed" /> <effectiveTime value=& quot;350165393122" /> <value unit="mmol/L" xsi: type="PQ" value="9" /> <referenceRange> <observationRange> <text>5-15</text> </observationRange> </referenceRange> </ observation> </component> <component> < observation moodCode="EVN" classCode="OBS"> < templateId root="2.16.840.1.081088.10..22.4.2" /> < id nullFlavor="NA" /> <code codeSystem="local&quot ; code="eCrCl" displayName="EST CrCl (CG)" /> < statusCode code="completed" /> <effectiveTime value=& quot;060092750609" /> <value unit="mL/min" xsi: type="PQ" value="33" /> <interpretationCode codeSystem="local" code="*" /> <referenceRange&gt ; <observationRange> <text>> 59</ text> </observationRange> </referenceRange> </observation> </component> <component> <observation moodCode="EVN" classCode="OBS"> <templateId root="2.16.840.1.621559.10.20.22.4.2" /> <id nullFlavor="NA" /> <code codeSystem=" local" code="GLU" displayName="GLUCOSE" /> <statusCode code="completed" /> <effectiveTime value ="803693990713" /> <value unit="mg/dL" xsi: type="PQ" value="216" /> <interpretationCode codeSystem="local" code="*" /> < referenceRange> <observationRange> <text>70-99&lt ;/text> </observationRange> </referenceRange&gt ; </observation> </component> <component> <observation moodCode="EVN" classCode="OBS"> &lt ;templateId root="[id number]" /> < id nullFlavor="NA" /> <code codeSystem="local&quot ; code="CA" displayName="CALCIUM" /> < statusCode code="completed" /> <effectiveTime value=& quot;059421753562" /> <value unit="mg/dL" xsi:type ="PQ" value="8.4" /> <interpretationCode codeSystem="local" code="*" /> < referenceRange> <observationRange><text>8.5-10.1</ text> </observationRange> </referenceRange> </observation> </component> <component> <observationmoodCode="EVN" classCode="OBS"> <templateId root="2.16.840.1.769332.10.20.22.4.2" /> <id nullFlavor="NA" /> <code codeSystem=" local" code="BUN" displayName="BLOOD UREA NITROGEN" /& gt; <statusCode code="completed" /> < effectiveTime value="682918834120" /> <value unit=&quot ;mg/dL" xsi:type="PQ" value="22" /> < interpretationCode codeSystem="local" code="*" /> < referenceRange> <observationRange> <text> 7-20</text> </observationRange> </ referenceRange> </observation> </component> < component> <observation moodCode="EVN" classCode=" OBS"> <templateId root="2.16.840.1.069737.10.20.22.4.2& quot; /> <id nullFlavor="NA" /> <code codeSystem="local" code="CREAT" displayName="CREATININE " /> <statusCode code="completed" /> & lt;effectiveTime value="398881066978" /> <value unit=& quot;mg/dL" xsi:type="PQ" value="1.4" /> & lt;interpretationCode codeSystem="local" code="*" /> <referenceRange> <observationRange> & lt;text>0.8-1.3</text> </observationRange> & lt;/referenceRange> </observation> </component> <component> <observation moodCode="EVN" classCode=& quot;OBS"> <templateId root=" 2.16.840.1.060520.10..22.4.2" /> <id nullFlavor="NA& quot; /> <code codeSystem="local" code="NA" displayName="SODIUM" /> <statusCode code=" completed" /> <effectiveTime value="737175825188" /> <value unit="mmol/L" xsi:type="PQ" value=& quot;136" /> <referenceRange> < observationRange> <text>135-148</text> < /observationRange> </referenceRange> </observation& gt; </component> <component> <observation moodCode="EVN" classCode="OBS"> <templateId root="2.16.840.1.295080.10.20.22.4.2" /> <id nullFlavor ="NA" /> <code codeSystem="local" code=" CL" displayName="CHLORIDE" /> <statusCode code=" completed" /> <effectiveTime value="822862749878" /> <value unit="mmol/L" xsi:type="PQ" value=& quot;102" /> <referenceRange> < observationRange> <text>98-110</text> &lt ;/observationRange> </referenceRange> </observation& gt; </component> <component> <observation moodCode="EVN" classCode="OBS"> <templateId root="2.16.840.1.526556.10.20.22.4.2" /> <id nullFlavor ="NA" /> <code codeSystem="local" code=" CO2" displayName="CARBON DIOXIDE" /> <statusCode code="completed" /> <effectiveTime value=" 959053691143" /> <value unit="mmol/L" xsi:type=" PQ" value="25" /><referenceRange> < observationRange> <text>21-32</text> < /observationRange> </referenceRange> </observation& gt; </component> </organizer> </entry> <entry> <organizer moodCode="EVN" classCode="BATTERY"> <templateId root="2.16.840.1.301567.10.20.22.4.1" /> < id nullFlavor="NA" /> <code codeSystem="local" code="GLUMON" displayName="GLUCOSE (POC)" /> < statusCode code="completed" /> <component> < observation moodCode="EVN"classCode="OBS"> < templateId root="2.16.840.1.019591.10.20.22.4.2" /> < id nullFlavor="NA" /> <code codeSystem="local&quot ; code="GLUMON" displayName="GLUCOSE (POC)" /> & lt;statusCode code="completed" /> <effectiveTime value= "853611779647" /> <value unit="mg/dL" xsi: type="PQ" value="271" /> <interpretationCode codeSystem="local" code="*" /> < referenceRange> <observationRange> <text>70- 99</text> </observationRange> </ referenceRange> </observation> </component> </ organizer> </entry> <entry> <organizer moodCode="EVN " classCode="BATTERY"> <templateId root=" 2.16.840.1.564103.10.20.22.4.1" /> <id nullFlavor="NA" / > <code codeSystem="local" code="GLUMON" displayName="GLUCOSE (POC)" /> <statusCode code=" completed" /> <component> <observation moodCode=& quot;EVN" classCode="OBS"> <templateId root=" 2.16.840.1.382545.10.20.22.4.2" /> <id nullFlavor="NA& quot; /> <code codeSystem="local" code="GLUMON& quot;displayName="GLUCOSE (POC)" /> <statusCode code=& quot;completed" /> <effectiveTime value="440851245522& quot; /> <value unit="mg/dL" xsi:type="PQ" value="271" /> <interpretationCode codeSystem=" local" code="*" /> <referenceRange> <observationRange> <text>70-99</text> </observationRange> </referenceRange> </ observation> </component> </organizer> </entry> & lt;entry> <organizer moodCode="EVN" classCode="BATTERY& quot;> <templateId root="2.16.840.1.643801.10.20.22.4.1" /& gt; <id nullFlavor="NA" /> <code codeSystem=" local" code="GLUMON" displayName="GLUCOSE (POC)" /> <statusCode code="completed" /> <component> <observation moodCode="EVN" classCode="OBS"> <templateId root="2.16.840.1.265186.10.20.22.4.2" /> <id nullFlavor="NA" /> <code codeSystem=" local" code="GLUMON" displayName="GLUCOSE (POC)" /> <statusCode code="completed" /> < effectiveTime value="531183561897" /> <value unit=&quot ;mg/dL" xsi:type="PQ" value="241" /> < interpretationCode codeSystem="local" code="*" /> <referenceRange> <observationRange> < text>70-99</text> </observationRange> </ referenceRange> </observation> </component> </ organizer> </entry> <entry> <organizer moodCode="EVN " classCode="BATTERY"> <templateId root=" 2.16.840.1.520064.10.20.22.4.1" /> <id nullFlavor="NA&quot ; /> <code codeSystem="local" code="GLUMON" displayName="GLUCOSE (POC)" /> <statusCode code=" completed" /> <component> <observation moodCode=& quot;EVN" classCode="OBS"> <templateId root=" 2.16.840.1.269629.10.20.22.4.2" /> <id nullFlavor="NA& quot; /> <code codeSystem="local" code="GLUMON& quot; displayName="GLUCOSE (POC)" /> <statusCode code=" completed" /> <effectiveTime value="040796679977" /> <value unit="mg/dL" xsi:type="PQ" value=& quot;241" /> <interpretationCode codeSystem="local&quot ; code="*" /> <referenceRange> < observationRange> <text>70-99</text> < /observationRange> </referenceRange> </observation& gt; </component> </organizer> </entry> <entry> <organizer moodCode="EVN" classCode="BATTERY"> <templateId root="2.16.840.1.703017.10.20.22.4.1" /> &lt ;id nullFlavor="NA" /> <code codeSystem="local" code="GLUMON" displayName="GLUCOSE (POC)" /> < statusCode code="completed" /> <component> < observation moodCode="EVN" classCode="OBS"> < templateId root="2.16.840.1.080428.10.20.22.4.2" /> < id nullFlavor="NA" /> <code codeSystem="local&quot ; code="GLUMON" displayName="GLUCOSE (POC)" /> & lt;statusCode code="completed" /> <effectiveTime value= "143059519013" /> <value unit="mg/dL" xsi: type="PQ" value="146" /> <interpretationCode codeSystem="local" code="*" /> < referenceRange> <observationRange> <text>70 -99</text> </observationRange> </ referenceRange> </observation> </component> </ organizer> </entry> <entry> <organizer moodCode="EVN " classCode="BATTERY"> <templateId root=" 2.16.840.1.760051.10.20.22.4.1" /> <id nullFlavor="NA" /> <code codeSystem="local" code="GLUMON" displayName="GLUCOSE (POC)" /> <statusCode code=" completed"/> <component> <observation moodCode=& quot;EVN" classCode="OBS"> <templateId root=" 2.16.840.1.906114.10.20.22.4.2" /> <id nullFlavor="NA& quot; /> <code codeSystem="local" code="GLUMON& quot; displayName="GLUCOSE (POC)" /> <statusCode code=& quot;completed" /> <effectiveTime value="528764007352& quot; /> <value unit="mg/dL" xsi:type="PQ" value="146" /> <interpretationCode codeSystem=" local" code="*" /> <referenceRange> <observationRange> <text>70-99</text> </observationRange> </referenceRange> </ observation> </component> </organizer> </entry> & lt;entry> <organizer moodCode="EVN" classCode="BATTERY& quot;> <templateId root="2.16.840.1.559353.10.20.22.4.1" /& gt; <id nullFlavor="NA" /> <code codeSystem=" local" code="METAB" displayName="METABOLIC PANEL, BASIC&quot ; /> <statusCode code="completed" /> <component& gt; <observation moodCode="EVN" classCode="OBS"&gt ; <templateId root="2.16.840.1.049667.10.20.22.4.2" /> <id nullFlavor="NA" /> <code codeSystem=& quot;local" code="K" displayName="POTASSIUM" /> <statusCode code="completed" /> < effectiveTime value="967049357378" /> <value unit=&quot ;mmol/L" xsi:type="PQ" value="4.3" /> < referenceRange> <observationRange> <text> 3.5-5.3</text> </observationRange> </ referenceRange> </observation> </component> < component> <observation moodCode="EVN" classCode=" OBS"> <templateId root="2.16.840.1.720532.10.20.22.4.2& quot; /> <id nullFlavor="NA" /><code codeSystem=& quot;local" code="eGFR" displayName="EST GFR (MDRD)" /& gt; <statusCode code="completed" /> < effectiveTime value="" /> <value unit=&quot ;mL/min" xsi:type="PQ" value="> 60" /> <referenceRange> <observationRange> <text> > 59</text> </observationRange> </ referenceRange> </observation> </component> < component> <observation moodCode="EVN" classCode=" OBS"> <templateId root="2.16.840.1.576347.10.20.22.4.2& quot; /> <id nullFlavor="NA" /> <code codeSystem="local" code="GAP" displayName="ANION GAP& quot; /> <statusCode code="completed" /> < effectiveTime value="677149925037" /> <value unit=&quot ;mmol/L" xsi:type="PQ" value="9" /> < referenceRange> <observationRange> <text> 5-15</text> </observationRange> </ referenceRange> </observation> </component> < component> <observation moodCode="EVN" classCode=" OBS"> <templateId root="2.16.840.1.979895.10.20.22.4.2& quot; /> <id nullFlavor="NA" /> <code codeSystem="local" code="eCrCl" displayName="EST CrCl ( CG)" /> <statusCode code="completed" /> <effectiveTime value="665071617510" /> <value unit=& quot;mL/min" xsi:type="PQ" value="46" /> & lt;interpretationCode codeSystem="local" code="*" /> <referenceRange> <observationRange> & lt;text>> 59</text> </observationRange> </ referenceRange> </observation> </component> < component> <observation moodCode="EVN" classCode=" OBS"> <templateId root="2.16.840.1.137395.10.20.22.4.2& quot; /> <id nullFlavor="NA" /> <code codeSystem="local" code="GLU" displayName="GLUCOSE&quot ; /> <statusCode code="completed" /> < effectiveTime value="859098423201" /> <value unit=&quot ;mg/dL" xsi:type="PQ" value="113" /> < interpretationCode codeSystem="local" code="*" /> <referenceRange> <observationRange> < text>70-99</text> </observationRange> </ referenceRange> </observation> </component> < component><observation moodCode="EVN" classCode="OBS"& gt; <templateId root="2.16.840.1.284079.10..22.4.2" /&gt ; <id nullFlavor="NA" /> <code codeSystem=" local" code="CA" displayName="CALCIUM" /> &lt ;statusCode code="completed" /> <effectiveTime value=& quot;596772082881" /> <value unit="mg/dL" xsi:type ="PQ" value="8.3" /> <interpretationCode codeSystem="local" code="*" /> <referenceRange&gt ; <observationRange> <text>8.5-10.1</text > </observationRange> </referenceRange> </observation> </component> <component> & lt;observation moodCode="EVN" classCode="OBS"> & lt;templateId root="2.16.840.1.472589.10.20.22.4.2" /> &lt ;id nullFlavor="NA" /> <code codeSystem="local& quot; code="BUN" displayName="BLOOD UREA NITROGEN" /> <statusCode code="completed" /> < effectiveTime value="" /> <value unit="mg/dL& quot; xsi:type="PQ" value="19" /> < referenceRange> <observationRange> <text> 7-20</text> </observationRange> </referenceRange&gt ; </observation> </component> <component> <observation moodCode="EVN" classCode="OBS"> <templateId root="2.16.840.1.607309.10.20.22.4.2" /> < id nullFlavor="NA" /> <code codeSystem="local&quot ; code="CREAT" displayName="CREATININE" /> < statusCode code="completed" /> <effectiveTime value=& quot;288991726979" /> <value unit="mg/dL" xsi:type ="PQ" value="1.0" /> <referenceRange> <observationRange> <text>0.8-1.3</text> </observationRange> </referenceRange> </ observation> </component> <component> < observation moodCode="EVN" classCode="OBS"> < templateId root="2.16.840.1.759517.10.20.22.4.2" /> < id nullFlavor="NA" /> <code codeSystem="local&quot ; code="NA" displayName="SODIUM" /> < statusCode code="completed" /> <effectiveTime value=& quot;" /> <value unit="mmol/L" xsi: type="PQ" value="136" /> <referenceRange> <observationRange> <text>135-148</text& gt; </observationRange> </referenceRange> </observation> </component> <component> < observation moodCode="EVN" classCode="OBS"> < templateId root="2.16.840.1.794697.10.20.22.4.2" /> < id nullFlavor="NA" /> <code codeSystem="local" code="CL" displayName="CHLORIDE" /> < statusCode code="completed" /> <effectiveTime value=& quot;655064433689" /> <value unit="mmol/L" xsi: type="PQ" value="103" /> <referenceRange> <observationRange> <text>98-110</text&gt ; </observationRange> </referenceRange> </ observation> </component> <component> < observation moodCode="EVN" classCode="OBS"> < templateId root="2.16.840.1.363278.10.20.22.4.2" /> < id nullFlavor="NA" /> <code codeSystem="local&quot ; code="CO2" displayName="CARBON DIOXIDE" /> &lt ;statusCode code="completed" /> <effectiveTime value=& quot;666288713856" /> <value unit="mmol/L" xsi: type="PQ" value="24" /> <referenceRange> <observationRange> <text>21-32</text> </observationRange> </referenceRange> </ observation> </component> </organizer> </entry> & lt;entry> <organizer moodCode="EVN" classCode="BATTERY& quot;> <templateId root="2.16.840.1.465736.10.20.22.4.1" /& gt; <id nullFlavor="NA" /> <code codeSystem=" local" code="METAB" displayName="METABOLIC PANEL, BASIC&quot ; /> <statusCode code="completed" /> <component& gt; <observation moodCode="EVN" classCode="OBS"&gt ; <templateId root="2.840.1.198367.10.20.22.4.2" /> <id nullFlavor="NA" /> <code codeSystem=& quot;local" code="K" displayName="POTASSIUM" /> <statusCode code="completed" /> < effectiveTime value="285097713954" /> <value unit="mmol/L " xsi:type="PQ" value="4.3" /> < referenceRange> <observationRange> <text> 3.5-5.3</text> </observationRange> </ referenceRange> </observation> </component> < component> <observation moodCode="EVN" classCode=" OBS"> <templateId root="2.840.1.618859.10.20.22.4.2& quot; /> <id nullFlavor="NA" /> <code codeSystem="local" code="eGFR" displayName="EST GFR ( MDRD)" /> <statusCode code="completed" /> <effectiveTime value="083323470281" /> <value unit="mL/min" xsi:type="PQ" value="> 60" /& gt; <referenceRange> <observationRange> <text>> 59</text> </observationRange> </referenceRange> </observation></component> <component> <observation moodCode="EVN" classCode=& quot;OBS"> <templateId root=" 2.16.840.1.115499.10.20.22.4.2" /> <id nullFlavor="NA" /> <code codeSystem="local" code="GAP" displayName="ANION GAP" /> <statusCode code=" completed" /> <effectiveTime value="140541402079" /> <value unit="mmol/L" xsi:type="PQ" value=& quot;9" /> <referenceRange> <observationRange> <text>5-15</text> </observationRange&gt ; </referenceRange> </observation> </ component> <component> <observation moodCode="EVN& quot; classCode="OBS"> <templateId root=" 2.16.840.1.602636.10..22.4.2" /> <id nullFlavor="NA& quot; /> <code codeSystem="local" code="eCrCl&quot ; displayName="EST CrCl (CG)" /> <statusCode code=&quot ;completed" /> <effectiveTime value="299433975766&quot ; /> <value unit="mL/min" xsi:type="PQ" value ="46" /> <interpretationCode codeSystem="local& quot; code="*" /> <referenceRange> < observationRange> <text>> 59</text> &lt ;/observationRange> </referenceRange> </observation& gt; </component> <component> <observation moodCode="EVN" classCode="OBS"> <templateId root="2.16.840.1.482901.10..22.4.2" /> <id nullFlavor ="NA" /><code codeSystem="local" code="GLU" displayName="GLUCOSE" /> <statusCode code="completed& quot; /> <effectiveTime value="134251127079" /> <value unit="mg/dL" xsi:type="PQ" value="113& quot; /> <interpretationCode codeSystem="local" code=& quot;*" /> <referenceRange> <observationRange> <text>70-99</text> </observationRange&gt ; </referenceRange> </observation> </ component> <component> <observation moodCode="EVN& quot; classCode="OBS"> <templateId root=" 2.16.840.1.543737.10.20.22.4.2" /> <id nullFlavor="NA& quot; /> <code codeSystem="local" code="CA" displayName="CALCIUM" /> <statusCode code=" completed" /> <effectiveTime value="411380186861" /> <value unit="mg/dL" xsi:type="PQ" value=& quot;8.3" /> <interpretationCode codeSystem="local&quot ; code="*" /> <referenceRange> < observationRange> <text>8.5-10.1</text> & lt;/observationRange> </referenceRange> </ observation> </component> <component> < observation moodCode="EVN" classCode="OBS"> < templateId root="2.16.840.1.817866.10.20.22.4.2" /> < id nullFlavor="NA" /> <code codeSystem="local&quot ; code="BUN" displayName="BLOOD UREA NITROGEN" /> <statusCode code="completed" /> <effectiveTime value="980484965905" /> <value unit="mg/dL" xsi:type="PQ" value="19" /> <referenceRange& gt; <observationRange> <text>7-20</text& gt; </observationRange> </referenceRange> </observation> </component> <component> < observation moodCode="EVN" classCode="OBS"> < templateId root="2.16.840.1.452678.10..22.4.2" /> < id nullFlavor="NA" /> <code codeSystem="local" code="CREAT" displayName="CREATININE"/> < statusCode code="completed" /> <effectiveTime value=& quot;662804146265" /> <value unit="mg/dL" xsi:type ="PQ" value="1.0" /> <referenceRange> <observationRange> <text>0.8-1.3</text> </observationRange> </referenceRange> &lt ;/observation> </component> <component> < observation moodCode="EVN" classCode="OBS"> < templateId root="2.16.840.1.026193.10.20.22.4.2" /> < id nullFlavor="NA" /> <code codeSystem="local&quot ; code="NA" displayName="SODIUM" /> < statusCode code="completed" /> <effectiveTime value=& quot;198590900710" /> <value unit="mmol/L" xsi:type ="PQ" value="136" /> <referenceRange> <observationRange> <text>135-148</text> </observationRange> </referenceRange> </ observation> </component> <component> < observation moodCode="EVN" classCode="OBS"> < templateId root="2.16.840.1.346963.10..22.4.2" /> < id nullFlavor="NA" /> <code codeSystem="local&quot ; code="CL" displayName="CHLORIDE" /> < statusCode code="completed" /> <effectiveTime value=& quot;217122771692" /> <value unit="mmol/L" xsi: type="PQ" value="103" /> <referenceRange> <observationRange> <text>98-110</text&gt ; </observationRange> </referenceRange> & lt;/observation> </component> <component> < observation moodCode="EVN" classCode="OBS"> < templateId root="2.16.840.1.307081.10.20.22.4.2" /> < id nullFlavor="NA" /> <code codeSystem="local&quot ; code="CO2" displayName="CARBON DIOXIDE" /> &lt ;statusCode code="completed" /> <effectiveTime value=" 020130534662" /> <value unit="mmol/L" xsi:type=& quot;PQ" value="24" /> <referenceRange> <observationRange> <text>21-32</text> </observationRange> </referenceRange> </ observation> </component> </organizer> </entry> & lt;entry> <organizer moodCode="EVN" classCode="BATTERY& quot;> <templateId root="2.16.840.1.898049.10.20.22.4.1" /& gt; <id nullFlavor="NA" /> <code codeSystem=" local" code="GLUMON" displayName="GLUCOSE (POC)" /> <statusCode code="completed" /> <component> <observation moodCode="EVN" classCode="OBS"> < templateId root="2.16.840.1.674810.10.20.22.4.2" /> < id nullFlavor="NA" /> <code codeSystem="local&quot ; code="GLUMON" displayName="GLUCOSE (POC)" /> & lt;statusCode code="completed" /> <effectiveTime value= "455924907972" /> <value unit="mg/dL" xsi: type="PQ" value="121" /> <interpretationCode codeSystem="local" code="*" /> < referenceRange> <observationRange> <text>70-99 </text> </observationRange> </referenceRange& gt; </observation> </component> </organizer> & lt;/entry> <entry> <organizer moodCode="EVN" classCode ="BATTERY"> <templateId root=" 2.16.840.1.028583.10.20.22.4.1" /> <id nullFlavor="NA&quot ; /> <code codeSystem="local" code="GLUMON" displayName="GLUCOSE (POC)" /> <statusCode code=" completed" /> <component> <observation moodCode=& quot;EVN" classCode="OBS"> <templateId root=" 2.16.840.1.223627.10.20.22.4.2" /> <id nullFlavor="NA& quot; /> <code codeSystem="local" code="GLUMON" displayName="GLUCOSE (POC)"/> <statusCode code=" completed" /> <effectiveTime value="375835216243" /> <value unit="mg/dL" xsi:type="PQ" value=& quot;121" /> <interpretationCode codeSystem="local&quot ; code="*" /> <referenceRange> < observationRange> <text>70-99</text> < /observationRange> </referenceRange> </observation& gt; </component> </organizer> </entry> <entry&gt ; <organizer moodCode="EVN" classCode="BATTERY"> <templateId root="2.16.840.1.545287.10.20.22.4.1" /> & lt;id nullFlavor="NA" /> <code codeSystem="local&quot ; code="GLUMON" displayName="GLUCOSE (POC)" /> < statusCode code="completed" /> <component> < observation moodCode="EVN" classCode="OBS"> < templateId root="2.16.840.1.150002.10.20.22.4.2" /> < id nullFlavor="NA" /> <code codeSystem="local&quot ; code="GLUMON" displayName="GLUCOSE (POC)" /> & lt;statusCode code="completed" /> <effectiveTime value= "788792589718" /> <value unit="mg/dL" xsi: type="PQ" value="127" /> <interpretationCode codeSystem="local" code="*" /> < referenceRange> <observationRange> <text> 70-99</text> </observationRange> </referenceRange> </observation> </component> </organizer> </ entry> <entry> <organizer moodCode="EVN" classCode=& quot;BATTERY"> <templateId root=" 2.16.840.1.192933.10.20.22.4.1" /> <id nullFlavor="NA&quot ; /> <code codeSystem="local" code="GLUMON" displayName="GLUCOSE (POC)" /> <statusCode code=" completed" /> <component> <observation moodCode=& quot;EVN" classCode="OBS"> <templateId root=" 2.16.840.1.865020.10.20.22.4.2" /> <id nullFlavor="NA" / > <code codeSystem="local" code="GLUMON" displayName="GLUCOSE (POC)" /> <statusCode code=" completed" /> <effectiveTime value="538915335175" /> <value unit="mg/dL" xsi:type="PQ" value=& quot;127" /> <interpretationCode codeSystem="local&quot ; code="*" /> <referenceRange> < observationRange> <text>70-99</text> < /observationRange> </referenceRange> </observation& gt; </component> </organizer> </entry> <entry&gt ; <organizer moodCode="EVN" classCode="BATTERY"> <templateId root="2.16.840.1.801300.10.20.22.4.1" /> & lt;id nullFlavor="NA" /> <code codeSystem="local&quot ; code="GLUMON" displayName="GLUCOSE (POC)" /> < statusCode code="completed" /> <component> < observation moodCode="EVN" classCode="OBS"> < templateId root="2.16.840.1.314702.10.20.22.4.2" /> < id nullFlavor="NA" /> <code codeSystem="local&quot ; code="GLUMON" displayName="GLUCOSE (POC)" /> & lt;statusCode code="completed" /> <effectiveTime value= "127391292435" /> <value unit="mg/dL" xsi: type="PQ" value="198" /> <interpretationCode codeSystem="local" code="*" /> < referenceRange> <observationRange> <text>70- 99</text> </observationRange> </ referenceRange> </observation> </component> </ organizer> </entry><entry> <organizer moodCode="EVN& quot; classCode="BATTERY"> <templateId root=" 2.16.840.1.271499.10.20.22.4.1" /> <id nullFlavor="NA" /> <code codeSystem="local" code="GLUMON" displayName="GLUCOSE (POC)" /> <statusCode code=" completed" /> <component> <observation moodCode=& quot;EVN" classCode="OBS"> <templateId root=" 2.16.840.1.449099.10.20.22.4.2" /> <id nullFlavor="NA& quot; /> <code codeSystem="local" code="GLUMON" displayName="GLUCOSE (POC)" /> <statusCode code=" completed" /> <effectiveTime value="273596945052" /> <value unit="mg/dL" xsi:type="PQ" value=& quot;198" /> <interpretationCode codeSystem="local&quot ; code="*" /> <referenceRange> < observationRange> <text>70-99</text> < /observationRange> </referenceRange> </observation& gt; </component> </organizer> </entry> <entry&gt ; <organizer moodCode="EVN" classCode="BATTERY"> <templateId root="2.16.840.1.065852.10.20.22.4.1" /> & lt;id nullFlavor="NA" /> <code codeSystem="local&quot ; code="GLUMON" displayName="GLUCOSE (POC)" /> < statusCode code="completed" /> <component> < observation moodCode="EVN" classCode="OBS"> < templateId root="[id number]" /> < id nullFlavor="NA" /> <code codeSystem="local&quot ; code="GLUMON" displayName="GLUCOSE (POC)" /> & lt;statusCode code="completed" /> <effectiveTime value= "[id number]" /> <value unit="mg/dL" xsi: type="PQ" value="222" /> <interpretationCode codeSystem="local" code="*" /> < referenceRange> <observationRange> <text> 70-99</text> </observationRange> </referenceRange> </observation> </component> </organizer> </ entry> <entry> <organizer moodCode="EVN" classCode=& quot;BATTERY"> <templateId root=" [id number]" /> <id nullFlavor="NA&quot ; /> <code codeSystem="local" code="GLUMON" displayName="GLUCOSE (POC)" /> <statusCode code=" completed" /> <component> <observation moodCode=& quot;EVN" classCode="OBS"> <templateId root=" 2.16.840.1.898394.10.20.22.4.2" /> <id nullFlavor="NA" /> <code codeSystem="local" code="GLUMON" displayName="GLUCOSE (POC)" /> <statusCode code=" completed" /> <effectiveTime value="385147890581" /> <value unit="mg/dL" xsi:type="PQ" value=& quot;222" /> <interpretationCode codeSystem="local&quot ; code="*" /> <referenceRange> < observationRange> <text>70-99</text> < /observationRange> </referenceRange> </observation& gt; </component> </organizer> </entry> <entry&gt ; <organizer moodCode="EVN" classCode="BATTERY"> <templateId root="2.16.840.1.707960.10.20.22.4.1" /> & lt;idnullFlavor="NA" /> <code codeSystem="local" code="GLUMON" displayName="GLUCOSE (POC)" /> < statusCode code="completed" /> <component> < observation moodCode="EVN" classCode="OBS"> < templateId root="2.16.840.1.163216.10.20.22.4.2" /> < id nullFlavor="NA" /> <code codeSystem="local&quot ; code="GLUMON" displayName="GLUCOSE (POC)" /> & lt;statusCode code="completed" /> <effectiveTime value= "474823807180" /> <value unit="mg/dL" xsi: type="PQ" value="184" /> <interpretationCode codeSystem="local" code="*" /> < referenceRange> <observationRange> <text>70- 99</text> </observationRange> </ referenceRange> </observation> </component> </ organizer> </entry> <entry> <organizer moodCode="EVN& quot; classCode="BATTERY"> <templateId root=" 2.16.840.1.055362.10.20.22.4.1" /> <id nullFlavor="NA&quot ; /> <code codeSystem="local" code="GLUMON" displayName="GLUCOSE (POC)" /> <statusCode code=" completed" /> <component> <observation moodCode=& quot;EVN" classCode="OBS"> <templateId root=" 2.16.840.1.413440.10.20.22.4.2" /> <id nullFlavor="NA& quot; /> <code codeSystem="local" code="GLUMON" displayName="GLUCOSE (POC)" /> <statusCode code=" completed" /> <effectiveTime value="169933078124" /> <value unit="mg/dL" xsi:type="PQ" value=& quot;184" /> <interpretationCode codeSystem="local&quot ; code="*"/> <referenceRange> < observationRange> <text>70-99</text> < /observationRange> </referenceRange> </observation& gt; </component> </organizer> </entry> <entry&gt ; <organizer moodCode="EVN" classCode="BATTERY"> <templateId root="2.16.840.1.564003.10.20.22.4.1" /> & lt;id nullFlavor="NA" /> <code codeSystem="local&quot ; code="GLUMON" displayName="GLUCOSE (POC)" /> < statusCode code="completed" /> <component> < observation moodCode="EVN" classCode="OBS"> < templateId root="2.16.840.1.482479.10.20.22.4.2" /> < id nullFlavor="NA" /> <code codeSystem="local&quot ; code="GLUMON" displayName="GLUCOSE (POC)" /> & lt;statusCode code="completed" /> <effectiveTime value= "013761743446" /> <value unit="mg/dL" xsi: type="PQ" value="173" /> <interpretationCode codeSystem="local" code="*" /> < referenceRange> <observationRange> <text> 70-99</text> </observationRange> </referenceRange> </observation> </component> </organizer> < /entry> <entry> <organizer moodCode="EVN" classCode=& quot;BATTERY"> <templateId root=" 2.16.840.1.000538.10.20.22.4.1" /> <id nullFlavor="NA&quot ; /> <code codeSystem="local"code="GLUMON" displayName="GLUCOSE (POC)" /> <statusCode code=" completed" /> <component> <observation moodCode=& quot;EVN" classCode="OBS"> <templateId root=" 2.16.840.1.306747.10.20.22.4.2" /> <id nullFlavor="NA&quot ; /> <code codeSystem="local" code="GLUMON" displayName="GLUCOSE (POC)" /> <statusCode code=" completed" /> <effectiveTime value="392484643783" /> <value unit="mg/dL" xsi:type="PQ" value=& quot;173" /> <interpretationCode codeSystem="local&quot ; code="*" /> <referenceRange> < observationRange> <text>70-99</text> < /observationRange> </referenceRange> </observation& gt; </component> </organizer> </entry> <entry&gt ; <organizer moodCode="EVN" classCode="BATTERY"> <templateId root="2.16.840.1.709312.10.20.22.4.1" /> & lt;id nullFlavor="NA" /> <code codeSystem="local&quot ; code="GLUMON" displayName="GLUCOSE (POC)" /> < statusCode code="completed" /><component> < observation moodCode="EVN" classCode="OBS"> < templateId root="2.16.840.1.093036.10.20.22.4.2" /> < id nullFlavor="NA" /> <code codeSystem="local&quot ; code="GLUMON" displayName="GLUCOSE (POC)" /> & lt;statusCode code="completed" /> <effectiveTime value= "845233699640" /> <value unit="mg/dL" xsi: type="PQ" value="95" /> <referenceRange> <observationRange> <text>70-99</text> </observationRange> </referenceRange> </ observation> </component> </organizer></entry> &lt ;entry> <organizer moodCode="EVN" classCode="BATTERY& quot;> <templateId root="2.16.840.1.982427.10.20.22.4.1" /& gt; <id nullFlavor="NA" /> <code codeSystem=" local" code="GLUMON" displayName="GLUCOSE (POC)" /> <statusCode code="completed" /> <component> <observation moodCode="EVN" classCode="OBS"> <templateId root="2.16.840.1.807520.10.20.22.4.2" /> <id nullFlavor="NA" /> <code codeSystem=" local" code="GLUMON" displayName="GLUCOSE (POC)" /> <statusCode code="completed" /> < effectiveTime value="328371885121" /> <value unit=&quot ;mg/dL" xsi:type="PQ" value="95" /> < referenceRange> <observationRange> <text> 70-99</text> </observationRange> </ referenceRange> </observation> </component> </ organizer> </entry> <entry> <organizer moodCode="EVN " classCode="BATTERY"> <templateId root=" 2.16.840.1.524875.10.20.22.4.1" /> <id nullFlavor="NA&quot ; /> <code codeSystem="local" code="GLUMON" displayName="GLUCOSE (POC)" /> <statusCode code=" completed" /> <component> <observation moodCode=" EVN" classCode="OBS"> <templateId root=" 2.16.840.1.079816.10.20.22.4.2" /> <id nullFlavor="NA& quot; /> <code codeSystem="local" code="GLUMON" displayName="GLUCOSE (POC)" /> <statusCode code=" completed" /> <effectiveTime value="947243900345" /> <value unit="mg/dL" xsi:type="PQ" value=& quot;252" /> <interpretationCode codeSystem="local&quot ; code="*" /> <referenceRange> < observationRange> <text>70-99</text> < /observationRange> </referenceRange> </observation& gt; </component> </organizer> </entry> <entry&gt ; <organizer moodCode="EVN" classCode="BATTERY"> <templateId root="2.16.840.1.782264.10.20.22.4.1" /> & lt;id nullFlavor="NA" /> <codecodeSystem="local" code="GLUMON" displayName="GLUCOSE (POC)" /> < statusCode code="completed" /> <component> < observation moodCode="EVN" classCode="OBS"> < templateId root="2.16.840.1.537571.10.20.22.4.2" /> < id nullFlavor="NA" /> <code codeSystem="local&quot ; code="GLUMON" displayName="GLUCOSE (POC)" /> & lt;statusCode code="completed" /> <effectiveTime value= "758904528897" /> <value unit="mg/dL" xsi: type="PQ" value="252" /> <interpretationCode codeSystem="local" code="*" /> < referenceRange> <observationRange> <text> 70-99</text> </observationRange> </referenceRange& gt; </observation> </component> </organizer> & lt;/entry> <entry> <organizer moodCode="EVN" classCode ="BATTERY"> <templateId root=" 2.16.840.1.036910.10.20.22.4.1" /> <id nullFlavor="NA&quot ; /> <code codeSystem="local" code="GLUMON" displayName="GLUCOSE (POC)" /> <statusCode code=" completed" /> <component> <observation moodCode=& quot;EVN" classCode="OBS"> <templateId root=" 2.16.840.1.956812.10.20.22.4.2" /> <id nullFlavor="NA& quot; /> <code codeSystem="local" code="GLUMON& quot; displayName="GLUCOSE (POC)" /> <statusCode code=& quot;completed" /> <effectiveTime value="437597899278& quot; /> <value unit="mg/dL" xsi:type="PQ" value="204" /> <interpretationCode codeSystem=" local" code="*" /> <referenceRange> < observationRange> <text>70-99</text> < /observationRange> </referenceRange> </observation& gt; </component> </organizer> </entry> <entry&gt ; <organizer moodCode="EVN" classCode="BATTERY"> <templateId root="2.16.840.1.420337.10.20.22.4.1" /> & lt;id nullFlavor="NA" /> <code codeSystem="local&quot ; code="GLUMON" displayName="GLUCOSE (POC)" /> < statusCode code="completed" /> <component> < observation moodCode="EVN" classCode="OBS"> < templateId root="2.16.840.1.956183.10.20.22.4.2" /> < id nullFlavor="NA" /> <code codeSystem="local&quot ; code="GLUMON" displayName="GLUCOSE (POC)" /> & lt;statusCode code="completed" /> <effectiveTime value=" 097488341065" /> <value unit="mg/dL" xsi:type=& quot;PQ" value="204" /> <interpretationCode codeSystem="local" code="*" /> < referenceRange> <observationRange> <text> 70-99</text> </observationRange> </ referenceRange> </observation> </component> </ organizer> </entry> <entry> <organizer moodCode="EVN " classCode="BATTERY"><templateId root=" 2.16.840.1.120140.10.20.22.4.1" /> <id nullFlavor="NA&quot ; /> <code codeSystem="local" code="HBA1C" displayName="HEMOGLOBIN A1C" /> <statusCode code=" completed" /> <component> <observation moodCode=" EVN" classCode="OBS"> <templateId root=" 2.16.840.1.069111.10.20.22.4.2" /> <id nullFlavor="NA& quot; /> <code codeSystem="local" code="HBA1C" displayName="HEMOGLOBIN A1C" /> <statusCode code=" completed" /> <effectiveTime value="327806198101" /> <value unit="%" xsi:type="PQ" value="6.3" /> <interpretationCode codeSystem=" local" code="*" /> <referenceRange> <observationRange> <text>< 5.7</text> </observationRange> </referenceRange> </ observation> </component> </organizer> </entry> & lt;entry> <organizer moodCode="EVN" classCode="BATTERY& quot;> <templateId root="2.16.840.1.533400.10.20.22.4.1" /& gt; <id nullFlavor="NA" /> <code codeSystem=" local" code="HBA1C" displayName="HEMOGLOBIN A1C" /> <statusCode code="completed" /> <component> <observation moodCode="EVN" classCode="OBS"> <templateId root="2.16.840.1.214508.10.20.22.4.2" /> <id nullFlavor="NA" /> <code codeSystem=" local" code="HBA1C" displayName="HEMOGLOBIN A1C" /> <statusCode code="completed" /> < effectiveTime value="902028942421" /> <value unit=&quot ;%" xsi:type="PQ" value="6.3" /> & lt;interpretationCode codeSystem="local" code="*" /> <referenceRange> <observationRange> & lt;text>< 5.7</text> </observationRange> </referenceRange> </observation> </component> </organizer> </entry> <entry> <organizer moodCode= "EVN" classCode="BATTERY"> <templateId root=&quot ;2.16.840.1.316894.10.20.22.4.1" /> <id nullFlavor="NA&quot ; /> <code codeSystem="local" code="GLUMON" displayName="GLUCOSE (POC)" /> <statusCode code=" completed" /> <component> <observation moodCode=& quot;EVN" classCode="OBS"> <templateId root=" 2.16.840.1.005465.10.20.22.4.2" /> <id nullFlavor="NA& quot; /> <code codeSystem="local" code="GLUMON& quot; displayName="GLUCOSE (POC)" /> <statusCode code=& quot;completed" /> <effectiveTime value="713048784745& quot; /> <value unit="mg/dL" xsi:type="PQ" value="185" /> <interpretationCode codeSystem="local& quot; code="*" /> <referenceRange> < observationRange> <text>70-99</text> </ observationRange> </referenceRange> </observation&gt ; </component> </organizer> </entry> <entry> <organizer moodCode="EVN" classCode="BATTERY"> <templateId root="2.16.840.1.835262.10.20.22.4.1" /> < id nullFlavor="NA" /> <code codeSystem="local" code="GLUMON" displayName="GLUCOSE (POC)" /> < statusCode code="completed" /> <component> < observation moodCode="EVN" classCode="OBS"> < templateId root="2.16.840.1.139308.10.20.22.4.2" /> <id nullFlavor="NA" /> <code codeSystem="local" code="GLUMON" displayName="GLUCOSE (POC)" /> &lt ;statusCode code="completed" /> <effectiveTime value=& quot;163707731116" /> <value unit="mg/dL" xsi:type ="PQ" value="185" /> <interpretationCode codeSystem="local" code="*" /> < referenceRange> <observationRange> <text>70-99</ text> </observationRange> </referenceRange> </observation> </component> </organizer> </ entry> <entry> <organizer moodCode="EVN" classCode=& quot;BATTERY"> <templateId root=" 2.16.840.1.698001.10..22.4.1" /> <id nullFlavor="NA&quot ; /> <code codeSystem="local" code="UA" displayName="URINALYSIS, ROUTINE" /> <statusCode code=&quot ;completed" /> <component> <observation moodCode=& quot;EVN" classCode="OBS"> <templateId root=" 2.16.840.1.898405.10..22.4.2" /> <id nullFlavor="NA& quot; /> <code codeSystem="local" code="LEUESU& quot; displayName="UA LEUKOCYTE ESTERASE DIPSTICK" /> < statusCode code="completed" /> <effectiveTime value=& quot;415056819343" /> <value unit="" xsi:type=& quot;PQ" value="NEGATIVE" /> <referenceRange> <observationRange> <text>NEGATIVE</text&gt ; </observationRange> </referenceRange> & lt;/observation> </component> <component> < observation moodCode="EVN" classCode="OBS"> < templateId root="2.16.840.1.383124.10.20.22.4.2" /> < id nullFlavor="NA" /> <code codeSystem="local&quot ; code="NITRIU" displayName="UA NITRITE DIPSTICK" /> <statusCode code="completed" /> < effectiveTime value="469758629931" /> <value unit=&quot ;" xsi:type="PQ" value="NEGATIVE" /> < referenceRange> <observationRange> <text>NEGATIVE& lt;/text> </observationRange> </referenceRange& gt; </observation> </component> <component> <observation moodCode="EVN" classCode="OBS"> <templateId root="2.16.840.1.532256.10.20.22.4.2" /> & lt;id nullFlavor="NA" /> <code codeSystem="local& quot; code="PROTEIU" displayName="UA PROTEIN DIPSTICK" /&gt ; <statusCode code="completed" /> < effectiveTime value="074619659310" /> <value unit=&quot ;" xsi:type="PQ" value="TRACE" /> < interpretationCode codeSystem="local" code="*" /> <referenceRange> <observationRange> < text>NEGATIVE</text> </observationRange> < /referenceRange> </observation> </component> &lt ;component> <observation moodCode="EVN" classCode=" OBS"> <templateId root="2.16.840.1.781627.10..22.4.2& quot; /> <id nullFlavor="NA" /> <code codeSystem="local" code="DGLUU" displayName="UA GLUCOSE DIPSTICK" /> <statusCode code="completed" /> <effectiveTime value="525256732176" /> & lt;value unit="" xsi:type="PQ" value="NEGATIVE" /& gt; <referenceRange> <observationRange> &lt ;text>NEGATIVE</text> </observationRange> &lt ;/referenceRange> </observation> </component> & lt;component> <observation moodCode="EVN" classCode=&quot ;OBS"> <templateId root="2.16.840.1.766868.10.20.22.4.2 " /> <id nullFlavor="NA" /> <code codeSystem="local" code="KETONU" displayName="UA KETONE DIPSTICK" /> <statusCode code="completed" / > <effectiveTime value="499551200550" /> & lt;value unit="" xsi:type="PQ" value="NEGATIVE" /& gt; <referenceRange> <observationRange> <text>NEGATIVE</text> </observationRange> </referenceRange> </observation> </component&gt ; <component> <observation moodCode="EVN" classCode="OBS"> <templateId root=" 2.16.840.1.626567.10.20.22.4.2" /> <id nullFlavor="NA& quot; /> <code codeSystem="local" code="UROBILU& quot; displayName="UA UROBILINOGEN DIPSTICK" /> < statusCode code="completed" /> <effectiveTime value=& quot;264808876859" /> <value unit="" xsi:type=& quot;PQ" value="NORMAL" /> <referenceRange> <observationRange> <text>NORMAL</text> </observationRange> </referenceRange> </ observation> </component> <component> < observation moodCode="EVN" classCode="OBS"> < templateId root="2.16.840.1.866413.10.20.22.4.2" /> < id nullFlavor="NA" /> <code codeSystem="local&quot ; code="BILU" displayName="UA BILIRUBIN DIPSTICK" /> <statusCode code="completed" /> < effectiveTime value="868443152940" /> <value unit=&quot ;" xsi:type="PQ" value="NEGATIVE" /> < referenceRange> <observationRange> <text> NEGATIVE</text> </observationRange> </ referenceRange> </observation> </component> < component> <observation moodCode="EVN" classCode=" OBS"> <templateId root="2.16.840.1.140700.10.20.22.4.2& quot; /> <id nullFlavor="NA" /> <code codeSystem="local" code="BLAIR" displayName="UA BLOOD DIPSTICK" /> <statusCode code="completed" /> <effectiveTime value="986807555727" /> <value unit="" xsi:type="PQ" value="NEGATIVE" /> <referenceRange> <observationRange> &lt ;text>NEGATIVE</text> </observationRange> &lt ;/referenceRange> </observation> </component> & lt;component> <observation moodCode="EVN" classCode=&quot ;OBS"> <templateId root="2.16.840.1.982127.10.20.22.4.2 " /> <id nullFlavor="NA" /> <code codeSystem="local" code="BACU" displayName="UA BACTERIA " /> <statusCode code="completed" /> & lt;effectiveTime value="653704282767" /> <value unit=& quot;" xsi:type="PQ" value="1+" /> < interpretationCode codeSystem="local" code="*" /> <referenceRange> <observationRange> < text>NEGATIVE</text> </observationRange> < /referenceRange> </observation> </component> &lt ;component> <observation moodCode="EVN" classCode=" OBS"> <templateId root="2.16.840.1.085864.10..22.4.2& quot; /> <id nullFlavor="NA" /> <code codeSystem="local" code="EPIU" displayName=" UAEPITHELIAL CELLS" /> <statusCode code="completed&quot ; /> <effectiveTime value="354925049161" /> <value unit="epi/hpf" xsi:type="PQ" value="1+&quot ; /> <referenceRange> <observationRange> <text>0 - 1+</text> </observationRange>& lt;/referenceRange> </observation> </component> <component> <observation moodCode="EVN" classCode=" OBS"> <templateId root="2.16.840.1.351067.10..22.4.2& quot; /> <id nullFlavor="NA" /> <code codeSystem="local" code="RBCU" displayName="UA RBC&quot ; /> <statusCode code="completed" /> < effectiveTime value="263035829557" /> <value unit=&quot ;rbc/hpf" xsi:type="PQ" value="0" /> < referenceRange> <observationRange> <text> 0 - 3</text> </observationRange> </ referenceRange> </observation> </component> < component> <observation moodCode="EVN" classCode=" OBS"> <templateId root="2.16.840.1.754049.10.20.22.4.2& quot; /> <id nullFlavor="NA" /> <code codeSystem="local" code="UAVOL" displayName="UA VOLUME FOR EXAM" /> <statusCode code="completed" /> & lt;effectiveTime value="431077694102" /> <value unit=& quot;mL" xsi:type="PQ" value="12.0" /> < referenceRange> <observationRange> <text> (12mL STD)</text> </observationRange> </ referenceRange> </observation> </component> < component> <observation moodCode="EVN" classCode=" OBS"> <templateId root="2.16.840.1.851546.10.20.22.4.2& quot; /> <id nullFlavor="NA" /> <code codeSystem="local" code="WBCU" displayName="UA WBC&quot ; /> <statusCode code="completed" /> < effectiveTime value="419036124724" /> <value unit=&quot ;wbc/hpf" xsi:type="PQ" value="0-1" /> < referenceRange> <observationRange> <text> 0 - 5</text> </observationRange> </referenceRange& gt; </observation> </component> <component> <observation moodCode="EVN" classCode="OBS"> <templateId root="2.16.840.1.892395.10.20.22.4.2" /> & lt;id nullFlavor="NA" /> <code codeSystem="local& quot; code="SPGRU" displayName="UA SPECIFIC GRAVITY" /> <statusCode code="completed" /> < effectiveTime value="201224116881" /> <value unit=&quot ;" xsi:type="PQ" value="1.014" /> < interpretationCode codeSystem="local" code="*" /> <referenceRange> <observationRange> < text>1.015-1.025</text> </observationRange> & lt;/referenceRange> </observation> </component> <component> <observation moodCode="EVN" classCode=& quot;OBS"> <templateId root="2.16.840.1.413483.10.20.22.4.2&quot ; /> <id nullFlavor="NA" /> <code codeSystem="local" code="EVERETTE" displayName="UR PH" /> <statusCode code="completed" /> < effectiveTime value="517129586912" /> <value unit=&quot ;" xsi:type="PQ"value="7.0" /> < referenceRange> <observationRange> <text>5.0- 7.0</text> </observationRange> </ referenceRange> </observation> </component> </ organizer> </entry><entry> <organizer moodCode="EVN& quot; classCode="BATTERY"> <templateId root=" 2.16.840.1.009227.10.20.22.4.1" /> <id nullFlavor="NA" /> <code codeSystem="local" code="UA" displayName ="URINALYSIS, ROUTINE" /> <statusCode code="completed& quot; /> <component><observation moodCode="EVN" classCode="OBS"> <templateId root=" 2.16.840.1.285587.10.20.22.4.2" /> <id nullFlavor="NA& quot; /> <code codeSystem="local" code="LEUESU" displayName="UA LEUKOCYTE ESTERASE DIPSTICK" /> < statusCode code="completed" /> <effectiveTime value=& quot;465211404077" /> <value unit="" xsi:type=& quot;PQ" value="NEGATIVE" /> <referenceRange> <observationRange> <text>NEGATIVE</text& gt; </observationRange> </referenceRange> </observation> </component> <component> < observation moodCode="EVN" classCode="OBS"> < templateId root="2.16.840.1.124776.10.20.22.4.2" /> < id nullFlavor="NA" /> <code codeSystem="local" code="NITRIU" displayName="UA NITRITE DIPSTICK" /> <statusCode code="completed" /> <effectiveTime value="752673556564" /> <value unit="" xsi: type="PQ" value="NEGATIVE" /> <referenceRange > <observationRange> <text>NEGATIVE</text > </observationRange> </referenceRange> </observation> </component> <component> & lt;observation moodCode="EVN" classCode="OBS"> & lt;templateId root="2.16.840.1.458441.10.20.22.4.2" /> &lt ;id nullFlavor="NA" /> <code codeSystem="local& quot; code="PROTEIU" displayName="UA PROTEIN DIPSTICK" /&gt ; <statusCode code="completed" /> < effectiveTime value="805452232550" /> <value unit=&quot ;" xsi:type="PQ" value="TRACE" /> < interpretationCode codeSystem="local" code="*"/> <referenceRange> <observationRange> < text>NEGATIVE</text> </observationRange> < /referenceRange> </observation> </component> &lt ;component> <observation moodCode="EVN" classCode=" OBS"> <templateId root="2.16.840.1.387567.10..22.4.2& quot; /> <id nullFlavor="NA" /> <code codeSystem="local" code="DGLUU" displayName="UA GLUCOSE DIPSTICK" /> <statusCode code="completed" /> <effectiveTime value="252193495374" /> & lt;value unit="" xsi:type="PQ" value="NEGATIVE" /& gt; <referenceRange> <observationRange> <text>NEGATIVE</text> </observationRange> </referenceRange> </observation> </component> <component> <observation moodCode="EVN" classCode ="OBS"> <templateId root=" 2.16.840.1.311897.10.20.22.4.2" /> <id nullFlavor="NA& quot; /> <code codeSystem="local" code="KETONU& quot; displayName="UA KETONE DIPSTICK" /> <statusCode code="completed" /> <effectiveTime value=" 877670060813" /> <value unit="" xsi:type="PQ" value="NEGATIVE" /> <referenceRange> < observationRange> <text>NEGATIVE</text> & lt;/observationRange> </referenceRange> </ observation> </component> <component> < observation moodCode="EVN" classCode="OBS"> < templateId root="2.16.840.1.317962.10.20.22.4.2" /> <id nullFlavor="NA" /> <code codeSystem="local" code="UROBILU" displayName="UA UROBILINOGEN DIPSTICK" /> <statusCode code="completed" /> < effectiveTime value="397387774185" /> <value unit="" xsi:type="PQ" value="NORMAL" /> < referenceRange> <observationRange> <text> NORMAL</text> </observationRange> </referenceRange > </observation> </component> <component> <observation moodCode="EVN" classCode="OBS"> <templateId root="2.16.840.1.965887.10..22.4.2" /> <id nullFlavor="NA" /> <code codeSystem="local& quot; code="BILU" displayName="UA BILIRUBIN DIPSTICK" /> <statusCode code="completed" /> < effectiveTime value="099090619980" /> <valueunit=" " xsi:type="PQ" value="NEGATIVE" /> < referenceRange> <observationRange> <text> NEGATIVE</text> </observationRange> </ referenceRange> </observation> </component> < component> <observation moodCode="EVN" classCode=" OBS"> <templateId root="2.16.840.1.360392.10..22.4.2& quot; /> <id nullFlavor="NA" /> <code codeSystem="local" code="BLAIR" displayName="UA BLOOD DIPSTICK" /> <statusCode code="completed" /> <effectiveTime value="109476820456" /> < value unit="" xsi:type="PQ" value="NEGATIVE" /&gt ; <referenceRange> <observationRange> < text>NEGATIVE</text> </observationRange> < /referenceRange> </observation> </component> < component> <observation moodCode="EVN" classCode=" OBS"> <templateId root="2.16.840.1.459376.10.20.22.4.2&quot ; /> <id nullFlavor="NA" /> <code codeSystem="local" code="BACU" displayName="UA BACTERIA " /> <statusCode code="completed" /> & lt;effectiveTime value="[id number]" /> <value unit=& quot;" xsi:type="PQ" value="1+" /> < interpretationCode codeSystem="local" code="*" /> <referenceRange> <observationRange> <text> NEGATIVE</text> </observationRange> </ referenceRange> </observation> </component> < component> <observation moodCode="EVN" classCode=" OBS"> <templateId root="[id number]& quot; /> <id nullFlavor="NA" /> < codecodeSystem="local" code="EPIU" displayName="UA EPITHELIAL CELLS" /> <statusCode code="completed" / > <effectiveTime value="[id number]" /> & lt;value unit="epi/hpf" xsi:type="PQ" value="1+" / > <referenceRange> <observationRange> <text>0 - 1+</text> </observationRange> </referenceRange> </observation> </component> <component> <observation moodCode="EVN" classCode=& quot;OBS"> <templateId root=" 2.16.840.1.732335.10.20.22.4.2" /> <id nullFlavor="NA& quot; /> <code codeSystem="local" code="RBCU&quot ; displayName="UA RBC" /> <statusCodecode=" completed" /> <effectiveTime value="071527231622" /> <value unit="rbc/hpf" xsi:type="PQ" value=&quot ;0" /> <referenceRange> <observationRange& gt; <text>0 - 3</text> </observationRange& gt; </referenceRange> </observation> </component > <component> <observation moodCode="EVN" classCode="OBS"> <templateId root=" 2.16.840.1.230921.10.20.22.4.2" /> <id nullFlavor="NA&quot ; /> <code codeSystem="local" code="UAVOL" displayName="UA VOLUME FOR EXAM" /> <statusCode code=& quot;completed" /> <effectiveTime value="428033877213& quot; /> <value unit="mL" xsi:type="PQ" value ="12.0" /> <referenceRange> < observationRange> <text>(12mL STD)</text> </ observationRange> </referenceRange> </observation&gt ; </component> <component> <observation moodCode ="EVN" classCode="OBS"> <templateId root=& quot;2.16.840.1.706995.10.20.22.4.2" /> <id nullFlavor=&quot ;NA" /> <code codeSystem="local" code="WBCU& quot; displayName="UA WBC" /> <statusCode code=" completed" /> <effectiveTime value="749515012393" /&gt ; <value unit="wbc/hpf" xsi:type="PQ" value=& quot;0-1" /> <referenceRange> < observationRange> <text>0 - 5</text> < /observationRange> </referenceRange> </observation& gt; </component> <component> <observation moodCode="EVN" classCode="OBS"> <templateId root="2.16.840.1.242354.10.20.22.4.2" /> <id nullFlavor ="NA" /> <code codeSystem="local" code=" SPGRU" displayName="UA SPECIFIC GRAVITY" /> < statusCode code="completed" /> <effectiveTime value=& quot;272144583702" /> <value unit="" xsi:type=& quot;PQ" value="1.014" /> <interpretationCode codeSystem="local" code="*" /> < referenceRange> <observationRange> <text>1.015- 1.025</text> </observationRange> </ referenceRange> </observation> </component> < component> <observation moodCode="EVN" classCode=" OBS"> <templateId root="2.16.840.1.136460.10.20.22.4.2& quot; /> <id nullFlavor="NA" /> <code codeSystem="local" code="EVERETTE" displayName="UR PH" /><statusCode code="completed" /> <effectiveTime value="016513208851" /> <value unit="" xsi: type="PQ" value="7.0" /> <referenceRange> <observationRange> <text>5.0-7.0</text&gt ; </observationRange> </referenceRange> & lt;/observation> </component> </organizer> </entry&gt ; <entry> <organizer moodCode="EVN" classCode=" BATTERY"> <templateId root="2.16.840.1.959221.10.20.22.4.1& quot; /> <id nullFlavor="NA" /> <code codeSystem ="local" code="CBC" displayName="CBC" /> & lt;statusCode code="completed" /> <component> &lt ;observation moodCode="EVN" classCode="OBS"> &lt ;templateId root="2.16.840.1.771516.10..22.4.2" /> < id nullFlavor="NA" /> <code codeSystem="local&quot ; code="MCH" displayName="MEAN CELL HGB" /> < statusCode code="completed" /> <effectiveTime value=& quot;957538529027" /> <value unit="pg" xsi:type=& quot;PQ" value="28.4" /> <referenceRange> <observationRange> <text>27.0-33.0</text> </observationRange> </referenceRange> & lt;/observation> </component> <component> < observation moodCode="EVN" classCode="OBS"> < templateId root="2.16.840.1.570644.10..22.4.2" /> < id nullFlavor="NA" /> <code codeSystem="local&quot ; code="MCHC" displayName="MEAN CELL HGB CONCENTRATION" /&gt ; <statusCode code="completed" /> < effectiveTime value="347580165021" /> <value unit=&quot ;g/dL" xsi:type="PQ" value="32.2" /> < referenceRange> <observationRange> <text> 32.0-37.0</text> </observationRange> </ referenceRange> </observation> </component> < component> <observation moodCode="EVN" classCode=" OBS"> <templateId root="2.16.840.1.010796.10.20.22.4.2& quot; /> <id nullFlavor="NA" /> <code codeSystem="local" code="MCV"displayName="MEAN CELL VOLUME" /> <statusCode code="completed" /> <effectiveTime value="098046275498" /> <value unit="fl" xsi:type="PQ" value="88.1" /> <referenceRange><observationRange> <text>80.0- 100.0</text> </observationRange> </ referenceRange> </observation> </component> < component> <observation moodCode="EVN" classCode=" OBS"> <templateId root="2.16.840.1.612452.10.20.22.4.2" / > <id nullFlavor="NA" /> <code codeSystem="local" code="RBC" displayName="RED BLOOD CELL" /> <statusCode code="completed" /> <effectiveTime value="646891692885" /> <value unit="m/cumm" xsi:type="PQ" value="3.77" /> <interpretationCode codeSystem="local" code="*" /& gt; <referenceRange> <observationRange> <text>4.00-6.00</text> </observationRange> </referenceRange> </observation> </component&gt ; <component> <observation moodCode="EVN" classCode="OBS"> <templateId root=" 2.16.840.1.569012.10.20.22.4.2" /> <id nullFlavor="NA& quot; /><code codeSystem="local" code="RDW" displayName="RED CELL DISTRIBUTION WIDTH" /> < statusCode code="completed" /> <effectiveTime value=& quot;655187964210" /> <value unit="%" xsi: type="PQ" value="14.5" /> <referenceRange&gt ; <observationRange> <text>11.0-15.6</ text> </observationRange> </referenceRange> </observation> </component> <component> <observation moodCode="EVN" classCode="OBS"> <templateId root="2.16.840.1.761104.10.20.22.4.2" /> <id nullFlavor="NA" /> <code codeSystem="local&quot ; code="WBC" displayName="WHITE BLOOD CELL" /> & lt;statusCode code="completed" /> <effectiveTime value= "073673516786" /> <value unit="k/cumm" xsi: type="PQ" value="10.7" /> < interpretationCode codeSystem="local" code="*" /> <referenceRange> <observationRange> < text>5.0-10.0</text> </observationRange> < /referenceRange> </observation> </component> &lt ;component> <observation moodCode="EVN" classCode=" OBS"> <templateId root="2.16.840.1.421728.10..22.4.2& quot; /> <id nullFlavor="NA" /> <code codeSystem="local" code="HGBT" displayName="HEMOGLOBIN& quot; /> <statusCodecode="completed" /> &lt ;effectiveTime value="873334865246" /> <value unit="gm/ dL" xsi:type="PQ" value="10.7" /> < interpretationCode codeSystem="local" code="*" /> <referenceRange> <observationRange> < text>14.0-18.0</text> </observationRange> </ referenceRange> </observation> </component> < component> <observation moodCode="EVN" classCode=" OBS"> <templateId root="2.16.840.1.618822.10.20.22.4.2& quot; /> <id nullFlavor="NA" /> <code codeSystem="local" code="HCTT" displayName="HEMATOCRIT& quot; /> <statusCode code="completed" /> & lt;effectiveTime value="577140599022" /> <value unit=& quot;%" xsi:type="PQ" value="33.2" /> <interpretationCode codeSystem="local" code="*" /&gt ; <referenceRange> <observationRange> <text>40.0-54.0</text> </observationRange> </referenceRange> </observation> </component> <component> <observation moodCode="EVN" classCode="OBS"> <templateId root=" 2.16.840.1.113977.10.20.22.4.2" /> <id nullFlavor="NA& quot; /> <code codeSystem="local" code="PLT" displayName="PLATELET COUNT" /> <statusCode code=" completed" /> <effectiveTime value="986057233987" /> <value unit="k/cumm" xsi:type="PQ" value=& quot;241" /> <referenceRange> < observationRange> <text>150-400</text> & lt;/observationRange> </referenceRange> </ observation> </component> </organizer> </entry> & lt;entry> <organizer moodCode="EVN" classCode="BATTERY& quot;><templateId root="2.16.840.1.267928.10.20.22.4.1" /> <id nullFlavor="NA" /> <code codeSystem="local& quot; code="METAB" displayName="METABOLIC PANEL, BASIC" /&gt ; <statusCode code="completed" /> <component> <observation moodCode="EVN" classCode="OBS"> <templateId root="2.16.840.1.594621.10.20.22.4.2" /> <id nullFlavor="NA" /> <code codeSystem=" local" code="K" displayName="POTASSIUM" /> <statusCode code="completed" /> <effectiveTime value ="779109274680" /> <value unit="mmol/L" xsi: type="PQ" value="5.0" /> <referenceRange> <observationRange> <text>3.5-5.3</text> </observationRange> </referenceRange> </ observation> </component> <component> < observation moodCode="EVN" classCode="OBS"> < templateId root="2.16.840.1.579530.10..22.4.2" /> < id nullFlavor="NA" /> <code codeSystem="local&quot ; code="eGFR" displayName="EST GFR (MDRD)" /> < statusCode code="completed" /> <effectiveTime value=& quot;933645088148" /> <value unit="mL/min" xsi: type="PQ" value="> 60" /> < referenceRange> <observationRange> <text> > 59</text> </observationRange> </ referenceRange> </observation> </component> < component> <observation moodCode="EVN" classCode=" OBS"> <templateId root="2.16.840.1.792302.10.20.22.4.2& quot; /> <id nullFlavor="NA" /> <code codeSystem="local" code="GAP" displayName="ANION GAP& quot; /> <statusCode code="completed" /> & lt;effectiveTime value="472023069966" /> <value unit=& quot;mmol/L" xsi:type="PQ" value="7" /> < referenceRange> <observationRange> <text> 5-15</text> </observationRange> </ referenceRange> </observation> </component> < component> <observation moodCode="EVN" classCode=" OBS"> <templateId root="2.16.840.1.014806.10.20.22.4.2& quot; /> <id nullFlavor="NA" /> <code codeSystem="local" code="eCrCl" displayName="EST CrCl ( CG)" /> <statusCode code="completed" /> <effectiveTime value="382961857316" /> <value unit="mL/min" xsi:type="PQ" value="46" /> <interpretationCode codeSystem="local" code="*" /&gt ; <referenceRange> <observationRange> <text>> 59</text> </observationRange> </referenceRange> </observation> </component> <component> <observation moodCode="EVN" classCode="OBS"> <templateId root=" 2.16.840.1.647479.10..22.4.2" /> <id nullFlavor="NA& quot; /> <code codeSystem="local" code="GLU" displayName="GLUCOSE" /> <statusCode code=" completed" /> <effectiveTime value="260229372014" /> <value unit="mg/dL" xsi:type="PQ" value=& quot;118" /> <interpretationCode codeSystem="local&quot ; code="*" /> <referenceRange> < observationRange> <text>70-99</text> </ observationRange> </referenceRange> </observation&gt ; </component> <component> <observation moodCode ="EVN" classCode="OBS"> <templateId root=& quot;2.16.840.1.957088.10.20.22.4.2" /> <id nullFlavor=&quot ;NA" /> <code codeSystem="local" code="CA& quot; displayName="CALCIUM" /> <statusCode code="completed& quot; /> <effectiveTime value="860287122995" /> <value unit="mg/dL" xsi:type="PQ" value="8.9& quot; /> <referenceRange> <observationRange> <text>8.5-10.1</text> </observationRange > </referenceRange> </observation> </ component> <component> <observation moodCode="EVN& quot; classCode="OBS"> <templateId root=" 2.16.840.1.251427.10.20.22.4.2" /> <id nullFlavor="NA& quot; /> <code codeSystem="local" code="BUN" displayName="BLOOD UREA NITROGEN" /> <statusCode code=& quot;completed" /> <effectiveTime value="908951566354& quot; /> <value unit="mg/dL" xsi:type="PQ" value="16" /> <referenceRange> < observationRange> <text>7-20</text> </ observationRange> </referenceRange> </observation&gt ; </component> <component> <observation moodCode= "EVN" classCode="OBS"> <templateId root=&quot ;2.16.840.1.349990.10.20.22.4.2" /> <id nullFlavor="NA& quot; /> <code codeSystem="local" code="CREAT&quot ; displayName="CREATININE" /> <statusCode code=" completed" /> <effectiveTime value="002332627446" /> <value unit="mg/dL" xsi:type="PQ" value=& quot;1.0" /> <referenceRange> < observationRange> <text>0.8-1.3</text> & lt;/observationRange> </referenceRange> </ observation> </component> <component> < observation moodCode="EVN" classCode="OBS"> < templateId root="2.16.840.1.834140.10.20.22.4.2" /> < id nullFlavor="NA" /> <code codeSystem="local&quot ; code="NA" displayName="SODIUM" /> < statusCode code="completed" /> <effectiveTime value=& quot;074091351015" /> <value unit="mmol/L" xsi: type="PQ" value="136" /> <referenceRange> <observationRange> <text>135-148</text& gt; </observationRange> </referenceRange> < /observation> </component> <component> < observation moodCode="EVN" classCode="OBS"> < templateId root="2.16.840.1.205013.10.20.22.4.2" /> < id nullFlavor="NA" /> <code codeSystem="local&quot ; code="CL" displayName="CHLORIDE" /> < statusCode code="completed" /> <effectiveTime value=& quot;053395536594" /> <value unit="mmol/L" xsi: type="PQ" value="100" /> <referenceRange> <observationRange> <text>98-110</text> </observationRange> </referenceRange> </ observation> </component> <component> < observation moodCode="EVN" classCode="OBS"> < templateId root="2.16.840.1.013493.10.20.22.4.2" /> < id nullFlavor="NA" /> <code codeSystem="local&quot ; code="CO2" displayName="CARBON DIOXIDE" /> < statusCode code="completed" /> <effectiveTime value=& quot;673222001018" /> <value unit="mmol/L" xsi: type="PQ" value="29"/> <referenceRange> <observationRange> <text>21-32</text> </observationRange> </referenceRange> &lt ;/observation> </component> </organizer> </entry> <entry> <organizer moodCode="EVN" classCode=" BATTERY"> <templateId root="2.16.840.1.721256.10.20.22.4.1& quot; /> <id nullFlavor="NA" /> <code codeSystem ="local" code="CBC" displayName="CBC" /> & lt;statusCode code="completed" /> <component> &lt ;observation moodCode="EVN" classCode="OBS"> &lt ;templateId root="2.16.840.1.725129.10.20.22.4.2" /> < id nullFlavor="NA" /> <code codeSystem="local&quot ; code="MCH" displayName="MEAN CELL HGB" /> < statusCode code="completed" /> <effectiveTime value=& quot;678180480232" /> <value unit="pg" xsi:type=& quot;PQ" value="28.4" /> <referenceRange> <observationRange> <text>27.0-33.0</text> </observationRange> </referenceRange> </ observation> </component> <component> < observation moodCode="EVN" classCode="OBS"> < templateId root="2.16.840.1.457586.10.20.22.4.2" /><id nullFlavor="NA" /> <code codeSystem="local" code="MCHC" displayName="MEAN CELL HGB CONCENTRATION" /> <statusCode code="completed" /> < effectiveTime value="979850007250" /> <value unit=&quot ;g/dL" xsi:type="PQ" value="32.2" /> < referenceRange> <observationRange> <text> 32.0-37.0</text> </observationRange> </referenceRange& gt; </observation> </component> <component> <observation moodCode="EVN" classCode="OBS"> <templateId root="2.16.840.1.426769.10.20.22.4.2" /> <id nullFlavor="NA" /> <code codeSystem=&quot ;local" code="MCV" displayName="MEAN CELL VOLUME" /&gt ; <statusCode code="completed" /> < effectiveTime value="763402961687" /> <value unit=&quot ;fl" xsi:type="PQ" value="88.1" /> < referenceRange> <observationRange> <text>80.0- 100.0</text> </observationRange> </ referenceRange> </observation> </component> < component> <observation moodCode="EVN" classCode=" OBS"> <templateId root="2.16.840.1.786704.10.20.22.4.2& quot; /> <id nullFlavor="NA" /> <code codeSystem="local" code="RBC" displayName="RED BLOOD CELL" /> <statusCode code="completed" /> < effectiveTime value="414360097824" /> <value unit=&quot ;m/cumm" xsi:type="PQ" value="3.77" /> < interpretationCode codeSystem="local" code="*" /> <referenceRange> <observationRange> < text>4.00-6.00</text> </observationRange> &lt ;/referenceRange> </observation> </component> & lt;component> <observation moodCode="EVN" classCode="OBS& quot;> <templateId root="2.16.840.1.613144.10.20.22.4.2&quot ; /> <id nullFlavor="NA" /> <code codeSystem= "local" code="RDW" displayName="RED CELL DISTRIBUTION WIDTH" /> <statusCode code="completed" /> <effectiveTime value="118920573526" /> <value unit="%" xsi:type="PQ" value="14.5" /> <referenceRange> <observationRange> <text>11.0-15.6</text> </observationRange> </referenceRange> </observation> </component&gt ; <component> <observation moodCode="EVN" classCode=& quot;OBS"> <templateId root=" 2.16.840.1.827150.10.20.22.4.2" /> <id nullFlavor="NA& quot; /> <code codeSystem="local" code="WBC" displayName="WHITE BLOOD CELL" /> <statusCode code=& quot;completed" /> <effectiveTime value="258912705513& quot; /> <value unit="k/cumm" xsi:type="PQ" value="10.7" /> <interpretationCode codeSystem=" local" code="*" /> <referenceRange> <observationRange> <text>5.0-10.0</text> </observationRange> </referenceRange> </ observation> </component> <component> < observation moodCode="EVN" classCode="OBS"> < templateId root="2.16.840.1.458047.10.20.22.4.2" /> < id nullFlavor="NA" /> <code codeSystem="local&quot ; code="HGBT" displayName="HEMOGLOBIN" /> < statusCode code="completed" /> <effectiveTime value=& quot;616975619189" /> <value unit="gm/dL" xsi:type ="PQ" value="10.7" /> <interpretationCode codeSystem="local" code="*" /> < referenceRange> <observationRange> <text> 14.0-18.0</text> </observationRange> </ referenceRange> </observation> </component> < component> <observation moodCode="EVN" classCode=" OBS"> <templateId root="2.16.840.1.364351.10.20.22.4.2& quot; /> <id nullFlavor="NA" /> <code codeSystem ="local" code="HCTT" displayName="HEMATOCRIT" /&gt ; <statusCode code="completed"/> < effectiveTime value="091553853584" /> <value unit=&quot ;%" xsi:type="PQ" value="33.2" /> & lt;interpretationCode codeSystem="local" code="*" /> <referenceRange> <observationRange> & lt;text>40.0-54.0</text> </observationRange> </referenceRange> </observation> </component> <component> <observation moodCode="EVN" classCode=& quot;OBS"> <templateId root=" 2.16.840.1.654454.10.20.22.4.2" /> <id nullFlavor="NA& quot; /> <code codeSystem="local" code="PLT" displayName="PLATELET COUNT" /> <statusCode code=" completed" /> <effectiveTime value="347015551949" /> <value unit="k/cumm" xsi:type="PQ" value=& quot;241" /> <referenceRange> < observationRange> <text>150-400</text> & lt;/observationRange> </referenceRange> </ observation> </component> </organizer> </entry> & lt;entry> <organizer moodCode="EVN" classCode="BATTERY& quot;> <templateId root="2.16.840.1.404259.10.20.22.4.1" /& gt; <id nullFlavor="NA" /> <code codeSystem=" local" code="METAB" displayName="METABOLIC PANEL, BASIC&quot ; /> <statusCode code="completed" /> <component& gt; <observation moodCode="EVN" classCode="OBS"&gt ; <templateId root="2.16.840.1.259825.10..22.4.2" /> <id nullFlavor="NA" /> <code codeSystem=& quot;local" code="K" displayName="POTASSIUM" /> <statusCode code="completed" /> < effectiveTimevalue="082098497644" /> <value unit=" mmol/L" xsi:type="PQ" value="5.0" /> < referenceRange> <observationRange> <text>3.5 -5.3</text> </observationRange> </ referenceRange> </observation> </component> < component> <observation moodCode="EVN" classCode=" OBS"> <templateId root="2.16.840.1.109144.10.20.22.4.2& quot; /> <id nullFlavor="NA" /> <code codeSystem="local" code="eGFR" displayName="EST GFR ( MDRD)" /> <statusCode code="completed" /> <effectiveTime value="117170564742" /> <value unit="mL/min" xsi:type="PQ" value="> 60" /& gt; <referenceRange> <observationRange> < text>> 59</text> </observationRange> & lt;/referenceRange> </observation> </component> <component> <observation moodCode="EVN" classCode=& quot;OBS"> <templateId root=" 2.16.840.1.157133.10.20.22.4.2" /> <id nullFlavor="NA& quot; /> <code codeSystem="local" code="GAP" displayName="ANION GAP" /> <statusCode code="completed& quot; /> <effectiveTime value="630134982647" /> <value unit="mmol/L" xsi:type="PQ" value="7& quot; /> <referenceRange> <observationRange> <text>5-15</text> </observationRange&gt ; </referenceRange> </observation> </ component> <component> <observation moodCode="EVN& quot; classCode="OBS"> <templateId root=" 2.16.840.1.463374.10..22.4.2" /> <id nullFlavor="NA& quot; /> <code codeSystem="local" code="eCrCl&quot ; displayName="EST CrCl (CG)" /> <statusCode code=&quot ;completed" /> <effectiveTime value="837029773228&quot ; /> <value unit="mL/min" xsi:type="PQ" value=" 46" /> <interpretationCode codeSystem="local" code ="*" /> <referenceRange> < observationRange> <text>> 59</text> </observationRange> </referenceRange> </ observation> </component> <component> < observation moodCode="EVN" classCode="OBS"> < templateId root="2.16.840.1.742393.10.20.22.4.2" /> < id nullFlavor="NA" /> <code codeSystem="local&quot ; code="GLU" displayName="GLUCOSE" /> < statusCode code="completed" /> <effectiveTime value=" 207041509678" /> <value unit="mg/dL"xsi:type=&quot ;PQ" value="118" /> <interpretationCode codeSystem ="local" code="*" /> <referenceRange> <observationRange> <text>70-99</text> </observationRange> </referenceRange> </ observation> </component> <component> < observation moodCode="EVN" classCode="OBS"> < templateId root="2.16.840.1.630781.10.20.22.4.2" /> < id nullFlavor="NA" /> <code codeSystem="local" code=& quot;CA" displayName="CALCIUM" /> <statusCode code=& quot;completed" /> <effectiveTime value="145677233148& quot; /> <value unit="mg/dL" xsi:type="PQ" value="8.9" /> <referenceRange> < observationRange> <text>8.5-10.1</text> & lt;/observationRange> </referenceRange></observation> </component> <component> <observation moodCode=& quot;EVN" classCode="OBS"> <templateId root=" 2.16.840.1.462623.10.20.22.4.2" /> <id nullFlavor="NA& quot; /> <code codeSystem="local" code="BUN" displayName="BLOOD UREA NITROGEN" /> <statusCode code=& quot;completed" /> <effectiveTime value="984956043177& quot;/> <value unit="mg/dL" xsi:type="PQ" value="16" /> <referenceRange> < observationRange> <text>7-20</text> </ observationRange> </referenceRange> </observation&gt ; </component> <component> <observation moodCode ="EVN" classCode="OBS"> <templateId root=& quot;2.16.840.1.552962.10.20.22.4.2"/> <id nullFlavor=" NA" /> <code codeSystem="local"code="CREAT& quot; displayName="CREATININE" /> <statusCode code=& quot;completed" /> <effectiveTime value="997378083250& quot; /> <value unit="mg/dL" xsi:type="PQ" value="1.0" /> <referenceRange> < observationRange> <text>0.8-1.3</text></ observationRange> </referenceRange> </observation&gt ; </component> <component> <observation moodCode ="EVN" classCode="OBS"> <templateId root=& quot;2.16.840.1.174098.10.20.22.4.2" /> <id nullFlavor=&quot ;NA" /> <code codeSystem="local" code="NA& quot; displayName="SODIUM" /> <statusCode code=" completed" /> <effectiveTime value="470863556289" /> <value unit="mmol/L"xsi:type="PQ" value=" 136" /> <referenceRange> <observationRange& gt; <text>135-148</text> </ observationRange> </referenceRange> </observation&gt ; </component> <component> <observation moodCode ="EVN" classCode="OBS"> <templateId root=& quot;2.16.840.1.162877...22.4.2" /> <id nullFlavor=&quot ;NA" /> <code codeSystem="local" code="CL& quot; displayName="CHLORIDE" /> <statusCode code=" completed" /> <effectiveTime value="939445560386" /> <value unit="mmol/L" xsi:type="PQ" value=& quot;100" /> <referenceRange> < observationRange> <text>98-110</text> </ observationRange> </referenceRange> </observation&gt ; </component> <component> <observation moodCode ="EVN" classCode="OBS"> <templateId root=& quot;2.16.840.1.538301...22.4.2" /> <id nullFlavor=&quot ;NA" /> <code codeSystem="local" code="CO2& quot; displayName="CARBON DIOXIDE" /> <statusCode code=& quot;completed" /> <effectiveTime value="384822396560& quot; /> <value unit="mmol/L" xsi:type="PQ" value="29" /> <referenceRange> < observationRange> <text>21-32</text> < /observationRange> </referenceRange> </observation& gt; </component> </organizer> </entry> <entry&gt ; <organizer moodCode="EVN" classCode="BATTERY"> <templateId root="2.16.840.1.028807.10.20.22.4.1" /> & lt;id nullFlavor="NA" /> <code codeSystem="local&quot ; code="GLUMON" displayName="GLUCOSE (POC)" /> < statusCode code="completed" /> <component> < observation moodCode="EVN" classCode="OBS"> < templateId root="2.16.840.1.472205.10.20.22.4.2" /> < id nullFlavor="NA" /> <code codeSystem="local&quot ; code="GLUMON" displayName="GLUCOSE (POC)" /> & lt;statusCode code="completed" /> <effectiveTime value= "962880777935" /> <value unit="mg/dL" xsi: type="PQ" value="111" /> <interpretationCode codeSystem="local" code="*" /> < referenceRange> <observationRange> <text> 70-99</text> </observationRange> </referenceRange > </observation> </component> </organizer> </entry> <entry> <organizer moodCode="EVN" classCode="BATTERY"> <templateId root=" [id number]" /> <id nullFlavor="NA&quot ; /> <code codeSystem="local" code="GLUMON" displayName="GLUCOSE (POC)" /> <statusCode code=" completed" /> <component> <observation moodCode=& quot;EVN" classCode="OBS"> <templateId root=" [id number]" /> <id nullFlavor="NA& quot; /> <code codeSystem="local" code="GLUMON& quot; displayName="GLUCOSE (POC)" /> <statusCode code=& quot;completed" /> <effectiveTime value="[id number]& quot; /> <value unit="mg/dL" xsi:type="PQ" value="111" /> <interpretationCode codeSystem=" local" code="*" /> <referenceRange> < observationRange> <text>70-99</text> < /observationRange> </referenceRange> </observation& gt; </component> </organizer> </entry> <entry&gt ; <organizer moodCode="EVN" classCode="BATTERY"> <templateId root="2.16.840.1.105554.10.20.22.4.1" /> & lt;id nullFlavor="NA" /> <code codeSystem="local&quot ; code="GLUMON" displayName="GLUCOSE (POC)" /> < statusCode code="completed" /> <component> < observation moodCode="EVN" classCode="OBS"> < templateId root="2.16.840.1.626657.10.20.22.4.2" /> < id nullFlavor="NA" /> <code codeSystem="local&quot ; code="GLUMON" displayName="GLUCOSE (POC)" /> & lt;statusCode code="completed" /> <effectiveTime value=" 669580350609" /> <value unit="mg/dL"xsi:type=&quot ;PQ" value="202" /> <interpretationCode codeSystem ="local" code="*" /> <referenceRange> <observationRange> <text>70-99</text> </observationRange> </referenceRange> </ observation> </component> </organizer> </entry> & lt;entry> <organizer moodCode="EVN" classCode="BATTERY& quot;> <templateId root="2.16.840.1.038533.10.20.22.4.1" /> <id nullFlavor="NA" /> <code codeSystem="local " code="GLUMON" displayName="GLUCOSE (POC)" /> <statusCode code="completed" /> <component> < observation moodCode="EVN" classCode="OBS"> < templateId root="2.16.840.1.475780.10.20.22.4.2" /> < id nullFlavor="NA" /> <code codeSystem="local&quot ; code="GLUMON" displayName="GLUCOSE (POC)" /> & lt;statusCode code="completed" /> <effectiveTime value= "209206078529" /> <value unit="mg/dL" xsi: type="PQ" value="202" /> <interpretationCode codeSystem="local" code="*" /> < referenceRange> <observationRange> <text> 70-99</text> </observationRange> </ referenceRange> </observation> </component> </ organizer> </entry> <entry> <organizer moodCode="EVN " classCode="BATTERY"> <templateId root=" 2.16.840.1.195475.10.20.22.4.1" /> <id nullFlavor="NA&quot ; /> <code codeSystem="local" code="GLUMON" displayName="GLUCOSE (POC)" /> <statusCode code=" completed" /> <component> <observation moodCode=& quot;EVN" classCode="OBS"> <templateId root=" 2.16.840.1.802927.10.20.22.4.2" /> <id nullFlavor="NA& quot; /> <code codeSystem="local" code="GLUMON& quot; displayName="GLUCOSE (POC)" /> <statusCode code=& quot;completed" /> <effectiveTime value="744214959763& quot; /> <value unit="mg/dL" xsi:type="PQ" value="267" /> <interpretationCode codeSystem=" local" code="*" /> <referenceRange> <observationRange> <text>70-99</text> &lt ;/observationRange> </referenceRange> </observation& gt;</component> </organizer> </entry> <entry> & lt;organizer moodCode="EVN" classCode="BATTERY"> &lt ;templateId root="2.16.840.1.881895.10.20.22.4.1" /> <id nullFlavor="NA" /> <code codeSystem="local" code= "GLUMON" displayName="GLUCOSE (POC)" /> < statusCode code="completed" /> <component> < observation moodCode="EVN" classCode="OBS"> < templateId root="2.16.840.1.773111.10.20.22.4.2" /> < id nullFlavor="NA" /> <code codeSystem="local&quot ; code="GLUMON" displayName="GLUCOSE (POC)" /> & lt;statusCode code="completed" /> <effectiveTime value= "450885998968" /> <value unit="mg/dL" xsi: type="PQ" value="267" /> <interpretationCode codeSystem="local" code="*" /> < referenceRange> <observationRange> <text>70-99& lt;/text> </observationRange> </referenceRange& gt; </observation> </component> </organizer> & lt;/entry> <entry> <organizer moodCode="EVN" classCode ="BATTERY"> <templateId root=" 2.16.840.1.789758.10.20.22.4.1" /><id nullFlavor="NA" /&gt ; <code codeSystem="local" code="GLUMON" displayName ="GLUCOSE (POC)" /> <statusCode code="completed" /> <component> <observation moodCode="EVN" classCode="OBS"> <templateId root=" 2.16.840.1.240457.10.20.22.4.2" /> <id nullFlavor="NA& quot; /> <code codeSystem="local" code="GLUMON& quot; displayName="GLUCOSE (POC)" /> <statusCode code=& quot;completed" /> <effectiveTime value="361500598268" /> <value unit="mg/dL" xsi:type="PQ" value=& quot;164" /> <interpretationCode codeSystem="local&quot ; code="*" /> <referenceRange> < observationRange> <text>70-99</text> < /observationRange> </referenceRange> </observation& gt; </component> </organizer> </entry> <entry&gt ; <organizer moodCode="EVN" classCode="BATTERY"> & lt;templateId root="2.16.840.1.665162.10.20.22.4.1" /> <id nullFlavor="NA" /> <code codeSystem="local" code= "GLUMON" displayName="GLUCOSE (POC)" /> < statusCode code="completed" /> <component> < observation moodCode="EVN" classCode="OBS"> < templateIdroot="2.16.840.1.973306.10.20.22.4.2" /> <id nullFlavor="NA" /> <code codeSystem="local" code="GLUMON" displayName="GLUCOSE (POC)" /> &lt ;statusCode code="completed" /> <effectiveTime value=& quot;623137445544" /> <value unit="mg/dL" xsi:type ="PQ"value="164" /> <interpretationCode codeSystem="local" code="*" /> < referenceRange> <observationRange> <text> 70-99</text> </observationRange> </ referenceRange></observation> </component> </organizer > </entry> <entry><organizer moodCode="EVN" classCode="BATTERY"> <templateId root=" 2.16.840.1.075424.10.20.22.4.1" /> <id nullFlavor="NA&quot ; /> <code codeSystem="local" code="GLUMON" displayName="GLUCOSE (POC)" /> <statusCode code=" completed" /> <component> <observation moodCode=& quot;EVN" classCode="OBS"> <templateId root=" 2.16.840.1.011942.10.20.22.4.2" /> <id nullFlavor="NA& quot; /> <code codeSystem="local" code="GLUMON& quot; displayName="GLUCOSE (POC)" /> <statusCode code=& quot;completed" /> <effectiveTime value="490540315384& quot; /> <value unit="mg/dL" xsi:type="PQ" value="139" /> <interpretationCode codeSystem=" local" code="*" /> <referenceRange> <observationRange> <text>70-99</text> & lt;/observationRange> </referenceRange> </ observation> </component> </organizer> </entry> < entry> <organizer moodCode="EVN" classCode="BATTERY&quot ;> <templateId root="2.16.840.1.501139.10.20.22.4.1" /> <id nullFlavor="NA" /> <code codeSystem=" local" code="GLUMON" displayName="GLUCOSE (POC)" /> <statusCode code="completed" /> <component> <observation moodCode="EVN" classCode="OBS"> <templateId root="2.16.840.1.714139.10.20.22.4.2" /> <id nullFlavor="NA" /> <code codeSystem=" local" code="GLUMON" displayName="GLUCOSE (POC)" /> <statusCode code="completed" /> < effectiveTime value="270820252787" /> <value unit=&quot ;mg/dL" xsi:type="PQ" value="139" /> < interpretationCode codeSystem="local" code="*" /> <referenceRange> <observationRange> <text&gt ;70-99</text> </observationRange> </ referenceRange> </observation> </component> </ organizer> </entry> <entry> <organizer moodCode="EVN " classCode="BATTERY"> <templateId root=" 2.16.840.1.529572.10.20.22.4.1" /> <id nullFlavor="NA" /&gt ; <code codeSystem="local" code="GLUMON" displayName ="GLUCOSE (POC)" /> <statusCode code="completed" /> <component> <observation moodCode="EVN" classCode="OBS"> <templateId root=" 2.16.840.1.827771.10.20.22.4.2" /> <id nullFlavor="NA& quot; /> <code codeSystem="local" code="GLUMON& quot; displayName="GLUCOSE (POC)" /> <statusCode code=& quot;completed" /> <effectiveTime value="757261899594&quot ; /> <value unit="mg/dL" xsi:type="PQ" value= "133" /> <interpretationCode codeSystem="local& quot; code="*" /> <referenceRange> < observationRange> <text>70-99</text> < /observationRange> </referenceRange> </observation& gt; </component> </organizer> </entry> <entry&gt ; <organizer moodCode="EVN" classCode="BATTERY"> <templateId root="2.16.840.1.486419.10.20.22.4.1" /> < id nullFlavor="NA" /> <code codeSystem="local" code="GLUMON" displayName="GLUCOSE (POC)" /> < statusCode code="completed" /> <component> < observation moodCode="EVN" classCode="OBS"> < templateId root="2.16.840.1.806726.10.20.22.4.2" /> < id nullFlavor="NA" /> <code codeSystem="local&quot ; code="GLUMON" displayName="GLUCOSE (POC)" /> & lt;statusCode code="completed" /> <effectiveTime value= "054885392594" /> <value unit="mg/dL" xsi: type="PQ" value="133" /> <interpretationCode codeSystem="local" code="*" /> < referenceRange> <observationRange> <text> 70-99</text> </observationRange> </ referenceRange> </observation> </component> </ organizer> </entry> <entry> <organizer moodCode="EVN& quot; classCode="BATTERY"> <templateId root=" 2.16.840.1.593113.10.20.22.4.1" /> <id nullFlavor="NA&quot ; /> <code codeSystem="local" code="GLUMON" displayName="GLUCOSE (POC)" /> <statusCode code=" completed" /> <component> <observation moodCode=& quot;EVN" classCode="OBS"> <templateId root=" 2.16.840.1.216247.10.20.22.4.2" /> <id nullFlavor="NA& quot; /> <code codeSystem="local" code="GLUMON& quot; displayName="GLUCOSE (POC)" /><statusCode code=" completed" /> <effectiveTime value="985759548445" /> <value unit="mg/dL" xsi:type="PQ" value=& quot;173" /> <interpretationCode codeSystem="local&quot ; code="*" /> <referenceRange> < observationRange> <text>70-99</text> </ observationRange> </referenceRange> </observation&gt ; </component> </organizer> </entry> <entry> & lt;organizer moodCode="EVN" classCode="BATTERY"> &lt ;templateId root="2.16.840.1.885266.10.20.22.4.1" /> <id nullFlavor="NA" /> <code codeSystem="local" code= "GLUMON" displayName="GLUCOSE (POC)" /> < statusCode code="completed" /> <component> < observation moodCode="EVN" classCode="OBS"> < templateId root="2.16.840.1.872277.10.20.22.4.2" /> < id nullFlavor="NA" /> <code codeSystem="local&quot ; code="GLUMON" displayName="GLUCOSE (POC)" /> & lt;statusCode code="completed" /> <effectiveTime value= "500507059679" /> <value unit="mg/dL" xsi: type="PQ" value="173" /> <interpretationCode codeSystem="local" code="*" /> < referenceRange> <observationRange> <text>70-99 </text> </observationRange> </referenceRange& gt; </observation> </component> </organizer> & lt;/entry> <entry> <organizer moodCode="EVN" classCode ="BATTERY"> <templateId root=" 2.16.840.1.527757.10.20.22.4.1" /> <id nullFlavor="NA" /& gt; <code codeSystem="local" code="LBMP" displayName ="L200.0050" /> <statusCode code="completed" /&gt ; <component> <observation moodCode="EVN" classCode=& quot;OBS"> <templateId root="2.16.840.1.499958.10.20.22.4.2 " /> <id nullFlavor="NA" /> <code codeSystem="local" code="300.0400" displayName="FUNGAL CULTURE." /> <statusCode code="completed" /> <effectiveTime value="678330896714" /> <value unit="MG/DL" xsi:type="PQ" value="1.0" /> <referenceRange> <observationRange> &lt ;text>0.8-1.5</text> </observationRange> < /referenceRange> </observation> </component> &lt ;component> <observation moodCode="EVN" classCode=" OBS"> <templateId root="2.16.840.1.473659.10.20.22.4.2& quot; /> <id nullFlavor="NA" /> <code codeSystem="local" code="300.0450" displayName="FUNGAL CULTURE, BLOOD." /> <statusCode code="completed" / > <effectiveTime value="106319845634" /> <value unit="RATIO" xsi:type="PQ" value="24" /> <referenceRange> <observationRange> < text>6-26</text> </observationRange> </ referenceRange> </observation> </component> < component> <observation moodCode="EVN" classCode=" OBS"> <templateId root="2.16.840.1.112843.10.20.22.4.2& quot; /> <id nullFlavor="NA" /> <code codeSystem="local" code="300.0100" displayName="NA - Sodium" /> <statusCode code="completed" /> <effectiveTimevalue="971955816417" /> <value unit="MEQ/L" xsi:type="PQ" value="140" /> <referenceRange> <observationRange> < text>134-144</text> </observationRange> </ referenceRange> </observation> </component> < component> <observation moodCode="EVN" classCode=" OBS"> <templateId root="2.16.840.1.022520.10.20.22.4.2& quot; /> <id nullFlavor="NA" /> <code codeSystem="local" code="300.0150" displayName=" Potassium" /> <statusCode code="completed" /> <effectiveTime value="241767960546" /> < value unit="MEQ/L" xsi:type="PQ" value="4.3" /&gt ; <referenceRange> <observationRange> <text>3.6-5</text> </observationRange> </referenceRange></observation> </component> < component> <observation moodCode="EVN" classCode=" OBS"> <templateId root="2.16.840.1.807605.10.20.22.4.2& quot; /> <id nullFlavor="NA" /> <code codeSystem="local" code="300.0200" displayName=" Chloride" /> <statusCode code="completed" /> <effectiveTime value="950565277509" /> < value unit="MEQ/L" xsi:type="PQ" value="102" /&gt ; <referenceRange> <observationRange> < text>98-107</text> </observationRange> </ referenceRange> </observation> </component> < component> <observation moodCode="EVN" classCode=" OBS"> <templateId root="2.16.840.1.270333.10.20.22.4.2& quot; /> <id nullFlavor="NA" /> <code codeSystem="local" code="300.0250" displayName="CO2 - Carbon Dioxide" /> <statusCode code="completed" /& gt; <effectiveTime value="494189640072" /> <value unit="MEQ/L" xsi:type="PQ" value="29" /> <referenceRange> <observationRange> < text>22-30</text> </observationRange> </ referenceRange> </observation> </component> < component> <observation moodCode="EVN" classCode=" OBS"> <templateId root="2.16.840.1.091163.10.20.22.4.2& quot; /> <id nullFlavor="NA" /> <code codeSystem="local" code="300.0300" displayName="Anion Gap" /> <statusCode code="completed" /> <effectiveTime value="655836625064" /> <value unit="MEQ/L" xsi:type="PQ" value="9" /> <referenceRange> <observationRange> <text& gt;5-15</text> </observationRange> </ referenceRange> </observation> </component>< component> <observation moodCode="EVN" classCode=" OBS"> <templateId root="2.16.840.1.768331.10.20.22.4.2" /> <id nullFlavor="NA" /> <code codeSystem="local" code="300.0350" displayName="BUN - Blood Urea Nitrogen" /> <statusCode code="completed& quot; /> <effectiveTime value="635196488662" /> <value unit="MG/DL" xsi:type="PQ" value="24.0& quot; /> <interpretationCode codeSystem="local" code=& quot;*" /> <referenceRange> < observationRange> <text>9-20</text> </ observationRange> </referenceRange> </observation> & lt;/component> <component> <observation moodCode=" EVN" classCode="OBS"> <templateId root=" 2.16.840.1.194729.10.20.22.4.2" /> <id nullFlavor="NA& quot; /> <code codeSystem="local" code="300.0410& quot; displayName="Glomerular Filtration Rate" /> < statusCode code="completed" /> <effectiveTime value=& quot;796043019468" /> <value unit="" xsi:type=& quot;PQ" value="71" /> <referenceRange> <observationRange> <text>NRG</text> </observationRange> </referenceRange> </ observation> </component> <component> < observation moodCode="EVN" classCode="OBS"> < templateId root="2.16.840.1.922408.10.20.22.4.2" /> < id nullFlavor="NA" /> <code codeSystem="local" code=& quot;300.0500" displayName="Glucose" /> < statusCode code="completed" /> <effectiveTime value=& quot;934847725106" /> <value unit="MG/DL" xsi:type ="PQ" value="74" /> <interpretationCode codeSystem="local" code="*" /> <referenceRange& gt; <observationRange> <text>75-110</text > </observationRange> </referenceRange> </observation> </component> <component> & lt;observation moodCode="EVN" classCode="OBS"> & lt;templateId root="2.16.840.1.782475.10.20.22.4.2" /> &lt ;id nullFlavor="NA" /> <code codeSystem="local& quot; code="300.2000" displayName="Osmolality,Calculated" /& gt; <statusCode code="completed" /> < effectiveTime value="824451286178" /> <value unit=" MOSM/KG" xsi:type="PQ" value="272" /> < referenceRange> <observationRange> <text> 261-280</text> </observationRange> </ referenceRange> </observation> </component> < component> <observation moodCode="EVN" classCode=" OBS"> <templateId root="2.16.840.1.552771.10.20.22.4.2& quot;/> <id nullFlavor="NA" /> <code codeSystem="local"code="300.2200" displayName="Calcium& quot; /> <statusCode code="completed" /> & lt;effectiveTime value="639883437847" /> <value unit=& quot;MG/DL" xsi:type="PQ" value="9.7" /> & lt;referenceRange> <observationRange> <text& gt;8.4-10.2</text> </observationRange> </referenceRange& gt; </observation> </component> <component> <observation moodCode="EVN" classCode="OBS"> <templateId root="2.16.840.1.752843.10.20.22.4.2" /> <id nullFlavor="NA" /> <code codeSystem=&quot ;local" code="300.0095" displayName="LICTERUS" /> <statusCode code="completed" /> < effectiveTime value="864108743558" /> <value unit=&quot ;" xsi:type="PQ" value="< 2" /> < referenceRange> <observationRange> <text>0-7</ text> </observationRange> </referenceRange> </observation> </component> <component> <observation moodCode="EVN" classCode="OBS">< templateId root="2.16.840.1.569890.10..22.4.2" /> < id nullFlavor="NA" /> <code codeSystem="local&quot ; code="300.0096" displayName="LHEMOLYSIS" /> & lt;statusCode code="completed" /> <effectiveTime value= "861812066689" /> <value unit="" xsi:type=& quot;PQ" value="< 15" /> <referenceRange&gt ; <observationRange> <text>0-25</text&gt ; </observationRange></referenceRange> </ observation> </component> <component> < observation moodCode="EVN" classCode="OBS"> < templateId root="2.16.840.1.045272.10..22.4.2" /> < id nullFlavor="NA" /> <code codeSystem="local&quot ; code="300.0097" displayName="LTURBIDITY" /> & lt;statusCode code="completed" /> <effectiveTime value= "857796247022" /> <value unit="" xsi:type=& quot;PQ" value="< 20" /> <referenceRange&gt ; <observationRange> <text>0-20</text> </observationRange> </referenceRange> </ observation> </component> </organizer> </entry> & lt;entry> <organizer moodCode="EVN" classCode="BATTERY& quot;> <templateId root="2.16.840.1.312483.10.20.22.4.1" /& gt; <id nullFlavor="NA" /> <code codeSystem=" local" code="LBGM" displayName="L900.0530" /> & lt;statusCode code="completed" /> <component> &lt ;observation moodCode="EVN" classCode="OBS"> &lt ;templateId root="2.16.840.1.417315.10.20.22.4.2" /> < id nullFlavor="NA" /> <code codeSystem="local&quot ; code="850.0100" displayName="Glucometer" /> < statusCode code="completed" /> <effectiveTime value=& quot;159336748192" /> <value unit="mg/dL" xsi:type ="PQ" value="88" /> <referenceRange> <observationRange> <text>65-110</text> </observationRange> </referenceRange> </ observation> </component> </organizer> </entry> & lt;entry> <organizer moodCode="EVN" classCode="BATTERY& quot;> <templateId root="2.16.840.1.679282.10.20.22.4.1" /& gt; <id nullFlavor="NA" /> <code codeSystem=" local" code="LBGM" displayName="L900.0530" /> & lt;statusCode code="completed" /> <component> &lt ;observation moodCode="EVN" classCode="OBS"> &lt ;templateId root="2.16.840.1.179293.10.20.22.4.2" /> < id nullFlavor="NA" /> <code codeSystem="local&quot ; code="850.0100" displayName="Glucometer" /> & lt;statusCode code="completed" /> <effectiveTime value= "531012722379" /> <value unit="mg/dL" xsi: type="PQ" value="98" /> <referenceRange> <observationRange> <text>65-110</text> </observationRange> </referenceRange> </ observation> </component> </organizer> </entry> & lt;entry> <organizer moodCode="EVN" classCode="BATTERY& quot;> <templateId root="2.16.840.1.281137.10.20.22.4.1" /& gt; <id nullFlavor="NA" /> <code codeSystem=" local" code="LBGM" displayName="L900.0530" /> & lt;statusCode code="completed" /> <component> &lt ;observation moodCode="EVN" classCode="OBS"> &lt ;templateId root="2.16.840.1.673656.10.20.22.4.2" /> < id nullFlavor="NA" /> <code codeSystem="local&quot ; code="850.0100" displayName="Glucometer" /> & lt;statusCode code="completed" /> <effectiveTime value= "975370680777" /> <value unit="mg/dL" xsi: type="PQ" value="119" /> <referenceRange> <observationRange> <text>65-110</text&gt ;</observationRange> </referenceRange> </ observation> </component> </organizer> </entry> & lt;entry> <organizer moodCode="EVN" classCode="BATTERY& quot;> <templateId root="2.16.840.1.698202.10.20.22.4.1" /& gt; <id nullFlavor="NA" /> <code codeSystem=" local" code="LCBCND" displayName="L100.0025" /> <statusCode code="completed" /> <component> <observation moodCode="EVN" classCode="OBS"> <templateId root="2.16.840.1.985308.10.20.22.4.2" /> & lt;id nullFlavor="NA" /> <code codeSystem="local& quot; code="100.0150" displayName="WBC - WHITE BLOOD COUNT" /> <statusCode code="completed" /> < effectiveTime value="863684232393" /> <value unit=&quot ;T/MM3" xsi:type="PQ" value="8.7" /> < referenceRange> <observationRange> <text> 4.5-11.0</text> </observationRange> </referenceRange&gt ; </observation> </component> <component> <observation moodCode="EVN" classCode="OBS"> <templateId root="2.16.840.1.382787.10.20.22.4.2" /> <id nullFlavor="NA" /> <code codeSystem=" local" code="100.0250" displayName="RED BLOOD COUNT" /& gt; <statusCode code="completed" /> < effectiveTime value="527138278119" /> <value unit=&quot ;M/MM3" xsi:type="PQ" value="3.86" /> < interpretationCode codeSystem="local" code="*" /> <referenceRange> <observationRange> < text>4.50-5.90</text> </observationRange> &lt ;/referenceRange> </observation> </component> & lt;component> <observation moodCode="EVN" classCode=&quot ;OBS"> <templateId root="2.16.840.1.981485.10.20.22.4.2 " /> <id nullFlavor="NA" /> <code codeSystem="local" code="100.0300" displayName="HGB - HEMOGLOBIN" /> <statusCode code="completed" /> <effectiveTime value="874012388997" /> < value unit="GM/DL" xsi:type="PQ" value="12.3" /&gt ; <interpretationCode codeSystem="local" code="*&quot ; /> <referenceRange> <observationRange> <text>13.5-17.5</text> </observationRange> </referenceRange> </observation> </component > <component> <observation moodCode="EVN" classCode="OBS"> <templateId root=" 2.16.840.1.490487.10.20.22.4.2" /> <id nullFlavor="NA& quot; /><code codeSystem="local" code="100.0400" displayName="HCT - HEMATOCRIT" /> <statusCode code=& quot;completed" /> <effectiveTime value="502194730571& quot; /> <value unit="%" xsi:type="PQ&quot ; value="38.8" /> <interpretationCode codeSystem=" local" code="*" /> <referenceRange> <observationRange> <text>41-53</text> </observationRange> </referenceRange></observation> </component> <component> <observation moodCode=& quot;EVN" classCode="OBS"> <templateId root=" 2.16.840.1.382654.10.20.22.4.2" /> <id nullFlavor="NA& quot; /> <code codeSystem="local" code="100.0550& quot; displayName="MEAN CORPUSCULAR VOLUME" /> <statusCode code="completed" /> <effectiveTime value=" 355780048741" /> <value unit="UM3" xsi:type=" PQ" value="100.5" /> <interpretationCode codeSystem="local" code="*" /> <referenceRange> <observationRange> <text>80-100</text> </observationRange> </referenceRange> & lt;/observation> </component> <component> < observation moodCode="EVN" classCode="OBS"> < templateId root="2.16.840.1.927283.10.20.22.4.2" /> < id nullFlavor="NA" /> <code codeSystem="local&quot ; code="100.0600" displayName="MEAN CORPUSCULAR HGB" /> <statusCode code="completed" /> < effectiveTime value="197564538201" /> <value unit="UUG& quot; xsi:type="PQ" value="31.9" /> < referenceRange> <observationRange> <text> 26-34</text> </observationRange> </referenceRange& gt; </observation> </component> <component> <observation moodCode="EVN" classCode="OBS"> <templateId root="2.16.840.1.982057.10.20.22.4.2" /> & lt;id nullFlavor="NA" /> <code codeSystem="local& quot; code="100.0650" displayName="MEAN CORPUSCULAR HGB CONC([facility] " /> <statusCode code="completed" /> & lt;effectiveTime value="465925137811" /> <value unit="GM/ DL" xsi:type="PQ" value="31.7" /> < referenceRange> <observationRange> <text> 31-37</text> </observationRange> </ referenceRange> </observation> </component> < component> <observation moodCode="EVN" classCode=" OBS"> <templateId root="[id number]& quot; /> <id nullFlavor="NA" /> <code codeSystem="local" code="100.0750" displayName="RDW STANDARD DEVIATION" /> <statusCode code="completed&quot ; /> <effectiveTime value="[id number]" /> <value unit="FL" xsi:type="PQ" value="52.5" / > <interpretationCode codeSystem="local" code="*& quot; /> <referenceRange> <observationRange> <text>36.9-50.2</text> </observationRange&gt ; </referenceRange> </observation> </ component> <component> <observation moodCode="EVN& quot; classCode="OBS"> <templateId root=" [id number]" /> <id nullFlavor="NA& quot; /> <code codeSystem="local" code="100.0850& quot; displayName="PLT - PLATELET COUNT" /> < statusCode code="completed" /> <effectiveTime value=& quot;169991841821" /> <value unit="T/MM3" xsi:type ="PQ" value="126" /> <interpretationCode codeSystem="local" code="*" /> < referenceRange> <observationRange> <text> 130-400</text> </observationRange> </ referenceRange> </observation> </component> < component> <observation moodCode="EVN" classCode=" OBS"> <templateId root="2.16.840.1.695775.10.20.22.4.2& quot; /> <id nullFlavor="NA" /> <code codeSystem="local" code="100.0950" displayName=" MEANPLATELET VOLUME" /> <statusCode code="completed& quot; /> <effectiveTime value="187829638185" /> <value unit="UM3" xsi:type="PQ" value="10.8& quot; /> <referenceRange> <observationRange> <text>9.4-12.4</text> </observationRange > </referenceRange> </observation> </ component> </organizer> </entry> <entry> < organizer moodCode="EVN" classCode="BATTERY"> < templateId root="2.16.840.1.879109.10.20.22.4.1" /> <id nullFlavor="NA" /> <code codeSystem="local" code= "LINR" displayName="L160.0105" /> <statusCode code="completed" /> <component> <observation moodCode="EVN" classCode="OBS"> <templateId root="2.16.840.1.534059.10.20.22.4.2" /> <id nullFlavor ="NA" /> <code codeSystem="local" code=" 150.0150" displayName="INR." /> <statusCode code=& quot;completed" /> <effectiveTime value="953910160097& quot; /> <value unit="" xsi:type="PQ" value=& quot;1.44" /> <interpretationCode codeSystem="local& quot; code="*" /> <referenceRange> < observationRange> <text>0.99-1.21</text> </observationRange> </referenceRange> </ observation> </component> </organizer> </entry> & lt;entry> <organizer moodCode="EVN" classCode="BATTERY& quot;> <templateId root="2.16.840.1.549986.10.20.22.4.1" /& gt; <id nullFlavor="NA" /> <code codeSystem=" local" code="LBMP" displayName="L200.0050" /> & lt;statusCode code="completed" /> <component> &lt ;observation moodCode="EVN" classCode="OBS"> &lt ;templateId root="2.16.840.1.770694.10.20.22.4.2" /> < id nullFlavor="NA" /> <code codeSystem="local&quot ; code="300.0400" displayName="FUNGAL CULTURE." /> <statusCode code="completed" /> <effectiveTime value="826858793878" /> <value unit="MG/DL" xsi:type="PQ" value="1.1" /> <referenceRange> <observationRange> <text>0.8-1.5</text> </observationRange> </referenceRange> &lt ;/observation> </component> <component> < observation moodCode="EVN" classCode="OBS"> < templateId root="2.16.840.1.468813.10.20.22.4.2" /> < id nullFlavor="NA" /> <code codeSystem="local&quot ; code="300.0450" displayName="FUNGAL CULTURE, BLOOD." /&gt ; <statusCodecode="completed" /> < effectiveTime value="858850829469" /> <value unit=" RATIO" xsi:type="PQ" value="26" /> < referenceRange> <observationRange> <text> 6-26</text> </observationRange> </referenceRange > </observation></component> <component> <observation moodCode="EVN" classCode="OBS"> <templateId root="2.16.840.1.334459.10.20.22.4.2" /> < id nullFlavor="NA" /> <code codeSystem="local&quot ; code="300.0100" displayName="NA - Sodium" /> & lt;statusCode code="completed" /> <effectiveTime value= "500577187148" /> <value unit="MEQ/L" xsi: type="PQ" value="137" /> <referenceRange> <observationRange> <text>134-144</text& gt; </observationRange> </referenceRange> </observation> </component> <component> &lt ;observation moodCode="EVN" classCode="OBS"> &lt ;templateId root="2.16.840.1.409960.10..22.4.2" /> < id nullFlavor="NA" /> <code codeSystem="local&quot ; code="300.0150" displayName="Potassium" /> &lt ;statusCode code="completed" /> <effectiveTime value=" 311877262452" /> <value unit="MEQ/L" xsi:type=& quot;PQ" value="4.7" /> <referenceRange> <observationRange> <text>3.6-5</text> </observationRange> </referenceRange> </ observation> </component> <component> < observation moodCode="EVN" classCode="OBS"> < templateId root="2.16.840.1.828953.10.20.22.4.2" /> < id nullFlavor="NA" /> <code codeSystem="local&quot ; code="300.0200" displayName="Chloride" /> < statusCode code="completed" /> <effectiveTime value=& quot;" /> <value unit="MEQ/L" xsi:type ="PQ" value="104" /> <referenceRange> <observationRange> <text>98-107</text> </observationRange> </referenceRange> < /observation> </component> <component> < observation moodCode="EVN" classCode="OBS"> < templateId root="2.16.840.1.214882.10..22.4.2" /> < id nullFlavor="NA" /><code codeSystem="local" code=& quot;300.0250" displayName="CO2 - Carbon Dioxide" /> <statusCode code="completed" /> <effectiveTime value ="709801590295" /> <value unit="MEQ/L" xsi: type="PQ" value="27" /> <referenceRange> <observationRange> <text>22-30</text> </observationRange> </referenceRange> </ observation> </component> <component> < observation moodCode="EVN" classCode="OBS"> < templateId root="2.16.840.1.554515.10.20.22.4.2" /> < id nullFlavor="NA" /> <codecodeSystem="local&quot ; code="300.0300" displayName="Anion Gap" /> < statusCode code="completed" /> <effectiveTime value=& quot;239434299904" /> <value unit="MEQ/L" xsi:type ="PQ" value="6" /> <referenceRange> <observationRange> <text>5-15</text> </observationRange> </referenceRange> </ observation> </component> <component> < observation moodCode="EVN" classCode="OBS"> < templateId root="2.16.840.1.257674.10.20.22.4.2" /> < id nullFlavor="NA" /> <code codeSystem="local&quot ; code="300.0350" displayName="BUN - Blood Urea Nitrogen" /& gt; <statusCode code="completed" /> < effectiveTime value="692401870509" /> <value unit=&quot ;MG/DL" xsi:type="PQ" value="28.0" /> < interpretationCode codeSystem="local" code="*" /> <referenceRange> <observationRange> < text>9-20</text> </observationRange> </ referenceRange> </observation> </component> < component> <observation moodCode="EVN" classCode=" OBS"> <templateId root="2.16.840.1.668528.10..22.4.2& quot; /> <id nullFlavor="NA" /> <code codeSystem="local" code="300.0410" displayName=" Glomerular Filtration Rate" /> <statusCode code=" completed" /> <effectiveTime value="291619459313" /><value unit="" xsi:type="PQ" value="63" /& gt; <referenceRange> <observationRange> <text>NRG</text> </observationRange> </referenceRange> </observation> </component> <component> <observation moodCode="EVN" classCode= "OBS"> <templateId root=" 2.16.840.1.270705.10.20.22.4.2" /> <id nullFlavor="NA& quot; /> <code codeSystem="local" code="300.0500& quot; displayName="Glucose" /> <statusCode code=" completed" /> <effectiveTime value="063284166059" /& gt; <value unit="MG/DL" xsi:type="PQ" value=& quot;71" /> <interpretationCode codeSystem="local&quot ; code="*" /> <referenceRange> < observationRange> <text>75-110</text> &lt ;/observationRange> </referenceRange> </observation& gt; </component> <component> <observation moodCode=& quot;EVN" classCode="OBS"> <templateId root=" 2.16.840.1.917587.10.20.22.4.2" /> <id nullFlavor="NA& quot; /> <code codeSystem="local" code="300.2000&quot ; displayName="Osmolality,Calculated" /> <statusCode code="completed" /> <effectiveTime value=" 977341044441" /> <value unit="MOSM/KG" xsi:type=& quot;PQ" value="268" /> <referenceRange> <observationRange> <text>261-280</text> </observationRange> </referenceRange> </ observation> </component> <component> < observation moodCode="EVN" classCode="OBS"> < templateId root="2.16.840.1.555201.10.20.22.4.2" /> < id nullFlavor="NA" /> <code codeSystem="local" code= "300.2200" displayName="Calcium" /> < statusCode code="completed" /> <effectiveTime value=& quot;129095843719" /> <value unit="MG/DL" xsi:type ="PQ" value="8.6" /> <referenceRange> <observationRange> <text>8.4-10.2</text> </observationRange> </referenceRange> &lt ;/observation> </component> <component> < observation moodCode="EVN" classCode="OBS"> < templateId root="2.16.840.1.796575.10.20.22.4.2" /> < id nullFlavor="NA" /> <code codeSystem="local&quot ; code="300.0095" displayName="LICTERUS" /> < statusCode code="completed" /> <effectiveTime value=& quot;270887510023" /> <value unit="" xsi:type=& quot;PQ" value="< 2" /> <referenceRange&gt ; <observationRange> <text>0-7</text> </observationRange> </referenceRange> & lt;/observation> </component> <component> < observation moodCode="EVN" classCode="OBS"> < templateId root="2.16.840.1.885849.10.20.22.4.2" /> < id nullFlavor="NA" /> <code codeSystem="local&quot ; code="300.0096" displayName="LHEMOLYSIS" /> & lt;statusCode code="completed" /> <effectiveTime value= "891997980775" /> <value unit="" xsi:type=& quot;PQ" value="< 15" /> <referenceRange&gt ; <observationRange> <text>0-25</text&gt ; </observationRange> </referenceRange> </ observation> </component> <component> < observation moodCode="EVN" classCode="OBS"> < templateId root="2.16.840.1.979330.10.20.22.4.2" /> <id nullFlavor="NA" /> <code codeSystem="local" code="300.0097" displayName="LTURBIDITY" /> < statusCode code="completed" /> <effectiveTime value=& quot;725029007793" /> <value unit="" xsi:type=& quot;PQ" value="< 20" /> <referenceRange&gt ; <observationRange> <text>0-20</text&gt ; </observationRange> </referenceRange> & lt;/observation> </component> </organizer> </entry&gt ; <entry> <organizer moodCode="EVN" classCode=" BATTERY"> <templateId root="2.16.840.1.837900.10.20.22.4.1& quot; /> <id nullFlavor="NA" /> <code codeSystem ="local" code="LBGM" displayName="L900.0530" /&gt ; <statusCode code="completed" /> <component> <observation moodCode="EVN" classCode="OBS"> <templateId root="2.16.840.1.994133.10..22.4.2" /> <id nullFlavor="NA" /> <code codeSystem=" local" code="850.0100" displayName="Glucometer" /> <statusCode code="completed" /> <effectiveTime value="151359128705" /> <value unit="mg/dL" xsi:type="PQ" value="75" /> <referenceRange& gt; <observationRange> <text>65-110</text > </observationRange> </referenceRange> </observation> </component> </organizer> </entry& gt; <entry> <organizer moodCode="EVN" classCode=" BATTERY"> <templateId root="2.16.840.1.531329.10.20.22.4.1& quot; /> <id nullFlavor="NA" /> <code codeSystem ="local" code="LBGM" displayName="L900.0530" /&gt ; <statusCode code="completed" /> <component> <observation moodCode="EVN" classCode="OBS"> <templateId root="2.16.840.1.104588.10..22.4.2" /> <id nullFlavor="NA" /> <code codeSystem=" local" code="850.0100" displayName="Glucometer" /> <statusCode code="completed" /> < effectiveTime value="837088844452" /> <value unit=&quot ;mg/dL" xsi:type="PQ" value="141" /> < referenceRange> <observationRange> <text> 65-110</text> </observationRange> </ referenceRange> </observation> </component> </ organizer> </entry> <entry> <organizer moodCode="EVN " classCode="BATTERY"><templateId root=" 2.16.840.1.657882.10.20.22.4.1" /> <id nullFlavor="NA&quot ; /> <code codeSystem="local" code="LBGM" displayName="L900.0530" /> <statusCode code="completed " /> <component> <observation moodCode="EVN& quot; classCode="OBS"> <templateId root=" 2.16.840.1.140173.10..22.4.2" /> <id nullFlavor="NA& quot; /> <code codeSystem="local" code="850.0100" displayName="Glucometer"/> <statusCode code=" completed" /> <effectiveTime value="045313659178" /> <value unit="mg/dL" xsi:type="PQ" value=& quot;106" /> <referenceRange> < observationRange> <text>65-110</text> &lt ;/observationRange> </referenceRange> </observation& gt; </component> </organizer> </entry> <entry&gt ; <organizer moodCode="EVN" classCode="BATTERY"> <templateId root="2.16.840.1.520955.10..22.4.1" /> & lt;id nullFlavor="NA" /> <code codeSystem="local" code ="LINR" displayName="L160.0105" /> <statusCode code="completed" /> <component> <observation moodCode="EVN" classCode="OBS"> <templateId root="2.16.840.1.459309.10.20.22.4.2" /> <id nullFlavor ="NA" /> <code codeSystem="local" code=" 150.0150" displayName="INR." /> <statusCode code=& quot;completed" /> <effectiveTime value="289891776374& quot; /> <value unit="" xsi:type="PQ" value=& quot;4.89" /> <referenceRange> <observationRange&gt ; <text>0.99-1.21</text> </ observationRange> </referenceRange> </observation&gt ; </component> </organizer> </entry> <entry> <organizer moodCode="EVN" classCode="BATTERY"> <templateId root="2.16.840.1.907473.10.20.22.4.1" /> < id nullFlavor="NA" /> <code codeSystem="local" code="LBGM" displayName="L900.0530" /> < statusCode code="completed" /> <component> < observation moodCode="EVN"classCode="OBS"> < templateId root="2.16.840.1.100810.10.20.22.4.2" /> < id nullFlavor="NA" /> <code codeSystem="local&quot ; code="850.0100" displayName="Glucometer" /> & lt;statusCode code="completed" /> <effectiveTime value= "317503503167" /> <value unit="mg/dL" xsi: type="PQ" value="125" /> <referenceRange> <observationRange> <text>65-110</text&gt ; </observationRange> </referenceRange> </ observation> </component> </organizer> </entry> & lt;entry> <organizer moodCode="EVN" classCode="BATTERY& quot;> <templateId root="2.16.840.1.540978.10.20.22.4.1" /& gt; <id nullFlavor="NA" /> <code codeSystem=" local"code="LBGM" displayName="L900.0530" /> & lt;statusCode code="completed" /> <component> &lt ;observation moodCode="EVN" classCode="OBS"> &lt ;templateId root="2.16.840.1.639381.10..22.4.2" /><id nullFlavor="NA" /> <code codeSystem="local" code="850.0100" displayName="Glucometer" /> < statusCode code="completed" /> <effectiveTime value=& quot;004198985368" /> <value unit="mg/dL" xsi:type ="PQ" value="84" /> <referenceRange> <observationRange> <text>65-110</text> </observationRange> </referenceRange> </ observation> </component> </organizer> </entry> & lt;entry> <organizer moodCode="EVN" classCode="BATTERY& quot;> <templateId root="2.16.840.1.016641.10.20.22.4.1" /& gt; <id nullFlavor="NA" /> <code codeSystem="local " code="LINR" displayName="L160.0105" /> < statusCode code="completed" /> <component> < observation moodCode="EVN" classCode="OBS"> < templateId root="2.16.840.1.741118.10.20.22.4.2" /> < id nullFlavor="NA" /> <code codeSystem="local&quot ; code="150.0150" displayName="INR." /> < statusCode code="completed" /> <effectiveTime value=& quot;675987719175" /> <value unit="" xsi:type=& quot;PQ" value="4.20" /> <interpretationCode codeSystem="local" code="*" /> < referenceRange> <observationRange> <text>0.99-1.21& lt;/text> </observationRange> </referenceRange& gt; </observation> </component> </organizer> & lt;/entry> <entry> <organizer moodCode="EVN" classCode ="BATTERY"> <templateId root=" 2.16.840.1.163847.10.20.22.4.1" /> <id nullFlavor="NA&quot ; /> <code codeSystem="local" code="LBMP" displayName="L200.0050" /> <statusCode code="completed " /> <component> <observation moodCode="EVN& quot; classCode="OBS"> <templateId root=" 2.16.840.1.480988.10..22.4.2" /> <id nullFlavor="NA& quot; /> <code codeSystem="local" code="300.0400& quot; displayName="FUNGAL CULTURE." /> <statusCode code ="completed" /> <effectiveTime value="293097651630 " /> <value unit="MG/DL" xsi:type="PQ" value="1.0" /> <referenceRange> < observationRange> <text>0.8-1.5</text> & lt;/observationRange> </referenceRange> </observation&gt ; </component> <component> <observation moodCode ="EVN" classCode="OBS"> <templateId root=& quot;2.16.840.1.841220.10.20.22.4.2" /> <id nullFlavor=&quot ;NA" /> <code codeSystem="local" code=" 300.0450" displayName="FUNGAL CULTURE, BLOOD." /> < statusCode code="completed" /> <effectiveTime value=& quot;357383809187" /> <value unit="RATIO" xsi:type ="PQ" value="25" /> <referenceRange> <observationRange> <text>6-26</text> </observationRange> </referenceRange> </ observation> </component> <component> < observation moodCode="EVN" classCode="OBS"> < templateId root="2.16.840.1.894748.10.20.22.4.2" /> < id nullFlavor="NA" /> <code codeSystem="local&quot ; code="300.0100" displayName="NA - Sodium" /> & lt;statusCode code="completed" /> <effectiveTime value= "548624102590" /> <value unit="MEQ/L" xsi:type= "PQ" value="132" /> <interpretationCode codeSystem=& quot;local" code="*" /> <referenceRange> <observationRange> <text>134-144</text> &lt ;/observationRange> </referenceRange> </observation& gt; </component> <component> <observation moodCode="EVN" classCode="OBS"> <templateId root="2.16.840.1.660639.10.20.22.4.2" /> <id nullFlavor ="NA" /> <code codeSystem="local" code=" 300.0150" displayName="Potassium" /> <statusCode code="completed" /> <effectiveTime value=" 792711388615" /> <value unit="MEQ/L" xsi:type=& quot;PQ" value="4.6" /> <referenceRange> < observationRange> <text>3.6-5</text> < /observationRange> </referenceRange> </observation& gt; </component> <component> <observation moodCode="EVN" classCode="OBS"> <templateId root=&quot ;2.16.840.1.791276.10.20.22.4.2" /> <id nullFlavor="NA& quot; /> <code codeSystem="local" code="300.0200& quot; displayName="Chloride" /> <statusCode code=" completed" /> <effectiveTime value="580729861227" /> <value unit="MEQ/L" xsi:type="PQ" value=& quot;99" /> <referenceRange> < observationRange> <text>98-107</text> &lt ;/observationRange> </referenceRange> </observation& gt; </component> <component> <observation moodCode=& quot;EVN" classCode="OBS"> <templateId root=" 2.16.840.1.680962.10.20.22.4.2" /> <id nullFlavor="NA& quot; /> <code codeSystem="local" code="300.0250&quot ; displayName="CO2 - CarbonDioxide" /> <statusCode code ="completed" /> <effectiveTime value="632579449356 " /> <value unit="MEQ/L" xsi:type="PQ" value="26" /> <referenceRange> < observationRange> <text>22-30</text> </ observationRange> </referenceRange> </observation&gt ; </component> <component> <observation moodCode ="EVN" classCode="OBS"> <templateId root=& quot;2.16.840.1.233336.10.20.22.4.2" /> <id nullFlavor=&quot ;NA" /> <code codeSystem="local" code=" 300.0300" displayName="Anion Gap" /> <statusCode code="completed" /> <effectiveTime value=" 796384401530" /> <value unit="MEQ/L" xsi:type=& quot;PQ" value="7" /> <referenceRange> <observationRange> <text>5-15</text> </observationRange> </referenceRange> </ observation> </component> <component> < observation moodCode="EVN" classCode="OBS"> < templateId root="2.16.840.1.623598.10.20.22.4.2" /> < id nullFlavor="NA" /> <code codeSystem="local&quot ; code="300.0350" displayName="BUN - Blood Urea Nitrogen" /& gt; <statusCode code="completed" /> < effectiveTime value="060260544215" /> <value unit=&quot ;MG/DL" xsi:type="PQ" value="25.0" /> < interpretationCode codeSystem="local" code="*" /> < referenceRange> <observationRange> <text> 9-20</text> </observationRange> </ referenceRange> </observation> </component> < component> <observation moodCode="EVN" classCode=" OBS"> <templateId root="2.16.840.1.703034.10.20.22.4.2& quot; /> <id nullFlavor="NA" /> <code codeSystem="local" code="300.0410" displayName=" Glomerular Filtration Rate" /> <statusCode code=" completed" /> <effectiveTime value="639287542120" /> <value unit="" xsi:type="PQ" value="71& quot; /> <referenceRange> <observationRange> <text>NRG</text> </observationRange> </referenceRange> </observation> </component> <component> <observation moodCode="EVN" classCode= "OBS"> <templateId root=" 2.16.840.1.234586.10.20.22.4.2" /><id nullFlavor="NA" /&gt ; <code codeSystem="local" code="300.0500" displayName="Glucose" /> <statusCode code=" completed" /> <effectiveTime value="362455515739" /> <value unit="MG/DL" xsi:type="PQ" value=& quot;86" /> <referenceRange> <observationRange> <text>75-110</text> </observationRange&gt ; </referenceRange> </observation> </ component> <component> <observation moodCode="EVN& quot; classCode="OBS"> <templateId root=" 2.16.840.1.334393.10.20.22.4.2" /> <id nullFlavor="NA& quot; /> <code codeSystem="local" code="300.2000& quot; displayName="Osmolality,Calculated" /> < statusCode code="completed" /> <effectiveTime value=" 181467998002" /> <value unit="MOSM/KG" xsi:type=& quot;PQ" value="258" /> <interpretationCode codeSystem="local" code="*" /> < referenceRange> <observationRange> <text> 261-280</text> </observationRange></referenceRange&gt ; </observation> </component> <component> <observation moodCode="EVN" classCode="OBS"> <templateId root="2.16.840.1.976243.10.20.22.4.2" /> <id nullFlavor="NA" /> <code codeSystem="local " code="300.2200" displayName="Calcium" /> <statusCode code="completed" /> <effectiveTime value ="747024276819" /> <value unit="MG/DL" xsi: type="PQ" value="9.0" /> <referenceRange> <observationRange> <text>8.4-10.2</text> </observationRange> </referenceRange> </ observation> </component> <component> < observation moodCode="EVN" classCode="OBS"> < templateId root="2.16.840.1.853717.10.20.22.4.2" /> < id nullFlavor="NA" /> <codecodeSystem="local&quot ; code="300.0095" displayName="LICTERUS" /> < statusCode code="completed" /> <effectiveTime value=& quot;077539999688" /> <value unit="" xsi:type=& quot;PQ" value="< 2" /> <referenceRange&gt ; <observationRange> <text>0-7</text> </observationRange> </referenceRange> & lt;/observation> </component> <component> < observation moodCode="EVN" classCode="OBS"> < templateId root="2.16.840.1.775248.10.20.22.4.2" /> < id nullFlavor="NA" /> <code codeSystem="local&quot ; code="300.0096" displayName="LHEMOLYSIS" /> & lt;statusCode code="completed" /> <effectiveTime value= "815646208756" /> <value unit="" xsi:type="PQ& quot; value="< 15" /><referenceRange> < observationRange> <text>0-25</text> </ observationRange> </referenceRange> </observation&gt ; </component> <component> <observation moodCode=& quot;EVN" classCode="OBS"> <templateId root=" 2.16.840.1.722814.10.20.22.4.2" /> <id nullFlavor="NA& quot; /> <code codeSystem="local" code="300.0097& quot; displayName="LTURBIDITY" /> <statusCode code=& quot;completed" /> <effectiveTime value="880531328210& quot; /> <value unit="" xsi:type="PQ" value=& quot;< 20" /> <referenceRange> < observationRange> <text>0-20</text> </ observationRange> </referenceRange> </observation&gt ; </component> </organizer> </entry> <entry> <organizer moodCode="EVN"classCode="BATTERY"> <templateId root="2.16.840.1.995525.10.20.22.4.1" /> < id nullFlavor="NA" /> <code codeSystem="local" code="LCBC" displayName="L100.0050" /> < statusCode code="completed" /> <component> < observation moodCode="EVN" classCode="OBS"> < templateId root="2.16.840.1.752113.10.20.22.4.2" /> < idnullFlavor="NA" /> <code codeSystem="local&quot ; code="100.0150" displayName="WBC - WHITE BLOOD COUNT" /&gt ; <statusCode code="completed" /> < effectiveTime value="227908333942" /> <value unit=&quot ;T/MM3" xsi:type="PQ" value="11.4" /> < interpretationCode codeSystem="local" code="*" /> <referenceRange> <observationRange> < text>4.5-11.0</text> </observationRange> < /referenceRange> </observation> </component> &lt ;component> <observation moodCode="EVN" classCode=" OBS"><templateId root="2.16.840.1.599908.10.20.22.4.2" /&gt ; <id nullFlavor="NA" /> <code codeSystem=& quot;local" code="100.0250" displayName="RED BLOOD COUNT& quot; /> <statusCode code="completed" /> & lt;effectiveTime value="730256264032" /> <value unit=& quot;M/MM3" xsi:type="PQ" value="3.46" /> & lt;interpretationCode codeSystem="local" code="*" /> <referenceRange> <observationRange> &lt ;text>4.50-5.90</text> </observationRange> & lt;/referenceRange> </observation> </component> <component> <observation moodCode="EVN" classCode=& quot;OBS"> <templateId root=" 2.16.840.1.854328.10.20.22.4.2" /> <id nullFlavor="NA& quot; /> <code codeSystem="local" code="100.0300" displayName="HGB - HEMOGLOBIN" /> <statusCode code=& quot;completed" /> <effectiveTime value="763915473125& quot; /> <value unit="GM/DL" xsi:type="PQ" value="11.1" /> <interpretationCode codeSystem=" local" code="*" /> <referenceRange> <observationRange> <text>13.5-17.5</text> </observationRange> </referenceRange> </ observation> </component> <component> < observation moodCode="EVN" classCode="OBS"> < templateId root="[id number]" /> < id nullFlavor="NA" /> <code codeSystem="local&quot ; code="100.0400" displayName="HCT - HEMATOCRIT" /> <statusCode code="completed" /> <effectiveTime value="[id number]" /> <value unit="%& quot; xsi:type="PQ" value="34.2" /> < interpretationCode codeSystem="local" code="*" /> < referenceRange> <observationRange> <text> 41-53</text> </observationRange> </ referenceRange> </observation> </component> < component> <observation moodCode="EVN" classCode=" OBS"> <templateId root="[id number]& quot; /> <id nullFlavor="NA" /> <code codeSystem="local" code="100.0550" displayName="MEAN CORPUSCULAR VOLUME" /> <statusCode code="completed&quot ; /> <effectiveTime value="580466140168" /> < value unit="UM3" xsi:type="PQ" value="98.8" /> <referenceRange> <observationRange> <text>80-100</text> </observationRange> & lt;/referenceRange> </observation> </component> < component> <observation moodCode="EVN" classCode=" OBS"> <templateId root="2.16.840.1.374061.10..22.4.2& quot; /> <id nullFlavor="NA" /> <code codeSystem="local" code="100.0600" displayName="MEAN CORPUSCULAR HGB" /> <statusCode code="completed" / > <effectiveTime value="871680380712" /> & lt;value unit="UUG" xsi:type="PQ" value="32.1" /& gt; <referenceRange> <observationRange> <text>26-34</text> </observationRange> </ referenceRange> </observation> </component> < component> <observation moodCode="EVN" classCode=" OBS"> <templateId root="2.16.840.1.919874.10.20.22.4.2& quot; /> <id nullFlavor="NA" /> <code codeSystem="local" code="100.0650" displayName="MEAN CORPUSCULAR HGB CONC([facility]" /> <statusCode code=" completed" /> <effectiveTime value="368420449092" /> <value unit="GM/DL" xsi:type="PQ" value=& quot;32.5" /> <referenceRange> < observationRange> <text>31-37</text> </ observationRange> </referenceRange> </observation&gt ; </component> <component> <observation moodCode ="EVN" classCode="OBS"> <templateId root=& quot;2.16.840.1.396531.10.20.22.4.2" /><id nullFlavor="NA" /> <code codeSystem="local" code="100.0750" displayName="RDW STANDARD DEVIATION" /> <statusCode code="completed" /> <effectiveTime value=" 722882717446" /> <value unit="FL" xsi:type=" PQ" value="52.9" /> <interpretationCode codeSystem ="local" code="*" /> <referenceRange> &lt ;observationRange> <text>36.9-50.2</text> </observationRange> </referenceRange> </ observation> </component><component> <observation moodCode="EVN" classCode="OBS"> <templateId root=& quot;2.16.840.1.523911.10.20.22.4.2" /> <id nullFlavor=&quot ;NA" /> <code codeSystem="local" code=" 100.0850" displayName="PLT - PLATELET COUNT" /> < statusCode code="completed" /> <effectiveTime value=&quot ;476442536293" /> <value unit="T/MM3" xsi:type=& quot;PQ" value="107" /> <interpretationCode codeSystem="local" code="*" /> < referenceRange> <observationRange> <text> 130-400</text> </observationRange> </ referenceRange> </observation> </component> < component> <observation moodCode="EVN" classCode="OBS& quot;> <templateId root="2.16.840.1.686054.10.20.22.4.2&quot ; /> <id nullFlavor="NA" /> <code codeSystem="local" code="100.0950" displayName="MEAN PLATELET VOLUME" /> <statusCode code="completed" / > <effectiveTime value="672710265318" /> & lt;value unit="UM3" xsi:type="PQ" value="11.2" /& gt; <referenceRange> <observationRange> <text>9.4-12.4</text> </observationRange> </referenceRange> </observation> </component& gt; </organizer> </entry> <entry> <organizer moodCode="EVN" classCode="BATTERY"> <templateId root=& quot;2.16.840.1.625170.10.20.22.4.1" /> <id nullFlavor="NA& quot; /> <code codeSystem="local" code="LDIFFM" displayName="L100.0105" /> <statusCode code="completed " /> <component> <observation moodCode="EVN" classCode="OBS"> <templateId root=" 2.16.840.1.008863.10.20.22.4.2" /> <id nullFlavor="NA& quot; /> <code codeSystem="local" code="100.1650" displayName="NEUTROPHILS % (MANUAL)" /> < statusCode code="completed" /> <effectiveTime value=& quot;243653518468" /> <value unit="%" xsi: type="PQ" value="70.0" /> < interpretationCode codeSystem="local" code="*" /> <referenceRange> <observationRange> < text>33-66</text> </observationRange> </ referenceRange> </observation> </component> < component> <observation moodCode="EVN" classCode=" OBS"> <templateId root="2.16.840.1.843063.10.20.22.4.2& quot; /> <id nullFlavor="NA" /> <code codeSystem="local" code="100.1750" displayName="BAND NEUTROPHILS %" /> <statusCode code="completed& quot; /> <effectiveTimevalue="677815126758" /> <value unit="%" xsi:type="PQ" value=" 2.0" /> <referenceRange> <observationRange& gt; <text>0-6</text> </observationRange& gt; </referenceRange> </observation> </ component> <component> <observation moodCode="EVN& quot; classCode="OBS"> <templateId root=" 2.16.840.1.805608.10.20.22.4.2" /> <id nullFlavor="NA& quot; /> <code codeSystem="local" code="100.1850& quot; displayName="LYMPHOCYTES %(MANUAL)" /> < statusCode code="completed" /> <effectiveTime value=& quot;727881153579" /> <value unit="%" xsi: type="PQ" value="14.0" /> < interpretationCode codeSystem="local" code="*" /> <referenceRange> <observationRange> <text>23- 45</text> </observationRange> </ referenceRange> </observation> </component> < component> <observation moodCode="EVN" classCode=" OBS"> <templateId root="2.16.840.1.664027.10.20.22.4.2& quot; /> <id nullFlavor="NA" /> <code codeSystem="local" code="100.1950" displayName=" MONOCYTES % (MANUAL)" /> <statusCode code=" completed" /> <effectiveTime value="582702652888" /> <value unit="%" xsi:type="PQ"value ="14.0" /> <interpretationCode codeSystem="local& quot; code="*" /> <referenceRange> < observationRange> <text>0-9.0</text> < /observationRange> </referenceRange> </observation> </component> <component> <observation moodCode=& quot;EVN" classCode="OBS"> <templateId root=" 2.16.840.1.484470.10.20.22.4.2" /> <id nullFlavor="NA& quot; /> <code codeSystem="local" code="100.2400& quot; displayName="PROLYMPHOCYTES %" /> < statusCode code="completed" /> <effectiveTime value=& quot;705598656066" /> <value unit="T/MM3" xsi:type ="PQ" value="8.0" /> <interpretationCode codeSystem="local" code="*" /> <referenceRange> <observationRange> <text>1.8-7.7</text& gt; </observationRange> </referenceRange> </observation> </component> <component> &lt ;observation moodCode="EVN" classCode="OBS"> &lt ;templateId root="2.16.840.1.679784.10.20.22.4.2"/> < id nullFlavor="NA" /> <code codeSystem="local&quot ;code="100.2450" displayName="PLASMA CELLS %" /> <statusCode code="completed" /> < effectiveTime value="580277530760" /> <value unit="T/ MM3" xsi:type="PQ" value="0.2" /><referenceRange& gt; <observationRange> <text>NRG</text&gt ; </observationRange> </referenceRange> & lt;/observation> </component> <component> < observation moodCode="EVN" classCode="OBS"> < templateId root="2.16.840.1.116643.10.20.22.4.2" /> <id nullFlavor="NA" /> <code codeSystem="local" code="100.2650" displayName="NEUTROPHILS # (MANUAL)" /> <statusCode code="completed" /> < effectiveTime value="384974104798" /> <value unit=&quot ;T/MM3" xsi:type="PQ" value="1.6" /> < interpretationCode codeSystem="local" code="*" /> <referenceRange> <observationRange> < text>0-0.8</text> </observationRange> </ referenceRange> </observation> </component> < component> <observation moodCode="EVN" classCode=" OBS"> <templateId root="2.16.840.1.024590.10.20.22.4.2& quot; /> <id nullFlavor="NA" /> <code codeSystem="local" code="100.2550" displayName=" Lymphocytes # (Manual)" /> <statusCode code="completed& quot;/> <effectiveTime value="737414804463" /> <value unit="T/MM3" xsi:type="PQ" value="1.6& quot; /> <referenceRange> <observationRange> <text>1-4.8</text> </observationRange> </referenceRange> </observation> </component&gt ; <component> <observation moodCode="EVN" classCode="OBS"> <templateId root=" 2.16.840.1.916652.10..22.4.2" /> <id nullFlavor="NA& quot; /> <code codeSystem="local" code="100.4565& quot; displayName="LRBCMOR" /> <statusCode code=" completed" /> <effectiveTime value="502323137948" /> <value unit="" xsi:type="PQ" value=" Normal" /> <referenceRange> < observationRange> <text>NRG</text> </ observationRange> </referenceRange> </observation&gt ; </component> </organizer> </entry> <entry> <organizer moodCode="EVN" classCode="BATTERY"> &lt ;templateId root="2.16.840.1.170313.10..22.4.1" /> <id nullFlavor="NA" /> <code codeSystem="local" code= "LBGM" displayName="L900.0530" /> <statusCode code="completed" /> <component><observation moodCode= "EVN" classCode="OBS"> <templateId root=&quot ;2.16.840.1.319119...22.4.2" /> <id nullFlavor="NA& quot; /> <code codeSystem="local" code="850.0100" displayName="Glucometer" /> <statusCode code=" completed" /> <effectiveTime value="969168771045" /> <value unit="mg/dL" xsi:type="PQ" value=& quot;117" /> <referenceRange> < observationRange> <text>65-110</text> </ observationRange> </referenceRange> </observation&gt ; </component> </organizer> </entry> <entry> <organizer moodCode="EVN" classCode="BATTERY"> <templateId root="2.16.840.1.476261.10..22.4.1" /> < id nullFlavor="NA" /> <code codeSystem="local" code= "LBGM" displayName="L900.0530" /> <statusCode code="completed" /> <component> < observationmoodCode="EVN" classCode="OBS"> < templateId root="2.16.840.1.628945...22.4.2" /> < id nullFlavor="NA" /> <code codeSystem="local&quot ; code="850.0100" displayName="Glucometer" /> < statusCode code="completed" /> <effectiveTime value=& quot;591321559945" /> <value unit="mg/dL" xsi:type ="PQ" value="99" /> <referenceRange> <observationRange> <text>65-110</text> </observationRange> </referenceRange> </ observation> </component> </organizer> </entry> & lt;entry> <organizer moodCode="EVN" classCode="BATTERY& quot;> <templateId root="2.16.840.1.122405.10.20.22.4.1" /& gt; <id nullFlavor="NA" /> <code codeSystem=" local" code="LBGM" displayName="L900.0530" /> & lt;statusCode code="completed" /> <component> &lt ;observation moodCode="EVN" classCode="OBS"> &lt ;templateId root="2.16.840.1.515413.10.20.22.4.2" /> < id nullFlavor="NA" /> <code codeSystem="local&quot ; code="850.0100" displayName="Glucometer" /> & lt;statusCode code="completed" /> <effectiveTime value= "905016303091" /> <value unit="mg/dL" xsi:type=& quot;PQ" value="133" /> <referenceRange> <observationRange> <text>65-110</text> </observationRange> </referenceRange> </ observation> </component> </organizer> </entry> < entry> <organizer moodCode="EVN" classCode="BATTERY&quot ;> <templateId root="2.16.840.1.444888.10.20.22.4.1" /> <id nullFlavor="NA" /> <code codeSystem=" local" code="LINR" displayName="L160.0105" /> & lt;statusCode code="completed" /> <component> &lt ;observation moodCode="EVN" classCode="OBS"> &lt ;templateId root="2.16.840.1.241982.10.20.22.4.2" /> <id nullFlavor="NA" /> <code codeSystem="local" code="150.0150" displayName="INR." /> < statusCode code="completed" /> <effectiveTime value=& quot;429137321639" /> <value unit="" xsi:type=& quot;PQ" value="2.75" /> <interpretationCode codeSystem="local" code="*" /> < referenceRange> <observationRange> <text> 0.99-1.21</text> </observationRange> </ referenceRange> </observation> </component> </ organizer> </entry> <entry> <organizer moodCode="EVN " classCode="BATTERY"> <templateId root=" 2.16.840.1.558227.10.20.22.4.1" /> <id nullFlavor="NA&quot ; /> <code codeSystem="local" code="LBMP" displayName="L200.0050" /> <statusCode code="completed " /> <component> <observation moodCode="EVN& quot; classCode="OBS"> <templateId root=" 2.16.840.1.881870.10.20.22.4.2" /> <id nullFlavor="NA& quot; /> <code codeSystem="local" code="300.0400& quot; displayName="FUNGAL CULTURE." /> <statusCode code ="completed" /> <effectiveTime value=" " /> <value unit="MG/DL" xsi:type="PQ" value="0.9" /> <referenceRange> < observationRange> <text>0.8-1.5</text> & lt;/observationRange> </referenceRange> </ observation> </component> <component> < observation moodCode="EVN" classCode="OBS"> < templateId root="2.16.840.1.130386.10.20.22.4.2" /> < id nullFlavor="NA" /> <code codeSystem="local" code="300.0450" displayName="FUNGAL CULTURE, BLOOD." /> <statusCode code="completed" /> < effectiveTime value="492779926291" /> <value unit=&quot ;RATIO" xsi:type="PQ" value="29" /> < interpretationCode codeSystem="local" code="*" /> <referenceRange> <observationRange><text>6-26&lt ;/text> </observationRange> </referenceRange&gt ; </observation> </component> <component> <observation moodCode="EVN" classCode="OBS"> <templateId root="2.16.840.1.012173.10.20.22.4.2" /> <id nullFlavor="NA" /> <code codeSystem=" local" code="300.0100" displayName="NA - Sodium" /> <statusCode code="completed" /> < effectiveTime value="794189069845" /> <value unit=&quot ;MEQ/L" xsi:type="PQ" value="133" /> < interpretationCode codeSystem="local" code="*" /> <referenceRange> <observationRange> < text>134-144</text> </observationRange> </ referenceRange> </observation> </component> < component> <observation moodCode="EVN" classCode=" OBS"> <templateId root="2.16.840.1.737094.10..22.4.2& quot; /> <id nullFlavor="NA" /> <code codeSystem="local" code="300.0150" displayName=" Potassium" /> <statusCode code="completed" /> <effectiveTime value="231690354882" /> < value unit="MEQ/L" xsi:type="PQ" value="4.8" /&gt ; <referenceRange> <observationRange> <text>3.6-5</text> </observationRange> </referenceRange> </observation> </component> <component> <observation moodCode="EVN" classCode= "OBS"> <templateId root=" 2.16.840.1.700052.10..22.4.2" /> <id nullFlavor="NA& quot; /> <code codeSystem="local" code="300.0200& quot; displayName="Chloride" /> <statusCode code=" completed" /> <effectiveTime value="488479741975" /> <value unit="MEQ/L" xsi:type="PQ" value=" 103" /> <referenceRange> <observationRange& gt; <text>98-107</text> </ observationRange> </referenceRange> </observation> </component> <component> <observation moodCode= "EVN" classCode="OBS"> <templateId root=&quot ;2.16.840.1.519475.10.20.22.4.2" /> <id nullFlavor="NA& quot; /> <code codeSystem="local" code="300.0250& quot; displayName="CO2 - Carbon Dioxide" /> < statusCode code="completed" /> <effectiveTime value=& quot;684985730207" /> <value unit="MEQ/L" xsi:type ="PQ" value="27" /> <referenceRange> <observationRange> <text>22-30</text> </observationRange> </referenceRange> </ observation> </component> <component> < observation moodCode="EVN" classCode="OBS"> < templateId root="2.16.840.1.504953.10.20.22.4.2" /> < id nullFlavor="NA" /> <code codeSystem="local" code="300.0300" displayName="Anion Gap" /> < statusCode code="completed" /> <effectiveTime value=& quot;" /> <value unit="MEQ/L" xsi:type ="PQ" value="3" /> <interpretationCode codeSystem="local" code="*" /> < referenceRange> <observationRange> <text> 5-15</text> </observationRange> </ referenceRange> </observation> </component> < component> <observation moodCode="EVN" classCode=" OBS"> <templateId root="2.16.840.1.204512.10.20.22.4.2& quot; /> <id nullFlavor="NA" /> <code codeSystem="local" code="300.0350" displayName="BUN - Blood Urea Nitrogen" /> <statusCode code="completed& quot; /> <effectiveTime value="199523909248" /> <value unit="MG/DL" xsi:type="PQ" value="26.0& quot; /> <interpretationCode codeSystem="local" code=& quot;*" /> <referenceRange> < observationRange> <text>9-20</text> </ observationRange> </referenceRange> </observation&gt ; </component> <component> <observation moodCode=& quot;EVN" classCode="OBS"> <templateId root=" 2.16.840.1.924717.10.20.22.4.2" /> <id nullFlavor="NA&quot ; /> <code codeSystem="local" code="300.0410&quot ; displayName="Glomerular Filtration Rate" /> < statusCode code="completed" /> <effectiveTime value=& quot;560746505173" /> <value unit="" xsi:type="PQ& quot; value="80" /> <referenceRange> < observationRange> <text>NRG</text></ observationRange> </referenceRange> </observation&gt ; </component> <component> <observation moodCode ="EVN" classCode="OBS"> <templateId root=& quot;2.16.840.1.129044.10.20.22.4.2" /> <id nullFlavor=&quot ;NA" /> <code codeSystem="local" code=" 300.0500" displayName="Glucose" /> <statusCode code="completed" /> <effectiveTime value=" 431104709440" /> <value unit="MG/DL" xsi:type=& quot;PQ" value="90" /> <referenceRange> <observationRange> <text>75-110</text> </observationRange> </referenceRange> </ observation> </component> <component> < observation moodCode="EVN" classCode="OBS"> < templateId root="2.16.840.1.638797.10.20.22.4.2" /> < id nullFlavor="NA" /> <code codeSystem="local&quot ; code="300.2000" displayName="Osmolality,Calculated" /> <statusCode code="completed" /> <effectiveTime value="030092392952" /> <value unit="MOSM/KG&quot ; xsi:type="PQ" value="261" /> < referenceRange> <observationRange> <text> 261-280</text> </observationRange> </ referenceRange> </observation> </component> < component> <observation moodCode="EVN" classCode=" OBS"> <templateId root="2.16.840.1.966563.10.20.22.4.2& quot; /> <id nullFlavor="NA" /> <code codeSystem="local" code="300.2200" displayName="Calcium " /> <statusCode code="completed" /> & lt;effectiveTime value="866698179422" /> <value unit=& quot;MG/DL" xsi:type="PQ" value="8.9" /> & lt;referenceRange> <observationRange> <text& gt;8.4-10.2</text> </observationRange> </ referenceRange> </observation> </component> < component> <observation moodCode="EVN" classCode=" OBS"> <templateId root="2.16.840.1.215455.10.20.22.4.2& quot; /> <id nullFlavor="NA" /> <code codeSystem ="local" code="300.0095" displayName="LICTERUS" /& gt; <statusCode code="completed" /> < effectiveTime value="735293056591" /> <value unit=&quot ;" xsi:type="PQ" value="< 2" /> < referenceRange> <observationRange> <text> 0-7</text> </observationRange> </ referenceRange> </observation> </component> < component> <observation moodCode="EVN" classCode=" OBS"> <templateId root="2.16.840.1.777132.10.20.22.4.2& quot; /> <id nullFlavor="NA" /> <code codeSystem="local" code="300.0096" displayName=" LHEMOLYSIS" /> <statusCode code="completed" /> <effectiveTime value="049991783052"/> < value unit="" xsi:type="PQ" value="< 15" /& gt; <referenceRange> <observationRange> <text>0-25</text> </observationRange> </referenceRange> </observation> </component> <component> <observation moodCode="EVN" classCode ="OBS"> <templateId root=" 2.16.840.1.918637.10..22.4.2" /> <id nullFlavor="NA& quot; /> <code codeSystem="local" code="300.0097& quot; displayName="LTURBIDITY" /> <statusCode code=& quot;completed" /> <effectiveTime value="633315685225& quot; /> <value unit="" xsi:type="PQ" value=& quot;< 20" /> <referenceRange> < observationRange> <text>0-20</text> </ observationRange> </referenceRange> </observation&gt ; </component> </organizer> </entry> <entry> <organizer moodCode="EVN" classCode="BATTERY"> <templateId root="2.16.840.1.830001.10.20.22.4.1" /> < id nullFlavor="NA" /> <code codeSystem="local" code="LCBC" displayName="L100.0050" /> < statusCode code="completed" /> <component> < observation moodCode="EVN" classCode="OBS"> < templateId root="2.16.840.1.450664.10.20.22.4.2" /> <id nullFlavor="NA" /> <code codeSystem="local" code="100.0150" displayName="WBC - WHITE BLOOD COUNT" /> <statusCode code="completed" /> < effectiveTime value="023626980306" /> <value unit=&quot ;T/MM3" xsi:type="PQ" value="8.6" /> < referenceRange> <observationRange> <text> 4.5-11.0</text> </observationRange> </ referenceRange> </observation> </component> < component> <observation moodCode="EVN" classCode=" OBS"> <templateId root="2.16.840.1.392787.10.20.22.4.2& quot; /> <id nullFlavor="NA" /> <code codeSystem ="local" code="100.0250" displayName="RED BLOOD COUNT& quot; /> <statusCode code="completed" /> & lt;effectiveTime value="274586929372" /> <value unit=& quot;M/MM3" xsi:type="PQ" value="3.13" /> & lt;interpretationCode codeSystem="local" code="*" /> <referenceRange><observationRange> <text> 4.50-5.90</text> </observationRange> </ referenceRange> </observation> </component> < component> <observation moodCode="EVN" classCode=" OBS"> <templateId root="2.16.840.1.591149.10.20.22.4.2" /& gt; <id nullFlavor="NA" /> <code codeSystem ="local" code="100.0300" displayName="HGB - HEMOGLOBIN& quot; /> <statusCode code="completed" /> < effectiveTime value="173318520514" /> <value unit=&quot ;GM/DL" xsi:type="PQ" value="9.9" /> < interpretationCode codeSystem="local" code="*" /> <referenceRange> <observationRange> < text>13.5-17.5</text> </observationRange> &lt ;/referenceRange> </observation> </component> & lt;component><observation moodCode="EVN" classCode="OBS& quot;> <templateId root="2.16.840.1.523411.10.20.22.4.2&quot ; /> <id nullFlavor="NA" /> <code codeSystem=& quot;local" code="100.0400" displayName="HCT - HEMATOCRIT& quot; /> <statusCode code="completed" /> & lt;effectiveTime value="109112072917" /> <value unit=& quot;%" xsi:type="PQ" value="31.0" /> <interpretationCode codeSystem="local" code="*" /&gt ; <referenceRange> <observationRange> <text>41-53</text> </observationRange> </referenceRange> </observation> </component> & lt;component> <observation moodCode="EVN" classCode=&quot ;OBS"> <templateId root="2.16.840.1.111987.10.20.22.4.2 " /> <id nullFlavor="NA" /> <code codeSystem="local" code="100.0550" displayName="MEAN CORPUSCULAR VOLUME" /> <statusCode code="completed" /> <effectiveTime value="052959944595" /> & lt;value unit="UM3" xsi:type="PQ" value="99.0" /& gt; <referenceRange> <observationRange> <text>80-100</text> </observationRange> </referenceRange> </observation> </component&gt ; <component> <observation moodCode="EVN" classCode="OBS"> <templateId root=" 2.16.840.1.307337.10.20.22.4.2" /> <id nullFlavor="NA& quot; /> <code codeSystem="local" code="100.0600& quot; displayName="MEAN CORPUSCULAR HGB" /><statusCode code=& quot;completed" /> <effectiveTime value="862120343261& quot; /> <value unit="UUG" xsi:type="PQ" value="31.6" /> <referenceRange> < observationRange> <text>26-34</text> < /observationRange> </referenceRange> </observation& gt; </component> <component> <observation moodCode="EVN" classCode="OBS"> <templateId root="2.16.840.1.519922.10.20.22.4.2" /> <id nullFlavor ="NA" /> <code codeSystem="local" code=" 100.0650" displayName="MEAN CORPUSCULAR HGB CONC([facility]" /> < statusCode code="completed" /> <effectiveTime value=& quot;511509029205" /> <value unit="GM/DL" xsi:type ="PQ" value="31.9"/> <referenceRange> <observationRange> <text>31-37</text> </observationRange> </referenceRange> </ observation> </component> <component> < observation moodCode="EVN" classCode="OBS"> < templateId root="2.16.840.1.625866.10.20.22.4.2" /> < id nullFlavor="NA" /> <code codeSystem="local&quot ; code="100.0750" displayName="RDW STANDARD DEVIATION" /&gt ; <statusCode code="completed" /> < effectiveTime value="164928027513" /> <value unit=&quot ;FL" xsi:type="PQ" value="53.3" /> < interpretationCode codeSystem="local" code="*" /> <referenceRange> <observationRange> < text>36.9-50.2</text> </observationRange> </ referenceRange> </observation></component> < component> <observation moodCode="EVN" classCode=" OBS"> <templateId root="2.16.840.1.106170.10.20.22.4.2& quot; /> <id nullFlavor="NA" /> <code codeSystem="local" code="100.0850" displayName="PLT - PLATELET COUNT" /> <statusCode code="completed" /& gt; <effectiveTime value="192025894188" /> &lt ;value unit="T/MM3" xsi:type="PQ" value="101" /&gt ; <interpretationCode codeSystem="local" code="*&quot ; /> <referenceRange> <observationRange> <text>130-400</text> </observationRange> </referenceRange> </observation> </component&gt ; <component> <observation moodCode="EVN" classCode= "OBS"> <templateId root=" 2.16.840.1.977460.10.20.22.4.2" /> <id nullFlavor="NA& quot; /> <code codeSystem="local" code="100.0950& quot; displayName="MEAN PLATELET VOLUME" /> < statusCode code="completed" /> <effectiveTime value=& quot;895650688580" /> <value unit="UM3" xsi:type=& quot;PQ" value="10.7" /> <referenceRange>< observationRange> <text>9.4-12.4</text> & lt;/observationRange> </referenceRange> </ observation> </component> </organizer> </entry> & lt;entry> <organizer moodCode="EVN" classCode="BATTERY& quot;> <templateId root="2.16.840.1.086937.10.20.22.4.1" /& gt; <id nullFlavor="NA" /> <code codeSystem=" local" code="LDIFFM" displayName="L100.0105" /> <statusCode code="completed" /><component> < observation moodCode="EVN" classCode="OBS"> < templateId root="[id number]" /> < id nullFlavor="NA" /> <code codeSystem="local&quot ; code="100.1650" displayName="NEUTROPHILS % (MANUAL)& quot; /> <statusCode code="completed" /> & lt;effectiveTime value="[id number]" /> <value unit=& quot;%" xsi:type="PQ" value="64.0" /> <referenceRange> <observationRange> < text>33-66</text> </observationRange> </ referenceRange> </observation> </component> < component> <observation moodCode="EVN" classCode=" OBS"> <templateId root="2.16.840.1.196710.10.20.22.4.2& quot; /> <id nullFlavor="NA" /> <code codeSystem="local" code="100.1750" displayName="BAND NEUTROPHILS %" /> <statusCode code="completed& quot; /> <effectiveTime value="434930517612" /> <value unit="%" xsi:type="PQ" value=" 2.0" /> <referenceRange> <observationRange& gt; <text>0-6</text> </observationRange& gt; </referenceRange> </observation> </ component> <component> <observation moodCode="EVN& quot; classCode="OBS"> <templateId root=" 2.16.840.1.613938.10.20.22.4.2" /> <id nullFlavor="NA& quot; /> <code codeSystem="local" code="100.1850& quot; displayName="LYMPHOCYTES % (MANUAL)" /> < statusCode code="completed" /> <effectiveTime value=& quot;727774564513" /> <value unit="%" xsi: type="PQ" value="21.0" /> < interpretationCode codeSystem="local" code="*" /> <referenceRange> <observationRange> <text> 23-45</text> </observationRange> </ referenceRange> </observation> </component> < component> <observation moodCode="EVN" classCode=" OBS"> <templateId root="2.16.840.1.561968.10.20.22.4.2" / > <id nullFlavor="NA" /> <code codeSystem="local" code="100.1950" displayName=" MONOCYTES % (MANUAL)" /> <statusCode code=" completed"/> <effectiveTime value="283420328646" / > <value unit="%" xsi:type="PQ" value ="13.0" /> <interpretationCode codeSystem="local& quot; code="*" /> <referenceRange> < observationRange> <text>0-9.0</text> < /observationRange> </referenceRange> </observation&gt ; </component> <component> <observation moodCode ="EVN" classCode="OBS"> <templateId root=& quot;2.16.840.1.315241.10.20.22.4.2" /> <id nullFlavor=&quot ;NA" /> <code codeSystem="local" code=" 100.2400" displayName="PROLYMPHOCYTES %" /> & lt;statusCode code="completed" /> <effectiveTime value=" 223324320653" /> <value unit="T/MM3" xsi:type=& quot;PQ" value="5.5" /> <referenceRange> <observationRange> <text>1.8-7.7</text> </observationRange> </referenceRange> </ observation> </component> <component> < observation moodCode="EVN" classCode="OBS"> < templateId root="2.16.840.1.478875.10.20.22.4.2" /> < id nullFlavor="NA" /> <code codeSystem="local&quot ; code="100.2450" displayName="PLASMA CELLS %" /&gt ; <statusCode code="completed" /> < effectiveTime value="354595546150" /> <value unit=&quot ;T/MM3" xsi:type="PQ" value="0.2" /> < referenceRange> <observationRange> <text> NRG</text> </observationRange> </ referenceRange> </observation> </component> < component> <observation moodCode="EVN" classCode="OBS& quot;> <templateId root="2.16.840.1.691680.10.20.22.4.2&quot ; /> <id nullFlavor="NA" /> <code codeSystem="local" code="100.2650" displayName=" NEUTROPHILS # (MANUAL)" /> <statusCode code="completed& quot; /> <effectiveTime value="905026793284" /> <value unit="T/MM3" xsi:type="PQ" value="1.1& quot; /> <interpretationCode codeSystem="local" code=& quot;*" /> <referenceRange> < observationRange> <text>0-0.8</text> </ observationRange> </referenceRange> </observation&gt ; </component> <component> <observation moodCode ="EVN" classCode="OBS"> <templateId root=& quot;2.16.840.1.355754.10.20.22.4.2" /> <id nullFlavor=&quot ;NA" /> <code codeSystem="local" code=" 100.2550" displayName="Lymphocytes # (Manual)" /> &lt ;statusCode code="completed" /> <effectiveTime value=& quot;626220210621" /> <value unit="T/MM3" xsi:type ="PQ" value="1.8" /> <referenceRange> <observationRange> <text>1-4.8</text> </observationRange> </referenceRange> </ observation> </component> <component> < observation moodCode="EVN" classCode="OBS"> < templateId root="2.16.840.1.688686.10.20.22.4.2" /> < id nullFlavor="NA" /> <code codeSystem="local&quot ; code="100.4565" displayName="LRBCMOR" /> < statusCode code="completed" /> <effectiveTime value=& quot;618472923434" /> <value unit="" xsi:type=& quot;PQ" value="Normal" /> <referenceRange> <observationRange> <text>NRG</text> & lt;/observationRange> </referenceRange> </ observation> </component> </organizer> </entry> &lt ;entry> <organizer moodCode="EVN" classCode="BATTERY& quot;> <templateId root="2.16.840.1.984946.10.20.22.4.1" /& gt; <id nullFlavor="NA" /> <code codeSystem=" local" code="LBGM" displayName="L900.0530" /> & lt;statusCode code="completed" /> <component> &lt ;observation moodCode="EVN" classCode="OBS"> &lt ;templateId root="2.16.840.1.283286.10.20.22.4.2" /> < id nullFlavor="NA" /> <code codeSystem="local&quot ; code="850.0100" displayName="Glucometer" /> & lt;statusCode code="completed" /> <effectiveTime value= "515940824419" /> <valueunit="mg/dL" xsi:type ="PQ" value="82" /> <referenceRange> <observationRange> <text>65-110</text> </observationRange> </referenceRange> </ observation> </component> </organizer> </entry> & lt;entry> <organizer moodCode="EVN"classCode="BATTERY& quot;> <templateId root="2.16.840.1.067929.10.20.22.4.1" /& gt; <id nullFlavor="NA" /> <code codeSystem=" local" code="LBGM" displayName="L900.0530" /> & lt;statusCode code="completed" /> <component> &lt ;observation moodCode="EVN" classCode="OBS"> &lt ;templateId root="2.16.840.1.921544.10.20.22.4.2" /> < idnullFlavor="NA" /> <code codeSystem="local&quot ; code="850.0100" displayName="Glucometer" /> & lt;statusCode code="completed" /> <effectiveTime value= "054544410835" /> <value unit="mg/dL" xsi: type="PQ" value="132" /> <referenceRange>& lt;observationRange> <text>65-110</text> </observationRange> </referenceRange> </ observation> </component> </organizer> </entry> & lt;entry> <organizer moodCode="EVN" classCode="BATTERY& quot;> <templateId root="2.16.840.1.799078.10.20.22.4.1" /& gt; <id nullFlavor="NA" /> <code codeSystem=" local" code="LBGM" displayName="L900.0530" /> & lt;statusCode code="completed" /> <component> &lt ;observation moodCode="EVN" classCode="OBS">< templateId root="2.16.840.1.821937.10.20.22.4.2" /> < id nullFlavor="NA" /> <code codeSystem="local&quot ; code="850.0100" displayName="Glucometer" /> & lt;statusCode code="completed" /> <effectiveTime value= "488037568507" /> <value unit="mg/dL" xsi: type="PQ" value="87" /> <referenceRange> <observationRange> <text>65-110</text&gt ; </observationRange> </referenceRange> & lt;/observation> </component> </organizer> </entry&gt ; <entry> <organizer moodCode="EVN" classCode=" BATTERY"> <templateId root="2.16.840.1.059992.10.20.22.4.1& quot; /> <id nullFlavor="NA" /> <code codeSystem ="local" code="LBGM" displayName="L900.0530" /&gt ; <statusCode code="completed" /> <component> <observation moodCode="EVN" classCode="OBS"> <templateId root="2.16.840.1.441331.10.20.22.4.2" /> <id nullFlavor="NA" /> <code codeSystem="local& quot; code="850.0100" displayName="Glucometer" /> <statusCode code="completed" /> <effectiveTime value="228674769323" /> <value unit="mg/dL" xsi:type="PQ" value="98" /> <referenceRange& gt; <observationRange> <text>65-110</text> </observationRange> </referenceRange> </ observation> </component> </organizer> </entry> & lt;entry> <organizer moodCode="EVN" classCode="BATTERY& quot;> <templateId root="2.16.840.1.153388.10.20.22.4.1" /& gt; <id nullFlavor="NA" /> <code codeSystem=" local" code="LBGM" displayName="L900.0530" /> & lt;statusCode code="completed" /> <component> &lt ;observation moodCode="EVN" classCode="OBS"> &lt ;templateId root="2.16.840.1.277991.10.20.22.4.2" /> < id nullFlavor="NA" /> <codecodeSystem="local&quot ; code="850.0100" displayName="Glucometer" /> < statusCode code="completed" /> <effectiveTime value=& quot;434326998673" /> <value unit="mg/dL" xsi:type ="PQ" value="86" /> <referenceRange> <observationRange> <text>65-110</text> </observationRange> </referenceRange> </ observation> </component> </organizer> </entry> & lt;entry> <organizer moodCode="EVN" classCode="BATTERY& quot;> <templateId root="2.16.840.1.347076.10.20.22.4.1" /& gt; <id nullFlavor="NA" /> <code codeSystem=" local" code="LBGM" displayName="L900.0530" /> & lt;statusCode code="completed" /> <component> &lt ;observation moodCode="EVN" classCode="OBS"> &lt ;templateId root="2.16.840.1.976642.10.20.22.4.2" /> < id nullFlavor="NA" /> <code codeSystem="local&quot ; code="850.0100" displayName="Glucometer" /> & lt;statusCode code="completed" /> <effectiveTime value= "059403057357" /> <value unit="mg/dL" xsi:type=& quot;PQ" value="113" /><referenceRange> < observationRange> <text>65-110</text> &lt ;/observationRange> </referenceRange> </observation& gt; </component> </organizer> </entry> <entry> <organizer moodCode="EVN" classCode="BATTERY"> <templateId root="2.16.840.1.032637.10.20.22.4.1" /> &lt ;id nullFlavor="NA" /> <code codeSystem="local" code="LINR" displayName="L160.0105" /> < statusCode code="completed" /> <component> < observation moodCode="EVN" classCode="OBS"> < templateId root="2.16.840.1.207025.10.20.22.4.2" /> < id nullFlavor="NA" /> <code codeSystem="local&quot ; code="150.0150" displayName="INR." /> < statusCode code="completed" /> <effectiveTime value=& quot;123561572792" /> <value unit="" xsi:type=& quot;PQ" value="2.13" /> <interpretationCode codeSystem="local" code="*" /> < referenceRange> <observationRange> <text> 0.99-1.21</text> </observationRange> </ referenceRange> </observation> </component> </ organizer> </entry> <entry> <organizer moodCode="EVN " classCode="BATTERY"> <templateId root=" 2.16.840.1.197696.10.20.22.4.1" /> <id nullFlavor="NA&quot ; /> <code codeSystem="local" code="LBGM" displayName="L900.0530" /> <statusCode code="completed " /> <component> <observation moodCode="EVN& quot; classCode="OBS"> <templateId root=" 2.16.840.1.562283.10.20.22.4.2" /> <id nullFlavor="NA& quot; /> <code codeSystem="local" code="850.0100& quot; displayName="Glucometer" /> <statusCode code=& quot;completed" /> <effectiveTime value="898698636513& quot; /> <value unit="mg/dL" xsi:type="PQ" value="156" /> <referenceRange> < observationRange> <text>65-110</text> &lt ;/observationRange> </referenceRange> </observation& gt; </component> </organizer> </entry> <entry&gt ; <organizer moodCode="EVN" classCode="BATTERY"> <templateId root="2.16.840.1.566838.10.20.22.4.1" /> < id nullFlavor="NA" /> <code codeSystem="local" code="LBGM" displayName="L900.0530" /> < statusCode code="completed" /> <component> < observation moodCode="EVN" classCode="OBS"> < templateId root="2.16.840.1.697685.10.20.22.4.2" /> < id nullFlavor="NA" /> <code codeSystem="local" code="850.0100" displayName="Glucometer" /> < statusCode code="completed" /> <effectiveTime value=& quot;243380582173" /> <value unit="mg/dL" xsi:type ="PQ" value="87" /> <referenceRange> <observationRange> <text>65-110</text> </ observationRange> </referenceRange> </observation&gt ; </component> </organizer> </entry> <entry> <organizer moodCode="EVN" classCode="BATTERY"> <templateId root="2.16.840.1.973219.10.20.22.4.1" /> < id nullFlavor="NA" /> <code codeSystem="local" code= "LBGM" displayName="L900.0530" /> <statusCode code="completed" /> <component> < observationmoodCode="EVN" classCode="OBS"> < templateId root="2.16.840.1.574851.10.20.22.4.2" /> < id nullFlavor="NA" /> <code codeSystem="local&quot ; code="850.0100" displayName="Glucometer" /> < statusCode code="completed" /> <effectiveTime value=& quot;873331817143" /> <value unit="mg/dL" xsi:type ="PQ" value="109" /> <referenceRange> <observationRange> <text>65-110</text> </observationRange> </referenceRange> < /observation> </component> </organizer> </entry> <entry> <organizer moodCode="EVN" classCode="BATTERY& quot;> <templateId root="2.16.840.1.751797.10.20.22.4.1" /& gt; <id nullFlavor="NA" /> <code codeSystem=" local" code="LBGM" displayName="L900.0530" /> & lt;statusCode code="completed" /> <component> &lt ;observation moodCode="EVN" classCode="OBS"> &lt ;templateId root="2.16.840.1.655442.10.20.22.4.2" /> < id nullFlavor="NA" /> <code codeSystem="local&quot ; code="850.0100" displayName="Glucometer" /> & lt;statusCodecode="completed" /> <effectiveTime value=& quot;523745264353" /> <value unit="mg/dL" xsi:type=& quot;PQ" value="80" /> <referenceRange> <observationRange> <text>65-110</text> </observationRange> </referenceRange> </ observation> </component> </organizer> </entry> < entry> <organizer moodCode="EVN" classCode="BATTERY&quot ;> <templateId root="2.16.840.1.506078.10.20.22.4.1" /> <id nullFlavor="NA" /> <code codeSystem=" local" code="LINR" displayName="L160.0105" /> & lt;statusCode code="completed" /> <component> &lt ;observation moodCode="EVN" classCode="OBS"> &lt ;templateId root="2.16.840.1.409224.10.20.22.4.2" /> <id nullFlavor="NA" /> <code codeSystem="local" code="150.0150" displayName="INR." /> < statusCode code="completed" /> <effectiveTime value=& quot;987134613190" /> <value unit="" xsi:type=& quot;PQ" value="1.70" /> <interpretationCode codeSystem="local" code="*" /> < referenceRange> <observationRange> <text> 0.90-1.23</text> </observationRange> </ referenceRange> </observation> </component> </ organizer> </entry> <entry> <organizer moodCode="EVN " classCode="BATTERY"> <templateId root=" 2.16.840.1.530267.10.20.22.4.1" /> <id nullFlavor="NA&quot ; /> <code codeSystem="local" code="LBGM" displayName="L900.0530" /> <statusCode code="completed " /> <component> <observation moodCode="EVN& quot; classCode="OBS"> <templateId root=" 2.16.840.1.080870.10.20.22.4.2" /> <id nullFlavor="NA& quot; /> <code codeSystem="local" code="850.0100& quot; displayName="Glucometer" /> <statusCode code=& quot;completed" /> <effectiveTime value="482038121676& quot; /> <value unit="mg/dL" xsi:type="PQ" value="114" /> <referenceRange> < observationRange> <text>65-110</text> &lt ;/observationRange> </referenceRange> </observation& gt; </component> </organizer> </entry> <entry&gt ; <organizer moodCode="EVN" classCode="BATTERY">&lt ;templateId root="2.16.840.1.222936.10.20.22.4.1" /> <id nullFlavor="NA" /> <code codeSystem="local" code= "LBGM" displayName="L900.0530" /> <statusCode code="completed" /> <component> <observation moodCode="EVN" classCode="OBS"> <templateId root="2.16.840.1.292171.10.20.22.4.2" /> <id nullFlavor ="NA" /> <code codeSystem="local" code="850.0100 " displayName="Glucometer"/> <statusCode code=& quot;completed" /> <effectiveTime value="633415737049& quot; /> <value unit="mg/dL" xsi:type="PQ" value="101" /> <referenceRange> < observationRange> <text>65-110</text> &lt ;/observationRange> </referenceRange> </observation& gt; </component> </organizer> </entry> <entry&gt ; <organizer moodCode="EVN" classCode="BATTERY"> <templateId root="2.16.840.1.112657.10.20.22.4.1" /> & lt;id nullFlavor="NA" /> <code codeSystem="local" code ="LBGM" displayName="L900.0530" /> <statusCode code="completed" /> <component> <observation moodCode="EVN" classCode="OBS"> <templateId root="2.16.840.1.325705.10.20.22.4.2" /> <id nullFlavor ="NA" /> <code codeSystem="local" code=" 850.0100" displayName="Glucometer" /> <statusCode code="completed" /> <effectiveTime value=" 096846776668" /> <value unit="mg/dL" xsi:type=& quot;PQ" value="101" /> <referenceRange> <observationRange> <text>65-110</text> </observationRange> </referenceRange> </ observation> </component> </organizer> </entry> & lt;entry> <organizer moodCode="EVN" classCode="BATTERY& quot;> <templateId root="2.16.840.1.734446.10.20.22.4.1" /& gt; <id nullFlavor="NA" /> <code codeSystem=" local" code="LINR" displayName="L160.0105" /> & lt;statusCode code="completed" /> <component> &lt ;observation moodCode="EVN" classCode="OBS"> &lt ;templateId root="2.16.840.1.832981.10..22.4.2" /> < id nullFlavor="NA" /> <code codeSystem="local&quot ; code="150.0150" displayName="INR." /> < statusCode code="completed" /> <effectiveTime value=& quot;546752214565" /> <value unit="" xsi:type=& quot;PQ" value="1.80" /> <interpretationCode codeSystem="local" code="*" /> < referenceRange> <observationRange> <text>0.90- 1.23</text> </observationRange> </ referenceRange> </observation> </component> </ organizer> </entry> <entry> <organizer moodCode="EVN " classCode="BATTERY"> <templateId root=" 2.16.840.1.394105.10.20.22.4.1" /> <id nullFlavor="NA" / > <code codeSystem="local" code="LBGM" displayName="L900.0530" /> <statusCode code="completed " /> <component> <observation moodCode="EVN&quot ; classCode="OBS"> <templateId root=" 2.16.840.1.096822.10..22.4.2" /> <id nullFlavor="NA& quot; /> <code codeSystem="local" code="850.0100& quot; displayName="Glucometer" /> <statusCode code=& quot;completed" /> <effectiveTime value="888761978135" /& gt; <value unit="mg/dL" xsi:type="PQ" value=& quot;153" /> <referenceRange> < observationRange> <text>65-110</text> &lt ;/observationRange> </referenceRange> </observation&gt ; </component> </organizer> </entry> <entry> <organizer moodCode="EVN" classCode="BATTERY"> <templateId root="2.16.840.1.797581.10.20.22.4.1" /> < id nullFlavor="NA" /> <code codeSystem="local" code="LCBC" displayName="L100.0050" /> < statusCode code="completed" /> <component> < observation moodCode="EVN" classCode="OBS"> < templateId root="2.16.840.1.943647.10.20.22.4.2" /> < id nullFlavor="NA" /> <code codeSystem="local&quot ; code="100.0150" displayName="WBC - WHITE BLOOD COUNT" /&gt ; <statusCode code="completed" /> < effectiveTime value="117168860109" /> <value unit=&quot ;T/MM3" xsi:type="PQ" value="9.7" /> < referenceRange> <observationRange> <text> 4.5-11.0</text> </observationRange> </ referenceRange> </observation> </component> < component> <observation moodCode="EVN" classCode=" OBS"> <templateId root="2.16.840.1.370214.10.20.22.4.2& quot; /> <id nullFlavor="NA"/> <code codeSystem="local" code="100.0250" displayName=" REDBLOOD COUNT" /> <statusCode code="completed" /& gt; <effectiveTime value="211644724354" /> &lt ;value unit="M/MM3" xsi:type="PQ" value="3.51" /& gt; <interpretationCode codeSystem="local" code="*& quot; /> <referenceRange> <observationRange> <text>4.50-5.90</text> </observationRange> </referenceRange> </observation> </component&gt ; <component> <observation moodCode="EVN" classCode="OBS"> <templateId root=" 2.16.840.1.627120.10.20.22.4.2" /> <id nullFlavor="NA& quot; /> <code codeSystem="local" code="100.0300& quot; displayName="HGB - HEMOGLOBIN" /> <statusCode code="completed" /> <effectiveTime value=" 609387609135" /> <value unit="GM/DL" xsi:type=& quot;PQ" value="11.2" /> <interpretationCode codeSystem="local" code="*" /> < referenceRange> <observationRange> <text> 13.5-17.5</text> </observationRange> </ referenceRange> </observation> </component> < component> <observation moodCode="EVN" classCode=" OBS"> <templateId root="2.16.840.1.832383.10..22.4.2& quot; /> <id nullFlavor="NA" /> <code codeSystem="local" code="100.0400" displayName="HCT - HEMATOCRIT" /> <statusCode code="completed" /> <effectiveTime value="241554362474" /> < value unit="%" xsi:type="PQ" value="34.6" /> <interpretationCode codeSystem="local" code="*& quot; /> <referenceRange> <observationRange> <text>41-53</text> </observationRange> </referenceRange> </observation> </component&gt ; <component> <observation moodCode="EVN" classCode="OBS"> <templateId root=" 2.16.840.1.212309.10.20.22.4.2" /> <id nullFlavor="NA" /&gt ; <code codeSystem="local" code="100.0550" displayName="MEAN CORPUSCULAR VOLUME" /> <statusCode code="completed" /> <effectiveTime value=" 259348960297" /> <value unit="UM3" xsi:type=" PQ" value="98.6" /> <referenceRange> <observationRange> <text>80-100</text></ observationRange> </referenceRange> </observation&gt ; </component> <component> <observation moodCode ="EVN" classCode="OBS"> <templateId root=& quot;2.16.840.1.559989.10.20.22.4.2" /> <id nullFlavor=&quot ;NA" /> <code codeSystem="local" code=" 100.0600" displayName="MEAN CORPUSCULAR HGB" /> < statusCode code="completed" /> <effectiveTime value=& quot;430950132487" /> <value unit="UUG" xsi:type=& quot;PQ" value="31.9" /> <referenceRange> <observationRange> <text>26-34</text> </observationRange> </referenceRange> </ observation> </component> <component> < observation moodCode="EVN" classCode="OBS"> < templateId root="2.16.840.1.877692.10.20.22.4.2" /> < id nullFlavor="NA" /> <code codeSystem="local&quot ; code="100.0650" displayName="MEAN CORPUSCULAR HGB CONC([facility]& quot; /> <statusCode code="completed" /> & lt;effectiveTime value="028431076110" /> <value unit=& quot;GM/DL" xsi:type="PQ" value="32.4" /> & lt;referenceRange> <observationRange> <text& gt;31-37</text> </observationRange> </ referenceRange> </observation> </component> < component> <observation moodCode="EVN" classCode=" OBS"> <templateId root="2.16.840.1.708052.10.20.22.4.2& quot; /> <id nullFlavor="NA" /> <code codeSystem="local" code="100.0750" displayName="RDW STANDARD DEVIATION" /> <statusCode code="completed&quot ; /> <effectiveTime value="118243247703" /> <value unit="FL" xsi:type="PQ" value="51.8" / > <interpretationCode codeSystem="local" code="*& quot; /> <referenceRange> <observationRange> <text>36.9-50.2</text> </ observationRange> </referenceRange> </observation&gt ; </component> <component> <observation moodCode ="EVN" classCode="OBS"> <templateId root=& quot;2.16.840.1.905590.10.20.22.4.2" /> <id nullFlavor=&quot ;NA" /> <code codeSystem="local" code=" 100.0850" displayName="PLT - PLATELET COUNT" /> < statusCode code="completed" /> <effectiveTime value=& quot;898493050020" /> <value unit="T/MM3" xsi:type ="PQ" value="161" /> <referenceRange> <observationRange> <text>130-400</text> </observationRange> </referenceRange> </ observation> </component> <component> < observation moodCode="EVN" classCode="OBS"> < templateId root="2.16.840.1.033627.10.20.22.4.2" /> < id nullFlavor="NA" /> <code codeSystem="local&quot ; code="100.0950" displayName="MEAN PLATELET VOLUME" /> <statusCode code="completed" /> < effectiveTime value="919613843006" /> <value unit=&quot ;UM3" xsi:type="PQ" value="10.5" /> < referenceRange> <observationRange> <text> 9.4-12.4</text> </observationRange> </ referenceRange> </observation> </component> </ organizer> </entry> <entry> <organizer moodCode="EVN " classCode="BATTERY"> <templateId root=" 2.16.840.1.394247.10.20.22.4.1" /> <id nullFlavor="NA&quot ; /> <code codeSystem="local" code="LDIFFM" displayName="L100.0105" /> <statusCode code="completed " /> <component> <observation moodCode="EVN&quot ; classCode="OBS"> <templateIdroot=" 2.16.840.1.828947.10.20.22.4.2" /> <id nullFlavor="NA& quot; /> <code codeSystem="local" code="100.1650& quot; displayName="NEUTROPHILS % (MANUAL)" /> < statusCode code="completed" /> <effectiveTime value=& quot;159084830102" /> <value unit="%" xsi: type="PQ" value="52.0" /> <referenceRange&gt ; <observationRange> <text>33-66</text&gt ; </observationRange> </referenceRange> &lt ;/observation> </component> <component> < observation moodCode="EVN" classCode="OBS"> < templateId root="2.16.840.1.962153.10.20.22.4.2" /> < id nullFlavor="NA" /> <code codeSystem="local&quot ; code="100.1750" displayName="BAND NEUTROPHILS %" / > <statusCode code="completed" /> < effectiveTime value="119787939580" /> <value unit=&quot ;%" xsi:type="PQ" value="9.0" /> & lt;interpretationCode codeSystem="local" code="*" /> <referenceRange> <observationRange> & lt;text>0-6</text> </observationRange> </ referenceRange> </observation> </component> < component> <observation moodCode="EVN" classCode=" OBS"> <templateId root="[id number]& quot; /> <id nullFlavor="NA" /> <code codeSystem ="local" code="100.1850" displayName="LYMPHOCYTES & #37; (MANUAL)" /> <statusCode code="completed" /& gt; <effectiveTime value="[id number]" /> &lt ;value unit="%" xsi:type="PQ" value="13.0&quot ; /> <interpretationCode codeSystem="local" code=" *" /> <referenceRange> <observationRange&gt ; <text>23-45</text> </observationRange> </referenceRange> </observation> </component& gt; <component> <observation moodCode="EVN" classCode="OBS"> <templateId root=" [id number]" /> <id nullFlavor="NA& quot; /> <code codeSystem="local" code="100.1950& quot; displayName="MONOCYTES % (MANUAL)" /> < statusCode code="completed" /> <effectiveTime value=& quot;[id number]" /> <value unit="%" xsi: type="PQ" value="17.0" /> < interpretationCode codeSystem="local" code="*" /> <referenceRange> <observationRange> < text>0-9.0</text> </observationRange> </ referenceRange> </observation> </component> < component> <observation moodCode="EVN" classCode=" OBS"> <templateId root="2.16.840.1.205859.10.20.22.4.2& quot; /> <id nullFlavor="NA" /> <code codeSystem="local" code="100.2200" displayName=" METAMYELOCYTES %" /> <statusCode code=" completed" /> <effectiveTime value="048563093139" /> <value unit="%" xsi:type="PQ" value="5.0" /> <interpretationCode codeSystem=" local" code="*" /> <referenceRange> <observationRange> <text>0-0</text> & lt;/observationRange> </referenceRange> </ observation> </component> <component> < observation moodCode="EVN" classCode="OBS"> < templateId root="2.16.840.1.216582.10.20.22.4.2" /> < id nullFlavor="NA" /> <code codeSystem="local&quot ; code="100.2250" displayName="MYELOCYTES %" /> <statusCode code="completed" /> < effectiveTime value="355330754590" /> <value unit=&quot ;%" xsi:type="PQ" value="4.0" /> < interpretationCode codeSystem="local" code="*" /> <referenceRange> <observationRange> < text>0-0</text> </observationRange> </ referenceRange> </observation> </component> < component> <observation moodCode="EVN" classCode=" OBS"> <templateId root="2.16.840.1.390743.10.20.22.4.2& quot; /> <id nullFlavor="NA" /> <code codeSystem="local" code="100.2400" displayName=" PROLYMPHOCYTES %" /> <statusCode code=" completed" /> <effectiveTime value="287710412572" /> <value unit="T/MM3" xsi:type="PQ" value=& quot;5.0" /> <referenceRange> < observationRange> <text>1.8-7.7</text> </ observationRange> </referenceRange> </observation&gt ; </component> <component> <observation moodCode ="EVN" classCode="OBS"> <templateId root=& quot;2.16.840.1.894142.10.20.22.4.2" /> <id nullFlavor=&quot ;NA" /> <code codeSystem="local" code=" 100.2450" displayName="PLASMA CELLS %" /> &lt ;statusCode code="completed" /> <effectiveTime value=& quot;069972648794" /> <value unit="T/MM3" xsi:type ="PQ" value="0.9" /> <referenceRange> <observationRange> <text>NRG</text> </observationRange> </referenceRange> </ observation> </component> <component> < observation moodCode="EVN" classCode="OBS"> < templateId root="2.16.840.1.126025.10.20.22.4.2" /> < id nullFlavor="NA" /> <code codeSystem="local&quot ; code="100.2650"displayName="NEUTROPHILS # (MANUAL)" /> <statusCode code="completed" /> < effectiveTime value="235207657086" /> <value unit=&quot ;T/MM3" xsi:type="PQ" value="1.6" /> < interpretationCode codeSystem="local" code="*" /> <referenceRange> <observationRange> < text>0-0.8</text> </observationRange> </ referenceRange> </observation> </component> < component> <observation moodCode="EVN" classCode=" OBS"> <templateId root="2.16.840.1.376185.10.20.22.4.2& quot; /> <id nullFlavor="NA" /> <code codeSystem="local" code="100.2900" displayName=" METAMYELOCYTES #" /> <statusCode code="completed" /> <effectiveTime value="571143218950" /> & lt;value unit="T/MM3" xsi:type="PQ" value="0.5" /& gt; <referenceRange> <observationRange> <text>NRG</text> </observationRange> </referenceRange> </observation> </component> <component> <observation moodCode="EVN" classCode= "OBS"> <templateId root=" 2.16.840.1.876084.10.20.22.4.2" /> <id nullFlavor="NA& quot; /> <code codeSystem="local" code="100.2950" displayName="MYELOCYTES #" /> <statusCode code=" completed" /> <effectiveTime value="143043364937" /> <value unit="T/MM3" xsi:type="PQ" value=& quot;0.4" /> <referenceRange> < observationRange> <text>NRG</text> </ observationRange> </referenceRange> </observation> </component> <component> <observation moodCode= "EVN" classCode="OBS"> <templateId root=&quot ;2.16.840.1.743617.10.20.22.4.2" /> <id nullFlavor="NA& quot; /> <code codeSystem="local" code="100.4850& quot; displayName="POLYCHROMASIA" /><statusCode code=" completed" /> <effectiveTime value="528663596073" /> <value unit="" xsi:type="PQ" value="1 +" /> <referenceRange> <observationRange> <text>NRG</text> </observationRange> </referenceRange> </observation> </component > <component> <observation moodCode="EVN" classCode="OBS"> <templateId root=" 2.16.840.1.975448.10.20.22.4.2" /> <id nullFlavor="NA& quot; /> <code codeSystem="local" code="100.2550& quot; displayName="Lymphocytes # (Manual)" /> < statusCode code="completed" /> <effectiveTime value=& quot;724165647567" /> <value unit="T/MM3" xsi:type=& quot;PQ" value="1.3" /> <referenceRange> <observationRange> <text>1-4.8</text> </observationRange> </referenceRange> </ observation> </component> <component> < observation moodCode="EVN" classCode="OBS"> < templateId root="2.16.840.1.190428.10.20.22.4.2" /> <id nullFlavor="NA" /> <code codeSystem="local" code="100.4565" displayName="LRBCMOR" /> < statusCode code="completed" /> <effectiveTime value=& quot;663435440460" /> <value unit="" xsi:type=& quot;PQ" value="Abnormal" /> <referenceRange> <observationRange> <text>NRG</text> </observationRange> </referenceRange> < /observation> </component> </organizer> </entry> & lt;entry> <organizer moodCode="EVN" classCode="BATTERY& quot;> <templateId root="2.16.840.1.975400.10.20.22.4.1" /& gt; <id nullFlavor="NA" /> <code codeSystem=" local" code="LBMP" displayName="L200.0050" /> & lt;statusCode code="completed" /> <component> < observation moodCode="EVN" classCode="OBS"> < templateId root="2.16.840.1.460559.10.20.22.4.2" /> < id nullFlavor="NA" /> <code codeSystem="local&quot ; code="300.0400" displayName="FUNGAL CULTURE." /> <statusCode code="completed" /> <effectiveTime value="569333231911" /> <value unit="MG/DL" xsi:type="PQ" value="1.0" /> <referenceRange& gt; <observationRange> <text>0.8-1.5</ text> </observationRange> </referenceRange> </observation> </component> <component> <observation moodCode="EVN" classCode="OBS"> <templateId root="2.16.840.1.581168.10.20.22.4.2" /> <id nullFlavor="NA" /> <code codeSystem=" local" code="300.0450" displayName="FUNGAL CULTURE, BLOOD.& quot; /> <statusCode code="completed" /> < effectiveTime value="614935202925" /> <value unit=&quot ;RATIO"xsi:type="PQ" value="30" /> < interpretationCode codeSystem="local" code="*" /> <referenceRange> <observationRange> < text>6-26</text> </observationRange> </ referenceRange> </observation> </component> < component> <observation moodCode="EVN" classCode=" OBS"> <templateId root="2.16.840.1.788424.10.20.22.4.2& quot; /> <id nullFlavor="NA" /><code codeSystem=& quot;local" code="300.0100" displayName="NA - Sodium" / > <statusCode code="completed" /> < effectiveTime value="853933291400" /> <value unit=&quot ;MEQ/L" xsi:type="PQ" value="132" /> < interpretationCode codeSystem="local" code="*" /> <referenceRange> <observationRange> < text>134-144</text> </observationRange> </ referenceRange> </observation> </component> < component> <observation moodCode="EVN" classCode=" OBS"> <templateId root="2.16.840.1.367815.10.20.22.4.2& quot; /> <id nullFlavor="NA" /> <code codeSystem="local" code="300.0150" displayName=" Potassium" /> <statusCode code="completed" /> <effectiveTime value="691575408096" /> <value unit= "MEQ/L" xsi:type="PQ" value="4.7" /> & lt;referenceRange> <observationRange> <text& gt;3.6-5</text> </observationRange> </ referenceRange> </observation> </component> < component> <observation moodCode="EVN" classCode=" OBS"> <templateId root="2.16.840.1.952630.10.20.22.4.2& quot; /> <id nullFlavor="NA" /> <code codeSystem="local" code="300.0200" displayName=" Chloride" /> <statusCode code="completed" /> <effectiveTime value="754336829469" /> < value unit="MEQ/L" xsi:type="PQ" value="97" /> <interpretationCode codeSystem="local" code="*&quot ; /> <referenceRange> <observationRange> <text>98-107</text> </observationRange> </referenceRange> </observation> </component& gt; <component> <observation moodCode="EVN" classCode="OBS"> <templateId root=" 2.16.840.1.506536.10.20.22.4.2" /> <id nullFlavor="NA& quot; /> <code codeSystem="local" code="300.0250& quot; displayName="CO2 - Carbon Dioxide" /> < statusCode code="completed" /> <effectiveTime value=& quot;058010807257" /> <value unit="MEQ/L" xsi:type ="PQ" value="25" /> <referenceRange> <observationRange> <text>22-30</text> </observationRange> </referenceRange> </ observation> </component> <component> < observation moodCode="EVN" classCode="OBS"> < templateId root="2.16.840.1.395678.10.20.22.4.2" /> < id nullFlavor="NA" /> <code codeSystem="local" code="300.0300" displayName="Anion Gap" /> < statusCode code="completed" /> <effectiveTime value=& quot;904191976815" /> <value unit="MEQ/L" xsi:type ="PQ" value="10" /> <referenceRange> <observationRange> <text>5-15</text> </ observationRange> </referenceRange> </observation&gt ; </component> <component> <observation moodCode ="EVN" classCode="OBS"> <templateId root=& quot;2.16.840.1.898799.10.20.22.4.2" /> <id nullFlavor=&quot ;NA" /> <code codeSystem="local" code=" 300.0350" displayName="BUN - Blood Urea Nitrogen"/> & lt;statusCode code="completed" /> <effectiveTime value= "867632109609" /> <value unit="MG/DL" xsi: type="PQ" value="30.0" /> < interpretationCode codeSystem="local" code="*" /> <referenceRange> <observationRange> < text>9-20</text> </observationRange> </ referenceRange> </observation> </component> < component> <observation moodCode="EVN" classCode=" OBS"> <templateId root="2.16.840.1.780250.10..22.4.2& quot; /> <id nullFlavor="NA" /> <code codeSystem="local" code="300.0410" displayName=" Glomerular Filtration Rate" /> <statusCode code=" completed" /> <effectiveTime value="406222307488" /> <value unit="" xsi:type="PQ" value=" 71" /> <referenceRange> <observationRange> <text>NRG</text> </observationRange> </referenceRange> </observation> </component& gt; <component> <observation moodCode="EVN" classCode="OBS"> <templateId root=" 2.16.840.1.620038.10.20.22.4.2" /> <id nullFlavor="NA& quot; /> <code codeSystem="local" code="300.0500& quot; displayName="Glucose" /> <statusCode code=" completed" /> <effectiveTime value="327138204864" /> <value unit="MG/DL" xsi:type="PQ" value=& quot;94" /> <referenceRange> < observationRange> <text>75-110</text> &lt ;/observationRange> </referenceRange> </observation& gt; </component> <component> <observation moodCode="EVN" classCode="OBS"> <templateId root="2.16.840.1.145270.10.20.22.4.2" /> <id nullFlavor ="NA" /> <code codeSystem="local" code=" 300.2000" displayName="Osmolality,Calculated" /> < statusCode code="completed" /> <effectiveTime value=& quot;548459105696" /> <value unit="MOSM/KG" xsi: type="PQ" value="261" /> <referenceRange> <observationRange> <text>261-280</text&gt ; </observationRange> </referenceRange> & lt;/observation> </component> <component> < observation moodCode="EVN" classCode="OBS"> < templateId root="2.16.840.1.628725.10.20.22.4.2" /> < id nullFlavor="NA" /> <code codeSystem="local&quot ; code="300.2200" displayName="Calcium" /> < statusCode code="completed" /> <effectiveTime value=" 715728760819" /> <value unit="MG/DL" xsi:type=& quot;PQ" value="9.3" /> <referenceRange> <observationRange> <text>8.4-10.2</text> </observationRange> </referenceRange> </ observation> </component> <component> < observation moodCode="EVN" classCode="OBS"> < templateId root="2.16.840.1.719124.10.20.22.4.2" /> < id nullFlavor="NA" /> <code codeSystem="local&quot ; code="300.0095" displayName="LICTERUS" /> < statusCode code="completed" /> <effectiveTime value=& quot;141734893529" /> <value unit="" xsi:type=& quot;PQ"value="< 2" /> <referenceRange> <observationRange> <text>0-7</text> </observationRange> </referenceRange> &lt ;/observation> </component> <component> < observation moodCode="EVN" classCode="OBS"> < templateId root="2.16.840.1.815413.10.20.22.4.2" /> < id nullFlavor="NA" /> <code codeSystem="local&quot ; code="300.0096" displayName="LHEMOLYSIS" /> & lt;statusCode code="completed" /> <effectiveTime value= "970011798077" /> <value unit="" xsi:type=& quot;PQ" value="< 15" /> <referenceRange&gt ; <observationRange> <text>0-25</text&gt ; </observationRange> </referenceRange> </ observation> </component> <component> < observation moodCode="EVN" classCode="OBS"> < templateId root="2.16.840.1.097707.10.20.22.4.2" /> < id nullFlavor="NA" /> <code codeSystem="local&quot ; code="300.0097" displayName="LTURBIDITY" /> & lt;statusCode code="completed" /> <effectiveTime value= "936691506843"/> <value unit="" xsi:type=& quot;PQ" value="< 20" /> <referenceRange&gt ; <observationRange> <text>0-20</text&gt ; </observationRange> </referenceRange> & lt;/observation> </component> </organizer> </entry&gt ; <entry> <organizer moodCode="EVN" classCode=" BATTERY"> <templateId root="2.16.840.1.041594.10.20.22.4.1& quot; /> <id nullFlavor="NA" /> <code codeSystem ="local" code="LBGM" displayName="L900.0530" /&gt ; <statusCode code="completed" /> <component> <observation moodCode="EVN" classCode="OBS"> <templateId root="2.16.840.1.804751.10.20.22.4.2" /> <id nullFlavor="NA" /> <code codeSystem=" local" code="850.0100" displayName="Glucometer" /> <statusCode code="completed" /> < effectiveTime value="347810248670" /><value unit="mg/dL& quot; xsi:type="PQ" value="136" /> < referenceRange> <observationRange> <text> 65-110</text> </observationRange> </referenceRange > </observation> </component> </organizer> </entry> <entry> <organizer moodCode="EVN" classCode="BATTERY"> <templateId root=" 2.16.840.1.402025.10.20.22.4.1" /> <id nullFlavor="NA&quot ; /> <code codeSystem="local" code="LBGM" displayName="L900.0530" /> <statusCode code="completed " /> <component> <observation moodCode="EVN& quot; classCode="OBS"> <templateId root=" 2.16.840.1.834890.10.20.22.4.2" /> <id nullFlavor="NA" / > <code codeSystem="local" code="850.0100" displayName="Glucometer" /> <statusCode code=" completed" /> <effectiveTime value="371182773121" /> <value unit="mg/dL" xsi:type="PQ" value=& quot;122" /> <referenceRange> < observationRange> <text>65-110</text> &lt ;/observationRange> </referenceRange> </observation& gt; </component> </organizer> </entry> <entry&gt ; <organizer moodCode="EVN" classCode="BATTERY"> <templateId root="2.16.840.1.454434.10.20.22.4.1" /> & lt;id nullFlavor="NA" /> <code codeSystem="local&quot ; code="LBGM" displayName="L900.0530" /> < statusCode code="completed" /> <component> < observation moodCode="EVN" classCode="OBS"> < templateId root="2.16.840.1.049523.10.20.22.4.2" /> < id nullFlavor="NA" /> <code codeSystem="local&quot ; code="850.0100" displayName="Glucometer" /> & lt;statusCode code="completed" /> <effectiveTime value=&quot ;902181463945" /> <value unit="mg/dL" xsi:type=& quot;PQ" value="90" /> <referenceRange> <observationRange> <text>65-110</text> </observationRange> </referenceRange> </ observation> </component> </organizer> </entry> & lt;entry> <organizer moodCode="EVN" classCode="BATTERY& quot;> <templateId root="2.16.840.1.523697.10.20.22.4.1" /& gt; <id nullFlavor="NA" /> <code codeSystem=" local" code="LINR" displayName="L160.0105" /> & lt;statusCode code="completed" /> <component> &lt ;observation moodCode="EVN" classCode="OBS"> &lt ;templateId root="2.16.840.1.827081.10.20.22.4.2" /> < id nullFlavor="NA" /> <code codeSystem="local&quot ; code="150.0150" displayName="INR." /> < statusCode code="completed" /> <effectiveTimevalue=& quot;130687392297" /> <value unit="" xsi:type=& quot;PQ" value="1.70" /> <interpretationCode codeSystem="local" code="*" /> < referenceRange> <observationRange> <text> 0.90-1.23</text> </observationRange> </ referenceRange> </observation> </component> </ organizer> </entry> <entry> <organizer moodCode="EVN& quot; classCode="BATTERY"> <templateId root=" 2.16.840.1.595689.10.20.22.4.1" /> <id nullFlavor="NA&quot ; /> <code codeSystem="local" code="LBGM" displayName="L900.0530" /><statusCode code="completed&quot ; /> <component> <observation moodCode="EVN" classCode="OBS"> <templateId root=" 2.16.840.1.085261.10.20.22.4.2" /> <id nullFlavor="NA& quot; /> <code codeSystem="local" code="850.0100& quot; displayName="Glucometer" /> <statusCode code=& quot;completed" /> <effectiveTime value="494661021845& quot; /> <value unit="mg/dL" xsi:type="PQ" value="195" /> <referenceRange> < observationRange> <text>65-110</text> &lt ;/observationRange> </referenceRange> </observation& gt; </component> </organizer> </entry> <entry&gt ; <organizermoodCode="EVN" classCode="BATTERY"> <templateId root="2.16.840.1.060065.10.20.22.4.1" /> &lt ;id nullFlavor="NA" /> <code codeSystem="local" code="LBGM" displayName="L900.0530" /> < statusCode code="completed" /> <component> < observation moodCode="EVN" classCode="OBS"> < templateId root="2.16.840.1.113548.10.20.22.4.2" /> < id nullFlavor="NA" /> <code codeSystem="local&quot ; code="850.0100" displayName="Glucometer" /> & lt;statusCode code="completed" /> <effectiveTime value= "103610452490" /> <value unit="mg/dL" xsi: type="PQ" value="125" /> <referenceRange> <observationRange> <text>65-110</text&gt ; </observationRange> </referenceRange> </ observation> </component> </organizer> </entry> & lt;entry> <organizer moodCode="EVN" classCode="BATTERY& quot;> <templateId root="2.16.840.1.285891.10.20.22.4.1" /& gt; <id nullFlavor="NA" /> <code codeSystem=" local" code="LBGM" displayName="L900.0530" /> & lt;statusCode code="completed" /> <component> &lt ;observation moodCode="EVN" classCode="OBS"> &lt ;templateId root="2.16.840.1.605478.10.20.22.4.2" /> <id nullFlavor="NA" /> <code codeSystem="local" code="850.0100" displayName="Glucometer" /> < statusCode code="completed" /> <effectiveTime value=& quot;699113048316" /> <value unit="mg/dL" xsi:type ="PQ" value="101" /> <referenceRange> <observationRange> <text>65-110</text> </observationRange> </referenceRange> </ observation> </component> </organizer> </entry> &lt ;entry> <organizer moodCode="EVN" classCode="BATTERY& quot;> <templateId root="2.16.840.1.971111.10.20.22.4.1" /& gt; <id nullFlavor="NA" /> <code codeSystem=" local" code="LBGM" displayName="L900.0530" /> & lt;statusCode code="completed" /> <component> < observation moodCode="EVN" classCode="OBS"> < templateId root="2.16.840.1.989341.10.20.22.4.2" /> < id nullFlavor="NA" /> <code codeSystem="local&quot ; code="850.0100" displayName="Glucometer" /> & lt;statusCode code="completed" /> <effectiveTime value=" 581839465025" /> <value unit="mg/dL" xsi:type=& quot;PQ" value="74" /> <referenceRange> <observationRange> <text>65-110</text> </observationRange> </referenceRange> </ observation> </component> </organizer> </entry> & lt;entry> <organizer moodCode="EVN" classCode="BATTERY& quot;> <templateId root="2.16.840.1.246932.10.20.22.4.1" /& gt; <id nullFlavor="NA" /> <code codeSystem=" local" code="LINR" displayName="L160.0105" /> & lt;statusCode code="completed" /> <component> &lt ;observation moodCode="EVN" classCode="OBS"> &lt ;templateId root="2.16.840.1.317618.10.20.22.4.2" /> < id nullFlavor="NA" /> <code codeSystem="local&quot ; code="150.0150" displayName="INR." /> < statusCode code="completed" /> <effectiveTime value=& quot;282906439402" /> <value unit="" xsi:type=& quot;PQ" value="2.10" /> <interpretationCode codeSystem="local" code="*" /> < referenceRange> <observationRange> <text> 0.90-1.23</text> </observationRange> </ referenceRange></observation> </component> </organizer > </entry> <entry><organizer moodCode="EVN" classCode="BATTERY"> <templateId root=" 2.16.840.1.937936.10.20.22.4.1" /> <id nullFlavor="NA&quot ; /> <code codeSystem="local" code="LBGM" displayName="L900.0530" /> <statusCode code="completed " /> <component> <observation moodCode="EVN& quot; classCode="OBS"> <templateId root=" 2.16.840.1.445342.10.20.22.4.2" /> <id nullFlavor="NA& quot; /> <code codeSystem="local" code="850.0100& quot; displayName="Glucometer" /> <statusCode code=& quot;completed" /> <effectiveTime value="753679809667& quot; /> <value unit="mg/dL" xsi:type="PQ" value="76" /> <referenceRange> < observationRange> <text>65-110</text> &lt ;/observationRange> </referenceRange> </observation& gt; </component> </organizer> </entry> <entry&gt ; <organizer moodCode="EVN" classCode="BATTERY"> <templateId root="2.16.840.1.588883.10.20.22.4.1" /> & lt;id nullFlavor="NA" /> <code codeSystem="local&quot ; code="LCBC" displayName="L100.0050" /> < statusCode code="completed" /> <component> < observation moodCode="EVN" classCode="OBS"> < templateId root="2.16.840.1.703974.10.20.22.4.2"/> <id nullFlavor="NA" /> <code codeSystem="local" code="100.0150" displayName="WBC - WHITE BLOOD COUNT" /> <statusCode code="completed" /> < effectiveTime value="155186923048" /> <value unit="T /MM3" xsi:type="PQ" value="9.7" /> < referenceRange> <observationRange> <text> 4.5-11.0</text> </observationRange> </ referenceRange> </observation> </component> < component> <observation moodCode="EVN" classCode=" OBS"> <templateId root="2.16.840.1.099699.10.20.22.4.2& quot; /> <id nullFlavor="NA" /> <code codeSystem="local" code="100.0250" displayName="RED BLOOD COUNT" /> <statusCode code="completed" /&gt ; <effectiveTime value="988968574515" /> < value unit="M/MM3" xsi:type="PQ" value="3.71" /&gt ; <interpretationCode codeSystem="local" code="*&quot ; /> <referenceRange> <observationRange> <text>4.50-5.90</text> </observationRange&gt ; </referenceRange> </observation> </ component> <component> <observation moodCode="EVN& quot; classCode="OBS"> <templateId root=" 2.16.840.1.864037.10.20.22.4.2" /> <id nullFlavor="NA& quot; /> <code codeSystem="local" code="100.0300& quot; displayName="HGB - HEMOGLOBIN" /> <statusCode code="completed" /> <effectiveTime value=" 355510925588" /> <value unit="GM/DL" xsi:type=& quot;PQ" value="12.0" /> <interpretationCode codeSystem="local" code="*" /> < referenceRange> <observationRange> <text> 13.5-17.5</text> </observationRange> </ referenceRange> </observation> </component> < component> <observation moodCode="EVN" classCode=" OBS"> <templateId root="2.16.840.1.904434.10.20.22.4.2& quot; /> <id nullFlavor="NA" /> <code codeSystem="local" code="100.0400" displayName="HCT - HEMATOCRIT" /> <statusCode code="completed" /> <effectiveTime value="649189453309" /> < value unit="%" xsi:type="PQ" value="36.5" /> <interpretationCode codeSystem="local" code="*& quot; /> <referenceRange> <observationRange> <text>41-53</text> </observationRange> </referenceRange> </observation> </component& gt; <component> <observation moodCode="EVN" classCode="OBS"> <templateId root=" 2.16.840.1.513014.10.20.22.4.2" /> <id nullFlavor="NA& quot; /> <code codeSystem="local" code="100.0550& quot; displayName="MEAN CORPUSCULAR VOLUME" /> < statusCode code="completed" /> <effectiveTime value=& quot;412222560286" /> <value unit="UM3" xsi:type=& quot;PQ" value="98.4" /> <referenceRange> <observationRange> <text>80-100</text> &lt ;/observationRange> </referenceRange> </observation& gt; </component> <component> <observation moodCode="EVN" classCode="OBS"> <templateId root="2.16.840.1.151768.10.20.22.4.2" /> <id nullFlavor ="NA" /> <code codeSystem="local" code=" 100.0600" displayName="MEAN CORPUSCULAR HGB" /> < statusCode code="completed" /> <effectiveTime value=& quot;850469160515" /> <value unit="UUG" xsi:type=& quot;PQ" value="32.3" /> <referenceRange> <observationRange> <text>26-34</text> </observationRange> </referenceRange> </ observation> </component> <component> < observation moodCode="EVN" classCode="OBS"> < templateId root="2.16.840.1.862717.10.20.22.4.2" /> < id nullFlavor="NA" /> <code codeSystem="local&quot ; code="100.0650" displayName="MEAN CORPUSCULAR HGB CONC(MCHC& quot; /> <statusCode code="completed" /> & lt;effectiveTime value="[id number]" /> <value unit=& quot;GM/DL" xsi:type="PQ" value="32.9" /> & lt;referenceRange> <observationRange> <text& gt;31-37</text> </observationRange> </ referenceRange> </observation> </component> < component> <observation moodCode="EVN" classCode=" OBS"> <templateId root="[id number]& quot; /> <id nullFlavor="NA" /> <code codeSystem="local" code="100.0750" displayName="RDW STANDARD DEVIATION" /> <statusCode code="completed" /> <effectiveTime value="[id number]" /> & lt;value unit="FL" xsi:type="PQ" value="51.3" /&gt ; <interpretationCode codeSystem="local" code="*&quot ; /> <referenceRange> <observationRange> <text>36.9-50.2</text> </observationRange> </referenceRange> </observation> </component&gt ; <component> <observation moodCode="EVN" classCode="OBS"> <templateId root=" 2.16.840.1.497895.10.20.22.4.2" /> <id nullFlavor="NA& quot; /> <code codeSystem="local" code="100.0850& quot; displayName="PLT - PLATELET COUNT" /> < statusCode code="completed" /> <effectiveTime value=& quot;033022192568" /> <value unit="T/MM3" xsi:type=& quot;PQ" value="212" /><referenceRange> < observationRange> <text>130-400</text> & lt;/observationRange> </referenceRange> </ observation> </component> <component> < observation moodCode="EVN" classCode="OBS"> < templateId root="2.16.840.1.524207.10.20.22.4.2" /> < id nullFlavor="NA" /> <code codeSystem="local&quot ; code="100.0950" displayName="MEAN PLATELET VOLUME" /> <statusCode code="completed" /> < effectiveTime value="323765379773" /> <value unit="UM3&quot ; xsi:type="PQ" value="10.2" /> < referenceRange> <observationRange> <text> 9.4-12.4</text> </observationRange> </ referenceRange> </observation></component> </ organizer> </entry> <entry> <organizer moodCode="EVN " classCode="BATTERY"> <templateId root=" 2.16.840.1.001285.10.20.22.4.1" /> <id nullFlavor="NA&quot ; /> <code codeSystem="local" code="LDIFFM" displayName="L100.0105" /> <statusCode code="completed " /> <component> <observation moodCode="EVN& quot; classCode="OBS"> <templateId root=" 2.16.840.1.171773.10.20.22.4.2" /> <id nullFlavor="NA& quot; /> <code codeSystem="local" code="100.1650& quot; displayName="NEUTROPHILS % (MANUAL)" /> < statusCode code="completed" /> <effectiveTime value=& quot;278152422360" /> <value unit="%" xsi: type="PQ" value="53.0" /> <referenceRange> <observationRange> <text>33-66</text> </observationRange> </referenceRange> < /observation> </component> <component> < observation moodCode="EVN" classCode="OBS"> < templateId root="2.16.840.1.074426.10.20.22.4.2"/> <id nullFlavor="NA" /> <code codeSystem="local" code="100.1750" displayName="BAND NEUTROPHILS %" /& gt; <statusCode code="completed" /> < effectiveTime value="234557803523" /> <value unit=&quot ;%" xsi:type="PQ" value="2.0" /> < referenceRange> <observationRange> <text> 0-6</text> </observationRange> </ referenceRange> </observation> </component> < component> <observation moodCode="EVN" classCode=" OBS"> <templateId root="2.16.840.1.865147.10.20.22.4.2& quot;/> <id nullFlavor="NA" /> <code codeSystem="local"code="100.1850" displayName=" LYMPHOCYTES % (MANUAL)" /> <statusCode code=" completed" /> <effectiveTime value="810778370615"/ > <value unit="%" xsi:type="PQ" value ="23.0" /> <referenceRange> < observationRange> <text>23-45</text> < /observationRange> </referenceRange> </observation& gt; </component> <component> <observation moodCode="EVN" classCode="OBS"> <templateId root="2.16.840.1.680535.10..22.4.2" /> <id nullFlavor ="NA" /> <code codeSystem="local" code=" 100.1950" displayName="MONOCYTES % (MANUAL)" />< statusCode code="completed" /> <effectiveTime value=& quot;093954348773" /> <value unit="%" xsi: type="PQ" value="10.0" /> < interpretationCode codeSystem="local" code="*" /> < referenceRange> <observationRange> <text> 0-9.0</text> </observationRange> </ referenceRange> </observation> </component> < component> <observation moodCode="EVN" classCode=" OBS"> <templateId root="2.16.840.1.411241.10.20.22.4.2& quot; /> <id nullFlavor="NA" /> <code codeSystem="local" code="100.2049" displayName=" EOSINOPHILS % (MANUAL)" /> <statusCode code=" completed" /> <effectiveTime value="299543015849" /> <value unit="%" xsi:type="PQ" value="1.0" /> <referenceRange> < observationRange> <text>0-4</text> </ observationRange> </referenceRange> </observation&gt ; </component> <component> <observation moodCode ="EVN"classCode="OBS"> <templateId root=&quot ;2.16.840.1.070850.10.20.22.4.2" /> <id nullFlavor="NA& quot; /> <code codeSystem="local" code="100.2199& quot; displayName="METAMYELOCYTES %" /> < statusCode code="completed" /> <effectiveTime value=& quot;703773217253" /> <value unit="%" xsi: type="PQ" value="4.0" /> <interpretationCode codeSystem="local" code="*" /> < referenceRange> <observationRange> <text> 0-0</text> </observationRange> </referenceRange> </observation> </component> <component> <observation moodCode="EVN" classCode="OBS"> <templateId root="2.16.840.1.487467.10.20.22.4.2" /> <id nullFlavor="NA" /> <code codeSystem=" local" code="100.2250" displayName="MYELOCYTES %& quot; /> <statusCode code="completed" /> & lt;effectiveTime value="180871484976" /> <value unit=& quot;%" xsi:type="PQ" value="5.0" /> <interpretationCode codeSystem="local" code="*" /> <referenceRange> <observationRange> < text>0-0</text> </observationRange> </ referenceRange> </observation> </component> < component> <observation moodCode="EVN" classCode=" OBS"> <templateId root="2.16.840.1.594716.10.20.22.4.2" /& gt; <id nullFlavor="NA" /> <code codeSystem ="local" code="100.2400" displayName="PROLYMPHOCYTES & amp;#37;" /> <statusCode code="completed" /> <effectiveTime value="005495384652" /> < value unit="T/MM3" xsi:type="PQ" value="5.1" /&gt ; <referenceRange> <observationRange> <text>1.8-7.7</text> </observationRange> </referenceRange> </observation> </component> <component> <observation moodCode="EVN" classCode="OBS"> <templateId root=" 2.16.840.1.217305.10.20.22.4.2" /> <id nullFlavor="NA& quot; /> <code codeSystem="local" code="100.2450& quot; displayName="PLASMA CELLS %" /> < statusCode code="completed" /> <effectiveTime value=" 704716001406" /> <value unit="T/MM3" xsi:type=& quot;PQ" value="0.2" /> <referenceRange> <observationRange> <text>NRG</text> </observationRange> </referenceRange> </ observation> </component> <component> < observation moodCode="EVN" classCode="OBS"> < templateId root="2.16.840.1.199900.10.20.22.4.2" /> < id nullFlavor="NA" /> <code codeSystem="local&quot ; code="100.2650" displayName="NEUTROPHILS # (MANUAL)" /&gt ; <statusCode code="completed" /> < effectiveTime value="908862825347" /> <value unit=&quot ;T/MM3" xsi:type="PQ" value="1.0" /> < interpretationCode codeSystem="local" code="*" /> <referenceRange> <observationRange> <text& gt;0-0.8</text> </observationRange> </ referenceRange> </observation> </component> < component> <observation moodCode="EVN" classCode=" OBS"> <templateId root="2.16.840.1.287898.10.20.22.4.2& quot; /> <id nullFlavor="NA" /> <code codeSystem="local" code="100.2750" displayName=" MONOCYTES # (MANUAL)" /> <statusCode code="completed& quot; /> <effectiveTime value="870924876443" /> <value unit="T/MM3" xsi:type="PQ" value="0.1& quot; /> <referenceRange> <observationRange> <text>0-0.5</text> </observationRange> & lt;/referenceRange> </observation> </component> <component> <observation moodCode="EVN" classCode=& quot;OBS"> <templateId root=" 2.16.840.1.293378.10.20.22.4.2" /> <id nullFlavor="NA& quot; /> <code codeSystem="local" code="100.2900& quot; displayName="METAMYELOCYTES #" /> <statusCode code=& quot;completed" /> <effectiveTime value="369081830668& quot; /> <value unit="T/MM3" xsi:type="PQ" value="0.4" /> <referenceRange> < observationRange> <text>NRG</text> </ observationRange> </referenceRange> </observation&gt ; </component> <component> <observation moodCode ="EVN" classCode="OBS"> <templateId root=& quot;2.16.840.1.757504.10.20.22.4.2" /> <id nullFlavor=&quot ;NA" /> <code codeSystem="local" code=" 100.2950" displayName="MYELOCYTES #" /> < statusCode code="completed" /> <effectiveTime value=& quot;803764657191" /> <value unit="T/MM3" xsi:type=& quot;PQ" value="0.5" /> <referenceRange> < observationRange> <text>NRG</text> </ observationRange> </referenceRange> </observation&gt ; </component> <component> <observation moodCode=& quot;EVN" classCode="OBS"> <templateId root=" 2.16.840.1.622552.10.20.22.4.2" /> <id nullFlavor="NA& quot; /> <code codeSystem="local" code="100.4850& quot; displayName="POLYCHROMASIA" /> <statusCode code=& quot;completed" /> <effectiveTime value="671428944182& quot; /> <value unit="" xsi:type="PQ" value=& quot;1+" /> <referenceRange> < observationRange> <text>NRG</text> </ observationRange> </referenceRange> </observation&gt ; </component> <component> <observation moodCode=& quot;EVN" classCode="OBS"> <templateId root=" 2.16.840.1.065449.10.20.22.4.2" /> <id nullFlavor="NA& quot; /> <code codeSystem="local" code="100.1875& quot; displayName="Reactive Lymphocytes %" /> < statusCode code="completed" /> <effectiveTime value=& quot;630923488161" /> <value unit="%" xsi: type="PQ" value="2.0" /> <interpretationCode codeSystem="local" code="*" /> < referenceRange> <observationRange> <text>0-0</ text> </observationRange> </referenceRange> </observation> </component> <component> <observation moodCode="EVN" classCode="OBS"> <templateId root="2.16.840.1.367766.10.20.22.4.2" /> <id nullFlavor="NA" /> <code codeSystem=" local" code="100.2550" displayName="Lymphocytes # (Manual)& quot; /> <statusCode code="completed" /> < effectiveTime value="772585827410" /> <value unit=&quot ;T/MM3" xsi:type="PQ" value="2.2" /> < referenceRange> <observationRange> <text> 1-4.8</text> </observationRange> </ referenceRange> </observation> </component> < component> <observation moodCode="EVN" classCode=" OBS"> <templateId root="2.16.840.1.886311.10.20.22.4.2& quot; /> <id nullFlavor="NA" /> <code codeSystem="local" code="100.2575" displayName=" Reactive Lymphocytes #" /> <statusCode code="completed& quot; /> <effectiveTime value="138403870368" /> <value unit="T/MM3" xsi:type="PQ" value="0.2& quot; /> <interpretationCode codeSystem="local" code=& quot;*" /> <referenceRange> < observationRange> <text>0-0</text> </ observationRange> </referenceRange> </observation&gt ; </component> <component> <observation moodCode ="EVN" classCode="OBS"> <templateId root=& quot;2.16.840.1.869852.10.20.22.4.2" /> <id nullFlavor=&quot ;NA" /> <code codeSystem="local" code=" 100.4565" displayName="LRBCMOR" /> <statusCode code=&quot ;completed" /> <effectiveTime value="419844217590&quot ; /> <value unit="" xsi:type="PQ" value=&quot ;Abnormal" /> <referenceRange> < observationRange> <text>NRG</text> </ observationRange> </referenceRange> </observation&gt ; </component> </organizer> </entry> <entry> <organizer moodCode="EVN" classCode="BATTERY"> <templateId root="2.16.840.1.021241.10.20.22.4.1" /> < id nullFlavor="NA" /> <code codeSystem="local" code="LBMP" displayName="L200.0050" /> < statusCode code="completed" /> <component> < observation moodCode="EVN" classCode="OBS"> < templateId root="2.16.840.1.991210.10.20.22.4.2" /> < id nullFlavor="NA" /> <code codeSystem="local&quot ; code="300.0400" displayName="FUNGAL CULTURE." /> <statusCode code="completed" /> <effectiveTime value="158279490275" /> <value unit="MG/DL" xsi:type="PQ" value="1.1" /> <referenceRange> <observationRange> <text>0.8-1.5</text> </observationRange> </referenceRange> &lt ;/observation> </component> <component> < observation moodCode="EVN" classCode="OBS"> < templateId root="2.16.840.1.570097.10.20.22.4.2" /> < id nullFlavor="NA" /> <code codeSystem="local&quot ; code="300.0450" displayName="FUNGAL CULTURE, BLOOD." /&gt ; <statusCodecode="completed" /> < effectiveTime value="658163829915" /> <value unit=" RATIO" xsi:type="PQ" value="29" /> < interpretationCode codeSystem="local" code="*" /> <referenceRange> <observationRange> < text>6-26</text> </observationRange> </ referenceRange> </observation> </component> < component> <observation moodCode="EVN" classCode=" OBS"> <templateId root="2.16.840.1.116897.10.20.22.4.2& quot; /> <id nullFlavor="NA" /> <code codeSystem="local" code="300.0100" displayName="NA - Sodium" /> <statusCode code="completed" /> <effectiveTime value="347930843118" /> <value unit="MEQ/L" xsi:type="PQ" value="135" /> <referenceRange> <observationRange> &lt ;text>134-144</text> </observationRange> < /referenceRange> </observation> </component> &lt ;component> <observation moodCode="EVN" classCode=" OBS"> <templateId root="2.16.840.1.041706.10.20.22.4.2& quot; /> <id nullFlavor="NA" /> <code codeSystem="local" code="300.0150" displayName=" Potassium" /> <statusCode code="completed" /> <effectiveTime value="370647473388" /> < value unit="MEQ/L" xsi:type="PQ" value="5.2" /&gt ; <interpretationCode codeSystem="local" code="*&quot ; /> <referenceRange> <observationRange> & lt;text>3.6-5</text> </observationRange> < /referenceRange> </observation> </component> &lt ;component> <observation moodCode="EVN" classCode=" OBS"> <templateId root="2.16.840.1.124439.10.20.22.4.2& quot; /> <id nullFlavor="NA" /> <code codeSystem="local" code="300.0200" displayName=" Chloride" /><statusCode code="completed" /> &lt ;effectiveTime value="606787646724" /> <value unit=& quot;MEQ/L" xsi:type="PQ" value="96" /> &lt ;interpretationCode codeSystem="local" code="*" /> <referenceRange> <observationRange> < text>98-107</text> </observationRange> </ referenceRange> </observation> </component> < component> <observation moodCode="EVN" classCode=" OBS"> <templateId root="2.16.840.1.617582.10.20.22.4.2& quot; /> <id nullFlavor="NA" /> <code codeSystem="local" code="300.0250" displayName="CO2 - Carbon Dioxide" /> <statusCode code="completed" /& gt; <effectiveTime value="960727320789" /> &lt ;value unit="MEQ/L" xsi:type="PQ" value="26" /&gt ; <referenceRange> <observationRange> <text>22-30</text> </observationRange> </ referenceRange> </observation> </component> < component> <observation moodCode="EVN" classCode=" OBS"> <templateId root="2.16.840.1.056020.10.20.22.4.2& quot; /> <id nullFlavor="NA" /> <code codeSystem="local" code="300.0300" displayName="Anion Gap" /> <statusCode code="completed" /> <effectiveTime value="715259291115" /> <value unit="MEQ/L" xsi:type="PQ" value="13" /> <referenceRange> <observationRange> <text>5 -15</text> </observationRange> </ referenceRange> </observation> </component> < component> <observation moodCode="EVN" classCode=" OBS"><templateId root="2.16.840.1.815498.10.20.22.4.2" /&gt ; <id nullFlavor="NA" /> <code codeSystem=& quot;local" code="300.0350" displayName="BUN - Blood Urea Nitrogen" /> <statusCode code="completed" /> <effectiveTime value="094853240872" /> < value unit="MG/DL" xsi:type="PQ" value="32.0" /&gt ; <interpretationCode codeSystem="local" code="*&quot ; /> <referenceRange> <observationRange> <text>9-20</text> </observationRange> </referenceRange> </observation> </component& gt; <component> <observation moodCode="EVN" classCode= "OBS"> <templateId root=" 2.16.840.1.924116.10.20.22.4.2" /> <id nullFlavor="NA& quot; /> <code codeSystem="local" code="300.0410&quot ; displayName="Glomerular Filtration Rate" /> < statusCode code="completed" /> <effectiveTime value=& quot;479738706097" /> <value unit="" xsi:type=& quot;PQ" value="63" /> <referenceRange> <observationRange> <text>NRG</text> </observationRange> </referenceRange> </ observation> </component> <component> < observation moodCode="EVN" classCode="OBS"> < templateId root="2.16.840.1.232409.10.20.22.4.2" /> < id nullFlavor="NA" /> <code codeSystem="local&quot ; code="300.0500" displayName="Glucose" /> < statusCode code="completed" /> <effectiveTime value=& quot;427376429751" /> <value unit="MG/DL" xsi:type ="PQ" value="103" /> <referenceRange> <observationRange> <text>75-110</text> </observationRange> </referenceRange> < /observation> </component> <component> < observation moodCode="EVN" classCode="OBS"> < templateId root="2.16.840.1.022284.10..22.4.2" /> < id nullFlavor="NA" /> <code codeSystem="local&quot ; code="300.2000" displayName="Osmolality,Calculated" /> <statusCode code="completed" /> <effectiveTime value ="287255534710" /> <value unit="MOSM/KG" xsi: type="PQ" value="267" /> <referenceRange> <observationRange> <text>261-280</text& gt; </observationRange> </referenceRange> </observation> </component> <component> &lt ;observation moodCode="EVN" classCode="OBS"> &lt ;templateId root="2.16.840.1.346282.10.20.22.4.2" /> < id nullFlavor="NA" /> <code codeSystem="local&quot ; code="300.2200" displayName="Calcium" /> < statusCode code="completed" /> <effectiveTime value=& quot;690454595933" /> <value unit="MG/DL" xsi:type=&quot ;PQ" value="9.5" /> <referenceRange> <observationRange> <text>8.4-10.2</text> </observationRange> </referenceRange> </ observation> </component> <component> < observation moodCode="EVN" classCode="OBS"> < templateId root="2.16.840.1.824053.10.20.22.4.2" /> <id nullFlavor="NA" /> <code codeSystem="local" code="300.0095" displayName="LICTERUS" /> < statusCode code="completed" /> <effectiveTime value=& quot;211082329293" /> <value unit="" xsi:type=& quot;PQ" value="< 2" /> <referenceRange&gt ; <observationRange> <text>0-7</text> </observationRange> </referenceRange> & lt;/observation> </component> <component> < observation moodCode="EVN" classCode="OBS"> < templateId root="2.16.840.1.569191.10.20.22.4.2" /> < id nullFlavor="NA" /> <code codeSystem="local&quot ; code="300.0096"displayName="LHEMOLYSIS" /> &lt ;statusCode code="completed" /> <effectiveTime value=" 388176046529" /> <value unit="" xsi:type="PQ& quot; value="< 15" /> <referenceRange> <observationRange> <text>0-25</text> </observationRange> </referenceRange> </ observation> </component> <component> < observation moodCode="EVN" classCode="OBS"> < templateId root="2.16.840.1.780279.10.20.22.4.2" /> < id nullFlavor="NA" /> <code codeSystem="local&quot ; code="300.0097" displayName="LTURBIDITY" /> & lt;statusCode code="completed" /> <effectiveTime value= "492133388743" /> <value unit="" xsi:type=& quot;PQ" value="< 20" /> <referenceRange&gt ; <observationRange> <text>0-20</text&gt ; </observationRange> </referenceRange> & lt;/observation> </component> </organizer> </entry&gt ; <entry> <organizer moodCode="EVN" classCode=" BATTERY"> <templateId root="2.16.840.1.713901.10.20.22.4.1& quot; /> <id nullFlavor="NA" /> <code codeSystem ="local" code="LBGM" displayName="L900.0530" /&gt ; <statusCode code="completed" /> <component> & lt;observation moodCode="EVN" classCode="OBS"> & lt;templateId root="2.16.840.1.263861.10.20.22.4.2" /> &lt ;id nullFlavor="NA" /> <code codeSystem="local" code="850.0100" displayName="Glucometer" /> < statusCode code="completed" /> <effectiveTime value=& quot;650398070849" /> <value unit="mg/dL" xsi:type ="PQ" value="134" /> <referenceRange> <observationRange> <text>65-110</text> & lt;/observationRange> </referenceRange> </ observation> </component> </organizer> </entry> & lt;entry> <organizer moodCode="EVN" classCode="BATTERY& quot;> <templateId root="2.16.840.1.776770.10.20.22.4.1" /& gt; <id nullFlavor="NA" /> <code codeSystem=" local" code="LBGM" displayName="L900.0530" /> & lt;statusCode code="completed" /> <component> &lt ;observation moodCode="EVN" classCode="OBS"> &lt ;templateId root="2.16.840.1.310369.10.20.22.4.2" /> < id nullFlavor="NA" /> <code codeSystem="local&quot ; code="850.0100" displayName="Glucometer" /> < statusCode code="completed" /> <effectiveTime value=& quot;724030679970" /> <value unit="mg/dL" xsi:type ="PQ" value="114" /> <referenceRange> <observationRange> <text>65-110</text> </observationRange> </referenceRange> < /observation> </component> </organizer> </entry> <entry> <organizer moodCode="EVN" classCode="BATTERY& quot;> <templateId root="2.16.840.1.923015.10.20.22.4.1" /& gt; <id nullFlavor="NA" /> <code codeSystem=" local" code="LINR" displayName="L160.0105" /> & lt;statusCode code="completed" /> <component> &lt ;observation moodCode="EVN" classCode="OBS"> &lt ;templateId root="2.16.840.1.000508.10.20.22.4.2" /> < id nullFlavor="NA" /> <code codeSystem="local&quot ; code="150.0150" displayName="INR." /> < statusCode code="completed" /> <effectiveTime value=& quot;287251356105" /> <value unit="" xsi:type="PQ&quot ; value="2.50" /> <interpretationCode codeSystem=" local" code="*" /> <referenceRange> &lt ;observationRange> <text>0.99-1.21</text> </observationRange> </referenceRange> </ observation> </component> </organizer> </entry> & lt;entry> <organizer moodCode="EVN" classCode="BATTERY& quot;> <templateId root="2.16.840.1.299522.10.20.22.4.1" /& gt; <id nullFlavor="NA" /> <code codeSystem=" local" code="LBMP" displayName="L200.0050" /> & lt;statusCode code="completed" /> <component> &lt ;observation moodCode="EVN" classCode="OBS"> &lt ;templateId root="2.16.840.1.479195.10.20.22.4.2" /> < id nullFlavor="NA" /> <code codeSystem="local&quot ; code="300.0400"displayName="FUNGAL CULTURE." /> <statusCode code="completed" /> <effectiveTime value="643797034155" /> <value unit="MG/DL" xsi:type="PQ" value="0.9" /> <referenceRange& gt; <observationRange> <text>0.8-1.5</text> </observationRange> </referenceRange> </ observation> </component> <component> < observation moodCode="EVN" classCode="OBS"> < templateId root="2.16.840.1.765512.10.20.22.4.2" /> < id nullFlavor="NA" /> <code codeSystem="local&quot ; code="300.0450" displayName="FUNGAL CULTURE, BLOOD." /&gt ; <statusCode code="completed" /> < effectiveTime value="233514711812" /> <value unit=&quot ;RATIO" xsi:type="PQ" value="32" /> < interpretationCode codeSystem="local" code="*" /> <referenceRange> <observationRange> < text>6-26</text> </observationRange> </ referenceRange> </observation> </component> < component> <observation moodCode="EVN" classCode=" OBS"> <templateId root="2.16.840.1.660076.10.20.22.4.2& quot; /> <id nullFlavor="NA" /> <code codeSystem="local" code="300.0100" displayName="NA - Sodium" /> <statusCode code="completed" /> <effectiveTime value="972008228465" /> <value unit="MEQ/L" xsi:type="PQ" value="132" /> <interpretationCode codeSystem="local" code="*"/&gt ; <referenceRange> <observationRange> <text>134-144</text> </observationRange> </referenceRange> </observation> </component> <component> <observation moodCode="EVN" classCode="OBS"> <templateId root=" 2.16.840.1.728680.10.20.22.4.2" /> <id nullFlavor="NA& quot; /> <code codeSystem="local" code="300.0150& quot; displayName="Potassium" /> <statusCodecode=" completed" /> <effectiveTime value="054421543954" /> <value unit="MEQ/L" xsi:type="PQ" value=" 4.7" /> <referenceRange> <observationRange& gt; <text>3.6-5</text> </observationRange& gt; </referenceRange> </observation> </component > <component> <observation moodCode="EVN" classCode="OBS"> <templateId root=" 2.16.840.1.580912.10.20.22.4.2" /> <id nullFlavor="NA&quot ; /> <code codeSystem="local" code="300.0200&quot ; displayName="Chloride" /> <statusCode code=" completed" /> <effectiveTime value="772557513909" /> <value unit="MEQ/L" xsi:type="PQ" value=& quot;98" /> <referenceRange> < observationRange> <text>98-107</text> &lt ;/observationRange> </referenceRange> </observation& gt; </component> <component> <observation moodCode="EVN" classCode="OBS"> <templateId root="2.16.840.1.854933.10.20.22.4.2" /> <id nullFlavor ="NA" /> <code codeSystem="local" code=" 300.0250" displayName="CO2 - Carbon Dioxide" /> < statusCode code="completed" /> <effectiveTime value=& quot;204830676152" /> <value unit="MEQ/L" xsi:type ="PQ" value="26" /> <referenceRange> &lt ;observationRange> <text>22-30</text> &lt ;/observationRange> </referenceRange> </observation& gt; </component> <component> <observation moodCode="EVN" classCode="OBS"> <templateId root=&quot ;2.16.840.1.340585.10.20.22.4.2" /> <id nullFlavor="NA& quot; /> <code codeSystem="local" code="300.0300& quot; displayName="Anion Gap" /> <statusCode code=&quot ;completed" /> <effectiveTime value="076182181750&quot ; /> <value unit="MEQ/L" xsi:type="PQ" value= "8" /> <referenceRange> < observationRange> <text>5-15</text> </ observationRange> </referenceRange> </observation&gt ; </component> <component><observation moodCode=" EVN" classCode="OBS"> <templateId root=" [id number]" /> <id nullFlavor="NA& quot; /> <code codeSystem="local" code="300.0350" displayName="BUN - Blood Urea Nitrogen" /> <statusCode code="completed" /> <effectiveTime value=" [id number]" /> <value unit="MG/DL" xsi:type=& quot;PQ" value="29.0" /> <interpretationCode codeSystem="local" code="*" /> < referenceRange> <observationRange> <text>9-20</ text> </observationRange> </referenceRange> </observation> </component> <component> <observation moodCode="EVN" classCode="OBS"> <templateId root="2.16.840.1.632936.10.20.22.4.2" /> <id nullFlavor="NA" /> <code codeSystem=" local" code="300.0410" displayName="Glomerular Filtration Rate"/> <statusCode code="completed" /> <effectiveTime value="134414297506" /> <value unit="" xsi:type="PQ" value="80" /> & lt;referenceRange> <observationRange> <text& gt;NRG</text> </observationRange> </ referenceRange> </observation> </component> < component> <observation moodCode="EVN" classCode=" OBS"> <templateId root="2.16.840.1.995007.10.20.22.4.2& quot; /> <id nullFlavor="NA" /> <code codeSystem="local" code="300.0500" displayName="Glucose " /> <statusCode code="completed" /> & lt;effectiveTime value="063142909221" /> <value unit=" MG/DL" xsi:type="PQ" value="81" /> < referenceRange> <observationRange> <text> 75-110</text> </observationRange> </ referenceRange> </observation> </component> < component> <observation moodCode="EVN" classCode=" OBS"> <templateId root="2.16.840.1.689466.10.20.22.4.2& quot; /> <id nullFlavor="NA" /> <code codeSystem="local" code="300.2000" displayName=" Osmolality,Calculated" /> <statusCode code="completed& quot; /> <effectiveTime value="990497743224" /> <value unit="MOSM/KG" xsi:type="PQ" value="260 " /> <interpretationCode codeSystem="local" code=& quot;*" /> <referenceRange> < observationRange> <text>261-280</text> & lt;/observationRange> </referenceRange> </ observation> </component> <component> < observation moodCode="EVN" classCode="OBS"> < templateId root="2.16.840.1.063385.10.20.22.4.2" /> < id nullFlavor="NA" /> <code codeSystem="local&quot ; code="300.2200" displayName="Calcium" /> < statusCode code="completed" /> <effectiveTime value=" 788512113415" /> <value unit="MG/DL"xsi:type=&quot ;PQ" value="9.3" /> <referenceRange> <observationRange> <text>8.4-10.2</text> </observationRange> </referenceRange> </ observation> </component> <component> < observation moodCode="EVN" classCode="OBS"> < templateId root="2.16.840.1.230857.10.20.22.4.2" /> < id nullFlavor="NA" /> <code codeSystem="local&quot ; code="300.0095" displayName="LICTERUS" /> < statusCode code="completed" /> <effectiveTime value=& quot;409804135197" /> <value unit="" xsi:type=& quot;PQ" value="< 2" /> <referenceRange&gt ; <observationRange> <text>0-7</text> </observationRange> </referenceRange> & lt;/observation> </component> <component> < observation moodCode="EVN" classCode="OBS"> < templateId root="2.16.840.1.086318.10.20.22.4.2" /> < id nullFlavor="NA" /><code codeSystem="local" code=& quot;300.0096" displayName="LHEMOLYSIS" /> < statusCode code="completed" /> <effectiveTime value=& quot;972737791872" /> <value unit="" xsi:type=& quot;PQ" value="< 15" /> <referenceRange&gt ; <observationRange><text>0-25</text> & lt;/observationRange> </referenceRange> </observation& gt; </component> <component> <observation moodCode="EVN" classCode="OBS"> <templateId root="2.16.840.1.242067.10.20.22.4.2" /> <id nullFlavor ="NA" /> <code codeSystem="local" code=" 300.0097" displayName="LTURBIDITY" /> <statusCode code="completed" /> <effectiveTime value=" 218718460915" /> <value unit="" xsi:type="PQ& quot; value="< 20" /> <referenceRange> <observationRange> <text>0-20</text> </observationRange> </referenceRange> </ observation> </component> </organizer> </entry> & lt;entry> <organizer moodCode="EVN" classCode="BATTERY& quot;> <templateId root="2.16.840.1.256460.10.20.22.4.1" /& gt; <id nullFlavor="NA" /> <code codeSystem=" local" code="LBGM" displayName="L900.0530" /> & lt;statusCode code="completed" /> <component> &lt ;observation moodCode="EVN" classCode="OBS"> &lt ;templateId root="2.16.840.1.938287.10.20.22.4.2" /> < id nullFlavor="NA" /> <code codeSystem="local&quot ; code="850.0100" displayName="Glucometer" /> & lt;statusCode code="completed" /> <effectiveTime value= "933942970885" /> <value unit="mg/dL" xsi:type=" PQ" value="172" /> <referenceRange> <observationRange> <text>65-110</text> & lt;/observationRange> </referenceRange> </ observation></component> </organizer> </entry> < entry> <organizer moodCode="EVN" classCode="BATTERY&quot ;> <templateId root="2.16.840.1.486654.10.20.22.4.1" /> <id nullFlavor="NA" /> <code codeSystem=" local" code="LBGM" displayName="L900.0530" /> & lt;statusCode code="completed" /> <component> &lt ;observation moodCode="EVN" classCode="OBS"> &lt ;templateId root="2.16.840.1.937467.10.20.22.4.2" /> <id nullFlavor="NA" /> <code codeSystem="local" code="850.0100" displayName="Glucometer" /> < statusCode code="completed" /> <effectiveTime value=& quot;184138422172" /> <value unit="mg/dL" xsi:type ="PQ" value="86" /> <referenceRange> <observationRange> <text>65-110</text> </observationRange> </referenceRange> </ observation> </component> </organizer> </entry> & lt;entry> <organizer moodCode="EVN" classCode="BATTERY& quot;> <templateId root="2.16.840.1.135344.10.20.22.4.1" /& gt; <id nullFlavor="NA" /> <code codeSystem=" local" code="LBGM" displayName="L900.0530" /> & lt;statusCode code="completed" /> <component> &lt ;observation moodCode="EVN" classCode="OBS"> &lt ;templateId root="2.16.840.1.650919.10.20.22.4.2" /> < id nullFlavor="NA" /> <code codeSystem="local&quot ; code="850.0100"displayName="Glucometer" /> &lt ;statusCode code="completed" /> <effectiveTime value=" 419753173423" /> <value unit="mg/dL" xsi:type=& quot;PQ" value="144" /> <referenceRange> <observationRange> <text>65-110</text> </observationRange> </referenceRange> </ observation> </component> </organizer> </entry> & lt;entry> <organizer moodCode="EVN" classCode="BATTERY& quot;> <templateId root="2.16.840.1.344973.10.20.22.4.1" /& gt; <id nullFlavor="NA" /> <code codeSystem=" local" code="LBGM" displayName="L900.0530" /> & lt;statusCode code="completed" /> <component> &lt ;observation moodCode="EVN" classCode="OBS"> &lt ;templateId root="2.16.840.1.506595.10.20.22.4.2" /> < id nullFlavor="NA" /> <code codeSystem="local&quot ; code="850.0100" displayName="Glucometer" /> & lt;statusCode code="completed" /> <effectiveTime value= "149165371441" /> <value unit="mg/dL" xsi: type="PQ" value="79" /> <referenceRange> <observationRange> <text>65-110</text&gt ; </observationRange> </referenceRange> & lt;/observation> </component> </organizer> </entry&gt ; <entry> <organizer moodCode="EVN" classCode=" BATTERY"> <templateId root="2.16.840.1.250244.10.20.22.4.1&quot ; /> <id nullFlavor="NA" /> <code codeSystem=& quot;local" code="LINR" displayName="L160.0105" /> <statusCode code="completed" /> <component>< observation moodCode="EVN" classCode="OBS"> < templateId root="2.16.840.1.345646.10.20.22.4.2" /> < id nullFlavor="NA" /> <code codeSystem="local" code ="150.0150" displayName="INR." /> < statusCode code="completed" /> <effectiveTime value=& quot;888199578290" /> <value unit="" xsi:type=& quot;PQ" value="2.10" /> <interpretationCode codeSystem="local" code="*" /> <referenceRange&gt ; <observationRange> <text>0.90-1.23</ text> </observationRange> </referenceRange> </observation> </component> </organizer> </ entry> <entry> <organizer moodCode="EVN" classCode=& quot;BATTERY"> <templateId root=" 2.16.840.1.693761.10.20.22.4.1" /> <id nullFlavor="NA&quot ; /> <code codeSystem="local" code="LBGM" displayName="L900.0530" /> <statusCodecode="completed& quot; /> <component> <observation moodCode="EVN& quot; classCode="OBS"> <templateId root=" 2.16.840.1.456446.10.20.22.4.2" /> <id nullFlavor="NA& quot; /> <code codeSystem="local" code="850.0100& quot; displayName="Glucometer" /> <statusCode code=& quot;completed" /> <effectiveTime value="137825420838& quot; /> <value unit="mg/dL" xsi:type="PQ" value="142" /> <referenceRange> < observationRange> <text>65-110</text> </ observationRange> </referenceRange> </observation&gt ; </component> </organizer> </entry> <entry> <organizer moodCode="EVN" classCode="BATTERY"> <templateId root="2.16.840.1.571816.10.20.22.4.1" /> < id nullFlavor="NA" /> <code codeSystem="local" code="LBGM" displayName="L900.0530" /> < statusCode code="completed" /> <component> < observation moodCode="EVN" classCode="OBS"> < templateId root="2.16.840.1.586318.10.20.22.4.2" /> <id nullFlavor="NA" /> <code codeSystem="local" code="850.0100" displayName="Glucometer" /> < statusCode code="completed" /> <effectiveTime value=& quot;200628107827" /> <value unit="mg/dL" xsi:type ="PQ" value="112" /> <referenceRange> <observationRange> <text>65-110</text> </observationRange> </referenceRange> </ observation> </component> </organizer> </entry> & lt;entry> <organizer moodCode="EVN" classCode="BATTERY& quot;> <templateId root="2.16.840.1.645926.10.20.22.4.1" /& gt; <id nullFlavor="NA" /> <code codeSystem=" local" code="LBGM" displayName="L900.0530" /> & lt;statusCode code="completed" /> <component> &lt ;observation moodCode="EVN" classCode="OBS"> &lt ;templateId root="2.16.840.1.842238.10.20.22.4.2" /> < id nullFlavor="NA" /> <code codeSystem="local&quot ; code="850.0100" displayName="Glucometer" /> & lt;statusCode code="completed" /> <effectiveTime value=" 640204257533" /> <value unit="mg/dL"xsi:type=&quot ;PQ" value="124" /> <referenceRange> <observationRange> <text>65-110</text> </observationRange> </referenceRange> </ observation> </component> </organizer> </entry> & lt;entry> <organizer moodCode="EVN" classCode="BATTERY& quot;> <templateId root="2.16.840.1.849454.10.20.22.4.1" /& gt; <id nullFlavor="NA" /> <code codeSystem=" local" code="LBMP" displayName="L200.0050" /> & lt;statusCode code="completed" /> <component> &lt ;observation moodCode="EVN" classCode="OBS"> &lt ;templateId root="2.16.840.1.009523.10.20.22.4.2" /> < id nullFlavor="NA" /> <code codeSystem="local&quot ; code="300.0400" displayName="FUNGAL CULTURE." /> <statusCode code="completed" /> <effectiveTime value="596170517754" /> <value unit="MG/DL" xsi:type="PQ" value="1.0" /> <referenceRange& gt; <observationRange> <text>0.8-1.5</ text> </observationRange> </referenceRange> </observation> </component> <component> & lt;observation moodCode="EVN" classCode="OBS"> & lt;templateId root="2.16.840.1.300046.10.20.22.4.2" /> &lt ;id nullFlavor="NA" /> <code codeSystem="local&quot ; code="300.0450" displayName="FUNGAL CULTURE, BLOOD." /&gt ; <statusCode code="completed" /> < effectiveTime value="318356024777" /> <value unit=&quot ;RATIO" xsi:type="PQ" value="25" /> < referenceRange> <observationRange> <text> 6-26</text> </observationRange> </ referenceRange> </observation> </component> < component> <observation moodCode="EVN" classCode=" OBS"> <templateId root="2.16.840.1.505631.10.20.22.4.2& quot; /> <id nullFlavor="NA" /><code codeSystem=& quot;local" code="300.0100" displayName="NA - Sodium" / > <statusCode code="completed" /> < effectiveTime value="711651861883" /> <value unit=&quot ;MEQ/L" xsi:type="PQ" value="134" /> < referenceRange> <observationRange> <text> 134-144</text> </observationRange> </ referenceRange> </observation> </component> < component> <observation moodCode="EVN" classCode=" OBS"> <templateId root="2.16.840.1.944409.10.20.22.4.2& quot; /> <id nullFlavor="NA" /> <code codeSystem="local" code="300.0150" displayName=" Potassium" /> <statusCode code="completed" /> <effectiveTime value="845839286583" /> < value unit="MEQ/L" xsi:type="PQ" value="4.9" /&gt ; <referenceRange> <observationRange> <text>3.6-5</text> </observationRange> </referenceRange> </observation> </component> <component> <observation moodCode="EVN" classCode= "OBS"> <templateId root=" 2.16.840.1.859795.10.20.22.4.2" /> <id nullFlavor="NA& quot; /> <code codeSystem="local" code="300.0200& quot; displayName="Chloride" /> <statusCode code=" completed" /> <effectiveTime value="610368338801" /> <value unit="MEQ/L" xsi:type="PQ" value=& quot;98" /> <referenceRange> < observationRange> <text>98-107</text> </ observationRange> </referenceRange> </observation&gt ; </component> <component> <observation moodCode ="EVN" classCode="OBS"> <templateId root=& quot;2.16.840.1.562381.10.20.22.4.2" /> <id nullFlavor=&quot ;NA" /> <code codeSystem="local" code=" 300.0250" displayName="CO2 - Carbon Dioxide" /> < statusCode code="completed" /> <effectiveTime value=& quot;600667398098" /> <value unit="MEQ/L" xsi:type ="PQ" value="28" /> <referenceRange> <observationRange> <text>22-30</text> </observationRange> </referenceRange> </ observation> </component> <component> < observation moodCode="EVN" classCode="OBS"> < templateId root="2.16.840.1.746943.10.20.22.4.2" /> < id nullFlavor="NA" /> <code codeSystem="local&quot ; code="300.0300" displayName="Anion Gap" /> &lt ;statusCode code="completed" /> <effectiveTime value=" " /> <value unit="MEQ/L" xsi:type=& quot;PQ" value="8" /> <referenceRange> <observationRange> <text>5-15</text> </observationRange> </referenceRange> </ observation> </component> <component> < observation moodCode="EVN" classCode="OBS"> < templateId root="2.16.840.1.541183.10.20.22.4.2" /> < id nullFlavor="NA" /> <code codeSystem="local&quot ; code="300.0350" displayName="BUN - Blood Urea Nitrogen" /& gt; <statusCode code="completed" /><effectiveTime value="" /> <value unit="MG/DL" xsi:type="PQ" value="25.0" /> < interpretationCode codeSystem="local" code="*" /> <referenceRange> <observationRange> < text>9-20</text> </observationRange> </ referenceRange> </observation> </component> < component> <observation moodCode="EVN" classCode=" OBS"> <templateId root="2.16.840.1.291987.10.20.22.4.2& quot; /> <id nullFlavor="NA" /> <code codeSystem="local" code="300.0410" displayName=" Glomerular Filtration Rate" /> <statusCode code=" completed" /> <effectiveTime value="450847592359" /> <value unit="" xsi:type="PQ" value=" 71" /> <referenceRange> <observationRange& gt; <text>NRG</text> </observationRange> </referenceRange> </observation> </component> <component> <observationmoodCode="EVN" classCode ="OBS"> <templateId root=" 2.16.840.1.115583.10.20.22.4.2" /> <id nullFlavor="NA& quot; /> <code codeSystem="local" code="300.0500& quot; displayName="Glucose" /> <statusCode code=" completed" /> <effectiveTime value="" /> <value unit="MG/DL" xsi:type="PQ" value=& quot;84" /> <referenceRange> < observationRange> <text>75-110</text> &lt ;/observationRange> </referenceRange> </observation& gt; </component> <component> <observation moodCode="EVN" classCode="OBS"> <templateId root="2.16.840.1.445654.10.20.22.4.2" /> <id nullFlavor ="NA" /> <code codeSystem="local" code=" 300.2000" displayName="Osmolality,Calculated" /> < statusCode code="completed" /> <effectiveTime value=& quot;" /> <value unit="MOSM/KG" xsi: type="PQ" value="261" /> <referenceRange> <observationRange> <text>261-280</text> </observationRange> </referenceRange> &lt ;/observation> </component> <component> < observation moodCode="EVN" classCode="OBS"> < templateId root="2.16.840.1.821161.10.20.22.4.2" /> < id nullFlavor="NA" /> <code codeSystem="local&quot ; code="300.2200" displayName="Calcium" /> < statusCode code="completed" /> <effectiveTime value=& quot;013888734025" /> <value unit="MG/DL" xsi:type ="PQ" value="9.5" /> <referenceRange> <observationRange> <text>8.4-10.2</text> </observationRange> </referenceRange> </ observation> </component> <component> < observation moodCode="EVN" classCode="OBS"> < templateId root="2.16.840.1.282681.10.20.22.4.2" /> < id nullFlavor="NA" /> <code codeSystem="local&quot ; code="300.0095" displayName="LICTERUS" /> < statusCode code="completed" /> <effectiveTime value=& quot;214425715626" /> <value unit="" xsi:type=& quot;PQ" value="< 2" /> <referenceRange&gt ; <observationRange> <text>0-7</text> </observationRange> </referenceRange> </ observation> </component> <component> < observation moodCode="EVN" classCode="OBS"> < templateId root="2.16.840.1.291576.10.20.22.4.2" /> < id nullFlavor="NA" /> <code codeSystem="local&quot ; code="300.0096" displayName="LHEMOLYSIS" /> & lt;statusCode code="completed" /> <effectiveTime value= "208936867115" /> <value unit="" xsi:type=& quot;PQ" value="< 15" /> <referenceRange&gt ; <observationRange> <text>0-25</text&gt ; </observationRange> </referenceRange> </ observation> </component> <component> < observation moodCode="EVN" classCode="OBS"> < templateId root="2.16.840.1.673109.10..22.4.2" /> < id nullFlavor="NA" /> <code codeSystem="local&quot ; code="300.0097" displayName="LTURBIDITY" /> & lt;statusCode code="completed" /> <effectiveTime value= "304657367563" /> <value unit="" xsi:type=& quot;PQ" value="< 20" /> <referenceRange&gt ; <observationRange> <text>0-20</text> </observationRange> </referenceRange> < /observation> </component> </organizer> </entry>& lt;entry> <organizer moodCode="EVN" classCode="BATTERY& quot;> <templateId root="2.16.840.1.053377.10.20.22.4.1" /& gt; <id nullFlavor="NA"/> <code codeSystem=" local" code="LINR" displayName="L160.0105" /> & lt;statusCode code="completed" /> <component> &lt ;observation moodCode="EVN" classCode="OBS"> &lt ;templateId root="2.16.840.1.455210.10.20.22.4.2" /> < id nullFlavor="NA" /> <code codeSystem="local&quot ; code="150.0150" displayName="INR." /> <statusCode code="completed" /> <effectiveTime value=" 937994337956" /> <value unit="" xsi:type="PQ& quot; value="2.61" /> <interpretationCode codeSystem=& quot;local" code="*" /> <referenceRange> <observationRange> <text>0.99-1.21</text> </observationRange> </referenceRange> &lt ;/observation> </component> </organizer> </entry> <entry> <organizer moodCode="EVN" classCode="BATTERY& quot;> <templateId root="2.16.840.1.716246.10.20.22.4.1" /& gt; <id nullFlavor="NA" /> <code codeSystem=" local" code="LBGM" displayName="L900.0530" /> & lt;statusCode code="completed" /> <component> &lt ;observation moodCode="EVN" classCode="OBS"> &lt ;templateId root="2.16.840.1.687524.10.20.22.4.2" /> < id nullFlavor="NA" /> <code codeSystem="local&quot ; code="850.0100" displayName="Glucometer" /> & lt;statusCode code="completed" /> <effectiveTime value= "732936128869" /> <value unit="mg/dL" xsi: type="PQ" value="83" /> <referenceRange> <observationRange> <text>65-110</text&gt ; </observationRange> </referenceRange> & lt;/observation> </component> </organizer> </entry&gt ; <entry> <organizer moodCode="EVN" classCode=" BATTERY"> <templateId root="2.16.840.1.020978.10.20.22.4.1& quot; /> <id nullFlavor="NA" /> <code codeSystem ="local" code="LBGM" displayName="L900.0530" /&gt ; <statusCode code="completed" /> <component> <observation moodCode="EVN" classCode="OBS"> <templateId root="2.16.840.1.929339.10.20.22.4.2" /> <id nullFlavor="NA" /> <code codeSystem=" local" code="850.0100" displayName="Glucometer" /> <statusCode code="completed" /> < effectiveTime value="639467862439" /> <value unit=&quot ;mg/dL" xsi:type="PQ" value="149" /> < referenceRange> <observationRange> <text>65-110</ text> </observationRange> </referenceRange> </observation> </component> </organizer> </ entry> <entry> <organizer moodCode="EVN" classCode=& quot;BATTERY"> <templateId root=" 2.16.840.1.556451.10.20.22.4.1" /> <id nullFlavor="NA&quot ; /> <code codeSystem="local" code="LBGM" displayName="L900.0530" /> <statusCode code="completed " /> <component> <observation moodCode="EVN& quot; classCode="OBS"> <templateId root=" 2.16.840.1.599984.10.20.22.4.2" /> <id nullFlavor="NA& quot; /> <code codeSystem="local" code="850.0100& quot; displayName="Glucometer" /> <statusCode code=& quot;completed" /> <effectiveTime value="403844142301& quot; /> <value unit="mg/dL" xsi:type="PQ" value="183" /> <referenceRange> < observationRange> <text>65-110</text> &lt ;/observationRange></referenceRange> </observation> & lt;/component> </organizer> </entry> <entry> < organizer moodCode="EVN" classCode="BATTERY"> < templateId root="2.16.840.1.606452.10.20.22.4.1" /> <id nullFlavor="NA" /> <code codeSystem="local" code= "LBGM" displayName="L900.0530" /> <statusCode code="completed" /> <component> <observation moodCode="EVN" classCode="OBS"> < templateIdroot="2.16.840.1.100521.10..22.4.2" /> <id nullFlavor="NA" /> <code codeSystem="local" code="850.0100" displayName="Glucometer" /> < statusCode code="completed" /> <effectiveTime value=& quot;769789022546" /> <value unit="mg/dL" xsi:type ="PQ" value="133" /> <referenceRange> <observationRange> <text>65-110</text> </observationRange> </referenceRange> </ observation> </component> </organizer> </entry> & lt;entry> <organizer moodCode="EVN" classCode="BATTERY& quot;> <templateId root="2.16.840.1.622260.10.20.22.4.1" /& gt; <id nullFlavor="NA" /> <code codeSystem=" local" code="LINR" displayName="L160.0105" /> & lt;statusCode code="completed" /> <component> &lt ;observation moodCode="EVN" classCode="OBS"> &lt ;templateId root="2.16.840.1.881170.10.20.22.4.2" /> < id nullFlavor="NA" /> <code codeSystem="local&quot ; code="150.0150" displayName="INR." /> <statusCode code="completed" /> <effectiveTime value=" 600699139826" /> <value unit="" xsi:type="PQ& quot; value="2.46" /> <interpretationCode codeSystem=& quot;local" code="*" /> <referenceRange> <observationRange> <text>0.99-1.21</text> </observationRange> </referenceRange> &lt ;/observation> </component> </organizer> </entry> & lt;entry> <organizer moodCode="EVN" classCode="BATTERY& quot;> <templateId root="2.16.840.1.620683.10.20.22.4.1" /& gt; <id nullFlavor="NA" /> <code codeSystem=" local" code="LBGM" displayName="L900.0530" /> & lt;statusCode code="completed" /> <component> &lt ;observation moodCode="EVN" classCode="OBS"> &lt ;templateId root="2.16.840.1.776563.10.20.22.4.2" /> < id nullFlavor="NA" /> <code codeSystem="local&quot ; code="850.0100" displayName="Glucometer" /> & lt;statusCode code="completed" /> <effectiveTime value= "512724549648" /> <value unit="mg/dL" xsi: type="PQ" value="74" /> <referenceRange> <observationRange> <text>65-110</text&gt ; </observationRange> </referenceRange> & lt;/observation> </component> </organizer> </entry&gt ; <entry> <organizer moodCode="EVN" classCode=" BATTERY"> <templateId root="2.16.840.1.036024.10.20.22.4.1& quot;/> <id nullFlavor="NA" /> <code codeSystem= "local" code="LBGM" displayName="L900.0530" /> <statusCode code="completed"/> <component> <observation moodCode="EVN" classCode="OBS"> <templateId root="2.16.840.1.572965.10.20.22.4.2" /> <id nullFlavor="NA" /> <code codeSystem=" local" code="850.0100" displayName="Glucometer" /> <statusCode code="completed" /> < effectiveTime value="184741926556" /> <value unit=&quot ;mg/dL" xsi:type="PQ" value="156" /> < referenceRange> <observationRange> <text> 65-110</text> </observationRange> </ referenceRange> </observation> </component> </ organizer> </entry> <entry> <organizer moodCode="EVN " classCode="BATTERY"> <templateId root=" 2.16.840.1.363069.10.20.22.4.1" /> <id nullFlavor="NA&quot ; /> <code codeSystem="local" code="LBGM" displayName="L900.0530" /> <statusCode code="completed " /> <component> <observation moodCode="EVN& quot; classCode="OBS"> <templateId root=" 2.16.840.1.209813.10.20.22.4.2" /> <id nullFlavor="NA& quot; /> <code codeSystem="local" code="850.0100& quot; displayName="Glucometer" /> <statusCode code=& quot;completed" /> <effectiveTime value="006441247265& quot; /> <value unit="mg/dL" xsi:type="PQ" value="152" /> <referenceRange> < observationRange> <text>65-110</text> &lt ;/observationRange> </referenceRange> </observation& gt; </component> </organizer> </entry> <entry&gt ; <organizer moodCode="EVN" classCode="BATTERY"> <templateId root="[id number]" /> & lt;id nullFlavor="NA" /> <code codeSystem="local&quot ; code="LBGM" displayName="L900.0530" /> < statusCode code="completed" /> <component> < observation moodCode="EVN" classCode="OBS"> < templateId root="[id number]" /> < id nullFlavor="NA" /> <code codeSystem="local" code="850.0100" displayName="Glucometer" /> < statusCode code="completed" /> <effectiveTime value=& quot;[id number]" /> <value unit="mg/dL" xsi:type ="PQ" value="86" /> <referenceRange> <observationRange> <text>65-110</text> & lt;/observationRange> </referenceRange> </ observation> </component> </organizer> </entry> & lt;entry> <organizer moodCode="EVN" classCode="BATTERY& quot;> <templateId root="2.16.840.1.867562.10.20.22.4.1" /& gt; <id nullFlavor="NA" /> <code codeSystem=" local" code="LBGM" displayName="L900.0530" /> & lt;statusCode code="completed" /> <component> &lt ;observation moodCode="EVN" classCode="OBS"> &lt ;templateId root="2.16.840.1.889786.10.20.22.4.2" /> < id nullFlavor="NA" /> <codecodeSystem="local&quot ; code="850.0100" displayName="Glucometer" /> < statusCode code="completed" /> <effectiveTime value=& quot;166721406386" /> <value unit="mg/dL" xsi:type ="PQ" value="182" /> <referenceRange> <observationRange> <text>65-110</text> </observationRange> </referenceRange> < /observation> </component> </organizer> </entry> <entry> <organizer moodCode="EVN" classCode="BATTERY& quot;> <templateId root="2.16.840.1.767627.10.20.22.4.1" /& gt; <id nullFlavor="NA" /> <code codeSystem=" local" code="LINR" displayName="L160.0105" /> & lt;statusCode code="completed" /> <component> &lt ;observation moodCode="EVN" classCode="OBS"> &lt ;templateId root="2.16.840.1.845623.10.20.22.4.2" /> < id nullFlavor="NA" /> <code codeSystem="local&quot ; code="150.0150" displayName="INR." /> < statusCode code="completed" /> <effectiveTime value=& quot;482168646961" /> <value unit="" xsi:type="PQ& quot; value="2.20" /> <interpretationCode codeSystem=& quot;local" code="*" /> <referenceRange> <observationRange> <text>0.99-1.21</text> </observationRange> </referenceRange> </ observation> </component> </organizer> </entry> & lt;entry> <organizer moodCode="EVN" classCode="BATTERY& quot;> <templateId root="2.16.840.1.735897.10.20.22.4.1" /& gt; <id nullFlavor="NA" /> <code codeSystem=" local" code="LBGM" displayName="L900.0530" /> & lt;statusCode code="completed" /> <component> &lt ;observation moodCode="EVN" classCode="OBS"> &lt ;templateId root="2.16.840.1.850579.10.20.22.4.2" /> < id nullFlavor="NA" /> <code codeSystem="local&quot ; code="850.0100" displayName="Glucometer" /> & lt;statusCode code="completed" /> <effectiveTime value=& quot;627813639394" /> <value unit="mg/dL" xsi:type ="PQ" value="69" /> <referenceRange> <observationRange> <text>65-110</text> </observationRange> </referenceRange> </ observation> </component> </organizer> </entry> & lt;entry> <organizer moodCode="EVN" classCode="BATTERY& quot;> <templateId root="2.16.840.1.745694.10.20.22.4.1" /& gt; <id nullFlavor="NA" /> <code codeSystem=" local" code="LBGM" displayName="L900.0530" /> & lt;statusCode code="completed" /> <component> &lt ;observation moodCode="EVN" classCode="OBS"> &lt ;templateId root="2.16.840.1.255567.10.20.22.4.2" /> < id nullFlavor="NA" /> <code codeSystem="local&quot ; code="850.0100" displayName="Glucometer" /> & lt;statusCode code="completed" /> <effectiveTime value= "855771187016" /> <value unit="mg/dL" xsi: type="PQ" value="93" /> <referenceRange> <observationRange> <text>65-110</text&gt ; </observationRange> </referenceRange> & lt;/observation> </component> </organizer> </entry&gt ; <entry> <organizer moodCode="EVN" classCode=" BATTERY"> <templateId root="2.16.840.1.948879.10.20.22.4.1&quot ; /> <id nullFlavor="NA" /> <code codeSystem=& quot;local" code="LBGM" displayName="L900.0530" /> <statusCode code="completed" /> <component>< observation moodCode="EVN" classCode="OBS"> < templateId root="2.16.840.1.159521.10.20.22.4.2" /> < id nullFlavor="NA" /> <code codeSystem="local" code ="850.0100" displayName="Glucometer" /> < statusCode code="completed" /> <effectiveTime value=& quot;426524258589" /> <value unit="mg/dL" xsi:type ="PQ" value="195" /> <referenceRange> <observationRange> <text>65-110</text> < /observationRange> </referenceRange> </observation& gt; </component> </organizer> </entry> <entry&gt ; <organizer moodCode="EVN" classCode="BATTERY"> <templateId root="2.16.840.1.085253.10.20.22.4.1" /> & lt;id nullFlavor="NA" /> <code codeSystem="local" code="LBGM" displayName="L900.0530" /> < statusCode code="completed" /> <component> < observationmoodCode="EVN" classCode="OBS"> < templateId root="2.16.840.1.658095.10.20.22.4.2" /> < id nullFlavor="NA" /> <code codeSystem="local&quot ; code="850.0100" displayName="Glucometer" /> < statusCode code="completed" /> <effectiveTime value=& quot;793736107883" /> <value unit="mg/dL" xsi:type ="PQ" value="101" /> <referenceRange> <observationRange> <text>65-110</text> </observationRange> </referenceRange> < /observation> </component> </organizer> </entry> <entry> <organizer moodCode="EVN" classCode="BATTERY& quot;> <templateId root="2.16.840.1.949474.10.20.22.4.1" /& gt; <id nullFlavor="NA" /> <code codeSystem=" local" code="LBGM" displayName="L900.0530" /> & lt;statusCode code="completed" /> <component> &lt ;observation moodCode="EVN" classCode="OBS"> &lt ;templateId root="2.16.840.1.653376.10.20.22.4.2" /> < id nullFlavor="NA" /> <code codeSystem="local&quot ; code="850.0100" displayName="Glucometer" /> & lt;statusCodecode="completed" /> <effectiveTime value=& quot;584028092546" /> <value unit="mg/dL" xsi:type=& quot;PQ" value="141" /> <referenceRange> <observationRange> <text>65-110</text> </observationRange> </referenceRange> </ observation> </component> </organizer> </entry> < entry> <organizer moodCode="EVN" classCode="BATTERY&quot ;> <templateId root="2.16.840.1.351133.10.20.22.4.1" /> <id nullFlavor="NA" /> <code codeSystem=" local" code="LBGM" displayName="L900.0530" /> & lt;statusCode code="completed" /> <component> &lt ;observation moodCode="EVN" classCode="OBS"> &lt ;templateId root="2.16.840.1.028328.10.20.22.4.2" /> < id nullFlavor="NA" /> <code codeSystem="local&quot ; code="850.0100" displayName="Glucometer" /> & lt;statusCode code="completed" /> <effectiveTime value= "062816923889" /> <value unit="mg/dL" xsi: type="PQ" value="80" /> <referenceRange> <observationRange> <text>65-110</text&gt ; </observationRange> </referenceRange> & lt;/observation> </component> </organizer> </entry&gt ; <entry> <organizer moodCode="EVN" classCode=" BATTERY"> <templateId root="2.16.840.1.940808.10.20.22.4.1& quot;/> <id nullFlavor="NA" /> <code codeSystem= "local" code="LINR" displayName="L160.0105" /> <statusCode code="completed"/> <component> <observation moodCode="EVN" classCode="OBS"> <templateId root="2.16.840.1.675184.10.20.22.4.2" /> <id nullFlavor="NA" /> <code codeSystem=" local" code="150.0150" displayName="INR." /> <statusCode code="completed" /> <effectiveTime value=& quot;188756427798" /> <value unit="" xsi:type=& quot;PQ" value="1.60" /> <interpretationCode codeSystem="local" code="*" /> < referenceRange> <observationRange> <text> 0.90-1.23</text> </observationRange> </ referenceRange> </observation> </component> </ organizer> </entry> <entry> <organizer moodCode="EVN " classCode="BATTERY"><templateId root=" 2.16.840.1.761705.10.20.22.4.1" /> <id nullFlavor="NA&quot ; /> <code codeSystem="local" code="LBGM" displayName="L900.0530" /> <statusCode code="completed " /> <component> <observation moodCode="EVN& quot; classCode="OBS"> <templateId root=" 2.16.840.1.959825.10.20.22.4.2" /> <id nullFlavor="NA& quot; /> <code codeSystem="local" code="850.0100" displayName="Glucometer"/> <statusCode code=" completed" /> <effectiveTime value="843415026249" /> <value unit="mg/dL" xsi:type="PQ" value=& quot;223" /> <referenceRange> < observationRange> <text>65-110</text> &lt ;/observationRange> </referenceRange> </observation& gt; </component> </organizer> </entry> <entry&gt ; <organizer moodCode="EVN" classCode="BATTERY"> <templateId root="2.16.840.1.071779.10.20.22.4.1" /> & lt;id nullFlavor="NA" /> <code codeSystem="local" code ="LBGM" displayName="L900.0530" /> <statusCode code="completed" /> <component> <observation moodCode="EVN" classCode="OBS"> <templateId root="2.16.840.1.007661.10.20.22.4.2" /> <id nullFlavor ="NA" /> <code codeSystem="local" code=" 850.0100" displayName="Glucometer" /> <statusCode code="completed" /> <effectiveTime value=" 390842412351" /> <value unit="mg/dL" xsi:type=& quot;PQ" value="108" /> <referenceRange> <observationRange> <text>65-110</text> </observationRange> </referenceRange> </ observation> </component> </organizer> </entry> & lt;entry> <organizer moodCode="EVN" classCode="BATTERY& quot;> <templateId root="2.16.840.1.097446.10.20.22.4.1" /& gt; <id nullFlavor="NA" /> <code codeSystem=" local" code="LBGM" displayName="L900.0530" /> & lt;statusCode code="completed" /> <component> &lt ;observation moodCode="EVN" classCode="OBS"> &lt ;templateId root="2.16.840.1.516398.10.20.22.4.2" /> < id nullFlavor="NA" /> <code codeSystem="local&quot ; code="850.0100" displayName="Glucometer" /> & lt;statusCode code="completed" /> <effectiveTime value= "216312308880" /> <value unit="mg/dL" xsi:type=&quot ;PQ" value="101" /> <referenceRange> <observationRange> <text>65-110</text> </observationRange> </referenceRange> </ observation> </component> </organizer> </entry> < entry> <organizer moodCode="EVN" classCode="BATTERY&quot ;> <templateId root="2.16.840.1.526925.10.20.22.4.1" /> <id nullFlavor="NA" /> <code codeSystem=" local" code="LCBCND" displayName="L100.0025" /> <statusCode code="completed" /> <component> <observation moodCode="EVN" classCode="OBS"> <templateId root="2.16.840.1.631605.10.20.22.4.2" /> &lt ;id nullFlavor="NA" /> <code codeSystem="local& quot; code="100.0150" displayName="WBC - WHITE BLOOD COUNT" /> <statusCode code="completed" /> < effectiveTime value="806939010426" /> <value unit="T/MM3& quot; xsi:type="PQ" value="9.6" /> < referenceRange> <observationRange> <text> 4.5-11.0</text> </observationRange> </ referenceRange> </observation> </component> < component> <observation moodCode="EVN" classCode=" OBS"> <templateId root="2.16.840.1.385681.10.20.22.4.2& quot; /> <id nullFlavor="NA" /> <code codeSystem="local" code="100.0250" displayName="RED BLOOD COUNT" /> <statusCode code="completed" /&gt ; <effectiveTime value="909147015004" /> < value unit="M/MM3" xsi:type="PQ" value="3.56" /&gt ; <interpretationCode codeSystem="local" code="*&quot ; /> <referenceRange> <observationRange> <text>4.50-5.90</text> </observationRange> </referenceRange> </observation> </component&gt ; <component> <observation moodCode="EVN" classCode= "OBS"> <templateId root=" 2.16.840.1.457793.10.20.22.4.2" /> <id nullFlavor="NA& quot; /> <code codeSystem="local" code="100.0300& quot; displayName="HGB - HEMOGLOBIN" /> <statusCode code="completed" /> <effectiveTime value=" 601464024152" /> <value unit="GM/DL" xsi:type=& quot;PQ" value="11.3" /> <interpretationCode codeSystem="local" code="*" /> < referenceRange> <observationRange> <text> 13.5-17.5</text> </observationRange> </referenceRange& gt; </observation> </component> <component> <observation moodCode="EVN" classCode="OBS"> <templateIdroot="2.16.840.1.570536.10.20.22.4.2" /> <id nullFlavor="NA" /> <code codeSystem=" local" code="100.0400" displayName="HCT - HEMATOCRIT" / > <statusCode code="completed" /> < effectiveTime value="739683953355" /> <value unit=&quot ;%" xsi:type="PQ" value="35.4" /> & lt;interpretationCode codeSystem="local" code="*" /> <referenceRange> <observationRange> <text> 41-53</text> </observationRange> </ referenceRange> </observation> </component> < component> <observationmoodCode="EVN" classCode="OBS "> <templateId root="2.16.840.1.290711.10.20.22.4.2& quot; /> <id nullFlavor="NA" /> <code codeSystem="local" code="100.0550" displayName="MEAN CORPUSCULAR VOLUME" /> <statusCode code="completed&quot ; /> <effectiveTime value="247654396157" /> <value unit="UM3" xsi:type="PQ" value="99.4" /> <referenceRange> <observationRange> <text>80-100</text> </observationRange> </referenceRange> </observation> </component> <component> <observation moodCode="EVN" classCode="OBS"> <templateId root=" 2.16.840.1.306888.10.20.22.4.2" /> <id nullFlavor="NA& quot; /> <code codeSystem="local" code="100.0600& quot; displayName="MEAN CORPUSCULAR HGB" /> <statusCode code="completed" /> <effectiveTime value=" 968559040451" /> <value unit="UUG" xsi:type=" PQ" value="31.7" /> <referenceRange> <observationRange> <text>26-34</text> </observationRange> </referenceRange> </ observation> </component> <component> < observation moodCode="EVN" classCode="OBS"> < templateId root="2.16.840.1.864269.10.20.22.4.2" /> < id nullFlavor="NA" /> <code codeSystem="local&quot ; code="100.0650" displayName="MEAN CORPUSCULAR HGB CONC([facility]& quot; /> <statusCode code="completed" /> < effectiveTime value="062920226816" /> <value unit=&quot ;GM/DL" xsi:type="PQ" value="31.9" /> < referenceRange> <observationRange> <text> 31-37</text> </observationRange> </ referenceRange> </observation> </component> < component> <observation moodCode="EVN" classCode=" OBS"> <templateId root="2.16.840.1.712530.10.20.22.4.2& quot; /> <id nullFlavor="NA" /> <code codeSystem="local" code="100.0750" displayName="RDW STANDARD DEVIATION" /> <statusCode code="completed" /> <effectiveTime value="168088693839" /> < value unit="FL" xsi:type="PQ" value="51.7" /> <interpretationCode codeSystem="local" code="*" /> <referenceRange> <observationRange> <text>36.9-50.2</text> </observationRange> </referenceRange> </observation> </ component> <component> <observation moodCode="EVN& quot; classCode="OBS"> <templateId root=" 2.16.840.1.699025.10.20.22.4.2" /> <id nullFlavor="NA& quot; /> <code codeSystem="local" code="100.0850& quot; displayName="PLT - PLATELET COUNT" /> < statusCode code="completed" /> <effectiveTime value=& quot;427841115693" /> <value unit="T/MM3" xsi:type="PQ " value="271" /> <referenceRange> & lt;observationRange> <text>130-400</text> & lt;/observationRange> </referenceRange> </ observation></component> <component> <observation moodCode="EVN" classCode="OBS"> <templateId root="2.16.840.1.975238.10.20.22.4.2" /> <id nullFlavor=& quot;NA" /> <code codeSystem="local" code=" 100.0950" displayName="MEAN PLATELET VOLUME" /> < statusCode code="completed" /> <effectiveTime value=& quot;532475954063" /> <value unit="UM3" xsi:type=& quot;PQ" value="9.9" /> <referenceRange> <observationRange> <text>9.4-12.4</text> & lt;/observationRange> </referenceRange> </ observation> </component> </organizer> </entry> & lt;entry> <organizer moodCode="EVN" classCode="BATTERY& quot;> <templateId root="2.16.840.1.819692.10.20.22.4.1" /& gt; <id nullFlavor="NA" /> <code codeSystem=" local" code="LINR" displayName="L160.0105" /> & lt;statusCode code="completed" /> <component> &lt ;observation moodCode="EVN" classCode="OBS"> &lt ;templateId root="2.16.840.1.775888.10.20.22.4.2" /> < id nullFlavor="NA" /> <code codeSystem="local&quot ; code="150.0150" displayName="INR." /> < statusCode code="completed" /> <effectiveTime value=& quot;689232631427" /> <value unit="" xsi:type=& quot;PQ" value="2.05" /> <interpretationCode codeSystem="local" code="*" /> < referenceRange> <observationRange> <text> 0.99-1.21</text> </observationRange> </ referenceRange> </observation> </component> </ organizer> </entry> <entry> <organizer moodCode="EVN " classCode="BATTERY"> <templateId root=" 2.16.840.1.567229.10.20.22.4.1" /> <id nullFlavor="NA&quot ; /> <code codeSystem="local" code="LBMP" displayName="L200.0050" /> <statusCode code="completed " /> <component> <observation moodCode="EVN&quot ; classCode="OBS"> <templateId root=" 2.16.840.1.026398.10.20.22.4.2" /> <id nullFlavor="NA& quot; /> <code codeSystem="local" code="300.0400& quot; displayName="FUNGAL CULTURE." /> <statusCode code ="completed" /> <effectiveTime value="329903140590 " /> <value unit="MG/DL" xsi:type="PQ" value="1.1" /> <referenceRange> < observationRange> <text>0.8-1.5</text> </ observationRange> </referenceRange> </observation&gt ; </component> <component> <observation moodCode ="EVN" classCode="OBS"> <templateId root=& quot;2.16.840.1.078714.10.20.22.4.2" /> <id nullFlavor=&quot ;NA" /> <code codeSystem="local" code=" 300.0450" displayName="FUNGAL CULTURE, BLOOD." /> &lt ;statusCode code="completed" /> <effectiveTime value=& quot;503526242461" /> <value unit="RATIO" xsi:type ="PQ" value="24" /> <referenceRange> <observationRange> <text>6-26</text> & lt;/observationRange> </referenceRange> </ observation> </component> <component> < observation moodCode="EVN" classCode="OBS"> < templateId root="2.16.840.1.914571.10.20.22.4.2" /> < id nullFlavor="NA" /> <code codeSystem="local&quot ; code="300.0100" displayName="NA - Sodium" /> < statusCode code="completed" /> <effectiveTime value=& quot;570857740356" /> <value unit="MEQ/L" xsi:type ="PQ" value="133" /> <interpretationCode codeSystem="local" code="*" /> <referenceRange> <observationRange> <text>134-144</text&gt ; </observationRange> </referenceRange> & lt;/observation> </component> <component> < observation moodCode="EVN" classCode="OBS"> < templateId root="2.16.840.1.788213.10.20.22.4.2" /> < id nullFlavor="NA" /> <code codeSystem="local&quot ; code="300.0150" displayName="Potassium" /> &lt ;statusCode code="completed" /> <effectiveTime value=& quot;647550705312" /> <value unit="MEQ/L" xsi:type ="PQ" value="4.7" /> <referenceRange> <observationRange> <text>3.6-5</text> </observationRange> </referenceRange> </ observation> </component> <component> < observation moodCode="EVN" classCode="OBS"> < templateId root="2.16.840.1.684249.10.20.22.4.2" /> < id nullFlavor="NA" /> <code codeSystem="local&quot ; code="300.0200" displayName="Chloride" /> < statusCode code="completed" /> <effectiveTime value=& quot;534397545738" /> <value unit="MEQ/L" xsi:type ="PQ" value="97" /> <interpretationCode codeSystem="local" code="*" /> < referenceRange> <observationRange> <text> 98-107</text> </observationRange> </ referenceRange> </observation> </component> < component> <observation moodCode="EVN" classCode="OBS& quot;> <templateId root="2.16.840.1.461223.10.20.22.4.2&quot ; /> <id nullFlavor="NA" /> <code codeSystem="local" code="300.0250" displayName="CO2 - Carbon Dioxide" /> <statusCode code="completed" /& gt; <effectiveTime value="572938789742" /> &lt ;value unit="MEQ/L" xsi:type="PQ" value="27" /&gt ; <referenceRange> <observationRange> <text>22-30</text> </observationRange> </referenceRange> </observation> </component> <component> <observation moodCode="EVN" classCode=& quot;OBS"> <templateId root=" 2.16.840.1.627941.10.20.22.4.2" /> <id nullFlavor="NA& quot; /> <code codeSystem="local" code="300.0300& quot; displayName="Anion Gap" /> <statusCode code=&quot ;completed" /> <effectiveTime value="110046079614&quot ; /> <value unit="MEQ/L" xsi:type="PQ" value= "9" /> <referenceRange> < observationRange> <text>5-15</text> </ observationRange> </referenceRange> </observation&gt ; </component> <component> <observation moodCode ="EVN" classCode="OBS"> <templateId root=& quot;2.16.840.1.489988.10.20.22.4.2" /> <id nullFlavor=&quot ;NA" /> <code codeSystem="local" code=" 300.0350" displayName="BUN - Blood Urea Nitrogen" /> < statusCode code="completed" /> <effectiveTime value=& quot;448205004138" /> <value unit="MG/DL" xsi:type ="PQ" value="26.0" /> <interpretationCode codeSystem="local" code="*" /> <referenceRange> <observationRange> <text>9-20</text> </observationRange> </referenceRange> &lt ;/observation> </component> <component> < observation moodCode="EVN" classCode="OBS"> < templateId root="2.16.840.1.041987.10.20.22.4.2" /> < id nullFlavor="NA" /> <code codeSystem="local&quot ; code="300.0410" displayName="Glomerular Filtration Rate" / > <statusCode code="completed" /> < effectiveTime value="891493737016" /> <value unit="& quot; xsi:type="PQ" value="63" /> < referenceRange> <observationRange> <text> NRG</text> </observationRange> </referenceRange> </observation> </component> <component> <observation moodCode="EVN" classCode="OBS"> <templateId root="2.16.840.1.082680.10.20.22.4.2" /> < id nullFlavor="NA" /> <code codeSystem="local&quot ; code="300.0500" displayName="Glucose" /> < statusCode code="completed"/> <effectiveTime value=& quot;019730328210" /> <value unit="MG/DL" xsi:type ="PQ" value="78" /> <referenceRange> & lt;observationRange> <text>75-110</text> </observationRange> </referenceRange> </ observation> </component> <component> < observation moodCode="EVN" classCode="OBS"> < templateId root="2..840.1.493712.10.20.22.4.2" /> < id nullFlavor="NA" /> <code codeSystem="local&quot ; code="300.2000" displayName="Osmolality,Calculated" /> <statusCode code="completed" /> < effectiveTime value="044301583166" /> <value unit=&quot ;MOSM/KG" xsi:type="PQ" value="260" /> < interpretationCode codeSystem="local" code="*" /> <referenceRange> <observationRange> < text>261-280</text> </observationRange> </ referenceRange> </observation> </component> < component> <observation moodCode="EVN" classCode="OBS& quot;> <templateIdroot="2.16.840.1.499686.10.20.22.4.2&quot ; /> <id nullFlavor="NA" /> <code codeSystem="local" code="300.2200" displayName="Calcium " /> <statusCode code="completed" /> & lt;effectiveTime value="889515776221" /> <value unit=& quot;MG/DL" xsi:type="PQ" value="9.4" /> & lt;referenceRange> <observationRange> <text>8.4- 10.2</text> </observationRange> </ referenceRange> </observation> </component> < component> <observation moodCode="EVN" classCode=" OBS"> <templateId root="2.16.840.1.330564.10.20.22.4.2& quot; /> <id nullFlavor="NA" /> <code codeSystem="local" code="300.0095" displayName=" LICTERUS" /> <statusCode code="completed" /> <effectiveTime value="675628850703" /> <value unit=& quot;" xsi:type="PQ" value="< 2" /> <referenceRange> <observationRange> <text >0-7</text> </observationRange> </ referenceRange> </observation> </component> < component> <observation moodCode="EVN" classCode=" OBS"> <templateId root="2.16.840.1.473625.10..22.4.2& quot; /> <id nullFlavor="NA" /> <code codeSystem="local" code="300.0096" displayName=" LHEMOLYSIS" /> <statusCodecode="completed" /> <effectiveTime value="463772098674" /> <value unit="" xsi:type="PQ" value="< 15" /> & lt;referenceRange> <observationRange> <text& gt;0-25</text> </observationRange> </ referenceRange> </observation> </component> < component> <observation moodCode="EVN" classCode=" OBS"> <templateId root="2.16.840.1.523597.10.20.22.4.2& quot; /> <id nullFlavor="NA" /> <code codeSystem="local" code="300.0097" displayName=" LTURBIDITY" /> <statusCode code="completed" /> <effectiveTime value="121279793509" /> < value unit="" xsi:type="PQ" value="< 20" /& gt; <referenceRange> <observationRange> <text>0-20</text> </observationRange> </referenceRange> </observation> </component> </organizer> </entry> <entry> <organizer moodCode=& quot;EVN" classCode="BATTERY"> <templateId root=" 2.16.840.1.197819.10.20.22.4.1" /> <id nullFlavor="NA&quot ; /> <code codeSystem="local" code="LBGM" displayName="L900.0530" /> <statusCode code="completed " /> <component> <observation moodCode="EVN& quot; classCode="OBS"> <templateId root=" 2.16.840.1.214763.10.20.22.4.2" /> <id nullFlavor="NA& quot; /> <code codeSystem="local" code="850.0100& quot; displayName="Glucometer" /> <statusCode code=& quot;completed" /> <effectiveTime value="080925831799& quot; /> <value unit="mg/dL" xsi:type="PQ" value="211" /> <referenceRange> <observationRange > <text>65-110</text> </ observationRange> </referenceRange> </observation&gt ; </component> </organizer> </entry> <entry> <organizer moodCode="EVN" classCode="BATTERY"> <templateId root="[id number]" /> < id nullFlavor="NA" /> <code codeSystem="local" code="LBGM"displayName="L900.0530" /> < statusCode code="completed" /> <component> < observation moodCode="EVN" classCode="OBS"> < templateId root="[id number]" /> < id nullFlavor="NA" /> <code codeSystem="local&quot ; code="850.0100" displayName="Glucometer" /> & lt;statusCode code="completed" /> <effectiveTime value= "[id number]" /> <value unit="mg/dL" xsi: type="PQ" value="245" /> <referenceRange> <observationRange> <text>65-110</text&gt ; </observationRange></referenceRange> </ observation> </component> </organizer> </entry> & lt;entry> <organizer moodCode="EVN" classCode="BATTERY& quot;> <templateId root="[id number]" /& gt; <id nullFlavor="NA" /> <code codeSystem=" local" code="[id number]-N" displayName="L750.4775" /> <statusCode code="completed" /> <component> <observation moodCode="EVN" classCode="OBS"> <templateId root="2.16.840.1.721433.10.20.22.4.2" /> <id nullFlavor="NA"/> <code codeSystem=" local" code="908.3280" displayName="Hemoglobin A1C - AMS& quot; /> <statusCode code="completed" /> & lt;effectiveTime value="464211248706" /> <value unit=& quot;%" xsi:type="PQ" value="5.1" /> <referenceRange> <observationRange> < text>4.1-5.6</text> </observationRange> </ referenceRange> </observation> </component> < component> <observation moodCode="EVN" classCode=" OBS"> <templateId root="2.16.840.1.623776.10.20.22.4.2& quot; /> <id nullFlavor="NA" /> <code codeSystem="local" code="908.3281" displayName=" APHWH4IMT" /> <statusCode code="completed" /> <effectiveTime value="155084134294" /> < value unit="mg/dL" xsi:type="PQ" value="99.7" /&gt ; <referenceRange> <observationRange> & lt;text>NRG</text> </observationRange> </ referenceRange> </observation> </component> </ organizer> </entry> <entry> <organizer moodCode="EVN " classCode="BATTERY"> <templateId root=" 2.16.840.1.208802.10.20.22.4.1" /> <id nullFlavor="NA&quot ; /> <code codeSystem="local" code="HENRIQUE" displayName="L600.0100" /> <statusCode code="completed " /> <component> <observation moodCode="EVN& quot; classCode="OBS"> <templateId root=" 2.16.840.1.490522.10.20.22.4.2" /> <id nullFlavor="NA& quot; /> <code codeSystem="local" code="200.0150& quot; displayName="POTASSIUM" /> <statusCode code=" completed" /> <effectiveTime value="786490461853" /> <value unit="" xsi:type="PQ" value=" Not Provided" /> <referenceRange> < observationRange> <text>NRG</text> </ observationRange> </referenceRange> </observation&gt ; </component> <component> <observation moodCode ="EVN" classCode="OBS"> <templateId root=& quot;2.16.840.1.767418.10.20.22.4.2" /> <id nullFlavor=&quot ;NA" /> <code codeSystem="local" code=" 200.0200" displayName="CHLORIDE" /> <statusCode code="completed" /> <effectiveTime value=" 867046787422" /> <value unit="" xsi:type="PQ& quot; value="YELLOW" /> <referenceRange> <observationRange> <text>YELLOW</text> </observationRange> </referenceRange> </ observation> </component> <component> < observation moodCode="EVN" classCode="OBS"> < templateId root="2.16.840.1.370915.10.20.22.4.2" /> <id nullFlavor="NA" /> <code codeSystem="local" code="200.0300" displayName="ANION GAP" /> < statusCode code="completed" /> <effectiveTime value=& quot;806360587327" /> <value unit="" xsi:type=& quot;PQ" value="CLEAR" /> <referenceRange> <observationRange> <text>NRG</text> </observationRange> </referenceRange> </ observation> </component> <component> < observation moodCode="EVN" classCode="OBS"> < templateId root="2.16.840.1.246654.10.20.22.4.2" /> < id nullFlavor="NA" /> <code codeSystem="local&quot ; code="200.0350" displayName="BLOOD UREA NITROGEN" /> <statusCode code="completed" /> < effectiveTime value="579083111167" /> <value unit=&quot ;" xsi:type="PQ" value="7.0" /> < referenceRange> <observationRange> <text> 5.0-8.0</text> </observationRange> </ referenceRange> </observation> </component> < component> <observation moodCode="EVN" classCode=" OBS"> <templateId root="2.16.840.1.476497.10.20.22.4.2& quot; /> <id nullFlavor="NA" /> <code codeSystem="local" code="200.0450" displayName="BUN/ CREATININE RATIO" /> <statusCode code="completed" /> <effectiveTime value="701770357627" /> & lt;value unit="" xsi:type="PQ" value="NEGATIVE" /& gt; <referenceRange> <observationRange> <text>NEGATIVE</text> </observationRange> </referenceRange> </observation> </component> <component> <observation moodCode="EVN" classCode ="OBS"> <templateId root=" 2.16.840.1.362975.10.20.22.4.2" /> <id nullFlavor="NA& quot;/> <code codeSystem="local" code="200.0500& quot; displayName="GLUCOSE" /> <statusCode code=" completed" /> <effectiveTime value="875587619907" /> <value unit="" xsi:type="PQ" value=" NEGATIVE" /> <referenceRange> < observationRange> <text>NEGATIVE</text> </ observationRange> </referenceRange> </observation&gt ; </component> <component> <observation moodCode ="EVN" classCode="OBS"> <templateId root=& quot;2.16.840.1.389917.10.20.22.4.2" /> <id nullFlavor=&quot ;NA" /> <code codeSystem="local" code=" 200.0600" displayName="CALCIUM" /> <statusCode code=& quot;completed" /> <effectiveTime value="471986972729& quot; /> <value unit="" xsi:type="PQ" value=& quot;NEGATIVE" /> <referenceRange> < observationRange> <text>NEGATIVE</text> & lt;/observationRange> </referenceRange> </observation> </component> <component> <observation moodCode=& quot;EVN" classCode="OBS"> <templateId root=" 2.16.840.1.603156.10.20.22.4.2" /> <id nullFlavor="NA& quot; /> <code codeSystem="local" code="200.0750& quot; displayName="BILIRUBIN, CONJUG &amp; UNCONJUG" /> <statusCode code="completed" /> < effectiveTime value="931034685268" /> <value unit=&quot ;" xsi:type="PQ" value="NEGATIVE" /> < referenceRange> <observationRange> <text>NEGATIVE </text> </observationRange> </referenceRange& gt; </observation> </component> <component> <observation moodCode="EVN" classCode="OBS"> <templateId root="2.16.840.1.099341.10.20.22.4.2" /> <id nullFlavor="NA" /> <code codeSystem=&quot ;local" code="200.0325" displayName="Specific [place]lap,Urine& quot; /> <statusCode code="completed" /> & lt;effectiveTime value="395504764741" /> <value unit=& quot;" xsi:type="PQ" value="<=1.005" /> <interpretationCode codeSystem="local" code="*" /&gt ; <referenceRange> <observationRange> <text>1.015-1.025</text> </observationRange> </referenceRange> </observation> </component& gt; <component> <observation moodCode="EVN" classCode="OBS"> <templateId root=" 2.16.840.1.677942.10.20.22.4.2" /> <id nullFlavor="NA& quot; /> <code codeSystem="local" code="200.0410& quot; displayName="Leukocyte Esterase,Urine" /> < statusCode code="completed" /> <effectiveTime value=& quot;638244869000" /> <value unit="" xsi:type=& quot;PQ" value="NEGATIVE" /> <referenceRange> <observationRange> <text>NEGATIVE</text& gt; </observationRange> </referenceRange> & lt;/observation> </component> <component> < observation moodCode="EVN" classCode="OBS"> < templateId root="2.16.840.1.260724.10.20.22.4.2" /> < id nullFlavor="NA" /> <code codeSystem="local&quot ; code="200.0420" displayName="Nitrate,Urine" />< statusCode code="completed" /> <effectiveTime value=& quot;366317265947" /> <value unit="" xsi:type=& quot;PQ" value="NEGATIVE" /> <referenceRange> <observationRange> <text>NEGATIVE</text& gt; </observationRange> </referenceRange> </observation> </component> <component> &lt ;observation moodCode="EVN" classCode="OBS"> &lt ;templateId root="2.16.840.1.835767.10.20.22.4.2" /> < id nullFlavor="NA" /> <code codeSystem="local&quot ; code="200.0740" displayName="Urobilinogen,Urine" /> <statusCode code="completed" /> < effectiveTime value="627906460639" /> <value unit=&quot ;EU/DL" xsi:type="PQ" value="0.2" /> < referenceRange> <observationRange> <text> NORMAL</text> </observationRange> </ referenceRange> </observation> </component> < component> <observation moodCode="EVN"classCode="OBS "> <templateId root="2.16.840.1.207455.10.20.22.4.2& quot; /> <id nullFlavor="NA" /> <code codeSystem="local" code="200.0825" displayName="Occult Blood,Urine - Dipstick" /> <statusCode code="completed& quot; /> <effectiveTime value="124625716184"/> <value unit="" xsi:type="PQ" value="NEGATIVE& quot; /> <referenceRange> <observationRange> <text>NEGATIVE</text> </observationRange& gt; </referenceRange> </observation> </ component> <component> <observation moodCode="EVN& quot; classCode="OBS"> <templateId root=" 2.16.840.1.033706.10.20.22.4.2" /> <id nullFlavor="NA& quot; /> <code codeSystem="local" code="200.0992& quot; displayName="Urine Microscopic (UA)" /> < statusCode code="completed" /> <effectiveTime value=& quot;783860886094" /> <value unit="" xsi:type=& quot;PQ" value="Microscopic Not Ind." /> < referenceRange> <observationRange> <text> NRG</text> </observationRange> </ referenceRange> </observation> </component> </ organizer> </entry> <entry> <organizer moodCode="EVN " classCode="BATTERY"> <templateId root=" 2.16.840.1.266508.10.20.22.4.1" /> <id nullFlavor="NA&quot ; /> <code codeSystem="local" code="QTWZK4K-D" displayName="L750.4775" /> <statusCode code="completed " /> <component> <observation moodCode="EVN& quot; classCode="OBS"> <templateId root=" 2.16.840.1.246217.10.20.22.4.2" /> <id nullFlavor="NA& quot; /> <code codeSystem="local" code="908.3280& quot; displayName="Hemoglobin A1C - AMS" /><statusCode code=& quot;completed" /> <effectiveTime value="608647900245& quot; /> <value unit="%" xsi:type="PQ&quot ; value="5.7" /> <interpretationCode codeSystem=" local" code="*" /> <referenceRange> < observationRange> <text>4.1-5.6</text> & lt;/observationRange> </referenceRange> </ observation> </component> <component> < observation moodCode="EVN" classCode="OBS"> < templateId root="2.16.840.1.639103.10.20.22.4.2" /> < id nullFlavor="NA" /> <code codeSystem="local&quot ; code="908.3281" displayName="VIOYE5EAO" /> &lt ;statusCode code="completed" /> <effectiveTime value=& quot;855044885078" /> <value unit="mg/dL" xsi:type ="PQ" value="116.9" /> <referenceRange> <observationRange> <text>NRG</text> </observationRange> </referenceRange> </ observation> </component> </organizer> </entry> & lt;entry> <organizer moodCode="EVN" classCode="BATTERY& quot;> <templateId root="2.16.840.1.176456.10.20.22.4.1" /& gt; <id nullFlavor="NA" /> <code codeSystem=" local" code="LCBCND-A" displayName="L902.4008" /> <statusCode code="completed" /> <component> <observation moodCode="EVN" classCode="OBS"> <templateId root="2.16.840.1.578734.10.20.22.4.2" /> <id nullFlavor="NA" /> <code codeSystem=" local" code="902.4012" displayName="White Blood Count" /> <statusCode code="completed" /> < effectiveTime value="416018566205" /> <value unit=&quot ;K/uL" xsi:type="PQ" value="3.8" /> < interpretationCode codeSystem="local" code="*" /> <referenceRange> <observationRange> < text>4.8-10.8</text> </observationRange> < /referenceRange> </observation> </component> &lt ;component> <observation moodCode="EVN" classCode=" OBS"> <templateId root="2.16.840.1.674110.10.20.22.4.2& quot; /> <id nullFlavor="NA" /> <code codeSystem="local" code="902.4014" displayName="RBC& quot; /> <statusCode code="completed" /> & lt;effectiveTime value="762708373827" /> <value unit=& quot;10*6/uL" xsi:type="PQ" value="3.91" /> <interpretationCode codeSystem="local" code="*" /> <referenceRange> <observationRange> <text> 4.60-6.20</text> </observationRange> </ referenceRange> </observation> </component> < component> <observation moodCode="EVN" classCode=" OBS"> <templateId root="2.16.840.1.799044.10.20.22.4.2& quot; /> <id nullFlavor="NA" /> <code codeSystem="local" code="902.4015" displayName=" Hemoglobin" /> <statusCode code="completed" /> <effectiveTime value="191823755389" /> <value unit="g/dL" xsi:type="PQ" value="12.5" /> <interpretationCode codeSystem="local" code="*" /&gt ; <referenceRange> <observationRange> < text>14.0-18.0</text> </observationRange> &lt ;/referenceRange> </observation> </component> & lt;component> <observation moodCode="EVN" classCode=&quot ;OBS"> <templateId root="2.16.840.1.063473.10.20.22.4.2 " /> <id nullFlavor="NA" /> <code codeSystem="local" code="902.4016" displayName=" Hematocrit" /> <statusCode code="completed" /> <effectiveTime value="982460460944" /> < value unit="%" xsi:type="PQ" value="40.3" /> <interpretationCode codeSystem="local" code="*& quot; /> <referenceRange> <observationRange> <text>42.0-52.0</text> </observationRange > </referenceRange> </observation> </ component> <component> <observation moodCode="EVN& quot; classCode="OBS"> <templateId root=" 2.16.840.1.026804.10.20.22.4.2" /> <id nullFlavor="NA& quot; /> <code codeSystem="local" code="902.4017& quot; displayName="MCV" /> <statusCode code=" completed" /><effectiveTime value="748918112888" /> <value unit="fL" xsi:type="PQ" value="103.1& quot; /> <interpretationCode codeSystem="local" code=& quot;*" /> <referenceRange> < observationRange> <text>82.0-99.0</text> & lt;/observationRange> </referenceRange> </ observation> </component> <component> < observation moodCode="EVN" classCode="OBS"> < templateId root="2.16.840.1.984196.10.20.22.4.2" /> < id nullFlavor="NA" /> <code codeSystem="local" code=& quot;902.4018" displayName="MCH" /> <statusCode code= "completed" /> <effectiveTime value="918859023903& quot; /> <value unit="pg" xsi:type="PQ" value ="32.0" /> <referenceRange> < observationRange> <text>27.0-32.0</text> </observationRange> </referenceRange></observation> </component> <component> <observation moodCode=& quot;EVN" classCode="OBS"> <templateId root=" 2.16.840.1.107925.10.20.22.4.2" /> <id nullFlavor="NA& quot; /> <code codeSystem="local" code="902.4019& quot; displayName="MCHC" /> <statusCodecode=" completed" /> <effectiveTime value="187474107956" /> <value unit="g/dL" xsi:type="PQ" value=" 31.0" /> <interpretationCode codeSystem="local" code="*" /> <referenceRange> < observationRange> <text>32.0-36.0</text></ observationRange> </referenceRange> </observation&gt ; </component> <component> <observation moodCode ="EVN" classCode="OBS"> <templateId root=& quot;2.16.840.1.254142.10.20.22.4.2" /> <id nullFlavor=&quot ;NA" /> <code codeSystem="local" code=" 902.4020" displayName="RDW" /> <statusCode code=& quot;completed" /> <effectiveTime value="333945937129&quot ; /> <value unit="%" xsi:type="PQ" value="14.2" /> <referenceRange> < observationRange> <text>11.5-14.5</text> </observationRange> </referenceRange> </ observation> </component> <component> < observation moodCode="EVN" classCode="OBS"> < templateId root="2.16.840.1.204535.10.20.22.4.2" /> < id nullFlavor="NA" /> <code codeSystem="local&quot ; code="902.4022" displayName="MPV" /> < statusCode code="completed" /> <effectiveTime value=& quot;789214847768" /> <value unit="fL" xsi:type=& quot;PQ" value="11.3" /> <referenceRange> <observationRange> <text>8.8-14.8</text> </observationRange> </referenceRange> &lt ;/observation> </component> <component><observation moodCode="EVN" classCode="OBS"> <templateId root="2.16.840.1.549306.10.20.22.4.2" /> <id nullFlavor ="NA" /> <code codeSystem="local" code=" 902.4023" displayName="Platelet Count" /> < statusCode code="completed" /> <effectiveTime value=& quot;435263864215" /> <value unit="K/uL" xsi:type= "PQ" value="124" /> <interpretationCode codeSystem="local" code="*" /> < referenceRange> <observationRange> <text> 150-400</text> </observationRange> </ referenceRange> </observation> </component> </ organizer> </entry> <entry> <organizer moodCode="EVN " classCode="BATTERY"> <templateId root=" 2.16.840.1.166901.10.20.22.4.1" /> <id nullFlavor="NA&quot ; /> <code codeSystem="local" code="LESR-A" displayName="L750.8263" /> <statusCode code="completed " /> <component> <observation moodCode="EVN& quot; classCode="OBS"> <templateId root=" 2.16.840.1.767268.10.20.22.4.2" /> <id nullFlavor="NA& quot; /> <code codeSystem="local" code="903.9025& quot; displayName="ESR - Sedimentation Rate - AMS" /> < statusCode code="completed" /> <effectiveTime value=& quot;398341583072" /> <value unit="mm/h" xsi:type= "PQ" value="4" /> <referenceRange> <observationRange> <text>0-15</text> </observationRange> </referenceRange> </ observation> </component> </organizer> </entry> & lt;entry> <organizer moodCode="EVN" classCode="BATTERY& quot;> <templateId root="2.16.840.1.918840.10.20.22.4.1" /& gt; <id nullFlavor="NA" /> <code codeSystem=" local" code="LCRP-A" displayName="L749.2040" /> <statusCode code="completed" /> <component> <observation moodCode="EVN" classCode="OBS"> <templateId root="2.16.840.1.744971.10.20.22.4.2" /> & lt;id nullFlavor="NA" /> <code codeSystem="local& quot; code="908.3105" displayName="CRP - C-Reactive Protein-AMS& quot; /> <statusCode code="completed" /> & lt;effectiveTime value="266466006590" /> <value unit=& quot;mg/dL" xsi:type="PQ" value="< 0.5" /> <referenceRange> <observationRange> <text& gt;<0.5</text> </observationRange> </ referenceRange> </observation> </component> </ organizer> </entry><entry> <organizer moodCode="EVN& quot; classCode="BATTERY"> <templateId root=" 2.16.840.1.372370.10.20.22.4.1" /> <id nullFlavor="NA" /> <code codeSystem="local" code="LCBC" displayName="L100.0050" /> <statusCode code="completed " /> <component> <observation moodCode="EVN& quot; classCode="OBS"> <templateId root=" 2.16.840.1.469582.10.20.22.4.2" /> <id nullFlavor="NA& quot; /> <code codeSystem="local" code="100.0150& quot; displayName="WBC - WHITE BLOOD COUNT" /> < statusCode code="completed" /> <effectiveTime value=& quot;034092522598" /> <value unit="T/MM3" xsi:type ="PQ" value="3.9" /> <interpretationCode codeSystem="local" code="*" /> < referenceRange> <observationRange> <text> 4.5-11.0</text> </observationRange> </ referenceRange> </observation> </component> < component> <observation moodCode="EVN" classCode=" OBS"> <templateId root="2.16.840.1.849069.10.20.22.4.2& quot; /> <id nullFlavor="NA" /> <code codeSystem="local" code="100.0250" displayName="RED BLOOD COUNT" /> <statusCode code="completed" /&gt ; <effectiveTime value="249458271094" /> < value unit="M/MM3" xsi:type="PQ" value="4.04" /&gt ; <interpretationCode codeSystem="local" code="*&quot ; /> <referenceRange> <observationRange> <text>4.50-5.90</text> </observationRange&gt ; </referenceRange> </observation> </component > <component> <observation moodCode="EVN" classCode="OBS"> <templateId root=" 2.16.840.1.062102.10.20.22.4.2" /> <id nullFlavor="NA& quot; /> <code codeSystem="local" code="100.0300& quot; displayName="HGB - HEMOGLOBIN" /> <statusCode code="completed" /> <effectiveTime value=" 229498429101" /> <value unit="GM/DL" xsi:type=& quot;PQ" value="13.1" /> <interpretationCode codeSystem="local" code="*" /> < referenceRange> <observationRange> <text>13.5 -17.5</text> </observationRange> </ referenceRange> </observation> </component> < component> <observation moodCode="EVN" classCode=" OBS"> <templateId root="2.16.840.1.258483.10.20.22.4.2& quot; /> <id nullFlavor="NA" /> <code codeSystem="local" code="100.0400" displayName="HCT - HEMATOCRIT" /> <statusCode code="completed" /> <effectiveTime value="003146205405" /> < value unit="%" xsi:type="PQ" value="40.6" /> <interpretationCode codeSystem="local" code="*& quot; /> <referenceRange> <observationRange> <text>41-53</text> </observationRange&gt ; </referenceRange> </observation> </component&gt ; <component> <observation moodCode="EVN" classCode="OBS"> <templateId root=" 2.16.840.1.280915.10.20.22.4.2" /> <id nullFlavor="NA& quot; /> <code codeSystem="local" code="100.0550& quot; displayName="MEAN CORPUSCULAR VOLUME" /> < statusCode code="completed" /> <effectiveTime value=& quot;891713847903" /> <value unit="UM3" xsi:type=& quot;PQ" value="100.5" /> <interpretationCode codeSystem="local" code="*" /> < referenceRange> <observationRange> <text>80-100 </text> </observationRange> </referenceRange& gt; </observation> </component> <component> <observation moodCode="EVN" classCode="OBS"> <templateId root="2.16.840.1.912343.10.20.22.4.2" /> <id nullFlavor="NA" /> <code codeSystem=&quot ;local" code="100.0600" displayName="MEAN CORPUSCULAR HGB& quot; /> <statusCode code="completed" /> & lt;effectiveTime value="857825629488" /> <value unit=& quot;UUG" xsi:type="PQ" value="32.4" /> &lt ;referenceRange> <observationRange><text>26-34</ text> </observationRange> </referenceRange> </observation> </component> <component> <observation moodCode="EVN" classCode="OBS"> <templateId root="2.16.840.1.687572.10.20.22.4.2" /> <id nullFlavor="NA" /> <code codeSystem=" local" code="100.0650" displayName="MEAN CORPUSCULAR HGB CONC(M[facility]C" /> <statusCode code="completed" /> <effectiveTime value="340448680060" /> < value unit="GM/DL" xsi:type="PQ" value="32.3" /&gt ; <referenceRange> <observationRange> <text >31-37</text> </observationRange> </ referenceRange> </observation> </component> < component> <observationmoodCode="EVN" classCode="OBS "> <templateId root="2.16.840.1.103186.10.20.22.4.2& quot; /> <id nullFlavor="NA" /> <code codeSystem="local" code="100.0750" displayName="RDW STANDARD DEVIATION" /> <statusCode code="completed&quot ; /> <effectiveTime value="738001072332" /> <value unit="FL" xsi:type="PQ" value="49.5" / > <referenceRange> <observationRange> <text>36.9-50.2</text> </observationRange> </referenceRange> </observation> </component& gt; <component> <observation moodCode="EVN" classCode="OBS"> <templateId root=" 2.16.840.1.389880.10.20.22.4.2" /> <id nullFlavor="NA& quot; /> <code codeSystem="local" code="100.0850& quot; displayName="PLT - PLATELET COUNT" /> <statusCode code="completed" /> <effectiveTime value=" 295235078152" /> <value unit="T/MM3" xsi:type=& quot;PQ" value="127" /> <interpretationCode codeSystem="local" code="*" /> <referenceRange&gt ; <observationRange> <text>130-400</text& gt; </observationRange> </referenceRange> </observation> </component> <component> &lt ;observation moodCode="EVN"classCode="OBS"> < templateId root="2.16.840.1.035872.10.20.22.4.2" /> < id nullFlavor="NA" /> <code codeSystem="local&quot ; code="100.0950" displayName="MEAN PLATELET VOLUME" /> <statusCode code="completed" /> < effectiveTime value="632994621761" /> <value unit="UM3 " xsi:type="PQ" value="10.6" /> < referenceRange> <observationRange> <text> 9.4-12.4</text> </observationRange> </ referenceRange> </observation> </component> < component> <observation moodCode="EVN" classCode=" OBS"> <templateId root="2.16.840.1.915547.10.20.22.4.2& quot; /> <id nullFlavor="NA" /> <code codeSystem="local" code="100.1050" displayName=" NEUTROPHILS % (AUTO)" /> <statusCode code=" completed" /> <effectiveTime value="947090100663" /> <value unit="%" xsi:type="PQ" value= "30.5" /> <interpretationCode codeSystem="local" code="*" /> <referenceRange> < observationRange> <text>33-66</text> </ observationRange> </referenceRange> </observation&gt ; </component> <component> <observation moodCode ="EVN" classCode="OBS"> <templateId root=& quot;2.16.840.1.815929.10.20.22.4.2" /><id nullFlavor="NA" /> <code codeSystem="local" code="100.1100" displayName="LYMPHOCYTES % (AUTO)" /> < statusCode code="completed" /> <effectiveTime value=& quot;086425271967" /> <value unit="%" xsi: type="PQ" value="50.8" /> < interpretationCode codeSystem="local" code="*" /> <referenceRange> <observationRange> < text>23-45</text> </observationRange> </ referenceRange> </observation> </component> < component> <observation moodCode="EVN" classCode=" OBS"> <templateId root="2.16.840.1.978351.10.20.22.4.2& quot; /> <id nullFlavor="NA" /> <code codeSystem="local" code="100.1150" displayName=" MONOCYTES % (AUTO)" /> <statusCode code=" completed" /> <effectiveTime value="269025326828" /> <value unit="%" xsi:type="PQ" value="16.8" /> <interpretationCode codeSystem=" local" code="*" /> <referenceRange> < observationRange> <text>0-9.0</text> < /observationRange> </referenceRange> </observation& gt; </component> <component> <observation moodCode="EVN" classCode="OBS"> <templateId root=&quot ;2.16.840.1.234120.10.20.22.4.2" /> <id nullFlavor="NA& quot; /> <code codeSystem="local" code="100.1200& quot; displayName="EOSINOPHILS % (AUTO)" /> < statusCode code="completed" /> <effectiveTime value=& quot;901063108241" /> <value unit="%" xsi: type="PQ" value="0.8" /> <referenceRange> <observationRange> <text>0-4</text> </observationRange> </referenceRange> </ observation> </component> <component> < observation moodCode="EVN" classCode="OBS"> < templateId root="[id number]" /> < id nullFlavor="NA" /> <code codeSystem="local&quot ; code="100.1250" displayName="BASOPHILS % (AUTO)" / > <statusCode code="completed" /> < effectiveTime value="[id number]" /> <value unit=&quot ;%" xsi:type="PQ" value="0.3" /> & lt;referenceRange> <observationRange> <text>0- 2</text> </observationRange> </referenceRange > </observation> </component> <component> <observation moodCode="EVN" classCode="OBS"> <templateId root="[id number]" /> <id nullFlavor="NA" /> <code codeSystem="local& quot; code="100.1275" displayName="IMMATURE GRANULOCYTE &#37 ; (AUTO)" /> <statusCode code="completed" /> <effectiveTime value="050777300179" /> < value unit="%" xsi:type="PQ" value="0.8" / > <interpretationCode codeSystem="local" code="*& quot; /> <referenceRange> <observationRange> <text>0.0-0.5</text> </observationRange> </referenceRange> </observation> </component&gt ; <component> <observation moodCode="EVN" classCode="OBS"> <templateId root=" 2.16.840.1.487872.10.20.22.4.2" /> <id nullFlavor="NA& quot; /> <code codeSystem="local" code="100.1300& quot; displayName="NEUTROPHILS # (AUTO)" /> < statusCode code="completed" /> <effectiveTime value=" 590568246035" /> <value unit="T/MM3" xsi:type=& quot;PQ" value="1.2" /> <interpretationCode codeSystem="local" code="*" /> < referenceRange> <observationRange> <text> 1.8-7.7</text> </observationRange> </ referenceRange> </observation> </component> < component> <observation moodCode="EVN" classCode="OBS& quot;> <templateId root="2.16.840.1.049929.10.20.22.4.2&quot ; /> <id nullFlavor="NA" /> <code codeSystem="local" code="100.1350" displayName=" LYMPHOCYTES# (AUTO)" /> <statusCode code="completed& quot; /> <effectiveTime value="412687280147" /> <value unit="T/MM3" xsi:type="PQ" value="2.0& quot; /> <referenceRange> <observationRange> <text>1-4.8</text> </observationRange&gt ; </referenceRange> </observation> </ component> <component> <observation moodCode="EVN& quot; classCode="OBS"> <templateId root=" 2.16.840.1.296897.10.20.22.4.2" /> <id nullFlavor="NA& quot; /> <code codeSystem="local" code="100.1400& quot; displayName="MONOCYTES # (AUTO)" /> <statusCode code="completed" /> <effectiveTime value=" 200846604492" /> <value unit="T/MM3" xsi:type=& quot;PQ" value="0.7" /> <referenceRange> <observationRange> <text>0-0.8</text> < /observationRange> </referenceRange> </observation& gt; </component> <component> <observation moodCode="EVN" classCode="OBS"> <templateId root="2.16.840.1.430010.10.20.22.4.2" /> <id nullFlavor ="NA" /> <code codeSystem="local" code=" 100.1450" displayName="EOSINOPHILS # (AUTO)" /> < statusCode code="completed" /> <effectiveTime value=& quot;669757565896" /> <value unit="T/MM3" xsi:type ="PQ" value="0.0" /> <referenceRange> <observationRange> <text>0-0.5</text> </observationRange> </referenceRange> </ observation> </component> <component> < observation moodCode="EVN" classCode="OBS"> < templateId root="2.16.840.1.430803.10.20.22.4.2" /> < id nullFlavor="NA" /> <code codeSystem="local&quot ; code="100.1500" displayName="BASOPHILS # (AUTO)" /> & lt;statusCode code="completed" /> <effectiveTime value= "807633195751" /> <value unit="T/MM3" xsi: type="PQ" value="0.0"/> <referenceRange> <observationRange> <text>0-0.2</text> </observationRange> </referenceRange> & lt;/observation> </component> <component> < observation moodCode="EVN" classCode="OBS"> < templateId root="2.16.840.1.743117.10.20.22.4.2" /> < id nullFlavor="NA" /> <code codeSystem="local&quot ; code="100.1525" displayName="IMMATURE GRANULOCYTE # (AUTO)&quot ; /> <statusCode code="completed" /> < effectiveTime value="879556683075" /> <value unit=&quot ;T/MM3" xsi:type="PQ" value="0.03" /> < referenceRange> <observationRange> <text> 0.00-0.03</text> </observationRange> </ referenceRange> </observation> </component> </ organizer> </entry> <entry> <organizer moodCode="EVN " classCode="BATTERY"> <templateId root=" 2.16.840.1.919459.10.20.22.4.1" /> <id nullFlavor="NA&quot ; /> <code codeSystem="local" code="LCMP" displayName="L200.0020" /> <statusCode code="completed " /> <component> <observation moodCode="EVN& quot; classCode="OBS"> <templateId root=" 2.16.840.1.043332.10.20.22.4.2" /> <id nullFlavor="NA& quot; /> <code codeSystem="local" code="300.0400& quot; displayName="FUNGAL CULTURE." /> <statusCode code ="completed" /> <effectiveTime value="341736035975 " /> <value unit="MG/DL" xsi:type="PQ" value="1.1" /> <referenceRange> < observationRange> <text>0.8-1.5</text> & lt;/observationRange> </referenceRange> </ observation> </component> <component> < observation moodCode="EVN" classCode="OBS"> < templateId root="2.16.840.1.319878.10.20.22.4.2" /> < id nullFlavor="NA" /> <code codeSystem="local&quot ; code="300.0450" displayName="FUNGAL CULTURE, BLOOD." /&gt ; <statusCode code="completed" /> < effectiveTime value="644455151377" /> <value unit=&quot ;RATIO" xsi:type="PQ" value="26" /> < referenceRange> <observationRange> <text> 6-26</text> </observationRange> </ referenceRange> </observation> </component> < component> <observation moodCode="EVN" classCode=" OBS"> <templateId root="2.16.840.1.586753.10.20.22.4.2& quot; /> <id nullFlavor="NA" /> <code codeSystem="local" code="300.0100" displayName="NA - Sodium" /> <statusCode code="completed" /> <effectiveTime value="577153374440" /> <value unit="MEQ/L" xsi:type="PQ" value="146" /> <interpretationCode codeSystem="local" code="*" /&gt ; <referenceRange> <observationRange> < text>134-144</text> </observationRange> </ referenceRange> </observation> </component> < component> <observation moodCode="EVN" classCode=" OBS"> <templateId root="2.16.840.1.682390.10.20.22.4.2&quot ; /> <id nullFlavor="NA" /> <code codeSystem="local" code="300.0150" displayName=" Potassium" /> <statusCode code="completed" /> <effectiveTime value="554392275781" /> < value unit="MEQ/L" xsi:type="PQ" value="4.5" /&gt ; <referenceRange> <observationRange> <text>3.6-5</text> </observationRange> </ referenceRange> </observation> </component> < component> <observation moodCode="EVN" classCode="OBS "> <templateId root="2.16.840.1.278109.10.20.22.4.2& quot; /> <id nullFlavor="NA" /> <code codeSystem="local" code="300.0200" displayName=" Chloride" /> <statusCode code="completed" /> <effectiveTime value="732317001653" /> < value unit="MEQ/L" xsi:type="PQ" value="104" /&gt ; <referenceRange> <observationRange> < text>98-107</text> </observationRange> </ referenceRange> </observation> </component> < component> <observation moodCode="EVN" classCode=" OBS"> <templateId root="2.16.840.1.584148.10.20.22.4.2& quot; /> <id nullFlavor="NA" /> <code codeSystem="local" code="300.0250" displayName="CO2 - Carbon Dioxide"/> <statusCode code="completed" /& gt; <effectiveTime value="947607492803" /> &lt ;value unit="MEQ/L" xsi:type="PQ" value="27" /&gt ; <referenceRange> <observationRange> <text>22-30</text> </observationRange> </referenceRange> </observation> </component> <component> <observation moodCode="EVN" classCode=& quot;OBS"> <templateId root=" 2.16.840.1.020110.10.20.22.4.2" /> <id nullFlavor="NA& quot; /> <code codeSystem="local" code="300.0300& quot; displayName="Anion Gap" /> <statusCode code=&quot ;completed" /> <effectiveTime value="992219427393" /> <value unit="MEQ/L" xsi:type="PQ" value=& quot;15" /> <referenceRange> <observationRange > <text>5-15</text> </observationRange > </referenceRange> </observation> </ component> <component> <observation moodCode="EVN& quot; classCode="OBS"> <templateId root=" 2.16.840.1.943452.10.20.22.4.2"/> <id nullFlavor="NA& quot; /> <code codeSystem="local"code="300.0350& quot; displayName="BUN - Blood Urea Nitrogen" /> < statusCode code="completed" /> <effectiveTime value=& quot;997593088761" /> <value unit="MG/DL" xsi:type ="PQ" value="29.0" /> <interpretationCode codeSystem="local" code="*" /> < referenceRange> <observationRange> <text> 9-20</text> </observationRange> </referenceRange> </observation> </component> <component> <observation moodCode="EVN" classCode="OBS"> <templateId root="2.16.840.1.981179.10.20.22.4.2" /> & lt;id nullFlavor="NA" /> <code codeSystem="local& quot; code="300.0410" displayName="Glomerular Filtration Rate& quot; /> <statusCode code="completed" /> & lt;effectiveTime value="382506462390" /> <value unit=& quot;" xsi:type="PQ" value="63" /> < referenceRange> <observationRange> <text> NRG</text> </observationRange> </ referenceRange> </observation> </component> < component> <observation moodCode="EVN" classCode=" OBS"> <templateId root="2.16.840.1.795742.10.20.22.4.2& quot; /> <id nullFlavor="NA" /> <code codeSystem="local" code="300.0500" displayName="Glucose " /> <statusCode code="completed" /> < effectiveTime value="008971669143" /> <value unit=&quot ;MG/DL" xsi:type="PQ" value="109" /> < referenceRange> <observationRange> <text> 75-110</text> </observationRange> </ referenceRange> </observation> </component> < component> <observation moodCode="EVN" classCode=" OBS"> <templateId root="2.16.840.1.027743.10.20.22.4.2& quot; /> <id nullFlavor="NA"/> <code codeSystem="local" code="300.2000" displayName=" Osmolality,Calculated" /> <statusCode code="completed& quot; /> <effectiveTime value="915285284652" /> <value unit="MOSM/KG" xsi:type="PQ" value="288 " /> <interpretationCode codeSystem="local" code=& quot;*" /> <referenceRange> < observationRange> <text>261-280</text> </ observationRange> </referenceRange> </observation&gt ; </component> <component> <observation moodCode ="EVN" classCode="OBS"> <templateId root=& quot;2.16.840.1.906880.10.20.22.4.2" /> <id nullFlavor=&quot ;NA" /> <code codeSystem="local" code=" 300.2200" displayName="Calcium" /> <statusCode code=& quot;completed" /> <effectiveTime value="083459147148& quot; /> <value unit="MG/DL" xsi:type="PQ" value="10.0" /> <referenceRange> < observationRange> <text>8.4-10.2</text> & lt;/observationRange> </referenceRange> </observation> </component> <component> <observation moodCode= "EVN" classCode="OBS"> <templateId root=&quot ;2.16.840.1.482611.10.20.22.4.2" /> <id nullFlavor="NA& quot; /> <code codeSystem="local" code="300.1560& quot; displayName="Bilirubin,Total" /> <statusCode code ="completed" /> <effectiveTime value="724327016698 " /> <value unit="MG/DL" xsi:type="PQ" value="0.30" /> <referenceRange> < observationRange> <text>0.20-1.30</text> </observationRange> </referenceRange> </ observation> </component> <component> < observation moodCode="EVN" classCode="OBS"> < templateId root="2.16.840.1.530646.10.20.22.4.2" /> < id nullFlavor="NA" /> <code codeSystem="local&quot ; code="300.2975" displayName="Alkaline Phosphatase" /> <statusCode code="completed" /> < effectiveTime value="545263482681"/> <value unit=" U/L" xsi:type="PQ" value="54" /> < referenceRange> <observationRange> <text> 38-126</text> </observationRange> </ referenceRange> </observation> </component> < component> <observation moodCode="EVN" classCode=" OBS"> <templateId root="2.16.840.1.432953.10.20.22.4.2& quot;/> <id nullFlavor="NA" /> <code codeSystem="local"code="300.3050" displayName="AST - Aspartate Amino Transfer" /> <statusCode code=" completed" /> <effectiveTime value="586352695744"/ > <value unit="U/L" xsi:type="PQ" value=&quot ;31" /> <referenceRange> <observationRange> <text>17-59</text> </observationRange&gt ; </referenceRange> </observation> </ component> <component> <observation moodCode="EVN& quot; classCode="OBS"> <templateId root=" 2.16.840.1.283574.10.20.22.4.2" /> <id nullFlavor="NA& quot; /> <code codeSystem="local" code="300.3100& quot; displayName="ALT" /> <statusCode code=" completed" /> <effectiveTime value="903119419136" /> <value unit="U/L" xsi:type="PQ" value=& quot;29" /> <referenceRange> < observationRange> <text>21-72</text> < /observationRange> </referenceRange> </observation& gt; </component> <component> <observation moodCode="EVN" classCode="OBS"> <templateId root="2.16.840.1.315590.10.20.22.4.2" /> <id nullFlavor ="NA" /> <code codeSystem="local" code=" 300.3110" displayName="TP - Total Protein" /> < statusCode code="completed" /> <effectiveTime value=& quot;562155349680" /> <value unit="G/DL" xsi:type= "PQ" value="8.0" /> <referenceRange>< observationRange> <text>6.3-8.2</text> & lt;/observationRange> </referenceRange> </ observation> </component> <component> < observation moodCode="EVN" classCode="OBS">< templateId root="2.16.840.1.885408.10..22.4.2" /> < id nullFlavor="NA" /> <code codeSystem="local&quot ; code="300.3120" displayName="Albumin Level" /> <statusCode code="completed" /> <effectiveTime value="263292240341" /> <value unit="G/DL" xsi:type="PQ" value="4.8" /> <referenceRange& gt; <observationRange> <text>3.5-5.0</ text> </observationRange> </referenceRange> & lt;/observation> </component> <component> < observation moodCode="EVN" classCode="OBS"> < templateId root="2.16.840.1.459588.10..22.4.2" /> < id nullFlavor="NA" /> <code codeSystem="local&quot ; code="300.3130" displayName="Globulin" /> < statusCode code="completed" /> <effectiveTime value=& quot;319188389027" /> <value unit="G/DL" xsi:type= "PQ" value="3.2" /> <referenceRange> <observationRange> <text>2.4-3.6</text> </observationRange> </referenceRange> </ observation> </component> <component> < observation moodCode="EVN" classCode="OBS"> < templateId root="216.840.1.428771.10.20.22.4.2" /> < id nullFlavor="NA" /> <code codeSystem="local&quot ; code="300.3140" displayName="Albumin/Globulin Ratio" /&gt ; <statusCode code="completed" /> < effectiveTime value="639668770718" /> <value unit=&quot ;RATIO" xsi:type="PQ" value="1.5" /> < referenceRange> <observationRange> <text>1.1-2.2</ text> </observationRange> </referenceRange> </observation> </component> <component> <observationmoodCode="EVN" classCode="OBS"> <templateId root="216.840.1.308656.10.20.22.4.2" /> <id nullFlavor="NA" /> <code codeSystem=" local" code="300.0095" displayName="LICTERUS" /> <statusCode code="completed" /> < effectiveTime value="220943177138" /> <value unit=&quot ;" xsi:type="PQ" value="< 2" /> < referenceRange> <observationRange> <text> 0-7</text> </observationRange> </ referenceRange> </observation> </component> < component> <observation moodCode="EVN" classCode=" OBS"> <templateId root="2.16.840.1.277907.10.20.22.4.2& quot; /> <id nullFlavor="NA" /> <code codeSystem="local" code="300.0096" displayName=" LHEMOLYSIS" /> <statusCode code="completed" /> <effectiveTime value="937454478008" /> <value unit= "" xsi:type="PQ" value="< 15" /> <referenceRange> <observationRange> < text>0-25</text> </observationRange> </ referenceRange> </observation></component> < component> <observation moodCode="EVN" classCode=" OBS"> <templateId root="2.16.840.1.036576.10.20.22.4.2& quot; /> <id nullFlavor="NA" /> <code codeSystem="local" code="300.0097" displayName=" LTURBIDITY" /> <statusCode code="completed" /> <effectiveTime value="121344045321" /> < value unit="" xsi:type="PQ" value="< 20" /& gt; <referenceRange> <observationRange> <text>0-20</text> </observationRange> </referenceRange> </observation> </component> </organizer> </entry> <entry> <organizer moodCode=& quot;EVN" classCode="BATTERY"> <templateId root=" 2.16.840.1.144234.10.20.22.4.1" /> <id nullFlavor="NA&quot ; /> <code codeSystem="local" code="LCBC" displayName="L100.0050" /> <statusCode code="completed " /> <component> <observation moodCode="EVN& quot; classCode="OBS"> <templateId root=" 2.16.840.1.333410.10.20.22.4.2" /> <id nullFlavor="NA& quot; /> <code codeSystem="local" code="100.0150& quot; displayName="WBC - WHITE BLOOD COUNT" /> < statusCode code="completed" /> <effectiveTime value=& quot;392761835691" /> <value unit="T/MM3" xsi:type ="PQ" value="9.2" /> <referenceRange> <observationRange> <text>4.5-11.0</text> </observationRange> </referenceRange> < /observation> </component> <component> < observation moodCode="EVN" classCode="OBS"> < templateId root="2.16.840.1.723220.10.20.22.4.2" /> < id nullFlavor="NA" /> <code codeSystem="local&quot ; code="100.0250" displayName="RED BLOOD COUNT" /> <statusCode code="completed" /> <effectiveTime value="020338724775" /> <value unit="M/MM3" xsi:type="PQ" value="3.87" /> < interpretationCode codeSystem="local" code="*" /> <referenceRange> <observationRange> < text>4.50-5.90</text> </observationRange> </ referenceRange> </observation> </component> < component> <observation moodCode="EVN" classCode=" OBS"> <templateId root="2.16.840.1.317942.10.20.22.4.2& quot; /> <id nullFlavor="NA" /> <code codeSystem="local" code="100.0300" displayName="HGB - HEMOGLOBIN" /> <statusCode code="completed" /> <effectiveTime value="916469044864" /> < value unit="GM/DL" xsi:type="PQ" value="12.5" /&gt ; <interpretationCode codeSystem="local" code="*&quot ; /> <referenceRange> <observationRange> &lt ;text>13.5-17.5</text> </observationRange> & lt;/referenceRange> </observation> </component> <component> <observation moodCode="EVN" classCode=& quot;OBS"> <templateId root=" 2.16.840.1.384872.10.20.22.4.2" /> <id nullFlavor="NA& quot; /> <codecodeSystem="local" code="100.0400& quot; displayName="HCT - HEMATOCRIT" /> <statusCode code="completed" /> <effectiveTime value=" 139464048219" /> <value unit="%" xsi:type= "PQ" value="38.5" /> <interpretationCode codeSystem="local" code="*" /> < referenceRange> <observationRange> <text> 41-53</text> </observationRange> </ referenceRange> </observation> </component> < component> <observation moodCode="EVN" classCode=" OBS"> <templateId root="2.16.840.1.981888.10.20.22.4.2& quot; /> <id nullFlavor="NA" /> <code codeSystem="local" code="100.0550" displayName="MEAN CORPUSCULAR VOLUME" /> <statusCode code="completed&quot ; /> <effectiveTime value="287130366951"/> <value unit="UM3" xsi:type="PQ" value="99.5" /& gt; <referenceRange> <observationRange> <text>80-100</text> </observationRange> </referenceRange> </observation> </component> <component> <observation moodCode="EVN" classCode= "OBS"> <templateId root=" 2.16.840.1.650350.10.20.22.4.2" /> <id nullFlavor="NA& quot; /> <code codeSystem="local" code="100.0600& quot; displayName="MEAN CORPUSCULAR HGB" /> < statusCode code="completed" /> <effectiveTime value=& quot;432807690362" /> <value unit="UUG" xsi:type=& quot;PQ" value="32.3" /> <referenceRange> <observationRange> <text>26-34</text> </observationRange> </referenceRange> </ observation> </component> <component> < observation moodCode="EVN" classCode="OBS"> < templateId root="2.16.840.1.983648.10.20.22.4.2" /> <id nullFlavor="NA" /> <code codeSystem="local" code="100.0650" displayName="MEAN CORPUSCULAR HGB CONC([facility]&quot ; /> <statusCode code="completed" /> < effectiveTime value="703920037172" /> <value unit=" GM/DL" xsi:type="PQ" value="32.5" /> < referenceRange> <observationRange> <text> 31-37</text> </observationRange> </ referenceRange> </observation> </component> < component> <observation moodCode="EVN" classCode=" OBS"> <templateId root="2.16.840.1.420982.10.20.22.4.2& quot; /> <id nullFlavor="NA" /> <code codeSystem="local" code="100.0750" displayName="RDW STANDARD DEVIATION" /> <statusCode code="completed&quot ; /> <effectiveTime value="118693433898" /> < value unit="FL" xsi:type="PQ" value="47.3" /> <referenceRange> <observationRange> <text>36.9-50.2</text> </observationRange> </referenceRange> </observation> </component> <component> <observation moodCode="EVN" classCode=& quot;OBS"> <templateId root=" 2.16.840.1.904860.10.20.22.4.2" /> <id nullFlavor="NA&quot ; /> <code codeSystem="local" code="100.0850&quot ; displayName="PLT - PLATELET COUNT" /> <statusCode code="completed" /> <effectiveTime value=" 634070641694" /> <value unit="T/MM3" xsi:type=& quot;PQ" value="114" /> <interpretationCode codeSystem="local" code="*" /> < referenceRange> <observationRange> <text>130 -400</text> </observationRange> </ referenceRange> </observation> </component> < component> <observation moodCode="EVN" classCode=" OBS"> <templateId root="2.16.840.1.043734.10.20.22.4.2& quot; /> <id nullFlavor="NA" /> <code codeSystem="local" code="100.0950" displayName="MEAN PLATELET VOLUME" /> <statusCode code="completed" / > <effectiveTime value="785850655822" /> & lt;value unit="UM3" xsi:type="PQ" value="11.1" /& gt; <referenceRange> <observationRange> < text>9.4-12.4</text> </observationRange> < /referenceRange> </observation> </component> </ organizer> </entry> <entry> <organizer moodCode="EVN " classCode="BATTERY"> <templateId root=" 2.16.840.1.509687.10.20.22.4.1" /><id nullFlavor="NA" /&gt ; <code codeSystem="local" code="LDIFFM" displayName ="L100.0105" /> <statusCode code="completed" /&gt ; <component> <observation moodCode="EVN" classCode=& quot;OBS"> <templateId root="2.16.840.1.804396.10.20.22.4.2 " /> <id nullFlavor="NA" /> <code codeSystem="local" code="100.1650" displayName=" NEUTROPHILS % (MANUAL)" /> <statusCode code=" completed" /> <effectiveTime value="106214002016" /> <value unit="%" xsi:type="PQ" value="62.0" /> <referenceRange> < observationRange> <text>33-66</text> < /observationRange> </referenceRange> </observation& gt; </component> <component> <observation moodCode="EVN" classCode="OBS"> <templateId root="2.16.840.1.286843.10.20.22.4.2" /> <id nullFlavor ="NA" /> <code codeSystem="local" code=" 100.1850" displayName="LYMPHOCYTES % (MANUAL)" /> <statusCode code="completed" /> < effectiveTime value="533687012444" /> <valueunit=" %" xsi:type="PQ" value="9.0" /> &lt ;interpretationCode codeSystem="local" code="*" /> <referenceRange> <observationRange> <text& gt;23-45</text> </observationRange> </ referenceRange> </observation> </component>< component> <observation moodCode="EVN" classCode=" OBS"> <templateId root="2.16.840.1.278168.10.20.22.4.2" /> <id nullFlavor="NA" /> <code codeSystem="local" code="100.1950" displayName=" MONOCYTES % (MANUAL)" /> <statusCode code=" completed" /> <effectiveTime value="318967612518" /> <value unit="%" xsi:type="PQ" value="29.0" /> <interpretationCodecodeSystem=" local" code="*" /> <referenceRange> <observationRange> <text>0-9.0</text> </observationRange> </referenceRange> </ observation> </component> <component> < observation moodCode="EVN" classCode="OBS"> < templateId root="2.16.840.1.507784.10.20.22.4.2" /> < id nullFlavor="NA" /> <code codeSystem="local&quot ; code="100.2400" displayName="PROLYMPHOCYTES %" /& gt; <statusCode code="completed" /> <effectiveTime value="591548732724" /> <value unit="T/MM3" xsi:type="PQ" value="5.7" /> <referenceRange& gt; <observationRange> <text>1.8-7.7</ text> </observationRange> </referenceRange> </observation> </component> <component> <observation moodCode="EVN" classCode="OBS"> <templateId root="2.16.840.1.002460.10.20.22.4.2" /> & lt;id nullFlavor="NA" /> <code codeSystem="local& quot; code="100.2650" displayName="NEUTROPHILS # (MANUAL)" / > <statusCode code="completed" /> < effectiveTime value="909960945074" /> <value unit=&quot ;T/MM3" xsi:type="PQ" value="2.7" /> < interpretationCode codeSystem="local" code="*" /> <referenceRange> <observationRange> <text >0-0.8</text> </observationRange> </ referenceRange> </observation> </component> < component> <observation moodCode="EVN" classCode=" OBS"> <templateId root="2.16.840.1.393984.10.20.22.4.2& quot; /> <id nullFlavor="NA" /> <code codeSystem="local" code="100.4750" displayName=" MACROCYTOSIS" /> <statusCode code="completed" /&gt ; <effectiveTime value="577384331152" /> < value unit="" xsi:type="PQ" value="1+" /> <referenceRange> <observationRange> &lt ;text>NRG</text> </observationRange> </ referenceRange> </observation> </component> < component> <observation moodCode="EVN" classCode=" OBS"> <templateId root="2.16.840.1.457625.10.20.22.4.2& quot; /> <id nullFlavor="NA" /> <code codeSystem="local" code="100.4850" displayName=" POLYCHROMASIA" /> <statusCode code="completed" /& gt; <effectiveTime value="302838487652" /> < value unit="" xsi:type="PQ" value="1+" /> <referenceRange> <observationRange> &lt ;text>NRG</text> </observationRange> </ referenceRange> </observation> </component> < component> <observation moodCode="EVN" classCode=" OBS"> <templateId root="[id number]& quot; /> <id nullFlavor="NA" /> <code codeSystem ="local" code="100.2550" displayName="Lymphocytes # ( Manual)" /> <statusCode code="completed" /> <effectiveTime value="[id number]" /> < value unit="T/MM3" xsi:type="PQ" value="0.8" /&gt ; <interpretationCode codeSystem="local" code="*&quot ; /> <referenceRange> <observationRange> <text>1-4.8</text> </observationRange> </referenceRange> </observation> </component>&lt ;component> <observation moodCode="EVN" classCode=" OBS"> <templateId root="[id number]" /> <id nullFlavor="NA" /> <code codeSystem="local" code="100.4565" displayName="LRBCMOR " /> <statusCode code="completed" /> & lt;effectiveTime value="[id number]" /> <value unit=& quot;" xsi:type="PQ" value="Abnormal" /> & lt;referenceRange> <observationRange> <text& gt;NRG</text> </observationRange> </ referenceRange> </observation> </component> </ organizer> </entry></section> Encounters ACCT Visit Discharge Status Pt. Provider Facility Loc./Unit Complaint No. Date/Time Type [id number] 03/23/2013 04/02/2013 DIS Inpatie Nyasia [place] [id number] 17:10:00 16:00:00 giuliana ROMANO, [facility] [id number] 02/18/2014 02/18/2014 CLS Outpati 10:37:00 23:59:59 ent [id number] 11/28/2013 11/28/2013 CLS Outpati 10:37:00 23:59:59 ent [id number] 02/03/2016 Documen [id number] 05:17:03 t Registr ation [id number] 09/09/2015 Documen [id number] 13:12:35 t Registr ation [id number] 09/09/2015 Documen [id number] 10:16:03 t Registr ation [id number] 08/29/2016 08/29/2016 CLS Outpati [facility], 08:31:09 23:59:59 ent [place] [id number] 01/13/2017 Documen 11:19:19 t Registr ation [id number] 01/13/2017 Documen 10:40:00 t Registr ation [id number] 01/13/2017 Documen 00:00:00 t Registr ation [id number] 01/22/2018 01/22/2018 DIS Outpati Kobe JOHNSTON Ortho Lt Knee [id number] 08:17:00 13:29:00 ent ALAN L [facility] Sports Medicine [id number] 01/21/2018 01/21/2018 SELVIN ROSS MD, Kobe Low back 31071 11:26:00 14:05:00 CHEN Winston [facility] pain Center [id number] 01/16/2018 01/16/2018 CHERIE PAGE MD, [place] [id number] 07:30:00 23:59:59 t WANG S Revision T84.84XD [id number] 01/04/2018 01/04/2018 DIS Kobe Panda chest [id number] 16:24:00 16:25:00 ent BEAVER Medical x-ray/EKG/la Center b [id number] 01/01/2018 01/01/2018 Kobe Prado [place] Ortho [place] knee [id number] 10:14:00 23:59:00 ent WANG S & Sports Medicine [id number] 12/26/2017 12/26/2017 Kobe Prado MD T84.84XD [id number] 12:18:00 12:19:00 ent WANG Leonel Medical Pain due to Center internal orthopedic prostheti [id number] 12/25/2017 12/25/2017 Kobe Prado MD Ortho LAB [id number] 10:07:00 23:59:00 ent WANG S & Sports Medicine [id number] 12/25/2017 12/25/2017 Kobe Prado [place]o [place] [id number] 08:43:00 23:59:00 ent WANG S & Sports 05/25/17 Medicine [id number] 12/08/2017 12/08/2017 [place]obe [place] 14417 09:58:00 23:59:00 ent ALAN L & Sports 05/25/17 Medicine [id number] 11/10/2017 11/10/2017 SELVIN BIRD MD, Diabetes diabetes 21402 10:22:00 11:05:00 ent JOSE M & Endocrinolog y [id number] 10/25/2017 10/25/2017 Kobe Ellis [place]o [place] [id number] 13:21:00 15:38:00 julienne ALAN L & Sports 05/25/17 Medicine [id number] 07/26/2017 07/26/2017 [place] [id number] 13:15:00 23:59:00 ent ALAN L & Sports 05/25/17 Medicine [id number] 07/25/2017 07/25/2017 DIS Outpati ROXANNE [facility] Lab [id number] 18:02:00 18:03:00 VASHTI robins MD [id number] 07/11/2017 07/11/2017 DIS Outpati MARGE ROMANO, Diabetes DIABETES 59856 14:08:00 15:30:00 ent JOSE M & Endocrinolog y [id number] 06/19/2017 06/19/2017 DIS Outpati KAYLEE ROMANO, [place]M [place] [id number] 12:47:00 23:59:00 ent WANG Castaneda 05-25-17 [id number] 05/29/2017 06/12/2017 DIS Inpatievelyn ROSS MD, IRU S/P Left [id number] 15:13:00 15:52:00 nt CHEN E Knee,Debilit y with failure at home [id number] 05/29/2017 05/29/2017 DIS Outpati KAYLEE ROMANO, AMB.NOSM [place] [id number] 10:19:00 23:59:00 ent WANG Castaneda 05/25/17 [id number] 05/25/2017 05/26/2017 DIS Inpatievelyn PAGE MD, SRG arthritis 73518 07:49:00 15:40:00 nt WANG Castaneda left knee [id number] 05/10/2017 05/10/2017 DIS Outpati DYLAN HODGE, AMB.NOSM 32585 13:47:00 23:59:00 ent ALAN L [id number] 05/08/2017 05/08/2017 DIS Outpati ROXANNE REGINE 64225 09:25:00 09:26:00 VASHTI robins MD [id number] 05/01/2017 05/01/2017 DIS Outpati KAYLEE ROMANO, AMB.NOSM Lt Knee [id number] 12:48:00 13:45:00 ent WANG S [id number] 10/20/2016 10/20/2016 CLS Outpati Kobe ROMERO DO REGINE 15603 11:43:00 23:59:59 ent [facility] [id number] 02/14/2018 Documen [id number] 12:48:00 t Registr ation [id number] 03/08/2017 03/08/2017 DIS Outpati 8 14:30:34 14:30:34 ent [id number] 09/19/2017 09/19/2017 DIS Outpati Neha, [facility] CPAP [id number] 15:22:00 23:59:00 ent Karla Blankenship HELP/TURN ON Clinic SMART START [id number] 09/19/2017 09/19/2017 DIS Outpati [facility] 2-3 MO CPAP [id number] 14:17:00 23:59:00 ent Pattie CK Clinic COMPLIANCE WITH REPLACEMENT MACHINE [id number] 07/07/2017 07/07/2017 DIS Outpati Jason Fabian [facility] 6 week lorraine 89824 14:07:00 23:59:00 ent Rehan Blankenship check mask Clinic leak cpap [id number] 05/03/2017 05/03/2017 DIS Outpati Gurinder [facility] PRESSURE [id number] 14:23:00 23:59:00 ent Pattie Ruiz CHANGE/MASK Chepe A Clinic HELP [id number] 05/03/2017 05/03/2017 DIS Outpati Gurinder [facility] 1 yr lorraine 84187 12:48:00 23:59:00 ent Pattie Ruiz cpap Chepe A Clinic [id number] 07/05/2016 07/05/2016 DIS Outpati Neha, [facility] 2 mo check 12890 13:08:00 23:59:00 ent Karla Blankenship mask leak Clinic [id number] 06/27/2016 06/27/2016 DIS Outpati Lorri, [facility] 1 YEAR [id number] 13:40:00 23:59:00 ent Clay Blankenship RCK/PSA Clinic [id number] 05/03/2016 05/03/2016 DIS Outpati [facility] 3 mo fu cpap [id number] 13:05:00 23:59:00 ent Pattie Clinic [id number] 02/02/2016 02/02/2016 DIS Outpati Neha, [facility] Pressure 60853 12:02:00 23:59:00 ent Karla Bergmani change/mask Clinic fit/educatio n [id number] 02/02/2016 02/02/2016 DIS Outpati [facility] 1 yr ck cpap 30527 10:57:00 23:59:00 ent Pattie / PT OKAYED Clinic [facility] [id number] 07/03/2015 07/03/2015 DIS Outpati Lorri, [facility] CYSTO [id number] 14:02:00 23:59:00 ent Clay Bergmani Clinic [id number] 06/17/2015 06/17/2015 DIS Outpati Lorri, [facility] SOV/HEMATURI [id number] 14:22:00 23:59:00 ent Clay Blankenship A/UTI Clinic [id number] 11/27/2014 11/27/2014 DIS Outgabi Gambino, [facility] adjust [id number] 14:48:00 23:59:00 ent Patrick Petty pressure to Clinic 7cm per Dr Stephens [id number] 11/27/2014 11/27/2014 DIS Outgabi Kat, [facility] From IDX : 1 [id number] 13:40:00 23:59:00 ent Josemanuel GARCIA CK CPAP Clinic [id number] 02/02/2016 Documen [id number] 11:11:00 t Registr ation [id number] 03/23/2013 04/02/2013 DIS Inpatie Nyasia [place] [id number] 17:10:00 16:00:00 nt , [facility] [id number] 02/18/2014 02/18/2014 CLS Outpati 10:37:00 23:59:59 ent [id number] 11/28/2013 11/28/2013 CLS Outpati 10:37:00 23:59:59 ent [id number] 09/19/2017 09/19/2017 DIS Outpati Neha, [facility] CPAP [id number] 15:22:00 23:59:00 ent Karla Blankenship HELP/TURN ON Clinic SMART START [id number] 09/19/2017 09/19/2017 DIS Outpati [facility] 2-3 MO CPAP [id number] 14:17:00 23:59:00 julienne Blankenship CK Clinic COMPLIANCE WITH REPLACEMENT MACHINE [id number] 07/07/2017 07/07/2017 DIS Outpati Jason Fabian [facility] 6 week lorraine 76196 14:07:00 23:59:00 julienne Blankenship check mask Clinic leak cpap [id number] 05/03/2017 05/03/2017 DIS Outpati Gurinder [facility] PRESSURE [id number] 14:23:00 23:59:00 Pattie Bloom CHANGE/MASK Chepe A Clinic HELP [id number] 05/03/2017 05/03/2017 DIS Outpati Gurinder [facility] 1 yr lorraine [id number] 12:48:00 23:59:00 ent Pattie Ruiz cpap Chepe A Clinic [id number] 07/05/2016 07/05/2016 DIS Outpati Neha, [facility] 2 mo check [id number] 13:08:00 23:59:00 ent Karla Blankenship mask leak Clinic [id number] 06/27/2016 06/27/2016 DIS Outpati Lorri, [facility] 1 YEAR 13740 13:40:00 23:59:00 ent Clay Blankenship RCK/PSA Clinic [id number] 05/03/2016 05/03/2016 DIS Outpati [facility] 3 mo fu cpap 53207 13:05:00 23:59:00 ent Pattie Clinic [id number] 02/02/2016 02/02/2016 DIS Outpati Neha, [facility] Pressure 83741 12:02:00 23:59:00 ent Karla Blankenship change/mask Clinic fit/educatio n [id number] 02/02/2016 02/02/2016 DIS Outpati [facility] 1 yr ck cpap 60314 10:57:00 23:59:00 ent Pattie / PT OKAYED Clinic [facility] [id number] 07/03/2015 07/03/2015 DIS Outpati Lorri, [facility] CYSTO [id number] 14:02:00 23:59:00 ent Clay Blankenship Clinic [id number] 06/17/2015 06/17/2015 DIS Outpati Lorri, [facility] SOV/HEMATURI [id number] 14:22:00 23:59:00 ent Clay Blankenship A/UTI Clinic [id number] 11/27/2014 11/27/2014 DIS Outpati Maki, [facility] adjust [id number] 14:48:00 23:59:00 ent Patrick Petty pressure to Clinic 7cm per Dr Stephens [id number] 11/27/2014 11/27/2014 DIS Outpati Kat, [facility] From IDX : 1 [id number] 13:40:00 23:59:00 ent Josemanuel Petty YR CK CPAP Clinic [id number] 02/02/2016 Documen [id number] 11:11:00 shayan chatterjee
[2018-02-20 09:40] VITALS: BMI 25.4
[2018-02-20] MEDS: LR 1,000 ML IV SCH ×2 (10:10→12:59)
[2018-02-20] MEDS: NOZIN NASAL SWAB NAS SCH ×4 (10:36→21:06)
[2018-02-20] MEDS ORDERED: VANCOMYCIN 1,000 MG INJECTION ONE (11:52)
[2018-02-20] MEDS ORDERED: MIDAZOLAM 2mg/2ml INJECTION ONE (12:36)
[2018-02-20] MEDS ORDERED: PROPOFOL 500 MG/50 ML VIAL ONE (12:37)
[2018-02-20] MEDS ORDERED: LIDOCAINE 2% (100mg/5mL) 5ml PF SDV ONE (12:42)
[2018-02-20] MEDS ORDERED: BUPIVACAINE 0.5% (5mg/ml) PF 30ml INJ SDV ONE (12:42)
[2018-02-20] MEDS ORDERED: VANCOMYCIN 1,000 MG INJECTION IAR ONE (13:16)
[2018-02-20] MEDS ORDERED: CEFAZOLIN 1 G INJECTION IVP ONE (13:17)
[2018-02-20] MEDS ORDERED: EPHEDRINE 50mg/ml INJECTION ONE (13:22)
[2018-02-20] MEDS ORDERED: PHENYLEPHRINE INJ 10 MG/ML VIAL IV ONE (13:36)
--- NOTE | 2018-02-20 13:54 | Anesthesia Preoperative Report ---
Anesthesia Preoperative Record - Date and Time Date: 02/20/18 Preoperative Diagnosis: Lt TKA Revision T84.84XD Proposed Procedure: left TKA revision NPO Since Date: 02/19/18 NPO Since Time: 23:00 Allergies/Adverse Reactions: Allergies Allergy/AdvReac Type Severity Reaction Status Date / Time No Known Allergies Allergy Unknown Verified 02/20/18 09:59 - Vital Signs Vital Signs: Temperature 97.8 F 02/20/18 09:39 Pulse Rate 74 02/20/18 10:19 Respiratory Rate 12 02/20/18 09:39 Blood Pressure 117/64 02/20/18 09:39 Pulse Oximetry 90 02/20/18 09:39 Height and Weight: Height 5 ft 6 in Weight 71.6 kg Body Mass Index 25.4 - Medications Inpatient Medications: Current Medications Tranexamic Acid 1,000 mg/ (Sodium Chloride) 110 mls @ 0 mls/hr TOP INTRAOP ONE PRN Reason: As Directed Stop: 02/20/18 14:33 Lactated Ringer's (Lactated Ringers) 1,000 mls @ 50 mls/hr IV .Q20H JOAQUINA Last Admin: 02/20/18 13:13 Dose: 50 mls/hr Isopropyl Alcohol (Nozin Nasal Swab) 1 each MARCOS Q1M JOAQUINA Stop: 02/20/18 15:48 Last Admin: 02/20/18 10:40 Dose: 1 each Sodium Chloride (Iv Flush) 10 - 80 ml IV PRN PRN PRN Reason: Flushing Home Medications: Home Medications Medication Instructions Recorded Confirmed Type Omeprazole Magnesium [Prilosec Otc] 20 mg PO DAILY #0 10/07/11 02/20/18 History Fish Oil/Dha/Epa [Fish Oil 1,200 1,200 mg PO AM AND NOON #0 08/19/13 02/20/18 History mg Fish Oil] Calcium 600 + D [Caltrate + D] 1 tab PO BID 05/01/17 02/20/18 History Citalopram [Celexa] 20 mg PO DAILY 05/18/17 02/20/18 History Cyanocobalamin (Vitamin B-12) 500 mcg SL DAILY 05/25/17 02/20/18 History [B-12] Multivitamin [One Daily 1 each PO DAILY 05/25/17 02/20/18 History Multivitamin] Glucosa Tabares 2Kcl/Chondroitin Tabares 1 each PO BID 01/01/18 02/20/18 History [Glucosamine Chondroitin Caplet] Ibuprofen 400 mg PO BID PRN 01/01/18 02/20/18 History Aspirin [Aspirin EC] 81 mg PO DAILY 01/21/18 02/20/18 History Hydrocodone/APAP 5/325 [[place] 1 tab PO Q6HPRN PRN #10 tab 01/21/18 02/20/18 Rx 5/325] Lancets [Unistik Touch Lancets] 0 lancets .ROUTE .MEDSUPPLY 01/21/18 02/20/18 History predniSONE [Prednisone] 10 mg PO DAILY #18 tab 01/21/18 02/20/18 Rx ergocalciferol (vitamin D2) 50,000 50,000 unit PO DAILY #2 cap 01/22/18 Rx unit capsule Amaryl (glimepiride) 1 mg tablet 1 mg PO BID #180 tab 01/23/18 02/20/18 Rx Is Patient on Beta Marlen?: No - Medical History Respiratory: Reports: Sleep Apnea Cardiovascular: Reports: Abnormal EKG (LBBB), Coronary Artery Disease (NO BLOCKAGES), Other (aortic stenosis, carotid bruit) Gastrointestional: Reports: Gastroesophageal Reflux Disease (well controlled) Neuro/Musculoskeletal: Reports: HX.MS.OSAR, Back Problems Renal/Endocrine: Reports: Diabetes Mellitus Type 2 Other History: Reports: Cancer (PROSTATE) - Surgical History Neurological Surgeries: Reports: Other (Lumbar fusion w/ metal stabilization) HEENT Surgeries: Reports: Eye Surgery (CATARACT X2) Respiratory Surgery/Treatments: Reports: CPAP Use GI Surgery/Treatments: Reports: Hernia Repair (Lt inguinal hernia repair), Colonoscopy, EGD (hx gastric polyps) Surgery/Treatment: REPORT: Prostatectomy (robot assisted) Musculoskeletal Surgery/Tx: Reports: Total Knee Replacement (RIGHT 2012/Lt. 2017 ) Anesthesia Reactions: None Hx Family Anesthesia Reaction: No History of Motion Sickness: No - Social History Smoking Status: Never smoker Hx Chewing Tobacco Use: No Second Hand Exposure: No Substance Use Type: does not use Alcohol Intake Frequency: does not drink - Pertinent Findings Laboratory: CBC and BMP 02/20/18 09:45 02/20/18 09:45 BMP 02/20/18 09:45 Sodium 142 Potassium 4.2 Chloride 102 Carbon Dioxide 27 BUN 27.0 H Creatinine 1.0 Glucose 81 Calcium 9.7 EKG: Sinus Rhythm - Plan Regional/Trunk Block: Spinal - Discussion Discussion: Discussed risks/options/alternatives of anesthesia and questions answered. Patient consents. Nursing pain assessment noted. Attestation Statement: Prior to the delivery of any anesthetic medication, I examined the patient, developed the plan, obtained the patient's consent and discussed the risk and benefits of the procedure with the patient/guardian.
[2018-02-20] MEDS ORDERED: TRANEXAMIC ACID 1,000 MG in NS 100 ML TOP ONE (14:32)
[2018-02-20] MEDS ORDERED: SALINE FLUSH 10ml SYRINGE IV PRN (15:40)
[2018-02-20] MEDS ORDERED: ROPIVACAINE 0.5% (5mg/ml) 30ml INJ ONE (15:41)
--- NOTE | 2018-02-20 16:02 | Anesthesia Postoperative Note ---
- Date and Time Date: 02/20/18 Time: 16:02 - Status Patient Participated in Evaluation: Patient Participated in Person Vital Signs: Temperature 97.0 F 02/20/18 15:31 Pulse Rate 86 02/20/18 15:31 Respiratory Rate 16 02/20/18 15:31 Blood Pressure 107/56 02/20/18 15:31 Pulse Oximetry 98 02/20/18 15:31 Respiratory Function: Airway Patent Cardiovascular Function: Regular Pulse EKG: Sinus Rhythm Mental Status: Alert and Oriented Pain Intensity: 0 Hydration: IV Infusing Complications During Recover: None Apparent Post Anesthesia Care Notes: spinal <T10 level - Follow-Up Instructions Instructions: Per Surgeon
--- NOTE | 2018-02-20 16:04 | Anesthesia Procedure Note ---
Peripheral Nerve Blockade - Procedure Physician: Ankush Gomes MD Date: 02/20/18 Surgical Procedure: left TKA revision Discussion: Discussed risks/options/alternatives of anesthesia and questions answered. Patient consents. Nursing pain assessment noted. Block Start: 15:43 Block Stop: 15:46 Blocked Employed: Adductor Canal Indication: Post-Operative Pain Approach: Left Side Confirmed Position: Supine Patient: Consent, Risks/Benefits Discussed, Informed, Post Block Act. Discussed IV Sedation: No (spinal active) Initial Vital Signs: Temperature 97.8 F 02/20/18 09:39 Temperature Source Oral 02/20/18 09:39 Pulse Rate 77 02/20/18 09:39 Respiratory Rate 12 02/20/18 09:39 Blood Pressure 117/64 02/20/18 09:39 Blood Pressure Mean 81 02/20/18 09:39 Blood Pressure Position Sitting 02/20/18 09:39 Pulse Oximetry 90 02/20/18 09:39 Oxygen Delivery Method 02/20/18 09:39 Post Vital Signs: Temperature 97.0 F 02/20/18 15:31 Pulse Rate 86 02/20/18 15:31 Respiratory Rate 16 02/20/18 15:31 Blood Pressure 107/56 02/20/18 15:31 Pulse Oximetry 98 02/20/18 15:31 Initial Pain Pain Score: 0 Post Block Pain Score: 0 Prep: Chlorhexadine/ETOH Ultrasound Used?: Yes - Injectate Ropivacaine (%): 0.5 Ropivacaine (mL): 30 Was Epi 1:200,000 Used?: No Injection: Injection made incrementally with constant monitoring and negative aspiration every 5 ml
--- NOTE | 2018-02-20 16:05 | XRay Report ---
Indication: postoperative image PROCEDURE: XR knee LT 2V: Encounter: Initial Comparison: December 25, 2017 Findings: Postoperative changes of left total knee revision are seen with extension of the femoral component. There is expected postoperative subcutaneous gas. No evidence of hardware failure or acute fracture. No retained radiopaque surgical instruments or sponges. Overlying material causing artifact. Impression: Revision left total knee prosthesis without evidence of immediate complication. .
[2018-02-20] MEDS ORDERED: ONDANSETRON 4 MG/2 ML INJECTION IVP PRN (16:25)
[2018-02-20] MEDS ORDERED: DiphenhydrAMINE 50 MG/ML INJECTION IVP PRN (16:25)
[2018-02-20] MEDS ORDERED: NOZIN NASAL SWAB NAS ONE (16:25)
[2018-02-20] MEDS ORDERED: DiphenhydrAMINE 25 MG CAPSULE PO PRN (16:25)
[2018-02-20] MEDS ORDERED: LORazepam 1 MG TABLET PO PRN (16:25)
[2018-02-20] MEDS ORDERED: IBUPROFEN 400 MG TABLET PO PRN (16:25)
[2018-02-20] MEDS: NS 1,000 ML IV SCH (16:28)
[2018-02-20] MEDS: OMEGA-3 ACID ESTERS 1 GM CAPSULE PO SCH (17:59)
[2018-02-20] MEDS: ACETAMINOPHEN 325 MG TABLET PO SCH ×2 (17:59→21:06)
[2018-02-20] MEDS: DOCUSATE SODIUM 100 MG CAPSULE PO SCH (21:06)
[2018-02-20] MEDS: SENNOSIDES 8.6 MG TABLET PO SCH (21:06)
[2018-02-20] MEDS: ASPIRIN *EC* 81 MG TABLET PO SCH (21:06)
[2018-02-20] MEDS: CEFAZOLIN 1 G in NS 100 ML IV SCH (21:06)
[2018-02-21] MEDS: CEFAZOLIN 1 G in NS 100 ML IV SCH (04:23)
[2018-02-21] MEDS: Oxycodone *IR* 5 MG TABLET PO PRN ×3 (04:23→17:55)
[2018-02-21] MEDS: NS 1,000 ML IV SCH (04:29)
[2018-02-21] MEDS: NOZIN NASAL SWAB NAS SCH ×3 (05:34→21:18)
[2018-02-21] MEDS: OMEPRAZOLE 20 MG CAPSULE PO SCH (05:34)
--- NOTE | 2018-02-21 07:59 | Operative Note ---
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 PROCEDURE Revision of left total knee arthroplasty femoral component. SURGEON Ankush Gomes MD ASSIST Seb Lemus PA-C ANESTHESIA Spinal. COMPLICATIONS, EBL, FLUIDS, TOURNIQUET TIME Please see Anesthetic Records. BRIEF HISTORY Mr. Orourke is a kind 87-year-old gentleman who is approximately one year out from a total knee arthroplasty. He continued to have pain in his distal thigh with ambulation. After all other workup was negative, a bone scan suggested loosening of the femoral component. Because of the amount of pain he was having , I recommended revision surgery. DESCRIPTION OF PROCEDURE Mr. Orourke and his left knee were identified and marked in the preoperative holding area. He was brought back to the operating suite and placed supine on the operating table after a spinal anesthetic was administered. The left lower extremity was prepped and draped in my normal sterile fashion. Time-out was performed. I took the knee through a range of motion. He had excellent motion to near full extension and he was stable throughout range of motion. He had good stability of the anterior and posterior drawer sign as well. I utilized the previous anterior midline incision. Sharp dissection was carried down through scar tissue and then a medial parapatellar capsulotomy was performed. On inspection there was no unusual fluid and soft tissue appeared in good condition. No signs of synovitis. No signs of wear to the plastic. A couple of taps were placed on the femoral component to see if it would come off easily. It did not , so we used a small sagittal saw to disrupt the interface between the metal and cement. This was followed with flexible osteotomes. I was then able to remove the distal femur with a tamp. Bone loss was minimal. Most of the loss was within the medial distal femoral condyle, but it really remained very good bone stalk. His PCL was resected. I then reamed to a size 18 reamer, going to a depth for 100 mm stem. We placed a cutting block for a 3 femur which was one size smaller than we had taken off and cut this with 5 mm augments distally. Trial components were placed and were well seated. With a 9 spacer, this gave him excellent balance and good range of motion. He lacked probably 3-5 degrees of his full terminal extension, but flexion was unhindered. The leg was then exsanguinated and the tourniquet inflated to 150 mmHg. The bone was prepared for cementing and then the final components were assembled on the back table and then cemented into place. Then it was allowed to cure in extension with a 9 mm spacer. After 5 minutes, the tourniquet was let down. We then placed 1 g of TXA into the knee joint and let it set for 5 minutes. After the cement had cured, the knee was taken again through a range of motion. Patella tracked well. It was nice and stable and had good range of motion. Patella was also checked for loosening and did not show any signs. The same with the tibia. After another thorough irrigation, a final 9 mm PF spacer was placed. The capsulotomy was closed with #1 Vicryl. I then my nurse practitioner physicians assistant to close the subcutaneous tissue with a 0 V-Loc followed by Monoderm in the skin followed by a sterile dressing. The drapes will then be removed and he will be taken to the recovery room under the care of Anesthesia. He tolerated the procedure well. There were no complications. CAREN
--- NOTE | 2018-02-21 08:43 | Orthopedic Progress Note ---
Date: Date: 02/21/18 Time: 08 Subjective/Severity of Illness: Dennys is seen this AM on morning rounds. He is up with PT and in good spirits. He is walking fair distances but feels the knee "shifts side to side" when walking. Pain is moderate. No CP or breathing concerns. Hgb 10.4 this AM. BMP is normal limits. Blood sugars mostly 60-70 but high of 183. Dressing dry. NO other concerns. Pt is hopeful to go to IRU for continued rehab following his TKA. Orthopedic Exam Vital signs: Temperature 96.1 F L 02/21/18 08:00 Pulse Rate 79 02/21/18 08:00 Respiratory Rate 18 02/21/18 03:38 Blood Pressure 139/72 02/21/18 08:00 Pulse Oximetry 95 02/21/18 08:00 - Constitutional General Appearance: Present: alert, cooperative, no acute distress - Respiratory Exam Present: non-labored - Cardiovascular Exam Present: pedal pulses intact - Extremities Exam Present: pulses intact. Absent: no edema, calf tenderness Comments: He can actively extend the knee and flexes comfortably to 90 degrees. The knee is not unstable but does have mild laxity medially with valgus stress. Has a good end point. - Dressing Dressing: dry, intact, no drainage - Integumentary Exam Present: pink, warm, dry - Neurological Exam Present: no deficits - Psychiatric Exam Present: alert, normal affect - Labs Result Diagrams: 02/21/18 04:20 02/21/18 04:20 Abnormal lab results 02/20/18 02/20/18 02/21/18 Range/Units 09:45 09:45 04:20 RBC 3.93 L (4.50-5.90) M/MM3 Hgb 12.6 L 10.4 L D (13.5-17.5) GM/DL Hct 39.5 L (41-53) % MCV 100.5 H (80-100) UM3 Immature Gran % (Auto) 1.5 H (0.0-0.5) % Neut % (Auto) 25.1 L (33-66) % Lymph % (Auto) 46.5 H (23-45) % [place] % (Auto) 25.9 H (0-9.0) % Neut # (Auto) 1.2 L (1.8-7.7) T/MM3 [place] # (Auto) 1.3 H (0-0.8) T/MM3 Abs Immat Gran (auto) 0.07 H (0.00-0.03) T/MM3 BUN 27.0 H (9-20) MG/DL BUN/Creatinine Ratio 27 H (6-26) RATIO Glucose (75-110) MG/DL 02/21/18 Range/Units 04:20 RBC (4.50-5.90) M/MM3 Hgb (13.5-17.5) GM/DL Hct (41-53) % MCV (80-100) UM3 Immature Gran % (Auto) (0.0-0.5) % Neut % (Auto) (33-66) % Lymph % (Auto) (23-45) % [place] % (Auto) (0-9.0) % Neut # (Auto) (1.8-7.7) T/MM3 [place] # (Auto) (0-0.8) T/MM3 Abs Immat Gran (auto) (0.00-0.03) T/MM3 BUN 25.0 H (9-20) MG/DL BUN/Creatinine Ratio (6-26) RATIO Glucose 58 L (75-110) MG/DL H & H 18 02/21/18 Range/Units 09:45 04:20 Hgb 12.6 L 10.4 L D (13.5-17.5) GM/DL Hct 39.5 L (41-53) % Orthopedic Assessment and Plan (1) Painful total knee replacement, left Status: Acute Qualifiers: Encounter type: initial encounter Qualified Code(s): T84.84XA - Pain due to internal orthopedic prosthetic devices, implants and grafts, initial encounter; Z96.652 - Presence of left artificial knee joint Assessment and Plan: Dennys is doing well, but I think we should brace his knee with a hinged brace to provide stability thru the recovery phase. The implant is a posterior stabilized design which should help with this as well. Consider IRU to monitor for progression knee stability and assure safety while in the brace. ASA and SCDs for DVT protection. Mobilize with PT / OT. Pt lives independently and may need additional care considering his age, diabetes, recent surgery and needing a knee brace. Monitor labs. Discharge planning per CM. - Anticoagulation Therapy Anticoagulation: ASA 81 mg PO BID x6 weeks Hospital Course Summary Disclaimer: The visit summary below is not to be considered part of the above Progress Note.
[2018-02-21] MEDS: OMEGA-3 ACID ESTERS 1 GM CAPSULE PO SCH ×2 (09:22→13:23)
[2018-02-21] MEDS: PredniSONE 10 MG TABLET PO SCH (09:22)
[2018-02-21] MEDS: ACETAMINOPHEN 325 MG TABLET PO SCH ×4 (09:22→20:08)
[2018-02-21] MEDS: CITALOPRAM 20 MG TABLET PO SCH (09:23)
[2018-02-21] MEDS: ASPIRIN *EC* 81 MG TABLET PO SCH ×2 (09:23→20:08)
[2018-02-21] MEDS: DOCUSATE SODIUM 100 MG CAPSULE PO SCH ×2 (09:23→20:08)
[2018-02-21] MEDS: POLYETHYL GLYCOL 3350 17gm PACKET PO SCH (09:23)
[2018-02-21] MEDS ORDERED: GLIMEPIRIDE 1 MG TABLET PO SCH (09:42)
[2018-02-21] MEDS: GLIMEPIRIDE 1 MG TABLET PO SCH ×2 (10:48→17:52)
[2018-02-21] MEDS ORDERED: SENNOSIDES 8.6 MG TABLET PO PRN (15:17)
[2018-02-21] MEDS: INSULIN ASPART 100unit/ml INJECTION SQ PRN ×2 (15:22→21:18)
[2018-02-21] MEDS: SENNOSIDES 8.6 MG TABLET PO SCH (20:09)
[2018-02-22] MEDS: NOZIN NASAL SWAB NAS SCH ×3 (06:08→21:32)
[2018-02-22] MEDS: OMEPRAZOLE 20 MG CAPSULE PO SCH (06:08)
[2018-02-22] MEDS: Oxycodone *IR* 5 MG TABLET PO PRN ×3 (06:15→13:14)
[2018-02-22] MEDS: NS 1,000 ML IV SCH ×2 (08:00→18:02)
[2018-02-22] MEDS: POLYETHYL GLYCOL 3350 17gm PACKET PO SCH (08:36)
[2018-02-22] MEDS: GLIMEPIRIDE 1 MG TABLET PO SCH ×2 (08:36→17:56)
[2018-02-22] MEDS: OMEGA-3 ACID ESTERS 1 GM CAPSULE PO SCH ×2 (08:36→12:49)
[2018-02-22] MEDS: PredniSONE 10 MG TABLET PO SCH (08:36)
[2018-02-22] MEDS: DOCUSATE SODIUM 100 MG CAPSULE PO SCH ×2 (08:36→21:32)
[2018-02-22] MEDS: ACETAMINOPHEN 325 MG TABLET PO SCH ×4 (08:36→21:32)
[2018-02-22] MEDS: ASPIRIN *EC* 81 MG TABLET PO SCH ×2 (08:36→21:32)
[2018-02-22] MEDS: CITALOPRAM 20 MG TABLET PO SCH (08:36)
--- NOTE | 2018-02-22 09:36 | Orthopedic Progress Note ---
Date: Date: 02/22/18 Time: 932 Subjective/Severity of Illness: Doing well. Slept fair. Moderate knee pain with movement. Minimal drainage on the dressing this AM. No CP, cough or SOA. Slight increase in Creat overnight. no other concerns. Orthopedic Exam Vital signs: Temperature 96.1 F L 02/21/18 08:00 Pulse Rate 79 02/21/18 08:00 Respiratory Rate 18 02/21/18 03:38 Blood Pressure 139/72 02/21/18 08:00 Pulse Oximetry 95 02/21/18 08:00 - Constitutional General Appearance: Present: alert, cooperative, no acute distress - Respiratory Exam Present: non-labored - Cardiovascular Exam Present: pedal pulses intact - Extremities Exam Present: pulses intact. Absent: no edema, calf tenderness - Dressing Dressing: dry, intact, bloody drainage (minimal amount. [place] placed in the incision 02/23/18.) - Integumentary Exam Present: pink, warm, dry - Neurological Exam Present: no deficits - Psychiatric Exam Present: alert, normal affect - Labs Result Diagrams: 02/22/18 04:17 02/22/18 04:17 Abnormal lab results 02/22/18 02/22/18 Range/Units 04:17 04:17 Hgb 10.0 L (13.5-17.5) GM/DL BUN 31.0 H (9-20) MG/DL H & H 02/20/18 02/21/18 02/22/18 Range/Units 09:45 04:20 04:17 Hgb 12.6 L 10.4 L D 10.0 L (13.5-17.5) GM/DL Hct 39.5 L (41-53) % Orthopedic Assessment and Plan (1) Painful total knee replacement, left Status: Acute Qualifiers: Encounter type: initial encounter Qualified Code(s): T84.84XA - Pain due to internal orthopedic prosthetic devices, implants and grafts, initial encounter; 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 We braced his knee with a hinged brace to provide stability thru the recovery phase. The implant is a posterior stabilized design which should help with this as well. New Mepilex dressing applied today via sterile technique. Will monitor for drainage. His creat increased from 1.0 to 1.2 and GFR dropped from the 70's to 57. I will give him some IV fluids. Recheck labs in AM. One glucometer reading >300 last evening, but is otherwise in good control. ASA and SCDs for DVT protection. Mobilize with PT / OT. Monitor labs and recheck in the AM after getting IV fluids today. Discharge planning per CM. - Anticoagulation Therapy Anticoagulation: ASA 81 mg PO BID x6 weeks Hospital Course Summary Disclaimer: The visit summary below is not to be considered part of the above Progress Note.
[2018-02-22] MEDS ORDERED: BISACODYL 10 MG SUPPOSITORY RECTALLY SCH (20:00)
[2018-02-22] MEDS: SENNOSIDES 8.6 MG TABLET PO SCH (21:32)
[2018-02-23] MEDS: OMEPRAZOLE 20 MG CAPSULE PO SCH (05:44)
[2018-02-23] MEDS: NOZIN NASAL SWAB NAS SCH (05:44)
--- NOTE | 2018-02-23 06:39 | Discharge Summary ---
Orthopedic Discharge Info Date of admission: 02/20/18 09:16 Anticipated date of discharge: 02/23/18 Primary care physician: Yeison Ash MD Attending Physician: Ankush Gomes MD Consults: 02/20/18 09:39 Consult to Anesthesiology [CONS] Routine Reason For Exam: Preoperative Assessment 02/20/18 16:25 Case Management Consult [CONS] Routine Reason For Exam: Discharge Planning DME-Walker [CONS] Routine Height: 5 ft 6 in Weight: 71.6 kg Total Joint Outpatient Therapy [CONS] Routine Comment: Remove dressing in 2 weeks 02/21/18 IRU Screening [Inpatient Rehab Screening] [CONS] Routine 02/21/18 08:46 Physician Consult [CONS] Routine Consulting Provider: Cammy Drummond Reason For Exam: [facility] Ordering Provider has Notified [employer] Teacher: Yes - Discharge Diagnosis (1) Painful total knee replacement, left Qualifiers: Encounter type: initial encounter Qualified Code(s): T84.84XA - Pain due to internal orthopedic prosthetic devices, implants and grafts, initial encounter; 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 - Laboratory Result Diagrams: 02/23/18 04:11 02/23/18 04:11 Laboratory: Abnormal lab results 02/23/18 02/23/18 Range/Units 04:11 04:11 RBC 3.35 L (4.50-5.90) M/MM3 Hgb 10.9 L (13.5-17.5) GM/DL Hct 34.3 L D (41-53) % MCV 102.4 H (80-100) UM3 RDW Std Deviation 50.9 H (36.9-50.2) FL Plt Count 119 L (130-400) T/MM3 Potassium 5.1 H (3.6-5) MEQ/L BUN 32.0 H (9-20) MG/DL BUN/Creatinine Ratio 32 H (6-26) RATIO H & H 02/20/18 02/21/18 02/22/18 Range/Units 09:45 04:20 04:17 Hgb 12.6 L 10.4 L D 10.0 L (13.5-17.5) GM/DL Hct 39.5 L (41-53) % 02/23/18 Range/Units 04:11 Hgb 10.9 L (13.5-17.5) GM/DL Hct 34.3 L D (41-53) % Orthopedic Discharge HPI - HPI Comments Dennys had a Lt TKA a little over a year ago. He did well for several months but then began having increased pain around the distal femur and thigh region. Xrays were unremarkable, but bone scan did show increased uptake consistent with loosening of the left femoral component. Pt was not improving with conservative tx and was having debilitating pain that limited his ADLs. Pt elected to proceed with a revision arthroplasty. Orthopedic Hospital Course Hospital course: 02/23/18 06:39 After appropriate preoperative clearance and signing of operative consent, the patient was given IV antibiotics, according to orthopedic protocol. The patient was taken to the operating room and underwent elective joint arthroplasty. Following surgery, antibiotics were discontinued less than 24 hours according to joint protocol. Aspirin was initiated and SCDs added for DVT prevention. This will be continued for 6 weeks post op. The dressing was dry at discharge. Pain control was obtained via multimodal approach. Bowel motivation addressed with scheduled and PRN medications. Early mobilization was initiated through PT services. Discharge arrangements made by a collaborative effort between the patient and Case Management. Pt developed some drainage from the surgical incision and several alex were placed to control this. He had a mild elevation of his creatinine from 1.0 to 1.2, but this returned to pre op levels with some IV fluids. BUN and K+ are similarly elevated and will be followed after discharge. Follow-up is scheduled in 2-3 weeks. Discharge instructions given by orthopedic providers and nursing staff at discharge. Discharge condition was good. Care extended to > 2 midnight stays?: Yes Comments: Wound drainage. Increased Creat. Discharge Plan - Med Rec/Dispo Referrals/Follow Up: Ankush Gomes MD [Physician] - 03/14/18 1:00 pm Terrelluvarlene Instructions: [facility] [place] Ortho Postop Instructions Prescriptions: New Acetaminophen [Tylenol] 650 mg PO QID tab Aspirin *EC* [Ecotrin] 81 mg PO BID tab Docusate Sodium [Colace] 100 mg PO BID cap Oxycodone *IR* [Roxicodone *Ir*] 5 - 15 mg PO Q3H PRN #60 tab PRN Reason: Breakthrough Pain PEG 3350 17gm PACKET [Miralax] 17 gm PO DAILY packet Continue Omeprazole Magnesium [Prilosec Otc] 20 mg PO DAILY #0 Fish Oil/Dha/Epa [Fish Oil 1,200 mg Fish Oil] 1,200 mg PO AM AND NOON #0 Calcium 600 + D [Caltrate + D] 1 tab PO BID Cyanocobalamin (Vitamin B-12) [B-12] 500 mcg SL DAILY Glucosa Tabares 2Kcl/Chondroitin Tabares [Glucosamine Chondroitin Caplet] 1 each PO BID Ibuprofen 400 mg PO BID PRN PRN Reason: Pain Lancets [Lancets Thin] 0 lancets .ROUTE .MEDSUPPLY Citalopram [Celexa] 20 mg PO DAILY Multivitamin [One Daily Multivitamin] 1 each PO DAILY predniSONE [Prednisone] 10 mg PO DAILY #18 tab ergocalciferol (vitamin D2) 50,000 unit capsule 50,000 unit PO DAILY #2 cap Amaryl (glimepiride) 1 mg tablet 1 mg PO BID #180 tab Discontinued Aspirin [Aspirin EC] 81 mg PO DAILY Hydrocodone/APAP 5/325 [[place] 5/325] 1 tab PO Q6HPRN PRN #10 tab PRN Reason: Pain - Disposition 03 To SNU Not [facility] (SNF) - Dismissal Complete Discharge Instructions are:: Complete, Incomplete
--- NOTE | 2018-02-23 06:56 | Extended Care Facility Orders ---
Admission Orders Admit to:: [facility] Allergies/Adverse Reactions: Allergies No Known Allergies Allergy (Unknown, Verified 02/20/18 09:59) Admitting Diagnosis: Lt TKA Revision T84.84XD Admitting Physician: Ankush Gomes MD Attending Physician: Ankush Gomes MD Code Status: FULL Anticiapted Length of Stay: 30 days or less Rehab Potential: good Rehab Prognosis: good Diet: 02/20/18 Dinner Consistent Carbohydrate Diet [DIET] Calorie Level: 2000 May use Facility Protocol or Standing Orders: Yes May have flu vaccine: Yes Evaluations/Treatment: PT, OT [facility] Certification: I certify that SNF services are required to be given on an Inpatient basis because of the patients need for penitentiary care on a continuing basis for the condition(s) for which he/she received inpatient hospital services prior to his/her transfer to the SNF. SNF inpatient care is necessary for the following reasons Indication for [facility]: Postop Assessment Care - Additional Information In Event of Arrest: Start CPR,call 911,send patient to the ER Resident is Aware of Diagnosis: Yes Laboratory/Radiology: CBC and BMP on Monday February 26, 2018. Fax results to Dr Gomes @ [phone]. Referrals: Ankush Gomes MD [Physician] - 03/14/18 1:00 pm Additional Orders: PT/OT work with ROM, strengthening, ROM, Txfrs, ADLs, and mobility. WBAT with a walker. Use the brace when walking. May remove the brace in bed. Do NOT remove the Mepilex dressing to check the wound. Call Dr Gomes for any wound concerns before removing the dressing. Use incentive spirometer every 4hrs while awake. Keep the incision / dressing dry. Elevate the leg when possible to help minimize swelling. Do not sit up in a chair for long periods without getting back to bed and elevate the leg.
[2018-02-23 07:25] VITALS: O2SAT 97
[2018-02-23] MEDS ORDERED: BISACODYL 10 MG SUPPOSITORY RECTALLY ONE (07:49)
[2018-02-23] MEDS: ACETAMINOPHEN 325 MG TABLET PO SCH ×2 (08:20→12:07)
[2018-02-23] MEDS: OMEGA-3 ACID ESTERS 1 GM CAPSULE PO SCH ×2 (08:20→12:07)
[2018-02-23] MEDS: DOCUSATE SODIUM 100 MG CAPSULE PO SCH (08:20)
[2018-02-23] MEDS: POLYETHYL GLYCOL 3350 17gm PACKET PO SCH (08:20)
[2018-02-23] MEDS: GLIMEPIRIDE 1 MG TABLET PO SCH (08:20)
[2018-02-23] MEDS: PredniSONE 10 MG TABLET PO SCH (08:20)
[2018-02-23] MEDS: CITALOPRAM 20 MG TABLET PO SCH (08:20)
[2018-02-23] MEDS: ASPIRIN *EC* 81 MG TABLET PO SCH (08:21)
[2018-02-23 10:50] VITALS: BP 130/64; PULSE 84; RESP 16; TEMP 97.3
== END 2018-02-23 13:03 | DRG 468 ==
LOC: SRG 02-20 09:16
PROVIDERS: ADMIT Orthopaedic Surgery; ATTEND Orthopaedic Surgery